=== PATIENT | male | born 1935 | race Caucasian/White ===

== ENCOUNTER 2017-12-06 10:21 | Inpatient (IN) ==
--- NOTE | 2017-12-06 11:00 | Emergency Department Note ---
Disposition Clinical Impression: Hyperkalemia, Pedal edema ARF (acute renal failure) Qualifiers: Acute renal failure type: unspecified Qualified Code(s): N17.9 - Acute kidney failure, unspecified Disposition: Admitted As Inpatient Condition: Fair Time of Disposition: 13:27 Recheck wound or abnormal lab - General Chief Complaint: ED Recheck/Abnormal Lab/Rx Stated Complaint: Abnormal labs Time Seen by Provider: 12/06/17 10:30 Source: patient Mode of arrival: ambulatory Limitations: no limitations Nursing Notes Reviewed: Yes Vital Signs Reviewed: Yes - History of Present Illness HPI Narrative: I have re-performed and reviewed the history documented by the medical student, and I confirm its accuracy except as noted below Agree with student history of present illness. In summary, patient has new acute renal failure. Only new medication recently was azithromycin. No other new medication changes. His lower extremity edema that is chronic for the past 15 years, unchanged. Did have recent upper respiratory infection within the past 2 weeks, nausea, vomiting with past week. Both of these have now resolved. No history of CKD per patient. - Related Data Home Medications Medication Instructions Recorded Confirmed Amlodipine Besylate 10 mg PO DAILY 12/06/17 12/06/17 Aspirin Enteric Coated [Aspirin EC] 81 mg PO DAILY 12/06/17 12/06/17 Atorvastatin [Lipitor] 40 mg PO HS 12/06/17 12/06/17 Furosemide [Lasix] 40 mg PO DAILY 12/06/17 12/06/17 Lisinopril [Zestril] 20 mg PO DAILY 12/06/17 12/06/17 Metformin HCl 500 mg PO BID 12/06/17 12/06/17 Metoprolol [Lopressor] 50 mg PO BID 12/06/17 12/06/17 Terazosin HCl 10 mg PO BID 12/06/17 12/06/17 Timolol Maleate 0.5% [Timolol 1 drop OP DAILY 12/06/17 12/06/17 Maleate 0.5%] Tramadol HCl [Ultram] 50 mg PO QID PRN 12/06/17 12/06/17 Allergies Allergy/AdvReac Type Severity Reaction Status Date / Time Penicillins AdvReac Rash Verified 12/06/17 10:41 All systems ED: reviewed and negative except as stated. Constitutional: Denies: fever Cardiovascular: Denies: chest pain, palpitations Respiratory: Reports: cough, dyspnea. Denies: wheezes, sputum production Gastrointestinal: Reports: nausea, vomiting. Denies: abdominal pain, diarrhea, constipation Genitourinary: Reports: frequency. Denies: urgency, dysuria, hematuria, discharge, testicular pain, testicular mass Neurological: Denies: headache, weakness, numbness, paresthesias Past Medical History - Past Medical History Attestation: Yes The following information was validated with the patient. Source: patient Medical history: Reports: no medical history Physical Exam - General Limitations: no limitations General appearance: alert, in no apparent distress - Head Head exam: atraumatic, normocephalic, normal inspection - Eye Eye exam: Present: normal appearance, PERRL, EOMI - ENT ENT exam: normal exam, normal oropharynx, mucous membranes moist - Neck Neck exam: Present: normal inspection, full ROM, trachea midline - Chest Chest inspection: Present: normal inspection, symmetric chest wall rise - Respiratory Respiratory exam: Present: normal lung sounds bilaterally - Cardiovascular Cardiovascular exam: Present: regular rate, normal rhythm, normal heart sounds - Abdominal Exam Abdominal exam: Present: soft, Non-Tender. Absent: tenderness, distention, guarding, rebound, rigidity - Extremities Exam Extremities exam: Present: normal inspection, full ROM, pedal edema ( Significant pitting pedal edema bilateral lower extremities). Absent: tenderness - Neurological Exam Neurological exam: Present: alert, oriented X3 - Psychiatric Psychiatric exam: Present: normal affect, normal mood - Skin Skin exam: Present: warm, dry, intact, normal color Course Course Narrative: Vitals within normal limits. Labs reviewed and showed a creatinine of 12, new onset on 12/05/17. Physical exam fairly benign except for significant bilateral lower extremity pitting edema and the patient states is chronic and near baseline for him. We will repeat labs here including CBC, BMP, troponin, BNP. We will perform EKG also perform chest x-ray due to recent acute renal failure and history of recent dyspnea. Patient currently denies any symptoms now. 13:25 chest x-ray negative for any acute cardio pulmonary process. EKG showed no acute ST changes. Potassium 6.2. Creatinine 12.36. Currently waiting on nephrology called back to discuss acute renal failure and hyperkalemia. 14:09 spoke with John Tsang, freezing room worker. Discussed case. He has requested that we put in a temporary dialysis catheter with interventional radiology, plans to dialyze. We will go ahead and give the patient calcium gluconate, insulin and glucose for hyperkalemia. 15:[address] Carty. Chest X-Ray 12/06/17 11:52 IMPRESSION: No acute cardiopulmonary disease D/ / Jose Carlos Avila MD / Jose Carlos Avila MD Interpreting Provider: Jose Carlos Avila MD Vital Signs Temperature 97.7 F 12/06/17 10:37 Pulse Rate 71 12/06/17 10:37 Respiratory Rate 16 12/06/17 10:37 Blood Pressure 187/84 12/06/17 10:37 O2 Sat by Pulse Oximetry 97 12/06/17 10:37 Temperature 97.7 F 12/06/17 16:46 Pulse Rate 67 12/06/17 16:46 Respiratory Rate 18 12/06/17 16:46 Blood Pressure 180/85 12/06/17 16:46 O2 Sat by Pulse Oximetry 97 12/06/17 16:46 Oxygen Delivery Oxygen Delivery Room Air Recheck wound or abnormal lab - MDM Narrative Medical decision making narrative: Vitals within normal limits. Labs reviewed and showed a creatinine of 12, new onset on 12/05/17. Physical exam fairly benign except for significant bilateral lower extremity pitting edema and the patient states is chronic and near baseline for him. We will repeat labs here including CBC, BMP, troponin, BNP. We will perform EKG also perform chest x-ray due to recent acute renal failure and history of recent dyspnea. Patient currently denies any symptoms now. 13:25 chest x-ray negative for any acute cardio pulmonary process. EKG showed no acute ST changes. Potassium 6.2. Creatinine 12.36. Currently waiting on nephrology called back to discuss acute renal failure and hyperkalemia. 14:09 spoke with John Tsang, freezing room worker. Discussed case. He has requested that we put in a temporary dialysis catheter with interventional radiology, plans to dialyze. We will go ahead and give the patient calcium gluconate, insulin and glucose for hyperkalemia. 15:[address] Carty. - Medical Records Medical records reviewed: Yes I reviewed the patient's medical records. - Lab Data Lab results reviewed: Yes I reviewed the patient's lab results. Result diagrams: 12/06/17 11:48 12/06/17 11:48 Lab Results 12/06/17 12/06/17 12/06/17 Range/Units 11:48 11:48 11:48 WBC 9.1 (4.3-11.1) K/mcL RBC 3.86 L (4.19-5.50) M/mcL Hgb 12.2 L (12.9-16.9) g/dL Hct 36.7 L (37.5-50.1) % MCV 95.1 (83.0-100.0) fL MCH 31.6 (28.0-33.3) pg MCHC 33.2 (31.6-35.5) g/dL RDW 12.7 (11.5-14.5) % Plt Count 147 (140-400) K/mcL MPV 11.6 (9.4-12.4) fL Immature Gran % 0.3 (0-4) % Seg Neutrophils % 66.0 % Lymphocytes % 22.5 % Monocytes % 8.3 % Eosinophils % 2.5 % Basophils % 0.4 % Neutrophils # 6.0 (1.6-8.9) K/mcL Lymphocytes # 2.0 (0.6-4.6) K/mcL Monocytes # 0.8 (0.0-1.3) K/mcL Eosinophils # 0.2 (0.0-0.6) K/mcL Basophils # 0.0 (0.0-0.2) K/mcL PT (9.4-12.1) Seconds INR APTT (26.0-36.0) Seconds Sodium 139 (136-145) mEq/L Potassium 6.2 H (3.5-5.1) mEq/L Chloride 110 H (98-107) mEq/L Carbon Dioxide 14 L (23-29) mEq/L BUN 110 H (8-23) mg/dL Creatinine 12.36 H (0.70-1.30) mg/dL Est GFR ( Amer) 5 L (> 60) Est GFR (Non-Af Amer) 4 L (> 60) BUN/Creatinine Ratio 9 (6-26) Glucose 111 H (70-105) mg/dL Calculated Osmolality 323 H (280-300) Calcium 9.4 (8.6-10.3) mg/dL Troponin I < 0.03 (< 0.04) ng/mL B-Natriuretic Peptide 378 H (Less than 100) pg/mL Urine Color (Yellow) Urine Clarity (Clear) Urine pH (5.0-8.0) pH Units Ur Specific [place] (1.010-1.025) Urine Protein (Neg-Trace) mg/dL Urine Glucose (UA) (Normal) mg/dL Urine Ketones (Negative) mg/dL Urine Blood (Negative) Urine Nitrite (Negative) Urine Bilirubin (Negative) Urine Urobilinogen (Normal) mg/dL Ur Leukocyte Esterase (Negative) Urine Microscopic RBC (0-3) per hpf Urine Microscopic WBC (0-3) per hpf Ur Squamous Epith Cells (None-Few) per lpf Urine Bacteria (None-Few) per hpf Hyaline Casts (None-Few) per lpf Ur Culture Indicated? (NO) Hep Bs Antigen (Nonreactive) Hep Bs Antibody mIU/mL 12/06/17 12/06/17 12/06/17 Range/Units 11:48 11:48 12:15 WBC (4.3-11.1) K/mcL RBC (4.19-5.50) M/mcL Hgb (12.9-16.9) g/dL Hct (37.5-50.1) % MCV (83.0-100.0) fL MCH (28.0-33.3) pg MCHC (31.6-35.5) g/dL RDW (11.5-14.5) % Plt Count (140-400) K/mcL MPV (9.4-12.4) fL Immature Gran % (0-4) % Seg Neutrophils % % Lymphocytes % % Monocytes % % Eosinophils % % Basophils % % Neutrophils # (1.6-8.9) K/mcL Lymphocytes # (0.6-4.6) K/mcL Monocytes # (0.0-1.3) K/mcL Eosinophils # (0.0-0.6) K/mcL Basophils # (0.0-0.2) K/mcL PT 11.4 (9.4-12.1) Seconds INR 1.0 APTT 27.8 (26.0-36.0) Seconds Sodium (136-145) mEq/L Potassium (3.5-5.1) mEq/L Chloride (98-107) mEq/L Carbon Dioxide (23-29) mEq/L BUN (8-23) mg/dL Creatinine (0.70-1.30) mg/dL Est GFR ( Amer) (> 60) Est GFR (Non-Af Amer) (> 60) BUN/Creatinine Ratio (6-26) Glucose (70-105) mg/dL Calculated Osmolality (280-300) Calcium (8.6-10.3) mg/dL Troponin I (< 0.04) ng/mL B-Natriuretic Peptide (Less than 100) pg/mL Urine Color Yellow (Yellow) Urine Clarity Clear (Clear) Urine pH 6.0 (5.0-8.0) pH Units Ur Specific [place] 1.013 (1.010-1.025) Urine Protein Negative (Neg-Trace) mg/dL Urine Glucose (UA) Normal (Normal) mg/dL Urine Ketones Negative (Negative) mg/dL Urine Blood Moderate H (Negative) Urine Nitrite Negative (Negative) Urine Bilirubin Negative (Negative) Urine Urobilinogen Normal (Normal) mg/dL Ur Leukocyte Esterase Negative (Negative) Urine Microscopic RBC 5-15 H (0-3) per hpf Urine Microscopic WBC 0-3 (0-3) per hpf Ur Squamous Epith Cells None Seen (None-Few) per lpf Urine Bacteria None Seen (None-Few) per hpf Hyaline Casts None Seen (None-Few) per lpf Ur Culture Indicated? NO (NO) Hep Bs Antigen Nonreactive (Nonreactive) Hep Bs Antibody 0.00 mIU/mL - Radiology Data Radiology results reviewed: Yes I reviewed the patient's radiology results. Chest X-Ray 12/06/17 11:52 IMPRESSION: No acute cardiopulmonary disease D/ / Jose Carlos Avila MD / Jose Carlos Avila MD Interpreting Provider: Jose Carlos Avila MD - EKG Data EKG attestation: Yes I reviewed and interpreted this EKG. EKG results narrative: Was 12/06/2017 at 12:21. Normal sinus rhythm. Heart rate 58. SC 237. QTC 418. Normal axis elevation or depression. S.B.A.R. - S.B.A.R. Situation: Demographics, MOA Background: Presenting Complaint, Relevant PMH, Meds, & Allergies Assessment: Vital Signs, Course and respsone to treatment, Exam Concerns, Patient/Family Expectation, Pertinant Lab Results Recommendation: Barrier(s) to disposition, Recommendation based on pending studies, treatments, or consults S.B.A.R. Report Given to: Dr. Carty
--- NOTE | 2017-12-06 11:10 | Emergency Department Note ---
Disposition Clinical Impression: Hyperkalemia, Pedal edema ARF (acute renal failure) Qualifiers: Acute renal failure type: unspecified Qualified Code(s): N17.9 - Acute kidney failure, unspecified Disposition: Admitted As Inpatient Condition: Fair General Adult HPI - General Chief complaint: ED Recheck/Abnormal Lab/Rx Stated complaint: Abnormal labs Time Seen by Provider: 12/06/17 10:30 Source: patient Mode of arrival: ambulatory Limitations: no limitations - History of Present Illness HPI Narrative: Patient is an 82 year old male with history of HTN, DM, Hyperlipidemia, and prostate CA (last treatment was 1.5 years ago, 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 Patient states he does not recall if she told him any specific lab values. Patient reports having chest congestion 2 weeks ago, for which the INSTITUTIONAL COOK gave Zithromax tapering doses, patient took last dose yesterday. He states he also had recurrent nausea and nonbloody vomiting for about 1 week while the patient was on Zithromax, he was unsure whether it was due to the zithromax or because he also had a "stomach bug". States that the vomiting and diarrhea have resolved. Reports chronic bilateral lower extremity swelling, which is worse over the past few months, denies any leg or calf pain; Patient reports nocturia , states he urinates 6x per night, however urinates "normal amount" during the day for the past 6 years, and states symptoms have not worsened recently; Patient denies any dysuria, hematuria, incontinence, urinary retention; Denies abdominal pain, melena, hematochezia, constipation. Denies fevers, chills, weakness, malaise; Reports history of chronic back pain, which he states has not worsened recently. Patient is currently taking Amlodipine 10 mg PO, Metoprolol 50 mg PO, Lisinopril 20 mg PO and Furosemide 40 mg PO once daily. States his blood pressure medications or doses have not been changed in the past 1 year. Pain Scale: 0 - Related Data Home Medications Medication Instructions Recorded Confirmed Amlodipine Besylate 10 mg PO DAILY 12/06/17 12/06/17 Aspirin Enteric Coated [Aspirin EC] 81 mg PO DAILY 12/06/17 12/06/17 Atorvastatin [Lipitor] 40 mg PO HS 12/06/17 12/06/17 Furosemide [Lasix] 40 mg PO DAILY 12/06/17 12/06/17 Lisinopril [Zestril] 20 mg PO DAILY 12/06/17 12/06/17 Metformin HCl 500 mg PO BID 12/06/17 12/06/17 Metoprolol [Lopressor] 50 mg PO BID 12/06/17 12/06/17 Terazosin HCl 10 mg PO BID 12/06/17 12/06/17 Timolol Maleate 0.5% [Timolol 1 drop OP DAILY 12/06/17 12/06/17 Maleate 0.5%] Tramadol HCl [Ultram] 50 mg PO QID PRN 12/06/17 12/06/17 Allergies Allergy/AdvReac Type Severity Reaction Status Date / Time Penicillins AdvReac Rash Verified 12/06/17 10:41 Cardiovascular: Reports: dyspnea on exertion (is chronic, not worsened recently) . Denies: chest pain, palpitations, edema, syncope, paroxysmal nocturnal dyspnea Respiratory: Denies: cough, dyspnea, wheezes, hemoptysis, stridor Gastrointestinal: Reports: as per HPI Genitourinary: Reports: as per HPI Musculoskeletal: Reports: back pain (chronic) Neurological: Denies: headache, numbness, paresthesias, confusion, abnormal gait Past Medical History - Past Medical History Medical history: Reports: diabetes, hyperlipidemia, hypertension, other ( prostate CA - last treatment 15 years ago, no chemo or radiation; in remission at this time) Surgical history: Reports: other (surgery to have placement of permacath for medications (for prostate CA) in right upper arm) Physical Exam - General Limitations: no limitations General appearance: alert, in no apparent distress - Head Head exam: atraumatic, normocephalic - Eye Eye exam: Present: normal appearance, PERRL, EOMI - ENT ENT exam: normal oropharynx, mucous membranes dry - Neck Neck exam: Present: normal inspection, trachea midline - Chest Chest inspection: Present: normal inspection, symmetric chest wall rise. Absent : tenderness - Respiratory Respiratory exam: Present: normal lung sounds bilaterally. Absent: respiratory distress, wheezes, prolonged expiratory phase - Cardiovascular Cardiovascular exam: Present: regular rate, normal rhythm, normal heart sounds, +S1, +S2. Absent: tachycardia, irregular rhythm, rubs, gallop - Abdominal Exam Abdominal exam: Present: soft, tenderness (suprapubic; no guarding or rebound), normal bowel sounds. Absent: rigidity, ascites Abdominal tenderness: Present: suprapubic - Expanded Lower Extremity Exam Lower leg exam: Present: other (2+ pitting edema of bilateral legs and feet; both feet are equally arm; Distal pulses 2+ bilaterally) Course Vital Signs Temperature 97.7 F 12/06/17 10:37 Pulse Rate 71 12/06/17 10:37 Respiratory Rate 16 12/06/17 10:37 Blood Pressure 187/84 12/06/17 10:37 O2 Sat by Pulse Oximetry 97 12/06/17 10:37 Temperature 97.7 F 12/06/17 16:46 Pulse Rate 67 12/06/17 16:46 Respiratory Rate 18 12/06/17 16:46 Blood Pressure 180/85 12/06/17 16:46 O2 Sat by Pulse Oximetry 97 12/06/17 16:46 Oxygen Delivery Oxygen Delivery Room Air Medical Decision Making - Lab Data Result diagrams: 12/06/17 11:48 12/06/17 11:48 Lab Results 12/06/17 12/06/17 12/06/17 Range/Units 11:48 11:48 11:48 WBC 9.1 (4.3-11.1) K/mcL RBC 3.86 L (4.19-5.50) M/mcL Hgb 12.2 L (12.9-16.9) g/dL Hct 36.7 L (37.5-50.1) % MCV 95.1 (83.0-100.0) fL MCH 31.6 (28.0-33.3) pg MCHC 33.2 (31.6-35.5) g/dL RDW 12.7 (11.5-14.5) % Plt Count 147 (140-400) K/mcL MPV 11.6 (9.4-12.4) fL Immature Gran % 0.3 (0-4) % Seg Neutrophils % 66.0 % Lymphocytes % 22.5 % Monocytes % 8.3 % Eosinophils % 2.5 % Basophils % 0.4 % Neutrophils # 6.0 (1.6-8.9) K/mcL Lymphocytes # 2.0 (0.6-4.6) K/mcL Monocytes # 0.8 (0.0-1.3) K/mcL Eosinophils # 0.2 (0.0-0.6) K/mcL Basophils # 0.0 (0.0-0.2) K/mcL PT (9.4-12.1) Seconds INR APTT (26.0-36.0) Seconds Sodium 139 (136-145) mEq/L Potassium 6.2 H (3.5-5.1) mEq/L Chloride 110 H (98-107) mEq/L Carbon Dioxide 14 L (23-29) mEq/L BUN 110 H (8-23) mg/dL Creatinine 12.36 H (0.70-1.30) mg/dL Est GFR ( Amer) 5 L (> 60) Est GFR (Non-Af Amer) 4 L (> 60) BUN/Creatinine Ratio 9 (6-26) Glucose 111 H (70-105) mg/dL Calculated Osmolality 323 H (280-300) Calcium 9.4 (8.6-10.3) mg/dL Troponin I < 0.03 (< 0.04) ng/mL B-Natriuretic Peptide 378 H (Less than 100) pg/mL Urine Color (Yellow) Urine Clarity (Clear) Urine pH (5.0-8.0) pH Units Ur Specific [place] (1.010-1.025) Urine Protein (Neg-Trace) mg/dL Urine Glucose (UA) (Normal) mg/dL Urine Ketones (Negative) mg/dL Urine Blood (Negative) Urine Nitrite (Negative) Urine Bilirubin (Negative) Urine Urobilinogen (Normal) mg/dL Ur Leukocyte Esterase (Negative) Urine Microscopic RBC (0-3) per hpf Urine Microscopic WBC (0-3) per hpf Ur Squamous Epith Cells (None-Few) per lpf Urine Bacteria (None-Few) per hpf Hyaline Casts (None-Few) per lpf Ur Culture Indicated? (NO) Hep Bs Antigen (Nonreactive) Hep Bs Antibody mIU/mL 12/06/17 12/06/17 12/06/17 Range/Units 11:48 11:48 12:15 WBC (4.3-11.1) K/mcL RBC (4.19-5.50) M/mcL Hgb (12.9-16.9) g/dL Hct (37.5-50.1) % MCV (83.0-100.0) fL MCH (28.0-33.3) pg MCHC (31.6-35.5) g/dL RDW (11.5-14.5) % Plt Count (140-400) K/mcL MPV (9.4-12.4) fL Immature Gran % (0-4) % Seg Neutrophils % % Lymphocytes % % Monocytes % % Eosinophils % % Basophils % % Neutrophils # (1.6-8.9) K/mcL Lymphocytes # (0.6-4.6) K/mcL Monocytes # (0.0-1.3) K/mcL Eosinophils # (0.0-0.6) K/mcL Basophils # (0.0-0.2) K/mcL PT 11.4 (9.4-12.1) Seconds INR 1.0 APTT 27.8 (26.0-36.0) Seconds Sodium (136-145) mEq/L Potassium (3.5-5.1) mEq/L Chloride (98-107) mEq/L Carbon Dioxide (23-29) mEq/L BUN (8-23) mg/dL Creatinine (0.70-1.30) mg/dL Est GFR ( Amer) (> 60) Est GFR (Non-Af Amer) (> 60) BUN/Creatinine Ratio (6-26) Glucose (70-105) mg/dL Calculated Osmolality (280-300) Calcium (8.6-10.3) mg/dL Troponin I (< 0.04) ng/mL B-Natriuretic Peptide (Less than 100) pg/mL Urine Color Yellow (Yellow) Urine Clarity Clear (Clear) Urine pH 6.0 (5.0-8.0) pH Units Ur Specific [place] 1.013 (1.010-1.025) Urine Protein Negative (Neg-Trace) mg/dL Urine Glucose (UA) Normal (Normal) mg/dL Urine Ketones Negative (Negative) mg/dL Urine Blood Moderate H (Negative) Urine Nitrite Negative (Negative) Urine Bilirubin Negative (Negative) Urine Urobilinogen Normal (Normal) mg/dL Ur Leukocyte Esterase Negative (Negative) Urine Microscopic RBC 5-15 H (0-3) per hpf Urine Microscopic WBC 0-3 (0-3) per hpf Ur Squamous Epith Cells None Seen (None-Few) per lpf Urine Bacteria None Seen (None-Few) per hpf Hyaline Casts None Seen (None-Few) per lpf Ur Culture Indicated? NO (NO) Hep Bs Antigen Nonreactive (Nonreactive) Hep Bs Antibody 0.00 mIU/mL
[2017-12-06 12:03] LABS: Basophils % 0.4 %; Eosinophils # 0.2 K/mcL (0.0-0.6); Eosinophils % 2.5 %; Hematocrit 36.7 % (37.5-50.1); Hemoglobin 12.2 g/dL (12.9-16.9); Immature Granulocytes % 0.3 % (0-4); Lymphocytes % 22.5 %; Mean Corpuscular HGB Conc 33.2 g/dL (31.6-35.5); Mean Corpuscular Hemoglobin 31.6 pg (28.0-33.3); Mean Corpuscular Volume 95.1 fL (83.0-100.0); Mean Platelet Volume 11.6 fL (9.4-12.4); Monocytes # 0.8 K/mcL (0.0-1.3); Monocytes % 8.3 %; Platelet Count 147 K/mcL (140-400); Red Blood Count 3.86 M/mcL (4.19-5.50); Red Cell Distribution Width 12.7 % (11.5-14.5)
[2017-12-06] MEDS ORDERED: 0.9 % Sodium Chloride 1,000 ML IVC ONE (12:10)
--- NOTE | 2017-12-06 12:11 | Emergency Department Note ---
Disposition Clinical Impression: ARF (acute renal failure), Hyperkalemia, Pedal edema Disposition: Admitted As Inpatient Condition: Fair Referrals: Lucero Herrera CNP [Primary Care Provider] - Forms: ED Satisfaction Letter General Adult HPI - General Chief complaint: ED Recheck/Abnormal Lab/Rx Stated complaint: Abnormal labs Time Seen by Provider: 12/06/17 10:30 Source: patient Mode of arrival: ambulatory Limitations: no limitations - History of Present Illness Pain Scale: 0 - Related Data Home Medications Medication Instructions Recorded Confirmed Amlodipine Besylate 10 mg PO DAILY 12/06/17 12/06/17 Aspirin Enteric Coated [Aspirin EC] 81 mg PO DAILY 12/06/17 12/06/17 Atorvastatin [Lipitor] 40 mg PO HS 12/06/17 12/06/17 Furosemide [Lasix] 40 mg PO DAILY 12/06/17 12/06/17 Lisinopril [Zestril] 20 mg PO DAILY 12/06/17 12/06/17 Metformin HCl 500 mg PO BID 12/06/17 12/06/17 Metoprolol [Lopressor] 50 mg PO BID 12/06/17 12/06/17 Terazosin HCl 10 mg PO BID 12/06/17 12/06/17 Timolol Maleate 0.5% [Timolol 1 drop OP DAILY 12/06/17 12/06/17 Maleate 0.5%] Tramadol HCl [Ultram] 50 mg PO QID PRN 12/06/17 12/06/17 Allergies Allergy/AdvReac Type Severity Reaction Status Date / Time Penicillins AdvReac Rash Verified 12/06/17 10:41 Constitutional: Denies: fever Cardiovascular: Denies: chest pain, palpitations Respiratory: Reports: cough, dyspnea. Denies: wheezes, sputum production Gastrointestinal: Reports: nausea, vomiting. Denies: abdominal pain, diarrhea, constipation Genitourinary: Reports: frequency. Denies: urgency, dysuria, hematuria, discharge, testicular pain, testicular mass Musculoskeletal: Reports: back pain (chronic) Neurological: Denies: headache, weakness, numbness, paresthesias Past Medical History - Past Medical History Medical history: Reports: no medical history Surgical history: Reports: other (surgery to have placement of permacath for medications (for prostate CA) in right upper arm) Psychiatric history: Reports: no psych history - Social History Smoking Status: Former smoker Alcohol use: Reports: none Drug use: Reports: none Physical Exam - General Limitations: no limitations General appearance: alert, in no apparent distress Course Vital Signs Temperature 97.7 F 12/06/17 10:37 Pulse Rate 71 12/06/17 10:37 Respiratory Rate 16 12/06/17 10:37 Blood Pressure 187/84 12/06/17 10:37 O2 Sat by Pulse Oximetry 97 12/06/17 10:37 Temperature 97.7 F 12/06/17 11:07 Pulse Rate 65 12/06/17 12:55 Respiratory Rate 14 12/06/17 12:55 Blood Pressure 157/88 12/06/17 12:55 O2 Sat by Pulse Oximetry 98 12/06/17 12:55 Oxygen Delivery Oxygen Delivery Room Air Medical Decision Making - Lab Data Result diagrams: 12/06/17 11:48 12/06/17 11:48 Lab Results 12/06/17 12/06/17 12/06/17 Range/Units 11:48 11:48 11:48 WBC 9.1 (4.3-11.1) K/mcL RBC 3.86 L (4.19-5.50) M/mcL Hgb 12.2 L (12.9-16.9) g/dL Hct 36.7 L (37.5-50.1) % MCV 95.1 (83.0-100.0) fL MCH 31.6 (28.0-33.3) pg MCHC 33.2 (31.6-35.5) g/dL RDW 12.7 (11.5-14.5) % Plt Count 147 (140-400) K/mcL MPV 11.6 (9.4-12.4) fL Immature Gran % 0.3 (0-4) % Seg Neutrophils % 66.0 % Lymphocytes % 22.5 % Monocytes % 8.3 % Eosinophils % 2.5 % Basophils % 0.4 % Neutrophils # 6.0 (1.6-8.9) K/mcL Lymphocytes # 2.0 (0.6-4.6) K/mcL Monocytes # 0.8 (0.0-1.3) K/mcL Eosinophils # 0.2 (0.0-0.6) K/mcL Basophils # 0.0 (0.0-0.2) K/mcL PT (9.4-12.1) Seconds INR APTT (26.0-36.0) Seconds Sodium 139 (136-145) mEq/L Potassium 6.2 H (3.5-5.1) mEq/L Chloride 110 H (98-107) mEq/L Carbon Dioxide 14 L (23-29) mEq/L BUN 110 H (8-23) mg/dL Creatinine 12.36 H (0.70-1.30) mg/dL Est GFR ( Amer) 5 L (> 60) Est GFR (Non-Af Amer) 4 L (> 60) BUN/Creatinine Ratio 9 (6-26) Glucose 111 H (70-105) mg/dL Calculated Osmolality 323 H (280-300) Calcium 9.4 (8.6-10.3) mg/dL Troponin I < 0.03 (< 0.04) ng/mL B-Natriuretic Peptide 378 H (Less than 100) pg/mL Urine Color (Yellow) Urine Clarity (Clear) Urine pH (5.0-8.0) pH Units Ur Specific [place] (1.010-1.025) Urine Protein (Neg-Trace) mg/dL Urine Glucose (UA) (Normal) mg/dL Urine Ketones (Negative) mg/dL Urine Blood (Negative) Urine Nitrite (Negative) Urine Bilirubin (Negative) Urine Urobilinogen (Normal) mg/dL Ur Leukocyte Esterase (Negative) Urine Microscopic RBC (0-3) per hpf Urine Microscopic WBC (0-3) per hpf Ur Squamous Epith Cells (None-Few) per lpf Urine Bacteria (None-Few) per hpf Hyaline Casts (None-Few) per lpf Ur Culture Indicated? (NO) 12/06/17 12/06/17 Range/Units 11:48 12:15 WBC (4.3-11.1) K/mcL RBC (4.19-5.50) M/mcL Hgb (12.9-16.9) g/dL Hct (37.5-50.1) % MCV (83.0-100.0) fL MCH (28.0-33.3) pg MCHC (31.6-35.5) g/dL RDW (11.5-14.5) % Plt Count (140-400) K/mcL MPV (9.4-12.4) fL Immature Gran % (0-4) % Seg Neutrophils % % Lymphocytes % % Monocytes % % Eosinophils % % Basophils % % Neutrophils # (1.6-8.9) K/mcL Lymphocytes # (0.6-4.6) K/mcL Monocytes # (0.0-1.3) K/mcL Eosinophils # (0.0-0.6) K/mcL Basophils # (0.0-0.2) K/mcL PT 11.4 (9.4-12.1) Seconds INR 1.0 APTT 27.8 (26.0-36.0) Seconds Sodium (136-145) mEq/L Potassium (3.5-5.1) mEq/L Chloride (98-107) mEq/L Carbon Dioxide (23-29) mEq/L BUN (8-23) mg/dL Creatinine (0.70-1.30) mg/dL Est GFR ( Amer) (> 60) Est GFR (Non-Af Amer) (> 60) BUN/Creatinine Ratio (6-26) Glucose (70-105) mg/dL Calculated Osmolality (280-300) Calcium (8.6-10.3) mg/dL Troponin I (< 0.04) ng/mL B-Natriuretic Peptide (Less than 100) pg/mL Urine Color Yellow (Yellow) Urine Clarity Clear (Clear) Urine pH 6.0 (5.0-8.0) pH Units Ur Specific [place] 1.013 (1.010-1.025) Urine Protein Negative (Neg-Trace) mg/dL Urine Glucose (UA) Normal (Normal) mg/dL Urine Ketones Negative (Negative) mg/dL Urine Blood Moderate H (Negative) Urine Nitrite Negative (Negative) Urine Bilirubin Negative (Negative) Urine Urobilinogen Normal (Normal) mg/dL Ur Leukocyte Esterase Negative (Negative) Urine Microscopic RBC 5-15 H (0-3) per hpf Urine Microscopic WBC 0-3 (0-3) per hpf Ur Squamous Epith Cells None Seen (None-Few) per lpf Urine Bacteria None Seen (None-Few) per hpf Hyaline Casts None Seen (None-Few) per lpf Ur Culture Indicated? NO (NO) Critical Care Time Critical Care Time: Yes Total Critical Care Time: 45 Attestation: Critical care performed: Time is exclusive of separately billable procedures. Time includes: direct patient care, patient reassessment, coordination of patient care, interpretation of data (laboratory data, radiology data, and respiratory data), review of patient's medical records, medical consultation and documentation of patient care. Procedures included in critical care time: Procedures excluded from critical care time: Attestation Statement - Attestation Attestation: I examined this patient and my medical decision-making was reviewed with the Resident Physician. I agree with the documented findings, disposition and treatment plan as described except to the extent set forth below. Patient presents to the ED with a chief complaint of elevated renal function. Patient had outpatient labs done yesterday. He had just gotten over an upper respiratory infection. States he took his last antibiotic yesterday. He had some vomiting and diarrhea that resolved. He had not been eating well during that time. Patient states he feels fine today. On exam he is in no acute distress sitting up in bed. Abdomen soft. Lungs clear. He has noted to have bilateral pedal edema. Plan. Cardiac workup. Bedside ultrasound does not show a distended bladder. He has reported normal urinary patterns. He has a history of prostate cancer with TURP. Labs pending. Patient will be admitted. Patient admitted. IR placing dialysis catheter. Hyprkalemia cocktail given.
[2017-12-06 12:29] LABS: Bilirubin,Urine Negative (Negative); Blood,Urine Moderate (Negative); Clarity,Urine Clear (Clear); Color,Urine Yellow (Yellow); Glucose,Urine (UA) Normal (Normal); Ketones,Urine Negative (Negative); Leukocyte Esterase,Urine Negative (Negative); Nitrite,Urine Negative (Negative); Protein,Urine Negative (Neg-Trace); Specific Gravity,Urine 1.013 (1.010-1.025); Urobilinogen,Urine Normal (Normal)
[2017-12-06 12:34] LABS: Bacteria,Urine None Seen per hpf (None-Few); Hyaline Casts,Urine None Seen per lpf (None-Few); Squamous Epithelial Cell,Urine None Seen per lpf (None-Few); WBC,Urine 0-3 per hpf (0-3)
[2017-12-06 12:47] LABS: BUN/Creatinine Ratio 9 (6-26); Blood Urea Nitrogen 110 mg/dL (8-23); Calcium 9.4 mg/dL (8.6-10.3); Carbon Dioxide 14 mEq/L (23-29); Chloride 110 mEq/L (98-107); Glucose 111 mg/dL (70-105); Osmolality,Calculated 323 (280-300); Potassium 6.2 mEq/L (3.5-5.1); Sodium 139 mEq/L (136-145); eGFR For Non-African Americans 4 (> 60)
[2017-12-06 12:54] LABS: Troponin I < 0.03 ng/mL (< 0.04)
[2017-12-06] MEDS ORDERED: Insulin Human Regular 10 UNIT in 0.9 % Sodium Chloride 10 ML IV ONE (14:07)
[2017-12-06] MEDS ORDERED: *HR* Dextrose 50 % in Water (Syg) 50 ML SYRINGE IVP ONE (14:07)
[2017-12-06 14:34] LABS: Prothrombin Time 11.4 Seconds (9.4-12.1)
[2017-12-06 14:37] LABS: Activated Partial Thrombo Time 27.8 Seconds (26.0-36.0)
[2017-12-06 14:53] LABS: Hepatitis B Surface Antigen Nonreactive (Nonreactive)
[2017-12-06] MEDS ORDERED: *HR* Heparin 5,000 UNIT/ML VIAL ONE (14:58)
--- NOTE | 2017-12-06 15:17 | Nephrology Consult Note ---
Date of Encounter: 12/06/17 Time of Encounter: 15:03 Assessment and Plan (1) ARF (acute renal failure) Current Visit: Yes Status: Acute No kidney disease at baseline. Scr is 12.36. GFR is 4. Approximately 500 cc of NS given in ED. Avoid nephrotoxins and renal dose all medications. IR at bedside to place temp line for HD today. Strict I/O Hold Metformin, Lisinopril, Lasix Qualifiers: Acute renal failure type: unspecified Qualified Code(s): N17.9 - Acute kidney failure, unspecified (2) Hyperkalemia Current Visit: Yes Status: Acute K is 6.2, will correct with HD today. (3) Pedal edema Current Visit: Yes Status: Acute Strict I/O. History of Present Illness - Reason for Consult Consult date: 12/06/17 Acute Kidney Injury - Chief Complaint worsening renal labs - History of Present Illness Mr. Herrera is an 82 year old Male with PMH: Prostate Ca with Turn and chronic bilateral lower extremity swelling. He presented to ED for worsening renal function per his PCP. He had an upper respiratory infection and per the ED record was given Azithromycin. He developed persistent nausea,vomiting, and diarrhea for the past 7 days. No melena or Ramiro red blood in stool. No hematemesis. Denies hematuria, dysuria, or frequency. No kidney disease at baseline and has never seen a sieve grader tender before. Denies frequent use of NSAIDS. Is on Metformin, Lisionpril, and Lasix at home, would recommend holding those medications until renal recovery. Will initiate ADÁN workup. ADÁN sounds pre-renal and related to dehydration. He lives at home with his daughter. Past Med Surg Social Fam HX - Past Medical History Medical history: no medical history Psychiatric history: no psych history - Past Surgical History Surgical History: other (surgery to have placement of permacath for medications (for prostate CA) in right upper arm) - Social History Smoking Status: Former smoker Alcohol use: none Drug use: none Medications and Allergies Amlodipine Besylate 10 mg PO DAILY 12/06/17 [History] Aspirin Enteric Coated [Aspirin EC] 81 mg PO DAILY 12/06/17 [History] Atorvastatin [Lipitor] 40 mg PO HS 12/06/17 [History] Furosemide [Lasix] 40 mg PO DAILY 12/06/17 [History] Lisinopril [Zestril] 20 mg PO DAILY 12/06/17 [History] Metformin HCl 500 mg PO BID 12/06/17 [History] Metoprolol [Lopressor] 50 mg PO BID 12/06/17 [History] Terazosin HCl 10 mg PO BID 12/06/17 [History] Timolol Maleate 0.5% [Timolol Maleate 0.5%] 1 drop OP DAILY 12/06/17 [History] Tramadol HCl [Ultram] 50 mg PO QID PRN 12/06/17 [History] 3 Allergy/AdvReac Type Severity Reaction Status Date / Time Penicillins AdvReac Rash Verified 12/06/17 10:41 Review of Systems Constitutional: no chills, no fatigue, no fever(s) Cardiovascular: edema, no chest pain, no dyspnea Gastrointestinal: no diarrhea, no nausea, no vomiting Exam - Vital Signs Vital signs: Initial Vital Signs Temp Pulse Resp BP Pulse Ox 97.7 F 71 16 187/84 97 12/06/17 10:37 12/06/17 10:37 12/06/17 10:37 12/06/17 10:37 12/06/17 10:37 Vital Signs - Last 8 Hours Temp Pulse Resp BP Pulse Ox 12/06/17 12:55 65 14 157/88 98 12/06/17 11:07 97.7 F 71 16 187/84 97 12/06/17 10:37 97.7 F 71 16 187/84 97 Intake and Output 12/05/17 12/06/17 12/06/17 23:59 07:59 15:59 Other: Weight 112.4 kg Patient Weight 12/06/17 23:59 Weight 112.4 kg - General Appearance General appearance: well-developed, well-nourished EENT: ATNC, hearing intact, vision intact Neck: supple Respiratory: clear Cardiology: edema (+1 pitting edema noted bilaterally (chronic per patient)), normal S1, normal S2 Gastrointestinal: normoactive bowel sounds, no tenderness, no guarding Integumentary: no rash, warm and dry Neurologic: alert and oriented x3 Psychiatric: mood/affect appropriate, cooperative Results - Lab Results 12/06/17 11:48 12/06/17 11:48 Most recent lab results Calcium 9.4 mg/dL (8.6-10.3) 12/06/17 11:48 Consult Discharge Plan - Plan Referrals: Lucero Herrera, JOSH [Primary Care Provider] -
[2017-12-06] MEDS ORDERED: *HR* Heparin 10,000 UNIT/10 ML VIAL IV PRN (15:29)
[2017-12-06] MEDS ORDERED: 0.9 % Sodium Chloride 250 ML IVC PRN (15:29)
[2017-12-06] MEDS ORDERED: 0.9 % Sodium Chloride 1,000 ML PRIME SCH (15:30)
[2017-12-06] MEDS ORDERED: 0.9 % Sodium Chloride 1,000 ML ONE (15:55)
[2017-12-06] MEDS ORDERED: Acetaminophen 325 MG TABLET PO PRN (16:38)
[2017-12-06] MEDS ORDERED: Naloxone 0.4 MG/ML INJ IVP PRN (16:38)
--- NOTE | 2017-12-06 16:50 | Internal Med History&Physical ---
Date of Encounter: 12/06/17 Time of Encounter: 16:52 Internal Medicine - H&P: HPI Chief complaint: Abnormal labs Admitted From: Emergency Dept Plans for Post Hospital Care: Home History of present illness: Mr. Herrera is a 82 year old male with history of diabetes, coronary artery disease, who presented to the emergency room due to abnormal labs. Patient presented to his PCP about one week ago with upper respiratory symptoms and chest congestion and received treatment with azithromycin along with routine labs. He received a call yesterday stating that he was in kidney failure and advised to present to the emergency room. He reports resolution of his respiratory symptoms with antibiotics. However he did have significant nausea, emesis and diarrhea while he was on the antibiotic , which have currently resolved. Denies chest pain, shortness of breath, palpitations, dizziness or syncope. He does have chronic leg swelling, which seems to have gotten worse recently. He does take Lasix at home. No previous history of kidney problems. Past Med Surg Social Fam HX - Past Medical History Source: patient Medical history: cancer (prostate), CHF, coronary artery disease, diabetes, hyperlipidemia, hypertension Additional medical history: history of prostate cancer. Psychiatric history: no psych history - Past Surgical History Surgical History: appendectomy, coronary bypass (CABG), prostatectomy, other - Social History Smoking Status: Former smoker Smokeless Tobacco Status: No Alcohol use: none Drug use: none Occupational status: retired Current living situation: Home, With Family Activity Level: Uses cane/walker Recent Out of Country Travel Within the Last 8 Weeks: No Exposure or Possible Exposure to Illness During Travel: No - Additional Family History Additional family history: reviewed and found noncontributory Internal Medicine - H&P: Meds Amlodipine Besylate 10 mg PO DAILY 12/06/17 [History] Aspirin Enteric Coated [Aspirin EC] 81 mg PO DAILY 12/06/17 [History] Atorvastatin [Lipitor] 40 mg PO HS 12/06/17 [History] Furosemide [Lasix] 40 mg PO DAILY 12/06/17 [History] Lisinopril [Zestril] 20 mg PO DAILY 12/06/17 [History] Metformin HCl 500 mg PO BID 12/06/17 [History] Metoprolol [Lopressor] 50 mg PO BID 12/06/17 [History] Terazosin HCl 10 mg PO BID 12/06/17 [History] Timolol Maleate 0.5% [Timolol Maleate 0.5%] 1 drop OP DAILY 12/06/17 [History] Tramadol HCl [Ultram] 50 mg PO QID PRN 12/06/17 [History] 3 Allergy/AdvReac Type Severity Reaction Status Date / Time Penicillins AdvReac Rash Verified 12/06/17 10:41 All Systems PM: A 10-system review of systems was performed and is negative for pertinent findings except as documented above in the HPI. - Constitutional Constitutional: weight gain, no chills, no fever(s), no night sweats - EENT Eyes: no change in vision, no discharge, no pain, no photophobia Ears: no ear discharge, no ear pain, no tinnitus Nose, mouth and throat: no dysphagia, no nasal discharge, no neck pain, no sore throat - Cardiovascular Cardiovascular ROS IM: edema, no chest pain, no diaphoresis, no dyspnea, no lightheadedness, no palpitations, no syncope - Respiratory Respiratory: as per HPI, no cough, no dyspnea, no wheezing, no excessive phlegm production - Gastrointestinal Gastrointestinal: diarrhea, nausea, vomiting, no abdominal pain, no hematemesis , no hematochezia, no melena - Musculoskeletal Musculoskeletal ROS IM: no numbness, no tingling - Integumentary Integumentary IM: no rash, no unusual bruising - Neurological Neurological ROS: no confusion, no convulsions, no focal weakness, no numbness, no tingling, no tremor(s) - Hematologic/Lymphatic Hematologic/Lymphatic: no easy bruising - Constitutional Vitals: Temp Pulse Resp BP Pulse Ox 97.7 F 73 17 169/86 96 12/06/17 11:07 12/06/17 15:27 12/06/17 15:27 12/06/17 15:27 12/06/17 15:27 General appearance: Present: A&O X 3, pleasant, answers questions appropriately Exam: . - Respiratory Respiratory exam: Present: CTAB. Absent: accessory muscle use, rales, rhonchi, wheezes - Cardiovascular Cardiovascular exam: Present: RRR, +S1, +S2. Absent: diastolic murmur, gallop, rubs, systolic murmur - GI/Abdominal GI/Abdominal exam: Present: distended ( ), normal bowel sounds, soft (obese), no peritoneal signs. Absent: tenderness - Extremities Exam Extremities exam: Present: full ROM, pedal edema (2+ pitting pedal edema B/L), warm, radial pulses palpable and symmetrical. Absent: calf tenderness, cyanotic - Neurological Exam Neurological exam: Present: CN II-XII intact, oriented X3, no focal deficits. Absent: pronater drift, facial droop, speech deficit - Skin Skin exam: Present: dry, intact Internal Med - H&P Results - Labs CBC & Chem 7: 12/06/17 11:48 12/06/17 11:48 - Assessment and plan (1) Hyperkalemia Current Visit: Yes Status: Acute Assessment and plan: Presented with serum potassium of 6.2 in the setting of acute renal failure and use of SOHA inhibitor. Received cocktail with calcium gluconate, insulin and D50 and albuterol in the emergency room. Plan for hemodialysis today. We will recheck serum potassium, give Kayexalate if he does not get dialysis. Continue telemetry monitoring. EKG reviewed independently-shows normal sinus rhythm, no peaked T waves. (2) ARF (acute renal failure) Current Visit: Yes Status: Acute Assessment and plan: Suspected ATN. It is possible that patient was dehydrated due to vomiting and diarrhea recently in the setting of SOHA inhibitor/diuretic/metformin. These medications are being held for now. He was noted to have normal serum creatinine in 2017. Presents with creatinine of 12.36 at this time, associated with elevated BNP, pedal edema. Nephrology was consulted by ER, patient received temporary hemodialysis catheter , plan for dialysis today. Continue telemetry monitoring. Qualifiers: Acute renal failure type: unspecified Qualified Code(s): N17.9 - Acute kidney failure, unspecified (3) CAD (coronary artery disease) Current Visit: Yes Status: Chronic Assessment and plan: Continue aspirin, statin, beta steff. Hold SOHA inhibitor as mentioned above. Telemetry monitoring, cycle troponins. Qualifiers: Coronary Disease-Associated Artery/Lesion type: bypass graft [place] vs. transplanted heart: [place] heart Associated angina: without angina Qualified Code(s): I25.810 - Atherosclerosis of coronary artery bypass graft(s) without angina pectoris (4) Essential hypertension Current Visit: Yes Status: Chronic Assessment and plan: Noted to have elevated blood pressure, possibly due to volume overload secondary to renal failure. Hold Lasix and lisinopril, resume Norvasc and metoprolol. Use when necessary IV hydralazine for appropriate blood pressure control. Expect to improve with dialysis. (5) Diabetes mellitus Current Visit: Yes Status: Chronic Assessment and plan: Start Accu-Chek blood glucose monitoring with sliding scale insulin as needed. Hold oral hypoglycemics. Diabetic diet. Qualifiers: Diabetes mellitus type: type 2 Diabetes mellitus long term care administrator insulin use: without fdc use Diabetes mellitus complication status: with unspecified complications Qualified Code(s): E11.8 - Type 2 diabetes mellitus with unspecified complications (6) CHF (congestive heart failure) Current Visit: Yes Status: Chronic Qualifiers: Heart failure type: unspecified Heart failure chronicity: chronic Qualified Code(s): I50.9 - Heart failure, unspecified - Time Spent With Patient Total time spent is greater than 50% in coordination of care (as documented) at patient's floor/unit and/or counseling patient:
[2017-12-06 17:23] LABS: Basophils # 0.1 K/mcL (0.0-0.2); Basophils % 0.7 %; Eosinophils # 0.2 K/mcL (0.0-0.6); Eosinophils % 2.3 %; Hematocrit 34.7 % (37.5-50.1); Hemoglobin 11.4 g/dL (12.9-16.9); Immature Granulocytes % 0.3 % (0-4); Lymphocytes # 2.9 K/mcL (0.6-4.6); Lymphocytes % 27.1 %; Mean Corpuscular HGB Conc 32.9 g/dL (31.6-35.5); Mean Corpuscular Hemoglobin 31.2 pg (28.0-33.3); Mean Corpuscular Volume 95.1 fL (83.0-100.0); Mean Platelet Volume 11.7 fL (9.4-12.4); Monocytes # 1.1 K/mcL (0.0-1.3); Monocytes % 10.7 %; Neutrophils # 6.3 K/mcL (1.6-8.9); Platelet Count 154 K/mcL (140-400); Red Blood Count 3.65 M/mcL (4.19-5.50); Segmented Neutrophils % 58.9 %
[2017-12-06 17:29] LABS: Estimated Average Glucose 169 mg/dl; Hemoglobin A1C 7.5 %
--- NOTE | 2017-12-06 17:36 | Electrocardiograph Report ---
[employer] 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
[2017-12-06 17:51] LABS: Potassium 5.6 mEq/L (3.5-5.1)
[2017-12-06 18:02] LABS: Troponin I 0.05 ng/mL (< 0.04)
[2017-12-06 18:16] LABS: Uric Acid 9.4 mg/dL (2.3-7.6)
[2017-12-06 18:26] LABS: Creatinine,Urine 60 mg/dL
[2017-12-06] MEDS: Insulin LISPRO 300 UNITS/3 ML VIAL SQ SCH (20:53)
[2017-12-07] MEDS: *HR* Heparin 5,000 UNIT/ML VIAL SQ SCH ×3 (06:20→17:24)
[2017-12-07 07:32] LABS: Calcium 8.1 mg/dL (8.6-10.3); Potassium 4.6 mEq/L (3.5-5.1)
[2017-12-07] MEDS: Insulin LISPRO 300 UNITS/3 ML VIAL SQ SCH ×4 (07:43→20:12)
--- NOTE | 2017-12-07 07:43 | Internal Med Progress Note ---
Hospitalist Progress Note - Encounter Date of Encounter: 12/07/17 Time of Encounter: 13:12 - Subjective Interval History: Patient seen and examined this morning. denies new complaints. Feeling better - Exam Vitals: Temp Pulse Resp BP Pulse Ox 97.8 F 82 17 134/76 97 12/07/17 07:14 12/07/17 07:14 12/07/17 07:14 12/07/17 07:14 12/07/17 07:14 Exam: - Respiratory Respiratory exam: Present: CTAB. Absent: accessory muscle use, rales, rhonchi, wheezes - Cardiovascular Cardiovascular exam: Present: RRR, +S1, +S2. Absent: diastolic murmur, gallop, rubs, systolic murmur - GI/Abdominal GI/Abdominal exam: Present: distended ( ), normal bowel sounds, soft (obese), no peritoneal signs. Absent: tenderness - Extremities Exam Extremities exam: Present: full ROM, pedal edema (2+ pitting pedal edema B/L), warm, radial pulses palpable and symmetrical. Absent: calf tenderness, cyanotic - Neurological Exam Neurological exam: Present: CN II-XII intact, oriented X3, no focal deficits. Absent: pronater drift, facial droop, speech deficit - Skin Skin exam: Present: dry, intact - Assessment and Plan (1) ARF (acute renal failure) Current Visit: Yes Status: Acute Assessment and Plan: Suspected ATN from possible dehydration due to vomiting and diarrhea in the setting of SOHA inhibitor/diuretic/metformin. These medications are being held for now. s/p HD yesterday. Plan for HD today. f/u US bladder for retention Nephrology recommendation appreciated. (2) Hyperkalemia Current Visit: Yes Status: Resolved Assessment and Plan: Presented with serum potassium of 6.2 in the setting of acute renal failure and use of SOHA inhibitor. s/p hemodialysis today. Now resolved Monitor for now (3) CAD (coronary artery disease) Current Visit: Yes Status: Chronic Assessment and Plan: Continue aspirin, statin, beta steff. Hold SOHA inhibitor troponins negative x3, No chest pain (4) Essential hypertension Current Visit: Yes Status: Chronic Assessment and Plan: Hold Lasix and lisinopril due to acute renal failure Cont Norvasc and metoprolol. . (5) Diabetes mellitus Current Visit: Yes Status: Chronic Assessment and Plan: Start Accu-Chek blood glucose monitoring with sliding scale insulin as needed. Hold oral hypoglycemics. Diabetic diet. (6) CHF (congestive heart failure) Current Visit: Yes Status: Chronic Assessment and Plan: Cont aspirin, statin and betablocker. - Time Spent with Patient Total time spent is greater than 50% in coordination of care (as documented) at patient's floor/unit and/or counseling patient: Internal Medicine: Result - Labs CBC & Chem 7: 12/08/17 03:26 12/08/17 03:26 Labs: Short CBC 12/06/17 Range/Units 17:10 WBC 10.7 (4.3-11.1) K/mcL Hgb 11.4 L (12.9-16.9) g/dL Hct 34.7 L (37.5-50.1) % Plt Count 154 (140-400) K/mcL Neutrophils # 6.3 (1.6-8.9) K/mcL BMP 12/06/17 12/07/17 17:10 06:45 Sodium 138 Potassium 5.6 H 4.6 Chloride 107 Carbon Dioxide 21 L BUN 77 H Creatinine 9.79 H Glucose 148 H Calcium 8.1 L Cardiac Enzymes 12/06/17 12/07/17 Range/Units 17:10 06:45 Troponin I 0.05 H* 0.03 (< 0.04) ng/mL - ABG Interpretation ABG results: PT/INR, D-dimer PT 11.4 Seconds (9.4-12.1) 12/06/17 11:48 Consult Discharge Plan - Plan Referrals: Lucero Herrera, GENERAL MACHINE OPERATOR [Primary Care Provider] - (1) ARF (acute renal failure) Qualifiers: Acute renal failure type: unspecified Qualified Code(s): N17.9 - Acute kidney failure, unspecified (3) CAD (coronary artery disease) Qualifiers: Coronary Disease-Associated Artery/Lesion type: bypass graft [place] vs. transplanted heart: [place] heart Associated angina: without angina Qualified Code(s): I25.810 - Atherosclerosis of coronary artery bypass graft(s) without angina pectoris (5) Diabetes mellitus Qualifiers: Diabetes mellitus type: type 2 Diabetes mellitus slurry control tender insulin use: without care home use Diabetes mellitus complication status: with unspecified complications Qualified Code(s): E11.8 - Type 2 diabetes mellitus with unspecified complications (6) CHF (congestive heart failure) Qualifiers: Heart failure type: unspecified Heart failure chronicity: chronic Qualified Code(s): I50.9 - Heart failure, unspecified
--- NOTE | 2017-12-07 09:41 | Nephrology Progress Note ---
Date of Encounter: 12/07/17 Time of Encounter: 09:40 - Assessment and Plan (1) ARF (acute renal failure) Current Visit: Yes Status: Acute 250 cc Bolus ordered. NS @ 150/hr ordered for hydration. No kidney disease at baseline. HD completed yesterday without complication. Scr was 12.36 is now 9.79. GFR is 5. Avoid nephrotoxins and renal dose all medications. Temp line placed yesterday. Strict I/O Hold Metformin, Lisinopril, Lasix. Qualifiers: Acute renal failure type: unspecified Qualified Code(s): N17.9 - Acute kidney failure, unspecified (2) Hyperkalemia Current Visit: Yes Status: Resolved K is 4.6. (3) Pedal edema Current Visit: Yes Status: Acute Strict I/O. Subjective Principal diagnosis: worsening renal function Interval history: Pt seen and examined, doing well. Feels a little better today. Denies chest pain , shortness of breath, nausea/vomiting/diarrhea. Objective - Vital Signs Vital signs: Vital Signs Temp Pulse Resp BP Pulse Ox 12/07/17 07:14 97.8 F 82 17 134/76 97 12/07/17 04:41 98.2 F 70 15 140/74 97 12/06/17 23:01 98.3 F 76 14 115/64 93 12/06/17 20:10 97.4 F L 16 173/75 12/06/17 19:55 195/90 12/06/17 19:40 182/89 12/06/17 19:25 194/94 12/06/17 19:10 184/73 12/06/17 18:55 140/84 12/06/17 18:40 172/65 12/06/17 18:25 182/78 12/06/17 18:10 196/92 12/06/17 17:55 97.1 F L 17 185/77 12/06/17 16:46 97.7 F 67 18 180/85 97 Intake and Output 12/06/17 12/07/17 12/07/17 23:59 07:59 15:59 Intake Total 700 / 700 0 / 0 Output Total 600 / 600 0 / 0 Balance 100 / 100 0 / 0 Intake: Oral 100 / 100 0 / 0 Intake, Rinseback and Flushes 600 / 600 Output: Urine 0 / 0 0 / 0 Total Dialysis (HD) Output 600 / 600 Other: # Bowel Movements 0 0 Weight 119.2 kg Blood Glucose* 110 103 Hemodialysis Net Fluid Removed 0 (mL) - General Appearance General appearance: Present: well-developed, well-nourished EENT: Present: ATNC, hearing intact, vision intact Neck: Present: supple Respiratory: Present: clear Cardiology: Present: edema (+2 pitting edema noted to bilat lower extremities ( chronic) per patient.), normal S1, normal S2 Dialysis Vascular Access: Venous Catheter (Temp line, DRSG c/d/i) Gastrointestinal: Present: normoactive bowel sounds, no tenderness, no guarding Integumentary: Present: no rash, warm and dry Neurologic: Present: alert and oriented x3 Psychiatric: Present: mood/affect appropriate, cooperative - Lab 12/06/17 17:10 12/07/17 06:45 Most recent lab results Calcium 8.1 mg/dL (8.6-10.3) L 12/07/17 06:45 Magnesium 2.0 mg/dL (1.6-2.6) 12/07/17 06:45 Urine Creatinine 60 mg/dL 12/06/17 17:42 Urine Sodium 88.8 mEq/L 12/06/17 17:42 Urine Total Protein < 4 mg/dL (1-14) 12/06/17 17:42 Consult Discharge Plan - Plan Referrals: Lucero Herrera CNP [Primary Care Provider] -
[2017-12-07] MEDS: amLODIPine 5 MG TABLET PO SCH (09:54)
[2017-12-07] MEDS: Aspirin Enteric Coated 81 MG Tablet PO SCH (09:54)
[2017-12-07] MEDS ORDERED: 0.9 % Sodium Chloride 250 ML IVC ONE (11:00)
[2017-12-07] MEDS: 0.9 % Sodium Chloride 1,000 ML IVC SCH ×2 (12:51→20:15)
[2017-12-08] MEDS: 0.9 % Sodium Chloride 1,000 ML IVC SCH (03:01)
[2017-12-08 03:56] LABS: Basophils % 0.5 %; Eosinophils # 0.2 K/mcL (0.0-0.6); Eosinophils % 3.4 %; Hematocrit 26.8 % (37.5-50.1); Hemoglobin 8.9 g/dL (12.9-16.9); Immature Granulocytes % 0.5 % (0-4); Immature Platelets 6.8 % (1.1-6.1); Lymphocytes # 1.4 K/mcL (0.6-4.6); Lymphocytes % 24.1 %; Mean Corpuscular HGB Conc 33.2 g/dL (31.6-35.5); Mean Corpuscular Hemoglobin 31.1 pg (28.0-33.3); Mean Corpuscular Volume 93.7 fL (83.0-100.0); Mean Platelet Volume 11.7 fL (9.4-12.4); Monocytes # 0.6 K/mcL (0.0-1.3); Monocytes % 9.7 %; Red Blood Count 2.86 M/mcL (4.19-5.50); Red Cell Distribution Width 12.9 % (11.5-14.5); Segmented Neutrophils % 61.8 %
[2017-12-08 04:10] LABS: Neutrophils # 3.7 K/mcL (1.6-8.9); Platelet Count 92 K/mcL (140-400)
[2017-12-08 04:17] LABS: Potassium 4.7 mEq/L (3.5-5.1)
[2017-12-08] MEDS: *HR* Heparin 5,000 UNIT/ML VIAL SQ SCH ×2 (05:35→17:09)
[2017-12-08] MEDS: Aspirin Enteric Coated 81 MG Tablet PO SCH (08:07)
[2017-12-08] MEDS: Insulin LISPRO 300 UNITS/3 ML VIAL SQ SCH ×3 (08:08→17:08)
[2017-12-08] MEDS ORDERED: 0.9 % Sodium Chloride 250 ML IVC PRN (08:31)
[2017-12-08] MEDS ORDERED: *HR* Heparin 10,000 UNIT/10 ML VIAL IV PRN (08:31)
[2017-12-08] MEDS ORDERED: 0.9 % Sodium Chloride 1,000 ML PRIME SCH (08:45)
--- NOTE | 2017-12-08 11:34 | Internal Med Progress Note ---
Hospitalist Progress Note - Encounter Date of Encounter: 12/08/17 Time of Encounter: 11:28 - Subjective Interval History: Patient seen and examined this morning. denies new complaints. Has increased leg swelling and some dry mouth. Had 2 episodes of diarrhea. - Exam Vitals: Temp Pulse Resp BP Pulse Ox 97.1 F L 70 18 124/47 97 12/08/17 09:50 12/08/17 06:44 12/08/17 09:50 12/08/17 11:05 12/08/17 08:24 Exam: - Respiratory Respiratory exam: Present: CTAB. Absent: accessory muscle use, rales, rhonchi, wheezes - Cardiovascular Cardiovascular exam: Present: RRR, +S1, +S2. Absent: diastolic murmur, gallop, rubs, systolic murmur - GI/Abdominal GI/Abdominal exam: Present: distended ( ), normal bowel sounds, soft (obese), no peritoneal signs. Absent: tenderness - Extremities Exam Extremities exam: Present: full ROM, pedal edema (2+ pitting pedal edema B/L), warm, radial pulses palpable and symmetrical. Absent: calf tenderness, cyanotic - Neurological Exam Neurological exam: Present: CN II-XII intact, oriented X3, no focal deficits. Absent: pronater drift, facial droop, speech deficit - Skin Skin exam: Present: dry, intact - Assessment and Plan (1) ARF (acute renal failure) Current Visit: Yes Status: Acute Assessment and Plan: - Suspected ATN from possible dehydration due to vomiting and diarrhea in the setting of SOHA inhibitor/diuretic/metformin. These medications are being held for now. - s/p HD. Plan for HD today. - Plan for tunneled catheter placement. - Nephrology recommendation appreciated. (2) Hyperkalemia Current Visit: Yes Status: Resolved Assessment and Plan: Presented with serum potassium of 6.2 in the setting of acute renal failure and use of SOHA inhibitor. s/p hemodialysis Now resolved Monitor for now (3) CAD (coronary artery disease) Current Visit: Yes Status: Chronic Assessment and Plan: Continue aspirin, statin, beta steff. Hold SOHA inhibitor troponins negative x3, No chest pain (4) Essential hypertension Current Visit: Yes Status: Chronic Assessment and Plan: Hold Lasix and lisinopril due to acute renal failure Cont Norvasc and metoprolol. . (5) Diabetes mellitus Current Visit: Yes Status: Chronic Assessment and Plan: c/w Accu-Chek blood glucose monitoring with sliding scale insulin as needed. Hold oral hypoglycemics. Diabetic diet. (6) CHF (congestive heart failure) Current Visit: Yes Status: Chronic Assessment and Plan: Cont aspirin, statin and betablocker. (7) Anemia Current Visit: Yes Status: Acute Assessment and Plan: Drop in Hb. No blood in stool or hemetemesis. Obtain stool for occult blood and C.diff - Will monitor for now - Time Spent with Patient Total time spent is greater than 50% in coordination of care (as documented) at patient's floor/unit and/or counseling patient: 25 - 35 minutes Internal Medicine: Result - Labs CBC & Chem 7: 12/08/17 03:26 12/08/17 03:26 Labs: Short CBC 12/08/17 Range/Units 03:26 WBC 5.9 (4.3-11.1) K/mcL Hgb 8.9 L D (12.9-16.9) g/dL Hct 26.8 L (37.5-50.1) % Plt Count 92 L (140-400) K/mcL Neutrophils # 3.7 (1.6-8.9) K/mcL BMP 12/08/17 03:26 Sodium 139 Potassium 4.7 Chloride 109 H Carbon Dioxide 19 L BUN 88 H Creatinine 11.07 H Glucose 177 H Calcium 8.0 L - ABG Interpretation ABG results: PT/INR, D-dimer PT 11.4 Seconds (9.4-12.1) 12/06/17 11:48 Consult Discharge Plan - Plan Referrals: Lucero Herrera, MEDICAL ACCOUNTS RECEIVABLE SPECIALIST [Primary Care Provider] - (1) ARF (acute renal failure) Qualifiers: Acute renal failure type: unspecified Qualified Code(s): N17.9 - Acute kidney failure, unspecified (3) CAD (coronary artery disease) Qualifiers: Coronary Disease-Associated Artery/Lesion type: bypass graft [place] vs. transplanted heart: [place] heart Associated angina: without angina Qualified Code(s): I25.810 - Atherosclerosis of coronary artery bypass graft(s) without angina pectoris (5) Diabetes mellitus Qualifiers: Diabetes mellitus type: type 2 Diabetes mellitus parts counterman insulin use: without parts counterman use Diabetes mellitus complication status: with unspecified complications Qualified Code(s): E11.8 - Type 2 diabetes mellitus with unspecified complications (6) CHF (congestive heart failure) Qualifiers: Heart failure type: unspecified Heart failure chronicity: chronic Qualified Code(s): I50.9 - Heart failure, unspecified
--- NOTE | 2017-12-08 12:03 | Nephrology Progress Note ---
Date of Encounter: 12/08/17 Time of Encounter: 12:03 - Assessment and Plan (1) ARF (acute renal failure) Current Visit: Yes Status: Acute No known kidney disease at baseline. HD completed yesterday without complication. Avoid nephrotoxins and renal dose all medications. Strict I/O Hold Metformin, Lisinopril, Lasix. Plan for renal biopsy and tunneled line on Monday if no improvement in renal function. Qualifiers: Acute renal failure type: unspecified Qualified Code(s): N17.9 - Acute kidney failure, unspecified (2) Hyperkalemia Current Visit: Yes Status: Resolved Managed with dialysis. (3) Pedal edema Current Visit: Yes Status: Acute Strict I/O. check echo Subjective Principal diagnosis: worsening renal function Interval history: Mrs. Herrera is an 82-year-old gentleman who presents with acute kidney injury that is suspected to be from dehydration, but he has very little urine output. He was seen on dialysis. He has no new complaint. Objective - Vital Signs Vital signs: Vital Signs Temp Pulse Resp BP Pulse Ox 12/08/17 11:20 142/77 12/08/17 11:05 124/47 12/08/17 10:50 177/84 12/08/17 10:35 159/75 12/08/17 10:20 144/76 12/08/17 10:05 117/69 12/08/17 09:50 97.1 F L 18 148/75 12/08/17 08:24 97 12/08/17 06:44 98.0 F 70 18 159/73 97 12/08/17 03:45 97.7 F 66 18 170/80 95 12/08/17 00:57 97.9 F 71 14 140/67 94 12/07/17 19:47 98 F 71 16 165/67 95 12/07/17 16:06 98.0 F 69 18 145/65 95 Intake and Output 12/07/17 12/08/17 12/08/17 23:59 07:59 15:59 Intake Total 0 / 0 1000 / 1000 600 / 600 Output Total 350 / 350 0 / 0 Balance -350 / -350 1000 / 1000 600 / 600 Intake: IV Fluids 0 / 0 1000 / 1000 0.9 % Sodium Chloride 1,000 ML 0 / 0 1000 / 1000 @ 150 mls/hr IVC .[id number] SURESH Rx #:[id number] Oral 0 / 0 Intake, Rinseback and Flushes 600 / 600 Output: Urine 350 / 350 0 / 0 Other: # Bowel Movements 1 Weight 114.033 kg Blood Glucose* 121 143 128 Hemodialysis Net Fluid Removed 1110 (mL) Patient Weight 12/08/17 23:59 Weight 114.033 kg - General Appearance General appearance: Present: well-developed, well-nourished EENT: Present: ATNC Neck: Present: supple Cardiology: Present: edema, regular rate Integumentary: Present: warm and dry Neurologic: Present: alert and oriented x3 Musculoskeletal: Present: no cyanosis Psychiatric: Present: mood/affect appropriate - Lab 12/08/17 03:26 12/08/17 03:26 Most recent lab results Calcium 8.0 mg/dL (8.6-10.3) L 12/08/17 03:26 Magnesium 2.0 mg/dL (1.6-2.6) 12/07/17 06:45 Urine Creatinine 60 mg/dL 12/06/17 17:42 Urine Sodium 88.8 mEq/L 12/06/17 17:42 Urine Total Protein < 4 mg/dL (1-14) 12/06/17 17:42 Consult Discharge Plan - Plan Referrals: Lucero Herrera CNP [Primary Care Provider] -
[2017-12-08] MEDS ORDERED: Perflutren Lipid Microsphere 1.3 ML in 0.9 % Sodium Chloride 8.7 ML IVP ONE (15:14)
[2017-12-08] MEDS: amLODIPine 5 MG TABLET PO SCH (17:09)
[2017-12-09] MEDS: *HR* Heparin 5,000 UNIT/ML VIAL SQ SCH ×2 (04:49→20:11)
[2017-12-09] MEDS: Insulin LISPRO 300 UNITS/3 ML VIAL SQ SCH ×5 (05:04→20:17)
[2017-12-09 05:39] LABS: Basophils % 0.6 %; Eosinophils # 0.3 K/mcL (0.0-0.6); Eosinophils % 5.2 %; Hematocrit 26.7 % (37.5-50.1); Immature Granulocytes % 0.2 % (0-4); Lymphocytes # 1.7 K/mcL (0.6-4.6); Mean Corpuscular HGB Conc 33.7 g/dL (31.6-35.5); Mean Corpuscular Hemoglobin 31.4 pg (28.0-33.3); Mean Platelet Volume 12.5 fL (9.4-12.4); Monocytes # 0.7 K/mcL (0.0-1.3); Monocytes % 10.5 %; Neutrophils # 3.7 K/mcL (1.6-8.9); Red Blood Count 2.87 M/mcL (4.19-5.50); Segmented Neutrophils % 57.5 %
[2017-12-09 05:41] LABS: Platelet Count 79 K/mcL (140-400)
[2017-12-09 06:00] LABS: Calcium 8.3 mg/dL (8.6-10.3); Magnesium 1.9 mg/dL (1.6-2.6); Potassium 4.3 mEq/L (3.5-5.1)
[2017-12-09] MEDS ORDERED: *HR* Heparin 10,000 UNIT/10 ML VIAL IV PRN (07:43)
[2017-12-09] MEDS ORDERED: 0.9 % Sodium Chloride 250 ML IVC PRN (07:43)
[2017-12-09] MEDS ORDERED: 0.9 % Sodium Chloride 1,000 ML PRIME SCH (07:45)
[2017-12-09] MEDS ORDERED: 0.9 % Sodium Chloride 1,000 ML ONE (07:55)
[2017-12-09] MEDS: amLODIPine 5 MG TABLET PO SCH (08:10)
[2017-12-09] MEDS: Aspirin Enteric Coated 81 MG Tablet PO SCH (08:11)
--- NOTE | 2017-12-09 10:35 | Internal Med Progress Note ---
Hospitalist Progress Note - Encounter Date of Encounter: 12/09/17 Time of Encounter: 10:33 - Subjective Interval History: Patient seen and examined this morning. Lower extremity swelling improving. Had 2 episodes of diarrhea yesterday, one episode today. No gladys blood. He is ambulating well. Denies new complaints. Doing much better. - Exam Vitals: Temp Pulse Resp BP Pulse Ox 97.7 F 70 17 154/78 96 12/09/17 07:19 12/09/17 07:19 12/09/17 07:19 12/09/17 07:19 12/09/17 07:19 Exam: Respiratory exam: CTAB. no accessory muscle use, rales, rhonchi, wheezes Cardiovascular exam: RRR, +S1, +S2. no diastolic murmur, gallop, rubs, systolic murmur GI/Abdominal exam: Non-tender, Non-distended, normal bowel sounds, soft, no peritoneal signs. Extremities exam: full ROM, pedal edema (2+ pitting pedal edema B/L), warm, radial pulses palpable and symmetrical. no calf tenderness, cyanotic Neurological exam: CN II-XII intact, oriented X3, no focal deficits. no pronater drift, facial droop, speech deficit Skin exam: 2+ pedal edema improving. - Assessment and Plan (1) ARF (acute renal failure) Current Visit: Yes Status: Acute (2) Hyperkalemia Current Visit: Yes Status: Resolved (3) CAD (coronary artery disease) Current Visit: Yes Status: Chronic (4) Essential hypertension Current Visit: Yes Status: Chronic (5) Diabetes mellitus Current Visit: Yes Status: Chronic (6) CHF (congestive heart failure) Current Visit: Yes Status: Chronic (7) Anemia Current Visit: Yes Status: Acute - Summary of Assessment and Plan Summary of Assessment and Plan: Acute renal failure - Suspected ATN from possible dehydration due to vomiting and diarrhea in the setting of SOHA inhibitor/diuretic/metformin. These medications are being held for now. - s/p HD temporary access. Plan for HD today. Has some urine outup. - Plan for renal Biopsy and tunneled catheter placement on Monday if no improvement. - Strick I/O - Nephrology recommendation appreciated. Hyperkalemia -Presented with serum potassium of 6.2 in the setting of acute renal failure and use of SOHA inhibitor, lasix and metfomin. - s/p hemodialysis - Now resolved - Monitor for now coronary artery disease - Continue aspirin, statin, beta steff. - Hold SOHA inhibitor - troponins negative x3, No chest pain Essential hypertension - c/w amlodipine Diabetes mellitus - Metformin on hold - On sliding scale. - Accuchecks. CHF - No ECHO on record. Possible Systolic Heart Failure. - f/u ECHO. - c/w aspirin, atorvastatin, Metoprolol Anemia - Initial Hb level of 11-12. drop in 2 point and now stable. - No gladys blood in stool or vomiting. Few episodes of diarrhea. Stool occult blood negative. Stool GI panel negative for C.diff. - Clinically stable. Will monitor for now. Likely falsely elevated initial level in view of dehydration. DVT ppx: Heparin SC Diabetic Diet Up ad jeanie - Time Spent with Patient Total time spent is greater than 50% in coordination of care (as documented) at patient's floor/unit and/or counseling patient: Internal Medicine: Result - Labs CBC & Chem 7: 12/09/17 04:56 12/09/17 04:56 Labs: Short CBC 12/09/17 Range/Units 04:56 WBC 6.4 (4.3-11.1) K/mcL Hgb 9.0 L (12.9-16.9) g/dL Hct 26.7 L (37.5-50.1) % Plt Count 79 L (140-400) K/mcL Neutrophils # 3.7 (1.6-8.9) K/mcL BMP 12/09/17 04:56 Sodium 141 Potassium 4.3 Chloride 108 H Carbon Dioxide 23 BUN 67 H Creatinine 10.34 H Glucose 123 H Calcium 8.3 L - ABG Interpretation ABG results: PT/INR, D-dimer PT 11.4 Seconds (9.4-12.1) 12/06/17 11:48 - Impressions Impressions Retroperitoneum Ultrasound 12/07/17 00:00 IMPRESSION: 1. Mild bilateral hydronephrosis, without demonstrable cause. The kidneys are otherwise normal in sonographic appearance. 2. Collapsed urinary bladder, limiting its evaluation. D/ / 12/07/2017 10:09:21 Jose Carlos Berg MD / marin Interpreting Provider: Jose Carlos Berg MD Consult Discharge Plan - Plan Referrals: Lucero Herrera CNP [Primary Care Provider] - (1) ARF (acute renal failure) Qualifiers: Acute renal failure type: unspecified Qualified Code(s): N17.9 - Acute kidney failure, unspecified (3) CAD (coronary artery disease) Qualifiers: Coronary Disease-Associated Artery/Lesion type: bypass graft [place] vs. transplanted heart: [place] heart Associated angina: without angina Qualified Code(s): I25.810 - Atherosclerosis of coronary artery bypass graft(s) without angina pectoris (5) Diabetes mellitus Qualifiers: Diabetes mellitus type: type 2 Diabetes mellitus supervisor intermediates insulin use: without supervisor intermediates use Diabetes mellitus complication status: with unspecified complications Qualified Code(s): E11.8 - Type 2 diabetes mellitus with unspecified complications (6) CHF (congestive heart failure) Qualifiers: Heart failure type: unspecified Heart failure chronicity: chronic Qualified Code(s): I50.9 - Heart failure, unspecified
--- NOTE | 2017-12-09 11:40 | Nephrology Progress Note ---
Date of Encounter: 12/09/17 Time of Encounter: 11:40 - Assessment and Plan (1) ARF (acute renal failure) Current Visit: Yes Status: Acute No known kidney disease at baseline. HD completed yesterday without complication. Patient seen on dialysis today. Avoid nephrotoxins and renal dose all medications. Strict I/O Hold Metformin, Lisinopril, Lasix. Plan for renal biopsy and tunneled line on Monday if no improvement in renal function. Qualifiers: Acute renal failure type: unspecified Qualified Code(s): N17.9 - Acute kidney failure, unspecified (2) Hyperkalemia Current Visit: Yes Status: Resolved Managed with dialysis. (3) Pedal edema Current Visit: Yes Status: Acute Strict I/O. check echo Subjective Principal diagnosis: worsening renal function Interval history: Mrs. Herrera is an 82-year-old gentleman who presents with acute kidney injury that is suspected to be from dehydration, but he has very little urine output. He was seen on dialysis. He has no new complaint. Objective - Vital Signs Vital signs: Vital Signs Temp Pulse Resp BP Pulse Ox 12/09/17 07:19 97.7 F 70 17 154/78 96 12/09/17 04:30 98.2 F 84 17 160/78 93 12/09/17 00:37 98.4 F 74 17 156/82 95 12/08/17 20:13 98.6 F 79 17 162/75 94 12/08/17 16:45 97.3 F L 74 18 162/64 96 12/08/17 13:26 97.2 F L 18 140/72 12/08/17 12:50 132/74 12/08/17 12:35 136/80 12/08/17 12:20 140/90 12/08/17 12:05 140/90 12/08/17 11:50 147/70 Intake and Output 12/08/17 12/09/17 12/09/17 23:59 07:59 15:59 Intake Total 120 / 120 Balance 120 / 120 Intake: Oral 120 / 120 Other: Meal Breakfast Percent of Meal Consumed 80% Stool Size Large Stool Consistency loose Stool Color Brown Yellow # Voids 2 # Bowel Movements 1 Weight 116.8 kg Blood Glucose* 122 125 96 Patient Weight 12/09/17 23:59 Weight 116.8 kg - General Appearance General appearance: Present: well-developed, well-nourished EENT: Present: ATNC Cardiology: Present: regular rate Gastrointestinal: Present: normoactive bowel sounds, obese Integumentary: Present: warm and dry Neurologic: Present: alert and oriented x3 Psychiatric: Present: mood/affect appropriate - Lab 12/09/17 04:56 12/09/17 04:56 Most recent lab results Calcium 8.3 mg/dL (8.6-10.3) L 12/09/17 04:56 Magnesium 1.9 mg/dL (1.6-2.6) 12/09/17 04:56 Urine Creatinine 60 mg/dL 12/06/17 17:42 Urine Sodium 88.8 mEq/L 12/06/17 17:42 Urine Total Protein < 4 mg/dL (1-14) 12/06/17 17:42 Consult Discharge Plan - Plan Referrals: Lucero Herrera, JOSH [Primary Care Provider] -
[2017-12-09 12:15] LABS: Adenovirus F 40/41 PCR Not detected (Not detect); Astrovirus PCR Not detected (Not detect); C.difficile Toxin A/B by PCR Not detected (Not detect); Campylobacter by PCR Not detected (Not detect); Cryptosporidium by PCR Not detected (Not detect); Cyclospora cayetanensis PCR Not detected (Not detect); E. coli O157 by PCR Not detected (Not detect); Entamoeba histolytica PCR Not detected (Not detect); Enteroaggregative E.coli(EAEC) Not detected (Not detect); Enteropathogenic E.coli(EPEC) Not detected (Not detect); Enterotoxigenic E.coli (ETEC) Not detected (Not detect); Giardia lamblia PCR Not detected (Not detect); Norovirus GI/GII PCR Not detected (Not detect); Plesiomonas shigelloides PCR Not detected (Not detect); Rotavirus A PCR Not detected (Not detect); Salmonella PCR Not detected (Not detect); Sapovirus PCR Not detected (Not detect); Shig/EnteroinvasiveE coli EIEC Not detected (Not detect); Shigalike tox-prod E coli STEC Not detected (Not detect); Vibrio PCR Not detected (Not detect); Vibrio cholerae PCR Not detected (Not detect); Yersinia enterocolitica PCR Not detected (Not detect)
[2017-12-10] MEDS: *HR* Heparin 5,000 UNIT/ML VIAL SQ SCH ×2 (05:54→17:57)
[2017-12-10] MEDS: 0.9 % Sodium Chloride 1,000 ML IVC SCH (07:54)
[2017-12-10] MEDS: Insulin LISPRO 300 UNITS/3 ML VIAL SQ SCH ×4 (08:30→22:10)
[2017-12-10] MEDS: Aspirin Enteric Coated 81 MG Tablet PO SCH (09:01)
[2017-12-10] MEDS: amLODIPine 5 MG TABLET PO SCH (09:02)
--- NOTE | 2017-12-10 09:13 | Nephrology Progress Note ---
Date of Encounter: 12/10/17 Time of Encounter: 09:13 - Assessment and Plan (1) ARF (acute renal failure) Current Visit: Yes Status: Acute No known kidney disease at baseline. HD completed yesterday without complication. Avoid nephrotoxins and renal dose all medications. Strict I/O Hold Metformin, Lisinopril, Lasix. Etiology is not completely clear. He has a clinical history that is suspicious for dehydration, however he has mild bilateral hydronephrosis on renal ultrasound and mild dilatation of the collecting system on CT scan of unclear significance. Right ureter is suspicious for possible lesion. Urology is consulted. Will keep him NPO after midnight for possible renal biopsy and tunneled line on Monday if no improvement in renal function although will likely wait until urologic evaluation. Serologic work-up is pending. Qualifiers: Acute renal failure type: unspecified Qualified Code(s): N17.9 - Acute kidney failure, unspecified (2) Hyperkalemia Current Visit: Yes Status: Resolved Managed with dialysis. (3) Pedal edema Current Visit: Yes Status: Acute Strict I/O. echo revealed normal EF. No proteinuria on urinalysis. (4) Anemia Current Visit: Yes Status: Acute Iron saturation, vitamin B12 and folate ordered. Qualifiers: Qualified Code(s): D64.9 - Anemia, unspecified Subjective Principal diagnosis: worsening renal function Interval history: Mrs. Herrera is an 82-year-old gentleman who presents with acute kidney injury that is suspected to be from dehydration. He has no complaint. He did mention that for the last few months he has had episodes where he wakes up, has bilateral flank pain produces a small amount of urine with dark colored clots and then begins to urinate. Objective - Vital Signs Vital signs: Vital Signs Temp Pulse Resp BP Pulse Ox 12/10/17 07:04 98.0 F 68 16 157/62 96 12/10/17 04:12 98.5 F 74 17 164/104 95 12/09/17 23:38 98.2 F 70 18 156/75 96 12/09/17 20:11 95 12/09/17 20:01 98.3 F 72 17 174/81 95 12/09/17 15:40 97.6 F 69 17 139/79 96 12/09/17 12:45 98.1 F 18 146/74 12/09/17 12:30 121/77 12/09/17 12:15 114/80 12/09/17 12:00 149/73 12/09/17 11:45 136/77 12/09/17 11:30 149/76 12/09/17 11:15 136/75 12/09/17 11:00 152/79 12/09/17 10:45 151/76 12/09/17 10:30 135/61 12/09/17 10:15 131/66 12/09/17 10:00 124/67 12/09/17 09:45 126/68 12/09/17 09:30 97.9 F 20 133/76 Intake and Output 12/09/17 12/10/17 12/10/17 23:59 07:59 15:59 Intake Total 240 / 240 Output Total 0 / 0 Balance 240 / 240 0 / 0 Intake: Oral 240 / 240 Output: Urine 0 / 0 Other: Meal Dinner Percent of Meal Consumed 60% Stool Size Moderate Stool Consistency loose Stool Characteristics Normal for Patient Stool Color Brown # Bowel Movements 0 Weight 117.1 kg Blood Glucose* 197 129 - General Appearance General appearance: Present: well-developed, well-nourished EENT: Present: ATNC Neck: Present: supple Cardiology: Present: edema, regular rate Dialysis Vascular Access: Venous Catheter Gastrointestinal: Present: obese Integumentary: Present: warm and dry Neurologic: Present: alert and oriented x3 - Lab 12/09/17 04:56 12/09/17 04:56 Most recent lab results Calcium 8.3 mg/dL (8.6-10.3) L 12/09/17 04:56 Magnesium 1.9 mg/dL (1.6-2.6) 12/09/17 04:56 Urine Creatinine 60 mg/dL 12/06/17 17:42 Urine Sodium 88.8 mEq/L 12/06/17 17:42 Urine Total Protein < 4 mg/dL (1-14) 12/06/17 17:42 Consult Discharge Plan - Plan Referrals: Lucero Herrera, STATE GAME PROTECTOR [Primary Care Provider] -
--- NOTE | 2017-12-10 12:16 | Internal Med Progress Note ---
Hospitalist Progress Note - Encounter Date of Encounter: 12/10/17 Time of Encounter: 11:30 - Subjective Interval History: Patient seen and examined this morning. Lower extremity swelling improving. Had 2 episodes of diarrhea yesterday, one episode today. No gladys blood. He is ambulating well. Denies new complaints. Doing much better. - Exam Vitals: Temp Pulse Resp BP Pulse Ox 98.1 F 70 14 135/77 95 12/10/17 10:19 12/10/17 10:19 12/10/17 10:19 12/10/17 10:19 12/10/17 10:19 Exam: Respiratory exam: CTAB. no accessory muscle use, rales, rhonchi, wheezes Cardiovascular exam: RRR, +S1, +S2. no diastolic murmur, gallop, rubs, systolic murmur GI/Abdominal exam: Non-tender, Non-distended, normal bowel sounds, soft, no peritoneal signs. Extremities exam: full ROM, pedal edema (2+ pitting pedal edema B/L), warm, radial pulses palpable and symmetrical. no calf tenderness, cyanotic Neurological exam: CN II-XII intact, oriented X3, no focal deficits. no pronater drift, facial droop, speech deficit Skin exam: 2+ pedal edema improving. - Assessment and Plan (1) ARF (acute renal failure) Current Visit: Yes Status: Acute (2) Hyperkalemia Current Visit: Yes Status: Resolved (3) CAD (coronary artery disease) Current Visit: Yes Status: Chronic (4) Essential hypertension Current Visit: Yes Status: Chronic (5) Diabetes mellitus Current Visit: Yes Status: Chronic (6) CHF (congestive heart failure) Current Visit: Yes Status: Chronic (7) Anemia Current Visit: Yes Status: Acute - Summary of Assessment and Plan Summary of Assessment and Plan: Acute renal failure - Suspected ATN from possible dehydration due to vomiting and diarrhea in the setting of SOHA inhibitor/diuretic/metformin. These medications are being held for now. - Mild b/l hydronephorsis on US. f/u renal doppler, CT kidney stone. Will also put roberto if PVR >100. Urology consulted. Discussed with Nephrology - s/p HD temporary access. Tolerating HD well. - Plan for renal Biopsy and tunneled catheter placement on Monday. - Carson I/O - Nephrology recommendation appreciated. Hyperkalemia - Presented with serum potassium of 6.2 In the setting of ARF and use of SOHA inhibitor, lasix and metfomin. - s/p hemodialysis. SOHA inhibitor, lasix and metfomin stopped - Now resolved - Monitor for now coronary artery disease - Continue aspirin, statin, beta steff. - Hold SOHA inhibitor - troponins negative x3, No chest pain Essential hypertension - c/w amlodipine Diabetes mellitus - Metformin on hold - On sliding scale. - Accuchecks. CHF - No ECHO on record. Possible Systolic Heart Failure. - ECHO technically difficult. With EF 50%, Mild diastolic dysfunction, mild LV dilation. normal LV thickness - c/w aspirin, atorvastatin, Metoprolol Anemia - Initial Hb level of 11-12. drop in 2 point and now stable. - No gladys blood in stool or vomiting. Few episodes of diarrhea. Stool occult blood negative. Stool GI panel negative for C.diff. - Clinically stable. Will monitor for now. Likely falsely elevated initial level in view of dehydration. DVT ppx: Heparin SC Diabetic Diet Up ad jeanie - Time Spent with Patient Total time spent is greater than 50% in coordination of care (as documented) at patient's floor/unit and/or counseling patient: Internal Medicine: Result - Labs CBC & Chem 7: 12/09/17 04:56 12/09/17 04:56 - ABG Interpretation ABG results: PT/INR, D-dimer PT 11.4 Seconds (9.4-12.1) 12/06/17 11:48 - Impressions Impressions Echocardiogram 12/08/17 11:20 Impressions: Technically challenging due to body habitus. LVEF 50%. Mild left ventricular diastolic dysfunction. Definity echo contrast was used. LV measurements were not well obtained. Visually, the LV appears borderline dilated with normal wall thickness. Normal right ventricular structure and function. Mild-moderate mitral regurgitation. Mild tricuspid regurgitation. Mild pulmonic regurgitation. Mild pulmonary hypertension. Left Ventricular Wall Motion: Rest Echo Findings The mid inferior lateral and basal inferior lateral valenzuela were not visualized. All other wall segments showed normal motion. Findings: Study Quality * Technically challenging due to body habitus. ECG Findings * Normal sinus rhythm with ectopy. Left Ventricle * LVEF 50%. * Mild left ventricular diastolic dysfunction. * Definity echo contrast was used. * LV measurements were not well obtained. Visually, the LV appears borderline dilated with normal wall thickness. Right Ventricle * Normal right ventricular structure and function. Left Atrium * Moderate to severely dilated left atrium. Right Atrium * Normal right atrial size. Aortic Valve * No aortic regurgitation. * Aortic valve not well visualized. * No aortic stenosis. Mitral Valve * Normal mitral valve structure. * No mitral stenosis. * Mild-moderate mitral regurgitation. Tricuspid Valve * Tricuspid valve not well visualized. * Mild tricuspid regurgitation. Pulmonic Valve * Pulmonic valve not well visualized. * No pulmonic stenosis. * Mild pulmonic regurgitation. Pulmonary Artery * Pulmonary artery not well visualized. Aorta * Not optimally visualized. Pericardium * There is no pericardial effusion present. Interatrial Septum * Interatrial septum not well evaluated. IVC * The IVC is not well evaluated. Consult Discharge Plan - Plan Referrals: Lucero Herrera, COIL CLEANER [Primary Care Provider] - (1) ARF (acute renal failure) Qualifiers: Acute renal failure type: unspecified Qualified Code(s): N17.9 - Acute kidney failure, unspecified (3) CAD (coronary artery disease) Qualifiers: Coronary Disease-Associated Artery/Lesion type: bypass graft [place] vs. 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
[2017-12-11] MEDS: *HR* Heparin 5,000 UNIT/ML VIAL SQ SCH ×2 (05:19→17:13)
[2017-12-11 05:48] LABS: Basophils % 0.4 %; Hemoglobin 9.3 g/dL (12.9-16.9); Mean Corpuscular Volume 96.2 fL (83.0-100.0)
[2017-12-11 05:50] LABS: Eosinophils # 0.4 K/mcL (0.0-0.6); Hematocrit 27.6 % (37.5-50.1); Immature Granulocytes % 0.3 % (0-4); Immature Platelets 11.4 % (1.1-6.1); Lymphocytes # 1.6 K/mcL (0.6-4.6); Lymphocytes % 22.9 %; Mean Corpuscular HGB Conc 33.7 g/dL (31.6-35.5); Mean Corpuscular Hemoglobin 32.4 pg (28.0-33.3); Monocytes # 0.8 K/mcL (0.0-1.3); Monocytes % 10.8 %; Neutrophils # 4.2 K/mcL (1.6-8.9); Red Blood Count 2.87 M/mcL (4.19-5.50); Red Cell Distribution Width 13.1 % (11.5-14.5); Segmented Neutrophils % 60.6 %
[2017-12-11 05:51] LABS: Platelet Count 69 K/mcL (140-400)
[2017-12-11 05:54] LABS: Prothrombin Time 11.2 Seconds (9.4-12.1)
[2017-12-11 06:12] LABS: Albumin 3.3 g/dL (3.5-5.7); Calcium 8.4 mg/dL (8.6-10.3); Phosphorous 6.1 mg/dL (2.7-4.5); Potassium 4.4 mEq/L (3.5-5.1)
[2017-12-11 06:27] LABS: Folate 8.3 ng/mL (3.0-16.0)
--- NOTE | 2017-12-11 08:16 | Urology - Consult Note ---
<Shanti Barahona N - Last Filed: 12/11/17 08:30> Date of Encounter: 12/11/17 Time of Encounter: 08:13 - Assessment and Plan (1) Prostate cancer Current Visit: Yes Status: Acute Assessment and plan: Patient is an 82 year old female who presents with known prostate cancer. Patient underwent a CT scan of the abdomen and pelvis which revealed pelvic stranding and prominent lymph nodes. Non-contrast study is nonspecific for debris versus right ureteral lesion. Mild to moderate dilation of the collecting system is noted. Patient also showed degenerative changes in the spine, but metastatic prostate lesions could not be ruled out given history. Will review and discuss CT scan with Dr. Khan. Urology CN:[facility] Consult date: 12/11/17 Reason for consult Urology: Other (prostate cancer; right ureteral lesion) History of present illness: Patient is an 82-year-old male who was admitted through the emergency department with for alert laboratory values associated with acute renal failure and hyperkalemia. Patient is being followed by nephrology and undergoing dialysis. The patient is known to us as he is a patient of Dr. Velazco. Patient has known prostate cancer for which he has been treated with Vantas. Patient underwent Vantas exchange in May of 2016 but has not followed up since then. Patient denies known family history of prostate, bladder or renal cancer. Patient admits to intermittent gross hematuria and bilateral flank pain. Patient is a former smoker of 20+ years. Patient underwent a CT scan of the abdomen and pelvis without contrast suggestive of right ureteral lesion and progressive prostate cancer. Past Med Surg Social Fam HX - Past Medical History Medical history: cancer (prostate), CHF, coronary artery disease, diabetes, hyperlipidemia, hypertension Additional medical history: history of prostate cancer. Psychiatric history: no psych history - Past Surgical History Surgical History: appendectomy, coronary bypass (CABG), prostatectomy, other - Social History Smoking Status: Former smoker Smokeless Tobacco Status: No Alcohol use: none Drug use: none - Family History Father Adopted: No Family Member Ethnicity: Non- Living Status: Age at : 75 Cause of : SD Hx Family Cardiac Disorders: Yes Hx Family Respiratory Disorders: No Hx Family Cancer: No Hx Family GI Disorders: No Hx Family Genitourinary Disorders: No Hx Family Endocrine Disorder: No Hx Family Musculoskeletal Disorders: No Hx Family Neuromuscular Disorders: No Hx Family Neurologic Disorders: No Hx Family HEENT Disorders: No Hx Family Autoimmune Disorders: No Hx Family Reproductive Disorders: No Hx Family Psychosocial Disorders: No Hx Family Medical Disorders: No Medications and Allergies Amlodipine Besylate 10 mg PO DAILY 12/06/17 [History] Aspirin Enteric Coated [Aspirin EC] 81 mg PO DAILY 12/06/17 [History] Atorvastatin [Lipitor] 40 mg PO HS 12/06/17 [History] Metoprolol [Lopressor] 50 mg PO BID 12/06/17 [History] Terazosin HCl 10 mg PO BID 12/06/17 [History] Timolol Maleate 0.5% 1 drop OP DAILY 12/06/17 [History] Tramadol HCl [Ultram] 50 mg PO QID PRN 12/06/17 [History] 3 Allergy/AdvReac Type Severity Reaction Status Date / Time Penicillins AdvReac Rash Verified 12/06/17 10:41 Review of Systems - Constitutional fatigue, no chills, no fever(s) - EENT Nose, mouth and throat: no dizziness, no headache(s) - Cardiovascular no chest pain, no diaphoresis, no dyspnea - Respiratory no cough, no dyspnea - Gastrointestinal abdominal pain, nausea, no change in bowel habits, no vomiting - Genitourinary change in urinary stream, difficulty urinating, flank pain, hematuria, no genital pain, no testicular pain, no urinary frequency, no urinary hesitancy, no urinary incontinence, no urinary urgency - Musculoskeletal back pain, no muscle weakness, no numbness - Integumentary no lesions, no rash, no swelling - Neurological no confusion, no syncope - Psychiatric no anxiety, no confusion Exam Initial Vital Signs Temp Pulse Resp BP Pulse Ox 97.7 F 71 16 187/84 97 12/06/17 10:37 12/06/17 10:37 12/06/17 10:37 12/06/17 10:37 12/06/17 10:37 - General physical appearance Present: well developed, no distress, no pain - Eyes Present: PERRL, normal ocular movement - ENT Present: normal nares, no hearing loss. Absent: nasal discharge - Neck Present: no masses, trachea midline - Respiratory Present: normal respiratory effort - Cardiovascular Cardiovascular exam IM: RRR - Abdomen Abdomen: Present: soft, non tender. Absent: distended - Genitourinary other (urinary catheter indwelling draining scant opaque fruit punch urine ) - Integumentary Present: no rash, no abnormal pigmentation - Neurologic Present: normal coordination. Absent: disoriented, confused - Musculoskeletal Present: other (bilateral pedal edema ) Urology Results - Labs 12/11/17 04:45 12/11/17 04:45 Abnormal lab results RBC 2.87 M/mcL (4.19-5.50) L 12/11/17 04:45 Hgb 9.3 g/dL (12.9-16.9) L 12/11/17 04:45 Hct 27.6 % (37.5-50.1) L 12/11/17 04:45 Plt Count 69 K/mcL (140-400) L 12/11/17 04:45 MPV 13.0 fL (9.4-12.4) H 12/11/17 04:45 Immature Plt Fraction 11.4 % (1.1-6.1) H 12/11/17 04:45 Carbon Dioxide 22 mEq/L (23-29) L 12/11/17 04:45 BUN 72 mg/dL (8-23) H 12/11/17 04:45 Creatinine 11.85 mg/dL (0.70-1.30) H 12/11/17 04:45 Est GFR ( Amer) 5 (> 60) L 12/11/17 04:45 Est GFR (Non-Af Amer) 4 (> 60) L 12/11/17 04:45 Glucose 122 mg/dL (70-105) H 12/11/17 04:45 POC Glucose 106 mg/dL (70-99) H 12/10/17 15:52 Hemoglobin A1c 7.5 % (-5.6) H 12/06/17 17:10 Calculated Osmolality 310 (280-300) H 12/11/17 04:45 Uric Acid 9.4 mg/dL (2.3-7.6) H 12/06/17 17:10 Calcium 8.4 mg/dL (8.6-10.3) L 12/11/17 04:45 Phosphorus 6.1 mg/dL (2.7-4.5) H 12/11/17 04:45 Iron 56 mcg/dL (65-175) L 12/11/17 04:45 B-Natriuretic Peptide 378 pg/mL (Less than 100) H 12/06/17 11:48 Albumin 3.3 g/dL (3.5-5.7) L 12/11/17 04:45 PTH Intact 141.3 pg/ml (10.0-65.0) H 12/11/17 04:45 Urine Blood Moderate (Negative) H 12/06/17 12:15 Urine Microscopic RBC 5-15 per hpf (0-3) H 12/06/17 12:15 Diabetes panel 12/11/17 Range/Units 04:45 Sodium 139 (136-145) mEq/L Potassium 4.4 (3.5-5.1) mEq/L Chloride 106 (98-107) mEq/L Carbon Dioxide 22 L (23-29) mEq/L BUN 72 H (8-23) mg/dL Creatinine 11.85 H (0.70-1.30) mg/dL Glucose 122 H (70-105) mg/dL Calcium 8.4 L (8.6-10.3) mg/dL Albumin 3.3 L (3.5-5.7) g/dL Calcium panel 12/11/17 Range/Units 04:45 Calcium 8.4 L (8.6-10.3) mg/dL Phosphorus 6.1 H (2.7-4.5) mg/dL Albumin 3.3 L (3.5-5.7) g/dL Pituitary panel 12/11/17 Range/Units 04:45 Sodium 139 (136-145) mEq/L Potassium 4.4 (3.5-5.1) mEq/L Chloride 106 (98-107) mEq/L Carbon Dioxide 22 L (23-29) mEq/L BUN 72 H (8-23) mg/dL Creatinine 11.85 H (0.70-1.30) mg/dL Glucose 122 H (70-105) mg/dL Calcium 8.4 L (8.6-10.3) mg/dL Adrenal panel 12/11/17 Range/Units 04:45 Sodium 139 (136-145) mEq/L Potassium 4.4 (3.5-5.1) mEq/L Chloride 106 (98-107) mEq/L Carbon Dioxide 22 L (23-29) mEq/L BUN 72 H (8-23) mg/dL Creatinine 11.85 H (0.70-1.30) mg/dL Glucose 122 H (70-105) mg/dL Calcium 8.4 L (8.6-10.3) mg/dL Albumin 3.3 L (3.5-5.7) g/dL All other labs normal. - Imaging CT scan - abdomen: report reviewed, image reviewed CT scan - pelvis: report reviewed, image reviewed Consult Discharge Plan - Plan Referrals: Lucero Herrera, SENIOR SCIENCE CONSULTANT [Primary Care Provider] - <Roger Khan - Last Filed: 12/11/17 17:25> Date of Encounter: 12/11/17 - Assessment and Plan (1) Bilateral hydronephrosis Current Visit: Yes Status: Acute Assessment and plan: Patient has bilateral hydronephrosis on CT scan. This appears to be secondary to distal external compression from lymphadenopathy as well as local extension of what appears to be prostate cancer. I discussed the patient options of continued dialysis with no renal drainage or to have the patient have bilateral nephrostomy tubes placed by interventional radiology. At this time he wants to move forward with full court press. We will plan on consult interventional radiology for possible bilateral nephrostomy tube placement tomorrow. (2) Prostate cancer Current Visit: Yes Status: Acute Assessment and plan: Patient was seen and examined independently with Shanti barahona. I believe the patient has metastatic prostate cancer. We will plan on obtaining a PSA as well as a testosterone level. This will allow me to gauge whether the patient is still at castrate level which would make his prostate cancer progression more ominous or if he is not at castrate level. Will follow up tomorrow with blood work. Exam Initial Vital Signs Temp Pulse Resp BP Pulse Ox 97.7 F 71 16 187/84 97 12/06/17 10:37 12/06/17 10:37 12/06/17 10:37 12/06/17 10:37 12/06/17 10:37 Urology Results - Labs 12/11/17 04:45 12/11/17 04:45 Abnormal lab results RBC 2.87 M/mcL (4.19-5.50) L 12/11/17 04:45 Hgb 9.3 g/dL (12.9-16.9) L 12/11/17 04:45 Hct 27.6 % (37.5-50.1) L 12/11/17 04:45 Plt Count 69 K/mcL (140-400) L 12/11/17 04:45 MPV 13.0 fL (9.4-12.4) H 12/11/17 04:45 Immature Plt Fraction 11.4 % (1.1-6.1) H 12/11/17 04:45 Carbon Dioxide 22 mEq/L (23-29) L 12/11/17 04:45 BUN 72 mg/dL (8-23) H 12/11/17 04:45 Creatinine 11.85 mg/dL (0.70-1.30) H 12/11/17 04:45 Est GFR ( Amer) 5 (> 60) L 12/11/17 04:45 Est GFR (Non-Af Amer) 4 (> 60) L 12/11/17 04:45 Glucose 122 mg/dL (70-105) H 12/11/17 04:45 POC Glucose 116 mg/dL (70-99) H 12/11/17 17:10 Hemoglobin A1c 7.5 % (-5.6) H 12/06/17 17:10 Calculated Osmolality 310 (280-300) H 12/11/17 04:45 Uric Acid 9.4 mg/dL (2.3-7.6) H 12/06/17 17:10 Calcium 8.4 mg/dL (8.6-10.3) L 12/11/17 04:45 Venous Ioniz Calcium 1.11 mmol/L (1.15-1.35) L 12/11/17 06:01 Phosphorus 6.1 mg/dL (2.7-4.5) H 12/11/17 04:45 Iron 56 mcg/dL (65-175) L 12/11/17 04:45 B-Natriuretic Peptide 378 pg/mL (Less than 100) H 12/06/17 11:48 Albumin 3.3 g/dL (3.5-5.7) L 12/11/17 04:45 25-OH Vitamin D Total 24 ng/mL (30-80) L 12/11/17 04:45 PTH Intact 141.3 pg/ml (10.0-65.0) H 12/11/17 04:45 Urine Blood Moderate (Negative) H 12/06/17 12:15 Urine Microscopic RBC 5-15 per hpf (0-3) H 12/06/17 12:15 Diabetes panel 12/11/17 Range/Units 04:45 Sodium 139 (136-145) mEq/L Potassium 4.4 (3.5-5.1) mEq/L Chloride 106 (98-107) mEq/L Carbon Dioxide 22 L (23-29) mEq/L BUN 72 H (8-23) mg/dL Creatinine 11.85 H (0.70-1.30) mg/dL Glucose 122 H (70-105) mg/dL Calcium 8.4 L (8.6-10.3) mg/dL Albumin 3.3 L (3.5-5.7) g/dL Calcium panel 12/11/17 12/11/17 Range/Units 04:45 04:45 Calcium 8.4 L (8.6-10.3) mg/dL Phosphorus 6.1 H (2.7-4.5) mg/dL Albumin 3.3 L (3.5-5.7) g/dL 25-OH Vitamin D Total 24 L (30-80) ng/mL Pituitary panel 12/11/17 Range/Units 04:45 Sodium 139 (136-145) mEq/L Potassium 4.4 (3.5-5.1) mEq/L Chloride 106 (98-107) mEq/L Carbon Dioxide 22 L (23-29) mEq/L BUN 72 H (8-23) mg/dL Creatinine 11.85 H (0.70-1.30) mg/dL Glucose 122 H (70-105) mg/dL Calcium 8.4 L (8.6-10.3) mg/dL Adrenal panel 12/11/17 Range/Units 04:45 Sodium 139 (136-145) mEq/L Potassium 4.4 (3.5-5.1) mEq/L Chloride 106 (98-107) mEq/L Carbon Dioxide 22 L (23-29) mEq/L BUN 72 H (8-23) mg/dL Creatinine 11.85 H (0.70-1.30) mg/dL Glucose 122 H (70-105) mg/dL Calcium 8.4 L (8.6-10.3) mg/dL Albumin 3.3 L (3.5-5.7) g/dL All other labs normal.
[2017-12-11] MEDS: Insulin LISPRO 300 UNITS/3 ML VIAL SQ SCH ×4 (08:47→21:23)
[2017-12-11] MEDS ORDERED: 0.9 % Sodium Chloride 250 ML IVC PRN (08:56)
[2017-12-11] MEDS: amLODIPine 5 MG TABLET PO SCH (08:57)
[2017-12-11] MEDS: Aspirin Enteric Coated 81 MG Tablet PO SCH (08:57)
--- NOTE | 2017-12-11 11:04 | Nephrology Progress Note ---
Date of Encounter: 12/11/17 Time of Encounter: 11:01 - Assessment and Plan (1) ARF (acute renal failure) Current Visit: Yes Status: Acute Pt was NPO, but renal diet has been ordered. Scr is 11.85, HD has been ordered for today. Will continue to trend and determine when Tunneled Line and or Renal Biopsy is indicated. No known kidney disease at baseline. HD completed 12/09 without complication. Avoid nephrotoxins and renal dose all medications. Strict I/O Hold Metformin, Lisinopril, Lasix. Etiology is not completely clear. He has a clinical history that is suspicious for dehydration, however he has mild bilateral hydronephrosis on renal ultrasound and mild dilatation of the collecting system on CT scan of unclear significance. Right ureter is suspicious for possible lesion. Urology is consulted (known prostate cancer diagnosis). Qualifiers: Acute renal failure type: unspecified Qualified Code(s): N17.9 - Acute kidney failure, unspecified (2) Hyperkalemia Current Visit: Yes Status: Resolved Managed with dialysis. (3) Pedal edema Current Visit: Yes Status: Acute Strict I/O. echo revealed normal EF. No proteinuria on urinalysis. (4) Anemia Current Visit: Yes Status: Acute Tsat 20 Iron 56 Transferrin 204 Ferritin 156. Qualifiers: Qualified Code(s): D64.9 - Anemia, unspecified Subjective Principal diagnosis: worsening renal function Interval history: Pt seen and examined, doing well. Feels a little better today. Denies chest pain , shortness of breath, nausea/vomiting/diarrhea. Objective - Vital Signs Vital signs: Vital Signs Temp Pulse Resp BP Pulse Ox 12/11/17 10:40 97.9 F 67 16 146/79 97 12/11/17 07:00 98.1 F 70 16 165/78 95 12/11/17 03:42 98.3 F 70 16 156/89 95 12/10/17 23:44 99.0 F 65 16 119/64 93 12/10/17 20:44 98.8 F 75 16 154/74 96 12/10/17 14:34 98.0 F 67 14 118/69 96 Intake and Output 12/10/17 12/11/17 12/11/17 23:59 07:59 15:59 Intake Total 240 / 240 0 / 0 Output Total 30 / 30 Balance 240 / 240 -30 / -30 Intake: Oral 240 / 240 0 / 0 Output: Catheter Other: Meal Dinner Percent of Meal Consumed 90% Weight 116.4 kg Blood Glucose* 199 113 106 - General Appearance General appearance: Present: well-developed, well-nourished EENT: Present: ATNC, hearing intact, vision intact Neck: Present: supple Respiratory: Present: clear Cardiology: Present: edema (+2 pitting edema noted to bilat lower extremities ( chronic)), normal S1, normal S2 Dialysis Vascular Access: Venous Catheter (Tunneled Line, DRSG C/D/I) Gastrointestinal: Present: normoactive bowel sounds, no tenderness, no guarding Integumentary: Present: no rash, warm and dry Neurologic: Present: alert and oriented x3 Psychiatric: Present: mood/affect appropriate, cooperative - Lab 12/11/17 04:45 12/11/17 04:45 Most recent lab results Calcium 8.4 mg/dL (8.6-10.3) L 12/11/17 04:45 Phosphorus 6.1 mg/dL (2.7-4.5) H 12/11/17 04:45 Magnesium 1.9 mg/dL (1.6-2.6) 12/09/17 04:56 Urine Creatinine 60 mg/dL 12/06/17 17:42 Urine Sodium 88.8 mEq/L 12/06/17 17:42 Urine Total Protein < 4 mg/dL (1-14) 12/06/17 17:42 Consult Discharge Plan - Plan Referrals: Lucero Herrera CNP [Primary Care Provider] -
[2017-12-11 11:40] LABS: VBG Ionized Calcium 1.11 mmol/L (1.15-1.35)
[2017-12-11] MEDS ORDERED: 0.9 % Sodium Chloride 1,000 ML ONE (12:08)
--- NOTE | 2017-12-11 13:25 | Internal Med Progress Note ---
Hospitalist Progress Note - Encounter Date of Encounter: 12/11/17 Time of Encounter: 09:55 - Subjective Interval History: Patient seen and examined this morning. denies new complaints. Feeling better. No more diarrhea. - Exam Vitals: Temp Pulse Resp BP Pulse Ox 97.9 F 67 16 146/79 97 12/11/17 10:40 12/11/17 10:40 12/11/17 10:40 12/11/17 10:40 12/11/17 10:40 Exam: Const: Vital signs listed above. Well developed, well nourished and in no acute distress. Alert and oriented Xs 3. No mood disorders noted, calm affect. Eyes: Sclera white, conjunctiva clear, lids are without lag. PERRLA. Pupils and irises are equal and round without defect. ENT: TMs intact and clear, normal canals, grossly normal hearing. Oropharanx clear and moist without erythema. Gums pink, good dentition. Lymph/Neck: No masses, thyromegaly, or abnormal cervical notes. No bruit. Tracheal midline. Cardio: RRR, Normal S1, S2 w/o murmurs, rubs or gallops. Skin warm and dry. 2+ peripheral edema. Respiratory: Chest symmetrical, respirations non-labored. No dullness or flatness. Clear bilaterally to auscultation, non-tender to palpitation. Musculo: No deformity or scoliosis noted. No gladys gait disturbance noted. No cyanosis or edema. Pulses normal in all 4 extremities. No atrophy or abnormal movements. Appropriate muscle strength bilaterally. Neurologic: No focal deficits, cranial nerves II-XII grossly intact with normal sensation, reflexes, coordination, muscle strength and tone. GI/Abdomen: Soft, non tender, non distended, no hepatosplemomegaly, normal bowel sounds, no masses noted. Skin: Rt TLC present - Assessment and Plan (1) ARF (acute renal failure) Current Visit: Yes Status: Acute (2) Hyperkalemia Current Visit: Yes Status: Resolved (3) CAD (coronary artery disease) Current Visit: Yes Status: Chronic (4) Essential hypertension Current Visit: Yes Status: Chronic (5) Diabetes mellitus Current Visit: Yes Status: Chronic (6) CHF (congestive heart failure) Current Visit: Yes Status: Chronic (7) Anemia Current Visit: Yes Status: Acute - Summary of Assessment and Plan Summary of Assessment and Plan: Acute renal failure - Suspected ATN from possible dehydration due to vomiting and diarrhea in the setting of SOHA inhibitor/diuretic/metformin. These medications are being held for now. - Mild b/l hydronephorsis on US. CT showed possible cystitis, enlarged prostate -mass vs lymph node. Increased pelvic and retroperitoneal adenopathy ? metastatis. Known h/o prostate cancer. Mild dilation of collecting system b/l. Will also put roberto if PVR >100. Urology onboard. - s/p HD temporary access. Tolerating HD well. - Plan for renal Biopsy and tunneled catheter placement. - Strick I/O - Nephrology recommendation appreciated. Hyperkalemia - Presented with serum potassium of 6.2 In the setting of ARF and use of SOHA inhibitor, lasix and metfomin. - s/p hemodialysis. SOHA inhibitor, lasix and metfomin stopped - Now resolved - Monitor for now coronary artery disease - Continue aspirin, statin, beta steff. - Hold SOHA inhibitor - troponins negative x3, No chest pain Essential hypertension - c/w amlodipine Diabetes mellitus - Metformin on hold - On sliding scale. - Accuchecks. CHF - No ECHO on record. Possible Systolic Heart Failure. - ECHO technically difficult. With EF 50%, Mild diastolic dysfunction, mild LV dilation. normal LV thickness - c/w aspirin, atorvastatin, Metoprolol Anemia - Initial Hb level of 11-12. drop in 2 point and now stable. - No gladys blood in stool or vomiting. Few episodes of diarrhea. Stool occult blood negative. Stool GI panel negative for C.diff. - Clinically stable. Will monitor for now. Likely falsely elevated initial level in view of dehydration. DVT ppx: Heparin SC Diabetic Diet Up ad jeanie - Time Spent with Patient Total time spent is greater than 50% in coordination of care (as documented) at patient's floor/unit and/or counseling patient: Internal Medicine: Result - Labs CBC & Chem 7: 12/11/17 04:45 12/11/17 04:45 Labs: Short CBC 12/11/17 Range/Units 04:45 WBC 7.0 (4.3-11.1) K/mcL Hgb 9.3 L (12.9-16.9) g/dL Hct 27.6 L (37.5-50.1) % Plt Count 69 L (140-400) K/mcL Neutrophils # 4.2 (1.6-8.9) K/mcL BMP 12/11/17 04:45 Sodium 139 Potassium 4.4 Chloride 106 Carbon Dioxide 22 L BUN 72 H Creatinine 11.85 H Glucose 122 H Calcium 8.4 L Liver Function 12/11/17 Range/Units 04:45 Albumin 3.3 L (3.5-5.7) g/dL - ABG Interpretation ABG results: PT/INR, D-dimer PT 11.2 Seconds (9.4-12.1) 12/11/17 04:45 - Impressions Impressions Abdomen/Pelvis CT 12/10/17 11:33 IMPRESSION: There is a thickened irregular appearance of the wall of the bladder. This is accentuated by incomplete distention. Underlying cystitis is within the differential and correlation with patient's urinalysis recommended. Underlying mass lesion cannot be excluded. The prostate is enlarged and irregular in appearance and demonstrates irregular soft tissue extending from the border of the left side of the prostate which is new from the comparison. Findings may represent extension of mass versus an adjacent lymph node. This is poorly characterized on noncontrast imaging. Increased pelvic and retroperitoneal adenopathy is likely metastatic in nature. There is mild dilation of the renal collecting system bilaterally without an obstructive calculus noted. Increased density is noted from abrupt change in the distal third of the right ureter. This is indeterminate and may represent underlying debris although malignancy cannot be excluded. Small bilateral pleural effusions and minimal dependent atelectasis D/ / 12/10/2017 15:18:32 Alvarado Hidalgo MD / Neha Finch Interpreting Provider: Alvarado Hidalgo MD Consult Discharge Plan - Plan Referrals: Lucero Herrera, [employer] [Primary Care Provider] - (1) ARF (acute renal failure) Qualifiers: Acute renal failure type: unspecified Qualified Code(s): N17.9 - Acute kidney failure, unspecified (3) CAD (coronary artery disease) Qualifiers: Coronary Disease-Associated Artery/Lesion type: bypass graft [place] vs. transplanted heart: [place] heart Associated angina: without angina Qualified Code(s): I25.810 - Atherosclerosis of coronary artery bypass graft(s) without angina pectoris (5) Diabetes mellitus Qualifiers: Diabetes mellitus type: type 2 Diabetes mellitus senior care insulin use: without senior care use Diabetes mellitus complication status: with unspecified complications Qualified Code(s): E11.8 - Type 2 diabetes mellitus with unspecified complications (6) CHF (congestive heart failure) Qualifiers: Heart failure type: unspecified Heart failure chronicity: chronic Qualified Code(s): I50.9 - Heart failure, unspecified (7) Anemia Qualifiers: Qualified Code(s): D64.9 - Anemia, unspecified
[2017-12-11 17:49] LABS: Testosterone,Total < 10 ng/dL (280-1100)
[2017-12-12 05:08] LABS: Basophils % 0.5 %; Immature Granulocytes % 0.2 % (0-4)
[2017-12-12 05:10] LABS: Eosinophils # 0.2 K/mcL (0.0-0.6); Eosinophils % 4.1 %; Hematocrit 26.8 % (37.5-50.1); Immature Platelets 14.2 % (1.1-6.1); Lymphocytes # 1.4 K/mcL (0.6-4.6); Lymphocytes % 24.6 %; Mean Corpuscular HGB Conc 33.6 g/dL (31.6-35.5); Mean Corpuscular Hemoglobin 32.4 pg (28.0-33.3); Mean Corpuscular Volume 96.4 fL (83.0-100.0); Mean Platelet Volume 12.8 fL (9.4-12.4); Monocytes # 0.7 K/mcL (0.0-1.3); Monocytes % 13.2 %; Neutrophils # 3.2 K/mcL (1.6-8.9); Red Blood Count 2.78 M/mcL (4.19-5.50); Segmented Neutrophils % 57.4 %
[2017-12-12] MEDS: *HR* Heparin 5,000 UNIT/ML VIAL SQ SCH ×2 (05:13→16:59)
[2017-12-12 05:18] LABS: Platelet Count 51 K/mcL (140-400)
[2017-12-12 05:33] LABS: Albumin 3.3 g/dL (3.5-5.7); Calcium 8.4 mg/dL (8.6-10.3); Phosphorous 5.6 mg/dL (2.7-4.5); Potassium 4.3 mEq/L (3.5-5.1)
[2017-12-12] MEDS: Insulin LISPRO 300 UNITS/3 ML VIAL SQ SCH ×4 (07:56→20:47)
[2017-12-12 08:00] LABS: ANA IgG by ELISA NONE DETECTED (None Detected)
[2017-12-12] MEDS: amLODIPine 5 MG TABLET PO SCH (08:13)
[2017-12-12] MEDS: Aspirin Enteric Coated 81 MG Tablet PO SCH (08:13)
[2017-12-12] MEDS ORDERED: *HR* FentaNYL (PF) 100 MCG/2 ML VIAL IVP ONE ×2 (08:29→15:00)
[2017-12-12] MEDS ORDERED: *HR* Midazolam HCl 2 MG/2 ML VIAL IVP ONE ×2 (08:29→15:00)
[2017-12-12 09:36] LABS: Myeloperoxidase Ab 0 AU/mL (0-19); Serine Protease-3 Antibody 0 AU/mL (0-19)
--- NOTE | 2017-12-12 09:37 | Nephrology Progress Note ---
Date of Encounter: 12/12/17 Time of Encounter: 09:34 - Assessment and Plan (1) ARF (acute renal failure) Current Visit: Yes Status: Acute HD completed yesterday without complication. No renal biopsy indicated at this time. No known kidney disease at baseline. Avoid nephrotoxins and renal dose all medications. Strict I/O Hold Metformin, Lisinopril, Lasix. Etiology is not completely clear. He has a clinical history that is suspicious for dehydration, however he has mild bilateral hydronephrosis on renal ultrasound and mild dilatation of the collecting system on CT scan of unclear significance. Right ureter is suspicious for possible lesion. Urology is consulted (known prostate cancer diagnosis). Qualifiers: Acute renal failure type: unspecified Qualified Code(s): N17.9 - Acute kidney failure, unspecified (2) Bilateral hydronephrosis Current Visit: Yes Status: Acute Pt going for bilateral nephrostomy tubes today. Uop 30 cc today and 50 cc yesterday. (3) Hyperkalemia Current Visit: Yes Status: Resolved Managed with dialysis. (4) Pedal edema Current Visit: Yes Status: Acute Strict I/O. echo revealed normal EF. No proteinuria on urinalysis. (5) Anemia Current Visit: Yes Status: Acute Goal Hgb 10-11. Hgb is 9 today, stable. Qualifiers: Qualified Code(s): D64.9 - Anemia, unspecified Subjective Principal diagnosis: worsening renal function Interval history: Pt seen and examined, doing well. Feels great today. Denies chest pain, shortness of breath, nausea/vomiting/diarrhea. Objective - Vital Signs Vital signs: Vital Signs Temp Pulse Resp BP Pulse Ox 12/12/17 06:56 98.2 F 80 18 145/77 93 12/12/17 03:55 98.5 F 74 17 139/72 93 12/11/17 23:37 98.9 F 74 18 131/69 95 12/11/17 19:23 98.2 F 74 16 153/83 95 12/11/17 16:30 97.7 F 18 167/85 12/11/17 16:05 157/79 12/11/17 15:50 168/80 12/11/17 15:35 157/82 12/11/17 15:20 172/69 12/11/17 15:05 150/83 12/11/17 14:50 168/80 12/11/17 14:35 150/70 12/11/17 14:20 140/74 12/11/17 14:05 139/72 12/11/17 13:50 152/80 12/11/17 13:35 132/71 12/11/17 13:20 135/76 12/11/17 13:05 136/68 12/11/17 12:50 132/79 12/11/17 12:35 98.2 F 18 149/78 12/11/17 10:40 97.9 F 67 16 146/79 97 Intake and Output 12/11/17 12/12/17 12/12/17 23:59 07:59 15:59 Intake Total 240 / 240 0 / 0 Output Total 1100 / 1100 0 / 0 Balance -860 / -860 0 / 0 Intake: Oral 240 / 240 0 / 0 Output: Urine 0 / 0 0 / 0 Total Dialysis (HD) Output 1100 / 1100 Other: Meal Dinner NPO Percent of Meal Consumed 100% 0% Weight 111.674 kg Blood Glucose* 218 100 Hemodialysis Net Fluid Removed 500 (mL) Patient Weight 12/12/17 23:59 Weight 111.674 kg - General Appearance General appearance: Present: well-developed, well-nourished EENT: Present: ATNC, hearing intact, vision intact Neck: Present: supple Respiratory: Present: clear Cardiology: Present: edema (+2 pitting edema noted to bilat lower extremities.) , normal S1, normal S2 Dialysis Vascular Access: Venous Catheter (Temp line DRSG C/D/I) Gastrointestinal: Present: normoactive bowel sounds, no tenderness, no guarding Integumentary: Present: no rash, warm and dry Neurologic: Present: alert and oriented x3 Psychiatric: Present: mood/affect appropriate, cooperative - Lab 12/12/17 04:05 12/12/17 04:05 Most recent lab results Calcium 8.4 mg/dL (8.6-10.3) L 12/12/17 04:05 Phosphorus 5.6 mg/dL (2.7-4.5) H 12/12/17 04:05 Magnesium 1.9 mg/dL (1.6-2.6) 12/09/17 04:56 Urine Creatinine 60 mg/dL 12/06/17 17:42 Urine Sodium 88.8 mEq/L 12/06/17 17:42 Urine Total Protein < 4 mg/dL (1-14) 12/06/17 17:42 Consult Discharge Plan - Plan Referrals: Lucero Herrera CNP [Primary Care Provider] -
[2017-12-12 15:50] LABS: Alpha 2 Globulin (PEP) 0.69 g/dL (0.48-1.05); Beta Globulin (PEP) 0.48 g/dL (0.48-1.10)
--- NOTE | 2017-12-12 18:42 | Internal Med Progress Note ---
Hospitalist Progress Note - Encounter Date of Encounter: 12/12/17 Time of Encounter: 11:00 - Subjective Interval History: Patient with improvement in acute renal failure Scheduled for bilateral nephrostomy tubes today - Exam Vitals: Temp Pulse Resp BP Pulse Ox 97.8 F 69 10 165/97 100 12/12/17 11:10 12/12/17 15:11 12/12/17 15:11 12/12/17 15:11 12/12/17 15:11 Exam: Gen.: Nonacute distress, alert and oriented 3 ENT: Mucosal membranes moist Respiratory: Lungs are clear to auscultation bilaterally without any wheezing rhonchi or rales Cardiovascular: Normal S1 and S2 regular rate rhythm no murmurs rubs or gallops Abdomen: Soft, nontender and nondistended with positive bowel sounds Extremities: No lower extremity edema Skin: Normal color - Assessment and Plan (1) ARF (acute renal failure) Current Visit: Yes Status: Acute Assessment and Plan: Etiology completely unclear per nephrology evaluation who is following Patient with suspected dehydration on admission in addition to mild bilateral hydronephrosis on renal ultrasound Urology following and management as below Patient's creatinine improvin.36->9.79->11.07->10.34->11.85->9.78 (2) Hyperkalemia Current Visit: Yes Status: Resolved Assessment and Plan: Resolved; continue to monitor (3) CAD (coronary artery disease) Current Visit: Yes Status: Chronic Assessment and Plan: Stable; Continue aspirin, statin, beta steff. Hold SOHA inhibitor (4) Essential hypertension Current Visit: Yes Status: Chronic Assessment and Plan: Controlled; continue Norvasc and metoprolol. (5) Diabetes mellitus Current Visit: Yes Status: Chronic Assessment and Plan: c/w Accu-Chek blood glucose monitoring with sliding scale insulin as needed. Hold oral hypoglycemics. Diabetic diet. (6) CHF (congestive heart failure) Current Visit: Yes Status: Chronic Assessment and Plan: Cont aspirin, statin and betablocker. (7) Anemia Current Visit: Yes Status: Acute Assessment and Plan: Stable; continue to monitor - Time Spent with Patient Total time spent is greater than 50% in coordination of care (as documented) at patient's floor/unit and/or counseling patient: Internal Medicine: Result - Labs CBC & Chem 7: 12/12/17 04:05 12/12/17 04:05 Labs: Short CBC 12/12/17 Range/Units 04:05 WBC 5.6 (4.3-11.1) K/mcL Hgb 9.0 L (12.9-16.9) g/dL Hct 26.8 L (37.5-50.1) % Plt Count 51 L (140-400) K/mcL Neutrophils # 3.2 (1.6-8.9) K/mcL BMP 12/12/17 04:05 Sodium 140 Potassium 4.3 Chloride 105 Carbon Dioxide 26 BUN 48 H Creatinine 9.78 H Glucose 113 H Calcium 8.4 L Liver Function 12/12/17 Range/Units 04:05 Albumin 3.3 L (3.5-5.7) g/dL - ABG Interpretation ABG results: PT/INR, D-dimer PT 11.2 Seconds (9.4-12.1) 12/11/17 04:45 Consult Discharge Plan - Plan Referrals: Lucero Herrera, RN TRAINING [Primary Care Provider] - (1) ARF (acute renal failure) Qualifiers: Acute renal failure type: unspecified Qualified Code(s): N17.9 - Acute kidney failure, unspecified (3) CAD (coronary artery disease) Qualifiers: Coronary Disease-Associated Artery/Lesion type: bypass graft [place] vs. transplanted heart: [place] heart Associated angina: without angina Qualified Code(s): I25.810 - Atherosclerosis of coronary artery bypass graft(s) without angina pectoris (5) Diabetes mellitus Qualifiers: Diabetes mellitus type: type 2 Diabetes mellitus intermodal dispatcher insulin use: without residential use Diabetes mellitus complication status: with unspecified complications Qualified Code(s): E11.8 - Type 2 diabetes mellitus with unspecified complications (6) CHF (congestive heart failure) Qualifiers: Heart failure type: unspecified Heart failure chronicity: chronic Qualified Code(s): I50.9 - Heart failure, unspecified
[2017-12-12] MEDS: *HR* HYDROcodone/Acet 7.5/325 mg TABLET PO PRN (20:43)
[2017-12-13] MEDS: *HR* Heparin 5,000 UNIT/ML VIAL SQ SCH ×2 (05:13→17:12)
[2017-12-13 05:36] LABS: Hemoglobin 10.2 g/dL (12.9-16.9); Monocytes % 12.7 %
[2017-12-13 05:37] LABS: Basophils % 0.5 %; Eosinophils # 0.1 K/mcL (0.0-0.6); Hematocrit 30.8 % (37.5-50.1); Immature Granulocytes % 0.3 % (0-4); Immature Platelets 10.9 % (1.1-6.1); Lymphocytes # 1.6 K/mcL (0.6-4.6); Lymphocytes % 25.1 %; Mean Corpuscular HGB Conc 33.1 g/dL (31.6-35.5); Mean Corpuscular Volume 96.6 fL (83.0-100.0); Mean Platelet Volume 12.2 fL (9.4-12.4); Monocytes # 0.8 K/mcL (0.0-1.3); Red Blood Count 3.19 M/mcL (4.19-5.50); Red Cell Distribution Width 13.1 % (11.5-14.5); Segmented Neutrophils % 59.4 %
[2017-12-13 05:38] LABS: Neutrophils # 3.9 K/mcL (1.6-8.9); Platelet Count 74 K/mcL (140-400)
[2017-12-13 06:04] LABS: Albumin 3.7 g/dL (3.5-5.7); Calcium 9.1 mg/dL (8.6-10.3); Phosphorous 4.6 mg/dL (2.7-4.5); Potassium 3.6 mEq/L (3.5-5.1)
[2017-12-13] MEDS: Insulin LISPRO 300 UNITS/3 ML VIAL SQ SCH ×4 (08:40→20:41)
[2017-12-13] MEDS: Aspirin Enteric Coated 81 MG Tablet PO SCH (08:43)
[2017-12-13] MEDS: amLODIPine 5 MG TABLET PO SCH (08:43)
[2017-12-13 10:56] LABS: IFE Reflexed NOT DONE
--- NOTE | 2017-12-13 11:03 | Urology Progress Note ---
Date of Encounter: 12/13/17 Time of Encounter: 11:02 - Assessment and Plan (1) Bilateral hydronephrosis Current Visit: Yes Status: Acute Assessment and plan: Patient will need to continue with bilateral nephrostomy tubes. These will likely be lifelong for the patient. (2) Prostate cancer Current Visit: Yes Status: Acute Assessment and plan: Patient with metastatic castrate resistant prostate cancer. We will consult medical oncology for further evaluation. Progress Note Narrative: Patient seen this morning. Patient's serum creatinine has reduced down dramatically after bilateral nephrostomy tube placement yesterday. Patient's PSA is in the 80s with a castrate level testosterone. Patient feels good at this time. Objective Initial Vital Signs Temp Pulse Resp BP Pulse Ox 97.7 F 71 16 187/84 97 12/06/17 10:37 12/06/17 10:37 12/06/17 10:37 12/06/17 10:37 12/06/17 10:37 - General physical appearance Present: well developed, well nourished - Respiratory Present: normal expansion, normal respiratory effort - Abdomen Present: soft. Absent: tender - Genitourinary Present: other (Bilateral nephrostomy tubes draining slightly bloody urine) - Labs 12/13/17 04:00 12/13/17 05:20 Diabetes panel 12/13/17 Range/Units 05:20 Sodium 141 (136-145) mEq/L Potassium 3.6 (3.5-5.1) mEq/L Chloride 106 (98-107) mEq/L Carbon Dioxide 28 (23-29) mEq/L BUN 34 H (8-23) mg/dL Creatinine 3.81 H (0.70-1.30) mg/dL Glucose 133 H (70-105) mg/dL Calcium 9.1 (8.6-10.3) mg/dL Albumin 3.7 (3.5-5.7) g/dL Calcium panel 12/13/17 Range/Units 05:20 Calcium 9.1 (8.6-10.3) mg/dL Phosphorus 4.6 H (2.7-4.5) mg/dL Albumin 3.7 (3.5-5.7) g/dL Pituitary panel 12/13/17 Range/Units 05:20 Sodium 141 (136-145) mEq/L Potassium 3.6 (3.5-5.1) mEq/L Chloride 106 (98-107) mEq/L Carbon Dioxide 28 (23-29) mEq/L BUN 34 H (8-23) mg/dL Creatinine 3.81 H (0.70-1.30) mg/dL Glucose 133 H (70-105) mg/dL Calcium 9.1 (8.6-10.3) mg/dL Adrenal panel 12/13/17 Range/Units 05:20 Sodium 141 (136-145) mEq/L Potassium 3.6 (3.5-5.1) mEq/L Chloride 106 (98-107) mEq/L Carbon Dioxide 28 (23-29) mEq/L BUN 34 H (8-23) mg/dL Creatinine 3.81 H (0.70-1.30) mg/dL Glucose 133 H (70-105) mg/dL Calcium 9.1 (8.6-10.3) mg/dL Albumin 3.7 (3.5-5.7) g/dL Consult Discharge Plan - Plan Referrals: Lucero Herrera CNP [Primary Care Provider] -
--- NOTE | 2017-12-13 11:16 | Nephrology Progress Note ---
Date of Encounter: 12/13/17 Time of Encounter: 09:45 - Assessment and Plan (1) ARF (acute renal failure) Current Visit: Yes Status: Acute Rapidly improving with Perc Nephrostomy tubes, and so will not need HD, and I suspect his SCr will continue to rapidly improve. Will plan to remove the HD catheter tomorrow. Counseled the pt to focus on inc'd oral fluids. I'm expecting polyuria, known as a post-obstructive autodiuresis; will need to monitor PNa and serum K+. Continue to follow a renal protective strategy. Appreciate Urology and Heme/Onc. Qualifiers: Acute renal failure type: unspecified Qualified Code(s): N17.9 - Acute kidney failure, unspecified (2) Bilateral hydronephrosis Current Visit: Yes Status: Acute S/p bilateral nephrostomy tubes and now his SCr is rapidly improving. (3) Hyperkalemia Current Visit: Yes Status: Resolved Resolved (4) Pedal edema Current Visit: Yes Status: Acute Resolved (5) Anemia Current Visit: Yes Status: Acute Will monitor. Qualifiers: Anemia type: unspecified type Qualified Code(s): D64.9 - Anemia, unspecified Subjective Principal diagnosis: worsening renal function Interval history: Pt was s/e earlier today. He did not affirm N/V/D or CP and he said his abdominal swelling has improved after the nephrostomy tubes were placed. He reported that the bags have been emptied numerous times. He did not affirm F/C or severe flank pain. Objective - Vital Signs Vital signs: Vital Signs Temp Pulse Resp BP Pulse Ox 12/13/17 07:04 98.1 F 73 17 156/71 95 12/13/17 04:39 98.1 F 75 15 168/80 93 12/13/17 00:45 98 F 69 15 122/80 95 12/12/17 19:13 98.4 F 81 15 147/75 95 12/12/17 16:42 71 16 178/95 93 12/12/17 16:11 62 17 162/106 94 12/12/17 15:42 98.7 F 71 17 164/84 96 12/12/17 15:11 69 10 165/97 100 12/12/17 15:06 74 10 155/93 100 12/12/17 15:01 69 12 178/106 100 12/12/17 14:55 70 10 173/95 100 12/12/17 14:52 73 10 177/97 100 12/12/17 14:42 91 14 182/95 96 Intake and Output 12/12/17 12/13/17 12/13/17 23:59 07:59 15:59 Intake Total 240 / 240 500 / 500 Output Total 3475 / 3475 1425 / 1425 550 / 550 Balance -3235 / -3235 -925 / -925 -550 / -550 Intake: Oral 240 / 240 500 / 500 Output: Urine 1000 / 1000 Left Nephrostomy 1150 / 1150 650 / 650 350 / 350 Right Nephrostomy 1325 / 1325 775 / 775 200 / 200 Other: Meal Dinner Percent of Meal Consumed 100% Weight 111.4 kg Blood Glucose* 276 121 Patient Weight 12/13/17 23:59 Weight 111.4 kg - General Appearance General appearance: Present: well-developed, well-nourished, appears started age EENT: Present: ATNC, PERRL, mucous membranes moist Neck: Present: supple Respiratory: Present: clear Cardiology: Present: no edema, regular rate, regular rhythm, normal S1, normal S2 Dialysis Vascular Access: Venous Catheter (RIJ temporary HD catheter was C/D/I) Gastrointestinal: Present: normoactive bowel sounds, no tenderness, no guarding. Absent: distended Additional Comments: Nephrostomy tubes with gross hemturia Integumentary: Present: warm and dry Neurologic: Present: no focal deficit, no asterixis, alert and oriented x3 Musculoskeletal: Present: no deformities, no erythema, no cyanosis Psychiatric: Present: mood/affect appropriate, cooperative - Lab 12/13/17 04:00 12/13/17 05:20 Most recent lab results Calcium 9.1 mg/dL (8.6-10.3) 12/13/17 05:20 Phosphorus 4.6 mg/dL (2.7-4.5) H 12/13/17 05:20 Magnesium 1.9 mg/dL (1.6-2.6) 12/09/17 04:56 Urine Creatinine 60 mg/dL 12/06/17 17:42 Urine Sodium 88.8 mEq/L 12/06/17 17:42 Urine Total Protein < 4 mg/dL (1-14) 12/06/17 17:42 Consult Discharge Plan - Plan Referrals: Lucero Herrera, JOSH [Primary Care Provider] -
--- NOTE | 2017-12-13 15:07 | Oncology Inp Consult Note ---
Addendum entered and electronically signed by Roberta Gutierrez CNP 12/13/17 18:29 : Patient was seen by Dr. Jones will start Casodex 50mg PO daily. Will need f/u scheduled with Neha Gutierrez CNP at [facility] Week of December 18. Original Note: <Roberta Gutierrez - Last Filed: 12/13/17 15:03> Date of Encounter: 12/13/17 Time of Encounter: 15:03 Assessment and Plan (1) Prostate cancer Status: Chronic Assessment and plan: This patient with history of prostate cancer with a Tamarack 4=4+8, has a rising PSA currently 86.3. Testosterone level of less than 10. He has been on Vantus however last replacement was in May of 2016. He will be seen by Dr Jones to discuss treatment options. He is interesting in pursuing aggressive treatment. - Data of Consult Patient: new to practice (Nito Herrera is a 82-year-old male with a history of coronary artery disease, diabetes and prostate cancer. He presented to the emergency room secondary to having abnormal labs. He was seen a week prior by his primary care provider for some chest congestion and at that time was treated with Zithromax and had routine labs performed. His creatinine at the time of evaluation the ER was greater than 12. He denies having kidney disease/problems prior to that time. He reported having chronic leg swelling that had worsened in the past few days prior to presenting to the ER he also reported having decreased amounts of urinary output.) Requesting Physician: Nicholas Roa Primary Care Provider: Lucero Herrera, - Consult Narrative Reason for consult: Prostate cancer with elevated PSA History of present illness: Mr. Herrera is a 82 year old male with a past medical history of diabetes, coronary artery disease, prostate cancer who was recently admitted through the emergency room due to abnormal labs. He states that he had respiratory symptoms and congestion was seen by his primary care provider and was given Zithromax. During that time he had routine labs performed. He received a call from his primary care provider to go the emergency room secondary to abnormal labs. At that time his creatinine was greater than 12. He denies having any kidney disease 4/problems prior to that time. During this hospitalization the patient has had dialysis and also had bilateral nephrostomy tubes placed secondary to mild hydronephrosis. CT of 12/10/2017 indicated thickening of bladder wall, prostate enlargement with irregularity, increase in pelvic and retroperitoneal nodes, possible right ureteral lesion and small bilateral pleural effusions. Current creatinine is 3.81. The patient does have a history of prostate cancer. In October 2012 he had a TURP with pathology indicating at no carcinoma of the prostate with Tamarack score of 4+4 = 8. On 10/11/2012 his PSA was 27.0. The patient was being followed by Dr. Michele Velazco. He was receiving the Vantas implant. This is being exchanged every year, however it could not be next change since May 2016. In 2015 the patient elected to stop Vantas with that he had sharp elevation of PSA at 14.4. His current PSA is 86.3 and testosterone was less than 10. We have been asked to see the patient to discuss further recommendations for treatment. Past Med Surg Social Fam HX - Past Medical History Medical history: cancer (prostate), CHF, coronary artery disease, diabetes, hyperlipidemia, hypertension, other (glaucoma) Additional medical history: history of prostate cancer. Psychiatric history: no psych history - Past Surgical History Surgical History: appendectomy, cataract, coronary bypass (CABG), other Additional surgical history: tURP in October 2012 - Social History Smoking Status: Former smoker Smokeless Tobacco Status: No Alcohol use: none Drug use: none - Family History Father Adopted: No Family Member Ethnicity: Non- Living Status: Age at : 75 Cause of : PR Hx Family Cardiac Disorders: Yes Hx Family Respiratory Disorders: No Hx Family Cancer: No Hx Family GI Disorders: No Hx Family Genitourinary Disorders: No Hx Family Endocrine Disorder: No Hx Family Musculoskeletal Disorders: No Hx Family Neuromuscular Disorders: No Hx Family Neurologic Disorders: No Hx Family HEENT Disorders: No Hx Family Autoimmune Disorders: No Hx Family Reproductive Disorders: No Hx Family Psychosocial Disorders: No Hx Family Medical Disorders: No - Additional Family History Additional family history: Paternal uncle with prostate cancer. Medications and Allergies Amlodipine Besylate 10 mg PO DAILY 12/06/17 [History] Aspirin Enteric Coated [Aspirin EC] 81 mg PO DAILY 12/06/17 [History] Atorvastatin [Lipitor] 40 mg PO HS 12/06/17 [History] Metoprolol [Lopressor] 50 mg PO BID 12/06/17 [History] Terazosin HCl 10 mg PO BID 12/06/17 [History] Timolol Maleate 0.5% 1 drop OP DAILY 12/06/17 [History] Tramadol HCl [Ultram] 50 mg PO QID PRN 12/06/17 [History] 3 Allergy/AdvReac Type Severity Reaction Status Date / Time Penicillins AdvReac Rash Verified 12/06/17 10:41 All systems: reviewed and no additional remarkable complaints except as stated Genitourinary: other (Diminished urinary output) Oncology - Exam - Constitutional Vitals: Temp Pulse Resp BP Pulse Ox 97.6 F 74 18 120/75 93 12/13/17 11:32 12/13/17 11:32 12/13/17 11:32 12/13/17 11:32 12/13/17 11:32 General appearance: cooperative, no acute distress, obese - Head Head exam: Present: normal inspection - ENT ENT exam: Present: mucous membranes moist - Neck Additional comments: Dialysis catheter in place R neck - Respiratory Respiratory exam: Present: CTAB - Cardiovascular Cardiovascular exam: Present: RRR - GI/Abdominal GI/Abdominal exam: Present: normal bowel sounds, soft - Additional comments: bilateral nephrostomy tubes in place. R draining tea colored urine, L urine clearing - Extremities Exam Extremities exam: Present: normal inspection - Neurological Exam Neurological exam: Present: alert, oriented X3 - Psychiatric Psychiatric exam: Present: normal affect, normal mood Oncology - Results Labs: 3 12/13/17 12/13/17 12/12/17 05:20 04:00 20:24 WBC 6.5 RBC 3.19 L Hgb 10.2 L Hct 30.8 L MCV 96.6 MCH 32.0 MCHC 33.1 RDW 13.1 Plt Count 74 L MPV 12.2 Immature Gran % 0.3 Seg Neutrophils % 59.4 Lymphocytes % 25.1 Monocytes % 12.7 Eosinophils % 2.0 Basophils % 0.5 Neutrophils # 3.9 Lymphocytes # 1.6 Monocytes # 0.8 Eosinophils # 0.1 Basophils # 0.0 Immature Plt Fraction 10.9 H PT INR APTT Sodium 141 Potassium 3.6 Chloride 106 Carbon Dioxide 28 BUN 34 H Creatinine 3.81 H Est GFR ( Amer) 19 L Est GFR (Non-Af Amer) 15 L BUN/Creatinine Ratio 9 Glucose 133 H POC Glucose 276 H Est Mean Plasma Glucose Hemoglobin A1c Calculated Osmolality 302 H Uric Acid Calcium 9.1 Venous Ioniz Calcium Phosphorus 4.6 H Magnesium Iron % Saturation Transferrin Ferritin Creatine Kinase Troponin I Prot Electrophor EER Total Protein (PEP) Albumin 3.7 Albumin (PEP) Hhdhv-9-Kqtpzbezy Ipiqr-0-Gqevnjgib Beta Globulins Gamma Globulins PEP Interpretation Prostate Specific Ag Vitamin B12 25-OH Vitamin D Total Folate Total Testosterone PTH Intact Serum Immunofix Reflex Ur Eosinophil Smear Urine Creatinine Protein/Creatinin Ratio Urine Sodium Urine Total Protein Stool Occult Blood Stl C. cayetanensis PCR Stool Rotavirus A PCR Stl Adenov F PCR Stool Astrovirus (PCR) Stool Campylobacter PCR Stl C. diff Tox A/B PCR Stool Cryptosporidium PCR Stl Sh Tox Pr E STEC PCR Stool E coli O157 PCR Stl Enterotoxigenic E PCR Stool EPEC (PCR) Stool EAEC (PCR) Stl E. histolytica PCR Stool Giardia Lamblia PCR Stool Salmonella PCR Stool Sapovirus (PCR) Stl P. shigelloides PCR Stl Shigella/EIEC PCR St Y.enterocolitica PCR Stool Vibrio (PCR) Stl Vibrio cholerae PCR Stl Norovirus GI/GII PCR Stl GI Panel (PCR) Com IgG IgA IgM Rheumatoid Factor PAPA Screen Myeloperoxidase Ab Serine Protease 3 Ab 3 12/12/17 12/12/17 12/12/17 16:20 12:25 06:52 WBC RBC Hgb Hct MCV MCH MCHC RDW Plt Count MPV Immature Gran % Seg Neutrophils % Lymphocytes % Monocytes % Eosinophils % Basophils % Neutrophils # Lymphocytes # Monocytes # Eosinophils # Basophils # Immature Plt Fraction PT INR APTT Sodium Potassium Chloride Carbon Dioxide BUN Creatinine Est GFR ( Amer) Est GFR (Non-Af Amer) BUN/Creatinine Ratio Glucose POC Glucose 135 H 102 H 100 H Est Mean Plasma Glucose Hemoglobin A1c Calculated Osmolality Uric Acid Calcium Venous Ioniz Calcium Phosphorus Magnesium Iron % Saturation Transferrin Ferritin Creatine Kinase Troponin I Prot Electrophor EER Total Protein (PEP) Albumin Albumin (PEP) Lpipx-0-Tdirwpyqr Axikk-4-Lsdeomulz Beta Globulins Gamma Globulins PEP Interpretation Prostate Specific Ag Vitamin B12 25-OH Vitamin D Total Folate Total Testosterone PTH Intact Serum Immunofix Reflex Ur Eosinophil Smear Urine Creatinine Protein/Creatinin Ratio Urine Sodium Urine Total Protein Stool Occult Blood Stl C. cayetanensis PCR Stool Rotavirus A PCR Stl Adenov F PCR Stool Astrovirus (PCR) Stool Campylobacter PCR Stl C. diff Tox A/B PCR Stool Cryptosporidium PCR Stl Sh Tox Pr E STEC PCR Stool E coli O157 PCR Stl Enterotoxigenic E PCR Stool EPEC (PCR) Stool EAEC (PCR) Stl E. histolytica PCR Stool Giardia Lamblia PCR Stool Salmonella PCR Stool Sapovirus (PCR) Stl P. shigelloides PCR Stl Shigella/EIEC PCR St Y.enterocolitica PCR Stool Vibrio (PCR) Stl Vibrio cholerae PCR Stl Norovirus GI/GII PCR Stl GI Panel (PCR) Com IgG IgA IgM Rheumatoid Factor PAPA Screen Myeloperoxidase Ab Serine Protease 3 Ab 3 12/12/17 12/12/17 12/11/17 04:05 04:05 19:26 WBC 5.6 RBC 2.78 L Hgb 9.0 L Hct 26.8 L MCV 96.4 MCH 32.4 MCHC 33.6 RDW 13.0 Plt Count 51 L MPV 12.8 H Immature Gran % 0.2 Seg Neutrophils % 57.4 Lymphocytes % 24.6 Monocytes % 13.2 Eosinophils % 4.1 Basophils % 0.5 Neutrophils # 3.2 Lymphocytes # 1.4 Monocytes # 0.7 Eosinophils # 0.2 Basophils # 0.0 Immature Plt Fraction 14.2 H PT INR APTT Sodium 140 Potassium 4.3 Chloride 105 Carbon Dioxide 26 BUN 48 H Creatinine 9.78 H Est GFR ( Amer) 6 L Est GFR (Non-Af Amer) 5 L BUN/Creatinine Ratio 5 L Glucose 113 H POC Glucose 218 H Est Mean Plasma Glucose Hemoglobin A1c Calculated Osmolality 303 H Uric Acid Calcium 8.4 L Venous Ioniz Calcium Phosphorus 5.6 H Magnesium Iron % Saturation Transferrin Ferritin Creatine Kinase Troponin I Prot Electrophor EER Total Protein (PEP) Albumin 3.3 L Albumin (PEP) Yepwq-9-Xokkpcwoc Gbftm-6-Lxvvqeabh Beta Globulins Gamma Globulins PEP Interpretation Prostate Specific Ag Vitamin B12 25-OH Vitamin D Total Folate Total Testosterone PTH Intact Serum Immunofix Reflex Ur Eosinophil Smear Urine Creatinine Protein/Creatinin Ratio Urine Sodium Urine Total Protein Stool Occult Blood Stl C. cayetanensis PCR Stool Rotavirus A PCR Stl Adenov F 40 PCR Stool Astrovirus (PCR) Stool Campylobacter PCR Stl C. diff Tox A/B PCR Stool Cryptosporidium PCR Stl Sh Tox Pr E STEC PCR Stool E coli O157 PCR Stl Enterotoxigenic E PCR Stool EPEC (PCR) Stool EAEC (PCR) Stl E. histolytica PCR Stool Giardia Lamblia PCR Stool Salmonella PCR Stool Sapovirus (PCR) Stl P. shigelloides PCR Stl Shigella/EIEC PCR St Y.enterocolitica PCR Stool Vibrio (PCR) Stl Vibrio cholerae PCR Stl Norovirus GI/GII PCR Stl GI Panel (PCR) Com IgG IgA IgM Rheumatoid Factor PAPA Screen Myeloperoxidase Ab Serine Protease 3 Ab 3 12/11/17 12/11/17 12/11/17 17:10 17:08 10:44 WBC RBC Hgb Hct MCV MCH MCHC RDW Plt Count MPV Immature Gran % Seg Neutrophils % Lymphocytes % Monocytes % Eosinophils % Basophils % Neutrophils # Lymphocytes # Monocytes # Eosinophils # Basophils # Immature Plt Fraction PT INR APTT Sodium Potassium Chloride Carbon Dioxide BUN Creatinine Est GFR ( Amer) Est GFR (Non-Af Amer) BUN/Creatinine Ratio Glucose POC Glucose 116 H 106 H Est Mean Plasma Glucose Hemoglobin A1c Calculated Osmolality Uric Acid Calcium Venous Ioniz Calcium Phosphorus Magnesium Iron % Saturation Transferrin Ferritin Creatine Kinase Troponin I Prot Electrophor EER Total Protein (PEP) Albumin Albumin (PEP) Kcmld-3-Fznzfowyu Ulhjy-9-Thyqqbzvo Beta Globulins Gamma Globulins PEP Interpretation Prostate Specific Ag 86.30 H Vitamin B12 25-OH Vitamin D Total Folate Total Testosterone < 10 L PTH Intact Serum Immunofix Reflex Ur Eosinophil Smear Urine Creatinine Protein/Creatinin Ratio Urine Sodium Urine Total Protein Stool Occult Blood Stl C. cayetanensis PCR Stool Rotavirus A PCR Stl Adenov F 40/41 PCR Stool Astrovirus (PCR) Stool Campylobacter PCR Stl C. diff Tox A/B PCR Stool Cryptosporidium PCR Stl Sh Tox Pr E STEC PCR Stool E coli O157 PCR Stl Enterotoxigenic E PCR Stool EPEC (PCR) Stool EAEC (PCR) Stl E. histolytica PCR Stool Giardia Lamblia PCR Stool Salmonella PCR Stool Sapovirus (PCR) Stl P. shigelloides PCR Stl Shigella/EIEC PCR St Y.enterocolitica PCR Stool Vibrio (PCR) Stl Vibrio cholerae PCR Stl Norovirus GI/GII PCR Stl GI Panel (PCR) Com IgG IgA IgM Rheumatoid Factor PAPA Screen Myeloperoxidase Ab Serine Protease 3 Ab 3 12/11/17 12/11/17 12/11/17 07:49 06:01 04:45 WBC RBC Hgb Hct MCV MCH MCHC RDW Plt Count MPV Immature Gran % Seg Neutrophils % Lymphocytes % Monocytes % Eosinophils % Basophils % Neutrophils # Lymphocytes # Monocytes # Eosinophils # Basophils # Immature Plt Fraction PT INR APTT Sodium Potassium Chloride Carbon Dioxide BUN Creatinine Est GFR ( Amer) Est GFR (Non-Af Amer) BUN/Creatinine Ratio Glucose POC Glucose 113 H Est Mean Plasma Glucose Hemoglobin A1c Calculated Osmolality Uric Acid Calcium Venous Ioniz Calcium 1.11 L Phosphorus Magnesium Iron % Saturation Transferrin Ferritin Creatine Kinase Troponin I Prot Electrophor EER Total Protein (PEP) Albumin Albumin (PEP) Zajxz-1-Tqkmjijwn Ceegu-8-Oxaekvbzj Beta Globulins Gamma Globulins PEP Interpretation Prostate Specific Ag Vitamin B12 25-OH Vitamin D Total Folate Total Testosterone PTH Intact 141.3 H Serum Immunofix Reflex Ur Eosinophil Smear Urine Creatinine Protein/Creatinin Ratio Urine Sodium Urine Total Protein Stool Occult Blood Stl C. cayetanensis PCR Stool Rotavirus A PCR Stl Adenov F 40/41 PCR Stool Astrovirus (PCR) Stool Campylobacter PCR Stl C. diff Tox A/B PCR Stool Cryptosporidium PCR Stl Sh Tox Pr E STEC PCR Stool E coli O157 PCR Stl Enterotoxigenic E PCR Stool EPEC (PCR) Stool EAEC (PCR) Stl E. histolytica PCR Stool Giardia Lamblia PCR Stool Salmonella PCR Stool Sapovirus (PCR) Stl P. shigelloides PCR Stl Shigella/EIEC PCR St Y.enterocolitica PCR Stool Vibrio (PCR) Stl Vibrio cholerae PCR Stl Norovirus GI/GII PCR Stl GI Panel (PCR) Com IgG IgA IgM Rheumatoid Factor PAPA Screen Myeloperoxidase Ab Serine Protease 3 Ab 3 12/11/17 12/11/17 12/11/17 04:45 04:45 04:45 WBC RBC Hgb Hct MCV MCH MCHC RDW Plt Count MPV Immature Gran % Seg Neutrophils % Lymphocytes % Monocytes % Eosinophils % Basophils % Neutrophils # Lymphocytes # Monocytes # Eosinophils # Basophils # Immature Plt Fraction PT INR APTT Sodium 139 Potassium 4.4 Chloride 106 Carbon Dioxide 22 L BUN 72 H Creatinine 11.85 H Est GFR ( Amer) 5 L Est GFR (Non-Af Amer) 4 L BUN/Creatinine Ratio 6 Glucose 122 H POC Glucose Est Mean Plasma Glucose Hemoglobin A1c Calculated Osmolality 310 H Uric Acid Calcium 8.4 L Venous Ioniz Calcium Phosphorus 6.1 H Magnesium Iron 56 L % Saturation 20 Transferrin 204 Ferritin 156 Creatine Kinase Troponin I Prot Electrophor EER Total Protein (PEP) Albumin 3.3 L Albumin (PEP) Exdbb-5-Smwkuqgwe Dyfwp-6-Ztygfmpqw Beta Globulins Gamma Globulins PEP Interpretation Prostate Specific Ag Vitamin B12 696 25-OH Vitamin D Total 24 L Folate 8.3 Total Testosterone PTH Intact Serum Immunofix Reflex Ur Eosinophil Smear Urine Creatinine Protein/Creatinin Ratio Urine Sodium Urine Total Protein Stool Occult Blood Stl C. cayetanensis PCR Stool Rotavirus A PCR Stl Adenov F 40/ PCR Stool Astrovirus (PCR) Stool Campylobacter PCR Stl C. diff Tox A/B PCR Stool Cryptosporidium PCR Stl Sh Tox Pr E STEC PCR Stool E coli O157 PCR Stl Enterotoxigenic E PCR Stool EPEC (PCR) Stool EAEC (PCR) Stl E. histolytica PCR Stool Giardia Lamblia PCR Stool Salmonella PCR Stool Sapovirus (PCR) Stl P. shigelloides PCR Stl Shigella/EIEC PCR St Y.enterocolitica PCR Stool Vibrio (PCR) Stl Vibrio cholerae PCR Stl Norovirus GI/GII PCR Stl GI Panel (PCR) Com IgG IgA IgM Rheumatoid Factor PAPA Screen Myeloperoxidase Ab Serine Protease 3 Ab 3 12/11/17 12/11/17 12/10/17 04:45 04:45 20:46 WBC 7.0 RBC 2.87 L Hgb 9.3 L Hct 27.6 L MCV 96.2 MCH 32.4 MCHC 33.7 RDW 13.1 Plt Count 69 L MPV 13.0 H Immature Gran % 0.3 Seg Neutrophils % 60.6 Lymphocytes % 22.9 Monocytes % 10.8 Eosinophils % 5.0 Basophils % 0.4 Neutrophils # 4.2 Lymphocytes # 1.6 Monocytes # 0.8 Eosinophils # 0.4 Basophils # 0.0 Immature Plt Fraction 11.4 H PT 11.2 INR 1.0 APTT 27.0 Sodium Potassium Chloride Carbon Dioxide BUN Creatinine Est GFR ( Amer) Est GFR (Non-Af Amer) BUN/Creatinine Ratio Glucose POC Glucose 199 H Est Mean Plasma Glucose Hemoglobin A1c Calculated Osmolality Uric Acid Calcium Venous Ioniz Calcium Phosphorus Magnesium Iron % Saturation Transferrin Ferritin Creatine Kinase Troponin I Prot Electrophor EER Total Protein (PEP) Albumin Albumin (PEP) Knrvw-6-Yrcjhxkeh Yzenv-5-Nvcuqqsbj Beta Globulins Gamma Globulins PEP Interpretation Prostate Specific Ag Vitamin B12 25-OH Vitamin D Total Folate Total Testosterone PTH Intact Serum Immunofix Reflex Ur Eosinophil Smear Urine Creatinine Protein/Creatinin Ratio Urine Sodium Urine Total Protein Stool Occult Blood Stl C. cayetanensis PCR Stool Rotavirus A PCR Stl Adenov F PCR Stool Astrovirus (PCR) Stool Campylobacter PCR Stl C. diff Tox A/B PCR Stool Cryptosporidium PCR Stl Sh Tox Pr E STEC PCR Stool E coli O157 PCR Stl Enterotoxigenic E PCR Stool EPEC (PCR) Stool EAEC (PCR) Stl E. histolytica PCR Stool Giardia Lamblia PCR Stool Salmonella PCR Stool Sapovirus (PCR) Stl P. shigelloides PCR Stl Shigella/EIEC PCR St Y.enterocolitica PCR Stool Vibrio (PCR) Stl Vibrio cholerae PCR Stl Norovirus GI/GII PCR Stl GI Panel (PCR) Com IgG IgA IgM Rheumatoid Factor PAPA Screen Myeloperoxidase Ab Serine Protease 3 Ab 3 12/10/17 12/10/17 12/10/17 15:52 11:20 07:14 WBC RBC Hgb Hct MCV MCH MCHC RDW Plt Count MPV Immature Gran % Seg Neutrophils % Lymphocytes % Monocytes % Eosinophils % Basophils % Neutrophils # Lymphocytes # Monocytes # Eosinophils # Basophils # Immature Plt Fraction PT INR APTT Sodium Potassium Chloride Carbon Dioxide BUN Creatinine Est GFR ( Amer) Est GFR (Non-Af Amer) BUN/Creatinine Ratio Glucose POC Glucose 106 H 165 H 129 H Est Mean Plasma Glucose Hemoglobin A1c Calculated Osmolality Uric Acid Calcium Venous Ioniz Calcium Phosphorus Magnesium Iron % Saturation Transferrin Ferritin Creatine Kinase Troponin I Prot Electrophor EER Total Protein (PEP) Albumin Albumin (PEP) Qyqbg-1-Noyghnioa Nmdpo-9-Ffhpvicuo Beta Globulins Gamma Globulins PEP Interpretation Prostate Specific Ag Vitamin B12 25-OH Vitamin D Total Folate Total Testosterone PTH Intact Serum Immunofix Reflex Ur Eosinophil Smear Urine Creatinine Protein/Creatinin Ratio Urine Sodium Urine Total Protein Stool Occult Blood Stl C. cayetanensis PCR Stool Rotavirus A PCR Stl Adenov F PCR Stool Astrovirus (PCR) Stool Campylobacter PCR Stl C. diff Tox A/B PCR Stool Cryptosporidium PCR Stl Sh Tox Pr E STEC PCR Stool E coli O157 PCR Stl Enterotoxigenic E PCR Stool EPEC (PCR) Stool EAEC (PCR) Stl E. histolytica PCR Stool Giardia Lamblia PCR Stool Salmonella PCR Stool Sapovirus (PCR) Stl P. shigelloides PCR Stl Shigella/EIEC PCR St Y.enterocolitica PCR Stool Vibrio (PCR) Stl Vibrio cholerae PCR Stl Norovirus GI/GII PCR Stl GI Panel (PCR) Com IgG IgA IgM Rheumatoid Factor PAPA Screen Myeloperoxidase Ab Serine Protease 3 Ab 3 12/09/17 12/09/17 12/09/17 20:17 15:42 11:31 WBC RBC Hgb Hct MCV MCH MCHC RDW Plt Count MPV Immature Gran % Seg Neutrophils % Lymphocytes % Monocytes % Eosinophils % Basophils % Neutrophils # Lymphocytes # Monocytes # Eosinophils # Basophils # Immature Plt Fraction PT INR APTT Sodium Potassium Chloride Carbon Dioxide BUN Creatinine Est GFR ( Amer) Est GFR (Non-Af Amer) BUN/Creatinine Ratio Glucose POC Glucose 197 H 156 H 96 Est Mean Plasma Glucose Hemoglobin A1c Calculated Osmolality Uric Acid Calcium Venous Ioniz Calcium Phosphorus Magnesium Iron % Saturation Transferrin Ferritin Creatine Kinase Troponin I Prot Electrophor EER Total Protein (PEP) Albumin Albumin (PEP) Uqsns-5-Lclghvkke Zgngv-6-Vewvgkrij Beta Globulins Gamma Globulins PEP Interpretation Prostate Specific Ag Vitamin B12 25-OH Vitamin D Total Folate Total Testosterone PTH Intact Serum Immunofix Reflex Ur Eosinophil Smear Urine Creatinine Protein/Creatinin Ratio Urine Sodium Urine Total Protein Stool Occult Blood Stl C. cayetanensis PCR Stool Rotavirus A PCR Stl Adenov F 40/41 PCR Stool Astrovirus (PCR) Stool Campylobacter PCR Stl C. diff Tox A/B PCR Stool Cryptosporidium PCR Stl Sh Tox Pr E STEC PCR Stool E coli O157 PCR Stl Enterotoxigenic E PCR Stool EPEC (PCR) Stool EAEC (PCR) Stl E. histolytica PCR Stool Giardia Lamblia PCR Stool Salmonella PCR Stool Sapovirus (PCR) Stl P. shigelloides PCR Stl Shigella/EIEC PCR St Y.enterocolitica PCR Stool Vibrio (PCR) Stl Vibrio cholerae PCR Stl Norovirus GI/GII PCR Stl GI Panel (PCR) Com IgG IgA IgM Rheumatoid Factor PAPA Screen Myeloperoxidase Ab Serine Protease 3 Ab 3 12/09/17 12/09/17 12/09/17 09:57 09:57 07:15 WBC RBC Hgb Hct MCV MCH MCHC RDW Plt Count MPV Immature Gran % Seg Neutrophils % Lymphocytes % Monocytes % Eosinophils % Basophils % Neutrophils # Lymphocytes # Monocytes # Eosinophils # Basophils # Immature Plt Fraction PT INR APTT Sodium Potassium Chloride Carbon Dioxide BUN Creatinine Est GFR ( Amer) Est GFR (Non-Af Amer) BUN/Creatinine Ratio Glucose POC Glucose 125 H Est Mean Plasma Glucose Hemoglobin A1c Calculated Osmolality Uric Acid Calcium Venous Ioniz Calcium Phosphorus Magnesium Iron % Saturation Transferrin Ferritin Creatine Kinase Troponin I Prot Electrophor EER Total Protein (PEP) Albumin Albumin (PEP) Ywzpu-6-Egxdnjnov Cvhpx-0-Qexibyawk Beta Globulins Gamma Globulins PEP Interpretation Prostate Specific Ag Vitamin B12 25-OH Vitamin D Total Folate Total Testosterone PTH Intact Serum Immunofix Reflex Ur Eosinophil Smear Urine Creatinine Protein/Creatinin Ratio Urine Sodium Urine Total Protein Stool Occult Blood Negative Stl C. cayetanensis PCR Not detected Stool Rotavirus A PCR Not detected Stl Adenov F 40/41 PCR Not detected Stool Astrovirus (PCR) Not detected Stool Campylobacter PCR Not detected Stl C. diff Tox A/B PCR Not detected Stool Cryptosporidium PCR Not detected Stl Sh Tox Pr E STEC PCR Not detected Stool E coli O157 PCR Not detected Stl Enterotoxigenic E PCR Not detected Stool EPEC (PCR) Not detected Stool EAEC (PCR) Not detected Stl E. histolytica PCR Not detected Stool Giardia Lamblia PCR Not detected Stool Salmonella PCR Not detected Stool Sapovirus (PCR) Not detected Stl P. shigelloides PCR Not detected Stl Shigella/EIEC PCR Not detected St Y.enterocolitica PCR Not detected Stool Vibrio (PCR) Not detected Stl Vibrio cholerae PCR Not detected Stl Norovirus GI/GII PCR Not detected Stl GI Panel (PCR) Com See below IgG IgA IgM Rheumatoid Factor PAPA Screen Myeloperoxidase Ab Serine Protease 3 Ab 3 12/09/17 12/09/17 12/09/17 05:00 05:00 05:00 WBC RBC Hgb Hct MCV MCH MCHC RDW Plt Count MPV Immature Gran % Seg Neutrophils % Lymphocytes % Monocytes % Eosinophils % Basophils % Neutrophils # Lymphocytes # Monocytes # Eosinophils # Basophils # Immature Plt Fraction PT INR APTT Sodium Potassium Chloride Carbon Dioxide BUN Creatinine Est GFR ( Amer) Est GFR (Non-Af Amer) BUN/Creatinine Ratio Glucose POC Glucose Est Mean Plasma Glucose Hemoglobin A1c Calculated Osmolality Uric Acid Calcium Venous Ioniz Calcium Phosphorus Magnesium Iron % Saturation Transferrin Ferritin Creatine Kinase Troponin I Prot Electrophor EER SEE NOTE Total Protein (PEP) 5.20 L Albumin Albumin (PEP) 3.07 L Fchrk-2-Mnndhvxnc 0.23 Zslgn-1-Ykzfxqcgl 0.69 Beta Globulins 0.48 Gamma Globulins 0.74 PEP Interpretation SEE NOTE Prostate Specific Ag Vitamin B12 25-OH Vitamin D Total Folate Total Testosterone PTH Intact Serum Immunofix Reflex NOT DONE Ur Eosinophil Smear Urine Creatinine Protein/Creatinin Ratio Urine Sodium Urine Total Protein Stool Occult Blood Stl C. cayetanensis PCR Stool Rotavirus A PCR Stl Adenov F 40 PCR Stool Astrovirus (PCR) Stool Campylobacter PCR Stl C. diff Tox A/B PCR Stool Cryptosporidium PCR Stl Sh Tox Pr E STEC PCR Stool E coli O157 PCR Stl Enterotoxigenic E PCR Stool EPEC (PCR) Stool EAEC (PCR) Stl E. histolytica PCR Stool Giardia Lamblia PCR Stool Salmonella PCR Stool Sapovirus (PCR) Stl P. shigelloides PCR Stl Shigella/EIEC PCR St Y.enterocolitica PCR Stool Vibrio (PCR) Stl Vibrio cholerae PCR Stl Norovirus GI/GII PCR Stl GI Panel (PCR) Com IgG TNP IgA TNP IgM TNP Rheumatoid Factor < 10 PAPA Screen NONE DETECTED Myeloperoxidase Ab Serine Protease 3 Ab 3 12/09/17 12/09/17 12/09/17 05:00 04:56 04:56 WBC 6.4 RBC 2.87 L Hgb 9.0 L Hct 26.7 L MCV 93.0 MCH 31.4 MCHC 33.7 RDW 13.0 Plt Count 79 L MPV 12.5 H Immature Gran % 0.2 Seg Neutrophils % 57.5 Lymphocytes % 26.0 Monocytes % 10.5 Eosinophils % 5.2 Basophils % 0.6 Neutrophils # 3.7 Lymphocytes # 1.7 Monocytes # 0.7 Eosinophils # 0.3 Basophils # 0.0 Immature Plt Fraction PT INR APTT Sodium 141 Potassium 4.3 Chloride 108 H Carbon Dioxide 23 BUN 67 H Creatinine 10.34 H Est GFR ( Amer) 6 L Est GFR (Non-Af Amer) 5 L BUN/Creatinine Ratio 6 Glucose 123 H POC Glucose Est Mean Plasma Glucose Hemoglobin A1c Calculated Osmolality 313 H Uric Acid Calcium 8.3 L Venous Ioniz Calcium Phosphorus Magnesium 1.9 Iron % Saturation Transferrin Ferritin Creatine Kinase Troponin I Prot Electrophor EER Total Protein (PEP) Albumin Albumin (PEP) Akaza-3-Laalaylse Tpjos-3-Xqjkovfps Beta Globulins Gamma Globulins PEP Interpretation Prostate Specific Ag Vitamin B12 25-OH Vitamin D Total Folate Total Testosterone PTH Intact Serum Immunofix Reflex Ur Eosinophil Smear Urine Creatinine Protein/Creatinin Ratio Urine Sodium Urine Total Protein Stool Occult Blood Stl C. cayetanensis PCR Stool Rotavirus A PCR Stl Adenov F PCR Stool Astrovirus (PCR) Stool Campylobacter PCR Stl C. diff Tox A/B PCR Stool Cryptosporidium PCR Stl Sh Tox Pr E STEC PCR Stool E coli O157 PCR Stl Enterotoxigenic E PCR Stool EPEC (PCR) Stool EAEC (PCR) Stl E. histolytica PCR Stool Giardia Lamblia PCR Stool Salmonella PCR Stool Sapovirus (PCR) Stl P. shigelloides PCR Stl Shigella/EIEC PCR St Y.enterocolitica PCR Stool Vibrio (PCR) Stl Vibrio cholerae PCR Stl Norovirus GI/GII PCR Stl GI Panel (PCR) Com IgG IgA IgM Rheumatoid Factor PAPA Screen Myeloperoxidase Ab 0 Serine Protease 3 Ab 0 3 12/08/17 12/08/17 12/08/17 21:31 20:29 16:42 WBC RBC Hgb Hct MCV MCH MCHC RDW Plt Count MPV Immature Gran % Seg Neutrophils % Lymphocytes % Monocytes % Eosinophils % Basophils % Neutrophils # Lymphocytes # Monocytes # Eosinophils # Basophils # Immature Plt Fraction PT INR APTT Sodium Potassium Chloride Carbon Dioxide BUN Creatinine Est GFR ( Amer) Est GFR (Non-Af Amer) BUN/Creatinine Ratio Glucose POC Glucose 122 H 124 H 230 H Est Mean Plasma Glucose Hemoglobin A1c Calculated Osmolality Uric Acid Calcium Venous Ioniz Calcium Phosphorus Magnesium Iron % Saturation Transferrin Ferritin Creatine Kinase Troponin I Prot Electrophor EER Total Protein (PEP) Albumin Albumin (PEP) Scxyp-0-Trigofcfi Zsght-5-Vhwjtwgye Beta Globulins Gamma Globulins PEP Interpretation Prostate Specific Ag Vitamin B12 25-OH Vitamin D Total Folate Total Testosterone PTH Intact Serum Immunofix Reflex Ur Eosinophil Smear Urine Creatinine Protein/Creatinin Ratio Urine Sodium Urine Total Protein Stool Occult Blood Stl C. cayetanensis PCR Stool Rotavirus A PCR Stl Adenov F PCR Stool Astrovirus (PCR) Stool Campylobacter PCR Stl C. diff Tox A/B PCR Stool Cryptosporidium PCR Stl Sh Tox Pr E STEC PCR Stool E coli O157 PCR Stl Enterotoxigenic E PCR Stool EPEC (PCR) Stool EAEC (PCR) Stl E. histolytica PCR Stool Giardia Lamblia PCR Stool Salmonella PCR Stool Sapovirus (PCR) Stl P. shigelloides PCR Stl Shigella/EIEC PCR St Y.enterocolitica PCR Stool Vibrio (PCR) Stl Vibrio cholerae PCR Stl Norovirus GI/GII PCR Stl GI Panel (PCR) Com IgG IgA IgM Rheumatoid Factor PAPA Screen Myeloperoxidase Ab Serine Protease 3 Ab 3 12/08/17 12/08/17 12/08/17 11:44 07:22 03:26 WBC RBC Hgb Hct MCV MCH MCHC RDW Plt Count MPV Immature Gran % Seg Neutrophils % Lymphocytes % Monocytes % Eosinophils % Basophils % Neutrophils # Lymphocytes # Monocytes # Eosinophils # Basophils # Immature Plt Fraction PT INR APTT Sodium 139 Potassium 4.7 Chloride 109 H Carbon Dioxide 19 L BUN 88 H Creatinine 11.07 H Est GFR ( Amer) 5 L Est GFR (Non-Af Amer) 4 L BUN/Creatinine Ratio 8 Glucose 177 H POC Glucose 128 H 143 H Est Mean Plasma Glucose Hemoglobin A1c Calculated Osmolality 319 H Uric Acid Calcium 8.0 L Venous Ioniz Calcium Phosphorus Magnesium Iron % Saturation Transferrin Ferritin Creatine Kinase Troponin I Prot Electrophor EER Total Protein (PEP) Albumin Albumin (PEP) Hzkey-6-Ksduotmgb Fmipz-5-Bsziskuha Beta Globulins Gamma Globulins PEP Interpretation Prostate Specific Ag Vitamin B12 25-OH Vitamin D Total Folate Total Testosterone PTH Intact Serum Immunofix Reflex Ur Eosinophil Smear Urine Creatinine Protein/Creatinin Ratio Urine Sodium Urine Total Protein Stool Occult Blood Stl C. cayetanensis PCR Stool Rotavirus A PCR Stl Adenov F 40/41 PCR Stool Astrovirus (PCR) Stool Campylobacter PCR Stl C. diff Tox A/B PCR Stool Cryptosporidium PCR Stl Sh Tox Pr E STEC PCR Stool E coli O157 PCR Stl Enterotoxigenic E PCR Stool EPEC (PCR) Stool EAEC (PCR) Stl E. histolytica PCR Stool Giardia Lamblia PCR Stool Salmonella PCR Stool Sapovirus (PCR) Stl P. shigelloides PCR Stl Shigella/EIEC PCR St Y.enterocolitica PCR Stool Vibrio (PCR) Stl Vibrio cholerae PCR Stl Norovirus GI/GII PCR Stl GI Panel (PCR) Com IgG IgA IgM Rheumatoid Factor PAPA Screen Myeloperoxidase Ab Serine Protease 3 Ab 3 12/08/17 12/07/17 12/07/17 03:26 19:50 16:39 WBC 5.9 RBC 2.86 L Hgb 8.9 L D Hct 26.8 L MCV 93.7 MCH 31.1 MCHC 33.2 RDW 12.9 Plt Count 92 L MPV 11.7 Immature Gran % 0.5 Seg Neutrophils % 61.8 Lymphocytes % 24.1 Monocytes % 9.7 Eosinophils % 3.4 Basophils % 0.5 Neutrophils # 3.7 Lymphocytes # 1.4 Monocytes # 0.6 Eosinophils # 0.2 Basophils # 0.0 Immature Plt Fraction 6.8 H PT INR APTT Sodium Potassium Chloride Carbon Dioxide BUN Creatinine Est GFR ( Amer) Est GFR (Non-Af Amer) BUN/Creatinine Ratio Glucose POC Glucose 121 H 186 H Est Mean Plasma Glucose Hemoglobin A1c Calculated Osmolality Uric Acid Calcium Venous Ioniz Calcium Phosphorus Magnesium Iron % Saturation Transferrin Ferritin Creatine Kinase Troponin I Prot Electrophor EER Total Protein (PEP) Albumin Albumin (PEP) Mevtc-7-Rkthhiuvz Rdiwm-2-Bmqapbqth Beta Globulins Gamma Globulins PEP Interpretation Prostate Specific Ag Vitamin B12 25-OH Vitamin D Total Folate Total Testosterone PTH Intact Serum Immunofix Reflex Ur Eosinophil Smear Urine Creatinine Protein/Creatinin Ratio Urine Sodium Urine Total Protein Stool Occult Blood Stl C. cayetanensis PCR Stool Rotavirus A PCR Stl Adenov F 40/41 PCR Stool Astrovirus (PCR) Stool Campylobacter PCR Stl C. diff Tox A/B PCR Stool Cryptosporidium PCR Stl Sh Tox Pr E STEC PCR Stool E coli O157 PCR Stl Enterotoxigenic E PCR Stool EPEC (PCR) Stool EAEC (PCR) Stl E. histolytica PCR Stool Giardia Lamblia PCR Stool Salmonella PCR Stool Sapovirus (PCR) Stl P. shigelloides PCR Stl Shigella/EIEC PCR St Y.enterocolitica PCR Stool Vibrio (PCR) Stl Vibrio cholerae PCR Stl Norovirus GI/GII PCR Stl GI Panel (PCR) Com IgG IgA IgM Rheumatoid Factor PAPA Screen Myeloperoxidase Ab Serine Protease 3 Ab 3 12/07/17 12/07/17 12/07/17 11:17 06:45 06:45 WBC RBC Hgb Hct MCV MCH MCHC RDW Plt Count MPV Immature Gran % Seg Neutrophils % Lymphocytes % Monocytes % Eosinophils % Basophils % Neutrophils # Lymphocytes # Monocytes # Eosinophils # Basophils # Immature Plt Fraction PT INR APTT Sodium 138 Potassium 4.6 Chloride 107 Carbon Dioxide 21 L BUN 77 H Creatinine 9.79 H Est GFR ( Amer) 6 L Est GFR (Non-Af Amer) 5 L BUN/Creatinine Ratio 8 Glucose 148 H POC Glucose 173 H Est Mean Plasma Glucose Hemoglobin A1c Calculated Osmolality 312 H Uric Acid Calcium 8.1 L Venous Ioniz Calcium Phosphorus Magnesium 2.0 Iron % Saturation Transferrin Ferritin Creatine Kinase Troponin I 0.03 Prot Electrophor EER Total Protein (PEP) Albumin Albumin (PEP) Ynzbm-0-Cwqwafhkk Oybfp-2-Kppgnchqt Beta Globulins Gamma Globulins PEP Interpretation Prostate Specific Ag Vitamin B12 25-OH Vitamin D Total Folate Total Testosterone PTH Intact Serum Immunofix Reflex Ur Eosinophil Smear Urine Creatinine Protein/Creatinin Ratio Urine Sodium Urine Total Protein Stool Occult Blood Stl C. cayetanensis PCR Stool Rotavirus A PCR Stl Adenov F 40/ PCR Stool Astrovirus (PCR) Stool Campylobacter PCR Stl C. diff Tox A/B PCR Stool Cryptosporidium PCR Stl Sh Tox Pr E STEC PCR Stool E coli O157 PCR Stl Enterotoxigenic E PCR Stool EPEC (PCR) Stool EAEC (PCR) Stl E. histolytica PCR Stool Giardia Lamblia PCR Stool Salmonella PCR Stool Sapovirus (PCR) Stl P. shigelloides PCR Stl Shigella/EIEC PCR St Y.enterocolitica PCR Stool Vibrio (PCR) Stl Vibrio cholerae PCR Stl Norovirus GI/GII PCR Stl GI Panel (PCR) Com IgG IgA IgM Rheumatoid Factor PAPA Screen Myeloperoxidase Ab Serine Protease 3 Ab 3 12/06/17 12/06/17 12/06/17 17:56 17:42 17:42 WBC RBC Hgb Hct MCV MCH MCHC RDW Plt Count MPV Immature Gran % Seg Neutrophils % Lymphocytes % Monocytes % Eosinophils % Basophils % Neutrophils # Lymphocytes # Monocytes # Eosinophils # Basophils # Immature Plt Fraction PT INR APTT Sodium Potassium Chloride Carbon Dioxide BUN Creatinine Est GFR ( Amer) Est GFR (Non-Af Amer) BUN/Creatinine Ratio Glucose POC Glucose Est Mean Plasma Glucose Hemoglobin A1c Calculated Osmolality Uric Acid Calcium Venous Ioniz Calcium Phosphorus Magnesium Iron % Saturation Transferrin Ferritin Creatine Kinase Troponin I Prot Electrophor EER Total Protein (PEP) Albumin Albumin (PEP) Uunbj-7-Fvnqzlmzl Kswvp-7-Jrxoeylvm Beta Globulins Gamma Globulins PEP Interpretation Prostate Specific Ag Vitamin B12 25-OH Vitamin D Total Folate Total Testosterone PTH Intact Serum Immunofix Reflex Ur Eosinophil Smear 0 Urine Creatinine 60 Protein/Creatinin Ratio TNP Urine Sodium 88.8 Urine Total Protein < 4 Stool Occult Blood Stl C. cayetanensis PCR Stool Rotavirus A PCR Stl Adenov F PCR Stool Astrovirus (PCR) Stool Campylobacter PCR Stl C. diff Tox A/B PCR Stool Cryptosporidium PCR Stl Sh Tox Pr E STEC PCR Stool E coli O157 PCR Stl Enterotoxigenic E PCR Stool EPEC (PCR) Stool EAEC (PCR) Stl E. histolytica PCR Stool Giardia Lamblia PCR Stool Salmonella PCR Stool Sapovirus (PCR) Stl P. shigelloides PCR Stl Shigella/EIEC PCR St Y.enterocolitica PCR Stool Vibrio (PCR) Stl Vibrio cholerae PCR Stl Norovirus GI/GII PCR Stl GI Panel (PCR) Com IgG IgA IgM Rheumatoid Factor PAPA Screen Myeloperoxidase Ab Serine Protease 3 Ab 3 12/06/17 12/06/17 12/06/17 17:10 17:10 17:10 WBC 10.7 RBC 3.65 L Hgb 11.4 L Hct 34.7 L MCV 95.1 MCH 31.2 MCHC 32.9 RDW 13.0 Plt Count 154 MPV 11.7 Immature Gran % 0.3 Seg Neutrophils % 58.9 Lymphocytes % 27.1 Monocytes % 10.7 Eosinophils % 2.3 Basophils % 0.7 Neutrophils # 6.3 Lymphocytes # 2.9 Monocytes # 1.1 Eosinophils # 0.2 Basophils # 0.1 Immature Plt Fraction PT INR APTT Sodium Potassium 5.6 H Chloride Carbon Dioxide BUN Creatinine Est GFR ( Amer) Est GFR (Non-Af Amer) BUN/Creatinine Ratio Glucose POC Glucose Est Mean Plasma Glucose 169 Hemoglobin A1c 7.5 H Calculated Osmolality Uric Acid 9.4 H Calcium Venous Ioniz Calcium Phosphorus Magnesium Iron % Saturation Transferrin Ferritin Creatine Kinase 74 Troponin I 0.05 H* Prot Electrophor EER Total Protein (PEP) Albumin Albumin (PEP) Yexpw-8-Mktnroqqx Nqmxp-6-Aoedlmhjl Beta Globulins Gamma Globulins PEP Interpretation Prostate Specific Ag Vitamin B12 25-OH Vitamin D Total Folate Total Testosterone PTH Intact Serum Immunofix Reflex Ur Eosinophil Smear Urine Creatinine Protein/Creatinin Ratio Urine Sodium Urine Total Protein Stool Occult Blood Stl C. cayetanensis PCR Stool Rotavirus A PCR Stl Adenov F PCR Stool Astrovirus (PCR) Stool Campylobacter PCR Stl C. diff Tox A/B PCR Stool Cryptosporidium PCR Stl Sh Tox Pr E STEC PCR Stool E coli O157 PCR Stl Enterotoxigenic E PCR Stool EPEC (PCR) Stool EAEC (PCR) Stl E. histolytica PCR Stool Giardia Lamblia PCR Stool Salmonella PCR Stool Sapovirus (PCR) Stl P. shigelloides PCR Stl Shigella/EIEC PCR St Y.enterocolitica PCR Stool Vibrio (PCR) Stl Vibrio cholerae PCR Stl Norovirus GI/GII PCR Stl GI Panel (PCR) Com IgG IgA IgM Rheumatoid Factor PAPA Screen Myeloperoxidase Ab Serine Protease 3 Ab 3 12/06/17 16:42 WBC RBC Hgb Hct MCV MCH MCHC RDW Plt Count MPV Immature Gran % Seg Neutrophils % Lymphocytes % Monocytes % Eosinophils % Basophils % Neutrophils # Lymphocytes # Monocytes # Eosinophils # Basophils # Immature Plt Fraction PT INR APTT Sodium Potassium Chloride Carbon Dioxide BUN Creatinine Est GFR ( Amer) Est GFR (Non-Af Amer) BUN/Creatinine Ratio Glucose POC Glucose 110 H Est Mean Plasma Glucose Hemoglobin A1c Calculated Osmolality Uric Acid Calcium Venous Ioniz Calcium Phosphorus Magnesium Iron % Saturation Transferrin Ferritin Creatine Kinase Troponin I Prot Electrophor EER Total Protein (PEP) Albumin Albumin (PEP) Kbwhz-8-Ybhpixdsn Cedkc-7-Lmuuxxjqo Beta Globulins Gamma Globulins PEP Interpretation Prostate Specific Ag Vitamin B12 25-OH Vitamin D Total Folate Total Testosterone PTH Intact Serum Immunofix Reflex Ur Eosinophil Smear Urine Creatinine Protein/Creatinin Ratio Urine Sodium Urine Total Protein Stool Occult Blood Stl C. cayetanensis PCR Stool Rotavirus A PCR Stl Adenov F 40/41 PCR Stool Astrovirus (PCR) Stool Campylobacter PCR Stl C. diff Tox A/B PCR Stool Cryptosporidium PCR Stl Sh Tox Pr E STEC PCR Stool E coli O157 PCR Stl Enterotoxigenic E PCR Stool EPEC (PCR) Stool EAEC (PCR) Stl E. histolytica PCR Stool Giardia Lamblia PCR Stool Salmonella PCR Stool Sapovirus (PCR) Stl P. shigelloides PCR Stl Shigella/EIEC PCR St Y.enterocolitica PCR Stool Vibrio (PCR) Stl Vibrio cholerae PCR Stl Norovirus GI/GII PCR Stl GI Panel (PCR) Com IgG IgA IgM Rheumatoid Factor PAPA Screen Myeloperoxidase Ab Serine Protease 3 Ab Consult Discharge Plan - Plan Referrals: Lucero Herrera, [employer]ERCIAL [employer] [Primary Care Provider] - <Jero Jones - Last Filed: 12/13/17 22:34> Date of Encounter: 12/13/17 - Data of Consult Requesting Physician: Nicholas Roa Primary Care Provider: Lucero Herrera, - Consult Narrative History of present illness: Mr. Herrera is a 82 year old male Oncology - Exam - Constitutional Vitals: Temp Pulse Resp BP Pulse Ox 98.4 F 82 18 107/63 94 12/13/17 18:49 12/13/17 18:49 12/13/17 18:49 12/13/17 18:49 12/13/17 18:49 Oncology - Results Labs: 3 12/13/17 12/13/17 12/13/17 12:20 05:20 04:00 WBC 6.5 RBC 3.19 L Hgb 10.2 L Hct 30.8 L MCV 96.6 MCH 32.0 MCHC 33.1 RDW 13.1 Plt Count 74 L MPV 12.2 Immature Gran % 0.3 Seg Neutrophils % 59.4 Lymphocytes % 25.1 Monocytes % 12.7 Eosinophils % 2.0 Basophils % 0.5 Neutrophils # 3.9 Lymphocytes # 1.6 Monocytes # 0.8 Eosinophils # 0.1 Basophils # 0.0 Immature Plt Fraction 10.9 H PT INR APTT Sodium 141 Potassium 3.6 Chloride 106 Carbon Dioxide 28 BUN 34 H Creatinine 3.81 H Est GFR ( Amer) 19 L Est GFR (Non-Af Amer) 15 L BUN/Creatinine Ratio 9 Glucose 133 H POC Glucose 180 H Calculated Osmolality 302 H Calcium 9.1 Venous Ioniz Calcium Phosphorus 4.6 H Magnesium Iron % Saturation Transferrin Ferritin Troponin I Prot Electrophor EER Total Protein (PEP) Albumin 3.7 Albumin (PEP) Qzytp-4-Svjhgttos Lmnef-7-Jwskoyasy Beta Globulins Gamma Globulins PEP Interpretation Prostate Specific Ag Vitamin B12 25-OH Vitamin D Total Folate Total Testosterone PTH Intact Serum Immunofix Reflex Stool Occult Blood Stl C. cayetanensis PCR Stool Rotavirus A PCR Stl Adenov F 40/41 PCR Stool Astrovirus (PCR) Stool Campylobacter PCR Stl C. diff Tox A/B PCR Stool Cryptosporidium PCR Stl Sh Tox Pr E STEC PCR Stool E coli O157 PCR Stl Enterotoxigenic E PCR Stool EPEC (PCR) Stool EAEC (PCR) Stl E. histolytica PCR Stool Giardia Lamblia PCR Stool Salmonella PCR Stool Sapovirus (PCR) Stl P. shigelloides PCR Stl Shigella/EIEC PCR St Y.enterocolitica PCR Stool Vibrio (PCR) Stl Vibrio cholerae PCR Stl Norovirus GI/GII PCR Stl GI Panel (PCR) Com IgG IgA IgM Rheumatoid Factor PAPA Screen Myeloperoxidase Ab Serine Protease 3 Ab 3 12/12/17 12/12/17 12/12/17 20:24 16:20 12:25 WBC RBC Hgb Hct MCV MCH MCHC RDW Plt Count MPV Immature Gran % Seg Neutrophils % Lymphocytes % Monocytes % Eosinophils % Basophils % Neutrophils # Lymphocytes # Monocytes # Eosinophils # Basophils # Immature Plt Fraction PT INR APTT Sodium Potassium Chloride Carbon Dioxide BUN Creatinine Est GFR ( Amer) Est GFR (Non-Af Amer) BUN/Creatinine Ratio Glucose POC Glucose 276 H 135 H 102 H Calculated Osmolality Calcium Venous Ioniz Calcium Phosphorus Magnesium Iron % Saturation Transferrin Ferritin Troponin I Prot Electrophor EER Total Protein (PEP) Albumin Albumin (PEP) Lvbgw-0-Lzzgoahqa Xoixe-8-Lwsvqwzdn Beta Globulins Gamma Globulins PEP Interpretation Prostate Specific Ag Vitamin B12 25-OH Vitamin D Total Folate Total Testosterone PTH Intact Serum Immunofix Reflex Stool Occult Blood Stl C. cayetanensis PCR Stool Rotavirus A PCR Stl Adenov F 40/41 PCR Stool Astrovirus (PCR) Stool Campylobacter PCR Stl C. diff Tox A/B PCR Stool Cryptosporidium PCR Stl Sh Tox Pr E STEC PCR Stool E coli O157 PCR Stl Enterotoxigenic E PCR Stool EPEC (PCR) Stool EAEC (PCR) Stl E. histolytica PCR Stool Giardia Lamblia PCR Stool Salmonella PCR Stool Sapovirus (PCR) Stl P. shigelloides PCR Stl Shigella/EIEC PCR St Y.enterocolitica PCR Stool Vibrio (PCR) Stl Vibrio cholerae PCR Stl Norovirus GI/GII PCR Stl GI Panel (PCR) Com IgG IgA IgM Rheumatoid Factor PAPA Screen Myeloperoxidase Ab Serine Protease 3 Ab 3 12/12/17 12/12/17 12/12/17 06:52 04:05 04:05 WBC 5.6 RBC 2.78 L Hgb 9.0 L Hct 26.8 L MCV 96.4 MCH 32.4 MCHC 33.6 RDW 13.0 Plt Count 51 L MPV 12.8 H Immature Gran % 0.2 Seg Neutrophils % 57.4 Lymphocytes % 24.6 Monocytes % 13.2 Eosinophils % 4.1 Basophils % 0.5 Neutrophils # 3.2 Lymphocytes # 1.4 Monocytes # 0.7 Eosinophils # 0.2 Basophils # 0.0 Immature Plt Fraction 14.2 H PT INR APTT Sodium 140 Potassium 4.3 Chloride 105 Carbon Dioxide 26 BUN 48 H Creatinine 9.78 H Est GFR ( Amer) 6 L Est GFR (Non-Af Amer) 5 L BUN/Creatinine Ratio 5 L Glucose 113 H POC Glucose 100 H Calculated Osmolality 303 H Calcium 8.4 L Venous Ioniz Calcium Phosphorus 5.6 H Magnesium Iron % Saturation Transferrin Ferritin Troponin I Prot Electrophor EER Total Protein (PEP) Albumin 3.3 L Albumin (PEP) Biurs-8-Oukqxtyks Zkqwu-6-Kvchpyycf Beta Globulins Gamma Globulins PEP Interpretation Prostate Specific Ag Vitamin B12 25-OH Vitamin D Total Folate Total Testosterone PTH Intact Serum Immunofix Reflex Stool Occult Blood Stl C. cayetanensis PCR Stool Rotavirus A PCR Stl Adenov F 40/41 PCR Stool Astrovirus (PCR) Stool Campylobacter PCR Stl C. diff Tox A/B PCR Stool Cryptosporidium PCR Stl Sh Tox Pr E STEC PCR Stool E coli O157 PCR Stl Enterotoxigenic E PCR Stool EPEC (PCR) Stool EAEC (PCR) Stl E. histolytica PCR Stool Giardia Lamblia PCR Stool Salmonella PCR Stool Sapovirus (PCR) Stl P. shigelloides PCR Stl Shigella/EIEC PCR St Y.enterocolitica PCR Stool Vibrio (PCR) Stl Vibrio cholerae PCR Stl Norovirus GI/GII PCR Stl GI Panel (PCR) Com IgG IgA IgM Rheumatoid Factor PAPA Screen Myeloperoxidase Ab Serine Protease 3 Ab 3 12/11/17 12/11/17 12/11/17 19:26 17:10 17:08 WBC RBC Hgb Hct MCV MCH MCHC RDW Plt Count MPV Immature Gran % Seg Neutrophils % Lymphocytes % Monocytes % Eosinophils % Basophils % Neutrophils # Lymphocytes # Monocytes # Eosinophils # Basophils # Immature Plt Fraction PT INR APTT Sodium Potassium Chloride Carbon Dioxide BUN Creatinine Est GFR ( Amer) Est GFR (Non-Af Amer) BUN/Creatinine Ratio Glucose POC Glucose 218 H 116 H Calculated Osmolality Calcium Venous Ioniz Calcium Phosphorus Magnesium Iron % Saturation Transferrin Ferritin Troponin I Prot Electrophor EER Total Protein (PEP) Albumin Albumin (PEP) Qlgxu-5-Jcfbjviui Qdeoc-5-Mezwusguz Beta Globulins Gamma Globulins PEP Interpretation Prostate Specific Ag 86.30 H Vitamin B12 25-OH Vitamin D Total Folate Total Testosterone < 10 L PTH Intact Serum Immunofix Reflex Stool Occult Blood Stl C. cayetanensis PCR Stool Rotavirus A PCR Stl Adenov F PCR Stool Astrovirus (PCR) Stool Campylobacter PCR Stl C. diff Tox A/B PCR Stool Cryptosporidium PCR Stl Sh Tox Pr E STEC PCR Stool E coli O157 PCR Stl Enterotoxigenic E PCR Stool EPEC (PCR) Stool EAEC (PCR) Stl E. histolytica PCR Stool Giardia Lamblia PCR Stool Salmonella PCR Stool Sapovirus (PCR) Stl P. shigelloides PCR Stl Shigella/EIEC PCR St Y.enterocolitica PCR Stool Vibrio (PCR) Stl Vibrio cholerae PCR Stl Norovirus GI/GII PCR Stl GI Panel (PCR) Com IgG IgA IgM Rheumatoid Factor PAPA Screen Myeloperoxidase Ab Serine Protease 3 Ab 3 12/11/17 12/11/17 12/11/17 10:44 07:49 06:01 WBC RBC Hgb Hct MCV MCH MCHC RDW Plt Count MPV Immature Gran % Seg Neutrophils % Lymphocytes % Monocytes % Eosinophils % Basophils % Neutrophils # Lymphocytes # Monocytes # Eosinophils # Basophils # Immature Plt Fraction PT INR APTT Sodium Potassium Chloride Carbon Dioxide BUN Creatinine Est GFR ( Amer) Est GFR (Non-Af Amer) BUN/Creatinine Ratio Glucose POC Glucose 106 H 113 H Calculated Osmolality Calcium Venous Ioniz Calcium 1.11 L Phosphorus Magnesium Iron % Saturation Transferrin Ferritin Troponin I Prot Electrophor EER Total Protein (PEP) Albumin Albumin (PEP) Glpkp-8-Jsieseumg Xugie-3-Zndsjnkuv Beta Globulins Gamma Globulins PEP Interpretation Prostate Specific Ag Vitamin B12 25-OH Vitamin D Total Folate Total Testosterone PTH Intact Serum Immunofix Reflex Stool Occult Blood Stl C. cayetanensis PCR Stool Rotavirus A PCR Stl Adenov F PCR Stool Astrovirus (PCR) Stool Campylobacter PCR Stl C. diff Tox A/B PCR Stool Cryptosporidium PCR Stl Sh Tox Pr E STEC PCR Stool E coli O157 PCR Stl Enterotoxigenic E PCR Stool EPEC (PCR) Stool EAEC (PCR) Stl E. histolytica PCR Stool Giardia Lamblia PCR Stool Salmonella PCR Stool Sapovirus (PCR) Stl P. shigelloides PCR Stl Shigella/EIEC PCR St Y.enterocolitica PCR Stool Vibrio (PCR) Stl Vibrio cholerae PCR Stl Norovirus GI/GII PCR Stl GI Panel (PCR) Com IgG IgA IgM Rheumatoid Factor PAPA Screen Myeloperoxidase Ab Serine Protease 3 Ab 3 12/11/17 12/11/17 12/11/17 04:45 04:45 04:45 WBC RBC Hgb Hct MCV MCH MCHC RDW Plt Count MPV Immature Gran % Seg Neutrophils % Lymphocytes % Monocytes % Eosinophils % Basophils % Neutrophils # Lymphocytes # Monocytes # Eosinophils # Basophils # Immature Plt Fraction PT INR APTT Sodium Potassium Chloride Carbon Dioxide BUN Creatinine Est GFR ( Amer) Est GFR (Non-Af Amer) BUN/Creatinine Ratio Glucose POC Glucose Calculated Osmolality Calcium Venous Ioniz Calcium Phosphorus Magnesium Iron % Saturation Transferrin Ferritin Troponin I Prot Electrophor EER Total Protein (PEP) Albumin Albumin (PEP) Srevk-7-Elrdrbogp Kwetj-1-Biqoptxck Beta Globulins Gamma Globulins PEP Interpretation Prostate Specific Ag Vitamin B12 696 25-OH Vitamin D Total 24 L Folate 8.3 Total Testosterone PTH Intact 141.3 H Serum Immunofix Reflex Stool Occult Blood Stl C. cayetanensis PCR Stool Rotavirus A PCR Stl Adenov F 40/41 PCR Stool Astrovirus (PCR) Stool Campylobacter PCR Stl C. diff Tox A/B PCR Stool Cryptosporidium PCR Stl Sh Tox Pr E STEC PCR Stool E coli O157 PCR Stl Enterotoxigenic E PCR Stool EPEC (PCR) Stool EAEC (PCR) Stl E. histolytica PCR Stool Giardia Lamblia PCR Stool Salmonella PCR Stool Sapovirus (PCR) Stl P. shigelloides PCR Stl Shigella/EIEC PCR St Y.enterocolitica PCR Stool Vibrio (PCR) Stl Vibrio cholerae PCR Stl Norovirus GI/GII PCR Stl GI Panel (PCR) Com IgG IgA IgM Rheumatoid Factor PAPA Screen Myeloperoxidase Ab Serine Protease 3 Ab 3 12/11/17 12/11/17 12/11/17 04:45 04:45 04:45 WBC 7.0 RBC 2.87 L Hgb 9.3 L Hct 27.6 L MCV 96.2 MCH 32.4 MCHC 33.7 RDW 13.1 Plt Count 69 L MPV 13.0 H Immature Gran % 0.3 Seg Neutrophils % 60.6 Lymphocytes % 22.9 Monocytes % 10.8 Eosinophils % 5.0 Basophils % 0.4 Neutrophils # 4.2 Lymphocytes # 1.6 Monocytes # 0.8 Eosinophils # 0.4 Basophils # 0.0 Immature Plt Fraction 11.4 H PT 11.2 INR 1.0 APTT 27.0 Sodium 139 Potassium 4.4 Chloride 106 Carbon Dioxide 22 L BUN 72 H Creatinine 11.85 H Est GFR ( Amer) 5 L Est GFR (Non-Af Amer) 4 L BUN/Creatinine Ratio 6 Glucose 122 H POC Glucose Calculated Osmolality 310 H Calcium 8.4 L Venous Ioniz Calcium Phosphorus 6.1 H Magnesium Iron 56 L % Saturation 20 Transferrin 204 Ferritin 156 Troponin I Prot Electrophor EER Total Protein (PEP) Albumin 3.3 L Albumin (PEP) Wnvod-5-Ocvclermy Sykof-8-Iwwmjjdst Beta Globulins Gamma Globulins PEP Interpretation Prostate Specific Ag Vitamin B12 25-OH Vitamin D Total Folate Total Testosterone PTH Intact Serum Immunofix Reflex Stool Occult Blood Stl C. cayetanensis PCR Stool Rotavirus A PCR Stl Adenov F 40/41 PCR Stool Astrovirus (PCR) Stool Campylobacter PCR Stl C. diff Tox A/B PCR Stool Cryptosporidium PCR Stl Sh Tox Pr E STEC PCR Stool E coli O157 PCR Stl Enterotoxigenic E PCR Stool EPEC (PCR) Stool EAEC (PCR) Stl E. histolytica PCR Stool Giardia Lamblia PCR Stool Salmonella PCR Stool Sapovirus (PCR) Stl P. shigelloides PCR Stl Shigella/EIEC PCR St Y.enterocolitica PCR Stool Vibrio (PCR) Stl Vibrio cholerae PCR Stl Norovirus GI/GII PCR Stl GI Panel (PCR) Com IgG IgA IgM Rheumatoid Factor PAPA Screen Myeloperoxidase Ab Serine Protease 3 Ab 3 12/10/17 12/10/17 12/10/17 20:46 15:52 11:20 WBC RBC Hgb Hct MCV MCH MCHC RDW Plt Count MPV Immature Gran % Seg Neutrophils % Lymphocytes % Monocytes % Eosinophils % Basophils % Neutrophils # Lymphocytes # Monocytes # Eosinophils # Basophils # Immature Plt Fraction PT INR APTT Sodium Potassium Chloride Carbon Dioxide BUN Creatinine Est GFR ( Amer) Est GFR (Non-Af Amer) BUN/Creatinine Ratio Glucose POC Glucose 199 H 106 H 165 H Calculated Osmolality Calcium Venous Ioniz Calcium Phosphorus Magnesium Iron % Saturation Transferrin Ferritin Troponin I Prot Electrophor EER Total Protein (PEP) Albumin Albumin (PEP) Ljpvx-8-Lykghnkjf Ivolp-1-Qwotqadys Beta Globulins Gamma Globulins PEP Interpretation Prostate Specific Ag Vitamin B12 25-OH Vitamin D Total Folate Total Testosterone PTH Intact Serum Immunofix Reflex Stool Occult Blood Stl C. cayetanensis PCR Stool Rotavirus A PCR Stl Adenov F PCR Stool Astrovirus (PCR) Stool Campylobacter PCR Stl C. diff Tox A/B PCR Stool Cryptosporidium PCR Stl Sh Tox Pr E STEC PCR Stool E coli O157 PCR Stl Enterotoxigenic E PCR Stool EPEC (PCR) Stool EAEC (PCR) Stl E. histolytica PCR Stool Giardia Lamblia PCR Stool Salmonella PCR Stool Sapovirus (PCR) Stl P. shigelloides PCR Stl Shigella/EIEC PCR St Y.enterocolitica PCR Stool Vibrio (PCR) Stl Vibrio cholerae PCR Stl Norovirus GI/GII PCR Stl GI Panel (PCR) Com IgG IgA IgM Rheumatoid Factor PAPA Screen Myeloperoxidase Ab Serine Protease 3 Ab 3 12/10/17 12/09/17 12/09/17 07:14 20:17 15:42 WBC RBC Hgb Hct MCV MCH MCHC RDW Plt Count MPV Immature Gran % Seg Neutrophils % Lymphocytes % Monocytes % Eosinophils % Basophils % Neutrophils # Lymphocytes # Monocytes # Eosinophils # Basophils # Immature Plt Fraction PT INR APTT Sodium Potassium Chloride Carbon Dioxide BUN Creatinine Est GFR ( Amer) Est GFR (Non-Af Amer) BUN/Creatinine Ratio Glucose POC Glucose 129 H 197 H 156 H Calculated Osmolality Calcium Venous Ioniz Calcium Phosphorus Magnesium Iron % Saturation Transferrin Ferritin Troponin I Prot Electrophor EER Total Protein (PEP) Albumin Albumin (PEP) Yiwdo-4-Hdvvsfscx Vtpxv-2-Mkaweflmn Beta Globulins Gamma Globulins PEP Interpretation Prostate Specific Ag Vitamin B12 25-OH Vitamin D Total Folate Total Testosterone PTH Intact Serum Immunofix Reflex Stool Occult Blood Stl C. cayetanensis PCR Stool Rotavirus A PCR Stl Adenov F PCR Stool Astrovirus (PCR) Stool Campylobacter PCR Stl C. diff Tox A/B PCR Stool Cryptosporidium PCR Stl Sh Tox Pr E STEC PCR Stool E coli O157 PCR Stl Enterotoxigenic E PCR Stool EPEC (PCR) Stool EAEC (PCR) Stl E. histolytica PCR Stool Giardia Lamblia PCR Stool Salmonella PCR Stool Sapovirus (PCR) Stl P. shigelloides PCR Stl Shigella/EIEC PCR St Y.enterocolitica PCR Stool Vibrio (PCR) Stl Vibrio cholerae PCR Stl Norovirus GI/GII PCR Stl GI Panel (PCR) Com IgG IgA IgM Rheumatoid Factor PAPA Screen Myeloperoxidase Ab Serine Protease 3 Ab 3 12/09/17 12/09/17 12/09/17 11:31 09:57 09:57 WBC RBC Hgb Hct MCV MCH MCHC RDW Plt Count MPV Immature Gran % Seg Neutrophils % Lymphocytes % Monocytes % Eosinophils % Basophils % Neutrophils # Lymphocytes # Monocytes # Eosinophils # Basophils # Immature Plt Fraction PT INR APTT Sodium Potassium Chloride Carbon Dioxide BUN Creatinine Est GFR ( Amer) Est GFR (Non-Af Amer) BUN/Creatinine Ratio Glucose POC Glucose 96 Calculated Osmolality Calcium Venous Ioniz Calcium Phosphorus Magnesium Iron % Saturation Transferrin Ferritin Troponin I Prot Electrophor EER Total Protein (PEP) Albumin Albumin (PEP) Wbjik-5-Tzpvernlw Yagqr-5-Kmrtfocyn Beta Globulins Gamma Globulins PEP Interpretation Prostate Specific Ag Vitamin B12 25-OH Vitamin D Total Folate Total Testosterone PTH Intact Serum Immunofix Reflex Stool Occult Blood Negative Stl C. cayetanensis PCR Not detected Stool Rotavirus A PCR Not detected Stl Adenov F 40/41 PCR Not detected Stool Astrovirus (PCR) Not detected Stool Campylobacter PCR Not detected Stl C. diff Tox A/B PCR Not detected Stool Cryptosporidium PCR Not detected Stl Sh Tox Pr E STEC PCR Not detected Stool E coli O157 PCR Not detected Stl Enterotoxigenic E PCR Not detected Stool EPEC (PCR) Not detected Stool EAEC (PCR) Not detected Stl E. histolytica PCR Not detected Stool Giardia Lamblia PCR Not detected Stool Salmonella PCR Not detected Stool Sapovirus (PCR) Not detected Stl P. shigelloides PCR Not detected Stl Shigella/EIEC PCR Not detected St Y.enterocolitica PCR Not detected Stool Vibrio (PCR) Not detected Stl Vibrio cholerae PCR Not detected Stl Norovirus GI/GII PCR Not detected Stl GI Panel (PCR) Com See below IgG IgA IgM Rheumatoid Factor PAPA Screen Myeloperoxidase Ab Serine Protease 3 Ab 3 12/09/17 12/09/17 12/09/17 07:15 05:00 05:00 WBC RBC Hgb Hct MCV MCH MCHC RDW Plt Count MPV Immature Gran % Seg Neutrophils % Lymphocytes % Monocytes % Eosinophils % Basophils % Neutrophils # Lymphocytes # Monocytes # Eosinophils # Basophils # Immature Plt Fraction PT INR APTT Sodium Potassium Chloride Carbon Dioxide BUN Creatinine Est GFR ( Amer) Est GFR (Non-Af Amer) BUN/Creatinine Ratio Glucose POC Glucose 125 H Calculated Osmolality Calcium Venous Ioniz Calcium Phosphorus Magnesium Iron % Saturation Transferrin Ferritin Troponin I Prot Electrophor EER SEE NOTE Total Protein (PEP) 5.20 L Albumin Albumin (PEP) 3.07 L Ukawv-5-Phajbkewr 0.23 Txccm-3-Lxkuazywk 0.69 Beta Globulins 0.48 Gamma Globulins 0.74 PEP Interpretation SEE NOTE Prostate Specific Ag Vitamin B12 25-OH Vitamin D Total Folate Total Testosterone PTH Intact Serum Immunofix Reflex NOT DONE Stool Occult Blood Stl C. cayetanensis PCR Stool Rotavirus A PCR Stl Adenov F PCR Stool Astrovirus (PCR) Stool Campylobacter PCR Stl C. diff Tox A/B PCR Stool Cryptosporidium PCR Stl Sh Tox Pr E STEC PCR Stool E coli O157 PCR Stl Enterotoxigenic E PCR Stool EPEC (PCR) Stool EAEC (PCR) Stl E. histolytica PCR Stool Giardia Lamblia PCR Stool Salmonella PCR Stool Sapovirus (PCR) Stl P. shigelloides PCR Stl Shigella/EIEC PCR St Y.enterocolitica PCR Stool Vibrio (PCR) Stl Vibrio cholerae PCR Stl Norovirus GI/GII PCR Stl GI Panel (PCR) Com IgG TNP IgA TNP IgM TNP Rheumatoid Factor PAPA Screen NONE DETECTED Myeloperoxidase Ab Serine Protease 3 Ab 3 12/09/17 12/09/17 12/09/17 05:00 05:00 04:56 WBC 6.4 RBC 2.87 L Hgb 9.0 L Hct 26.7 L MCV 93.0 MCH 31.4 MCHC 33.7 RDW 13.0 Plt Count 79 L MPV 12.5 H Immature Gran % 0.2 Seg Neutrophils % 57.5 Lymphocytes % 26.0 Monocytes % 10.5 Eosinophils % 5.2 Basophils % 0.6 Neutrophils # 3.7 Lymphocytes # 1.7 Monocytes # 0.7 Eosinophils # 0.3 Basophils # 0.0 Immature Plt Fraction PT INR APTT Sodium Potassium Chloride Carbon Dioxide BUN Creatinine Est GFR ( Amer) Est GFR (Non-Af Amer) BUN/Creatinine Ratio Glucose POC Glucose Calculated Osmolality Calcium Venous Ioniz Calcium Phosphorus Magnesium Iron % Saturation Transferrin Ferritin Troponin I Prot Electrophor EER Total Protein (PEP) Albumin Albumin (PEP) Xqumn-4-Jsllikmtb Ufyfu-9-Hujexasqw Beta Globulins Gamma Globulins PEP Interpretation Prostate Specific Ag Vitamin B12 25-OH Vitamin D Total Folate Total Testosterone PTH Intact Serum Immunofix Reflex Stool Occult Blood Stl C. cayetanensis PCR Stool Rotavirus A PCR Stl Adenov F PCR Stool Astrovirus (PCR) Stool Campylobacter PCR Stl C. diff Tox A/B PCR Stool Cryptosporidium PCR Stl Sh Tox Pr E STEC PCR Stool E coli O157 PCR Stl Enterotoxigenic E PCR Stool EPEC (PCR) Stool EAEC (PCR) Stl E. histolytica PCR Stool Giardia Lamblia PCR Stool Salmonella PCR Stool Sapovirus (PCR) Stl P. shigelloides PCR Stl Shigella/EIEC PCR St Y.enterocolitica PCR Stool Vibrio (PCR) Stl Vibrio cholerae PCR Stl Norovirus GI/GII PCR Stl GI Panel (PCR) Com IgG IgA IgM Rheumatoid Factor < 10 PAPA Screen Myeloperoxidase Ab 0 Serine Protease 3 Ab 0 3 12/09/17 12/08/17 12/08/17 04:56 21:31 20:29 WBC RBC Hgb Hct MCV MCH MCHC RDW Plt Count MPV Immature Gran % Seg Neutrophils % Lymphocytes % Monocytes % Eosinophils % Basophils % Neutrophils # Lymphocytes # Monocytes # Eosinophils # Basophils # Immature Plt Fraction PT INR APTT Sodium 141 Potassium 4.3 Chloride 108 H Carbon Dioxide 23 BUN 67 H Creatinine 10.34 H Est GFR ( Amer) 6 L Est GFR (Non-Af Amer) 5 L BUN/Creatinine Ratio 6 Glucose 123 H POC Glucose 122 H 124 H Calculated Osmolality 313 H Calcium 8.3 L Venous Ioniz Calcium Phosphorus Magnesium 1.9 Iron % Saturation Transferrin Ferritin Troponin I Prot Electrophor EER Total Protein (PEP) Albumin Albumin (PEP) Cbntz-8-Hqkkpfypl Noysu-5-Pgqnvedzh Beta Globulins Gamma Globulins PEP Interpretation Prostate Specific Ag Vitamin B12 25-OH Vitamin D Total Folate Total Testosterone PTH Intact Serum Immunofix Reflex Stool Occult Blood Stl C. cayetanensis PCR Stool Rotavirus A PCR Stl Adenov F PCR Stool Astrovirus (PCR) Stool Campylobacter PCR Stl C. diff Tox A/B PCR Stool Cryptosporidium PCR Stl Sh Tox Pr E STEC PCR Stool E coli O157 PCR Stl Enterotoxigenic E PCR Stool EPEC (PCR) Stool EAEC (PCR) Stl E. histolytica PCR Stool Giardia Lamblia PCR Stool Salmonella PCR Stool Sapovirus (PCR) Stl P. shigelloides PCR Stl Shigella/EIEC PCR St Y.enterocolitica PCR Stool Vibrio (PCR) Stl Vibrio cholerae PCR Stl Norovirus GI/GII PCR Stl GI Panel (PCR) Com IgG IgA IgM Rheumatoid Factor PAPA Screen Myeloperoxidase Ab Serine Protease 3 Ab 3 12/08/17 12/08/17 12/08/17 16:42 11:44 07:22 WBC RBC Hgb Hct MCV MCH MCHC RDW Plt Count MPV Immature Gran % Seg Neutrophils % Lymphocytes % Monocytes % Eosinophils % Basophils % Neutrophils # Lymphocytes # Monocytes # Eosinophils # Basophils # Immature Plt Fraction PT INR APTT Sodium Potassium Chloride Carbon Dioxide BUN Creatinine Est GFR ( Amer) Est GFR (Non-Af Amer) BUN/Creatinine Ratio Glucose POC Glucose 230 H 128 H 143 H Calculated Osmolality Calcium Venous Ioniz Calcium Phosphorus Magnesium Iron % Saturation Transferrin Ferritin Troponin I Prot Electrophor EER Total Protein (PEP) Albumin Albumin (PEP) Jfegb-4-Bfgqyelcn Xxvdv-1-Byzrotywz Beta Globulins Gamma Globulins PEP Interpretation Prostate Specific Ag Vitamin B12 25-OH Vitamin D Total Folate Total Testosterone PTH Intact Serum Immunofix Reflex Stool Occult Blood Stl C. cayetanensis PCR Stool Rotavirus A PCR Stl Adenov F 40/41 PCR Stool Astrovirus (PCR) Stool Campylobacter PCR Stl C. diff Tox A/B PCR Stool Cryptosporidium PCR Stl Sh Tox Pr E STEC PCR Stool E coli O157 PCR Stl Enterotoxigenic E PCR Stool EPEC (PCR) Stool EAEC (PCR) Stl E. histolytica PCR Stool Giardia Lamblia PCR Stool Salmonella PCR Stool Sapovirus (PCR) Stl P. shigelloides PCR Stl Shigella/EIEC PCR St Y.enterocolitica PCR Stool Vibrio (PCR) Stl Vibrio cholerae PCR Stl Norovirus GI/GII PCR Stl GI Panel (PCR) Com IgG IgA IgM Rheumatoid Factor PAPA Screen Myeloperoxidase Ab Serine Protease 3 Ab 3 12/08/17 12/08/17 12/07/17 03:26 03:26 19:50 WBC 5.9 RBC 2.86 L Hgb 8.9 L D Hct 26.8 L MCV 93.7 MCH 31.1 MCHC 33.2 RDW 12.9 Plt Count 92 L MPV 11.7 Immature Gran % 0.5 Seg Neutrophils % 61.8 Lymphocytes % 24.1 Monocytes % 9.7 Eosinophils % 3.4 Basophils % 0.5 Neutrophils # 3.7 Lymphocytes # 1.4 Monocytes # 0.6 Eosinophils # 0.2 Basophils # 0.0 Immature Plt Fraction 6.8 H PT INR APTT Sodium 139 Potassium 4.7 Chloride 109 H Carbon Dioxide 19 L BUN 88 H Creatinine 11.07 H Est GFR ( Amer) 5 L Est GFR (Non-Af Amer) 4 L BUN/Creatinine Ratio 8 Glucose 177 H POC Glucose 121 H Calculated Osmolality 319 H Calcium 8.0 L Venous Ioniz Calcium Phosphorus Magnesium Iron % Saturation Transferrin Ferritin Troponin I Prot Electrophor EER Total Protein (PEP) Albumin Albumin (PEP) Idnge-7-Dwzmjwfgn Gfpbx-0-Iqgcrdzjn Beta Globulins Gamma Globulins PEP Interpretation Prostate Specific Ag Vitamin B12 25-OH Vitamin D Total Folate Total Testosterone PTH Intact Serum Immunofix Reflex Stool Occult Blood Stl C. cayetanensis PCR Stool Rotavirus A PCR Stl Adenov F 40/41 PCR Stool Astrovirus (PCR) Stool Campylobacter PCR Stl C. diff Tox A/B PCR Stool Cryptosporidium PCR Stl Sh Tox Pr E STEC PCR Stool E coli O157 PCR Stl Enterotoxigenic E PCR Stool EPEC (PCR) Stool EAEC (PCR) Stl E. histolytica PCR Stool Giardia Lamblia PCR Stool Salmonella PCR Stool Sapovirus (PCR) Stl P. shigelloides PCR Stl Shigella/EIEC PCR St Y.enterocolitica PCR Stool Vibrio (PCR) Stl Vibrio cholerae PCR Stl Norovirus GI/GII PCR Stl GI Panel (PCR) Com IgG IgA IgM Rheumatoid Factor PAPA Screen Myeloperoxidase Ab Serine Protease 3 Ab 3 12/07/17 12/07/17 12/07/17 16:39 11:17 06:45 WBC RBC Hgb Hct MCV MCH MCHC RDW Plt Count MPV Immature Gran % Seg Neutrophils % Lymphocytes % Monocytes % Eosinophils % Basophils % Neutrophils # Lymphocytes # Monocytes # Eosinophils # Basophils # Immature Plt Fraction PT INR APTT Sodium Potassium Chloride Carbon Dioxide BUN Creatinine Est GFR ( Amer) Est GFR (Non-Af Amer) BUN/Creatinine Ratio Glucose POC Glucose 186 H 173 H Calculated Osmolality Calcium Venous Ioniz Calcium Phosphorus Magnesium Iron % Saturation Transferrin Ferritin Troponin I 0.03 Prot Electrophor EER Total Protein (PEP) Albumin Albumin (PEP) Xafrj-8-Izkhwysdc Dhksc-6-Kkrevfxlc Beta Globulins Gamma Globulins PEP Interpretation Prostate Specific Ag Vitamin B12 25-OH Vitamin D Total Folate Total Testosterone PTH Intact Serum Immunofix Reflex Stool Occult Blood Stl C. cayetanensis PCR Stool Rotavirus A PCR Stl Adenov F PCR Stool Astrovirus (PCR) Stool Campylobacter PCR Stl C. diff Tox A/B PCR Stool Cryptosporidium PCR Stl Sh Tox Pr E STEC PCR Stool E coli O157 PCR Stl Enterotoxigenic E PCR Stool EPEC (PCR) Stool EAEC (PCR) Stl E. histolytica PCR Stool Giardia Lamblia PCR Stool Salmonella PCR Stool Sapovirus (PCR) Stl P. shigelloides PCR Stl Shigella/EIEC PCR St Y.enterocolitica PCR Stool Vibrio (PCR) Stl Vibrio cholerae PCR Stl Norovirus GI/GII PCR Stl GI Panel (PCR) Com IgG IgA IgM Rheumatoid Factor PAPA Screen Myeloperoxidase Ab Serine Protease 3 Ab 3 12/07/17 06:45 WBC RBC Hgb Hct MCV MCH MCHC RDW Plt Count MPV Immature Gran % Seg Neutrophils % Lymphocytes % Monocytes % Eosinophils % Basophils % Neutrophils # Lymphocytes # Monocytes # Eosinophils # Basophils # Immature Plt Fraction PT INR APTT Sodium 138 Potassium 4.6 Chloride 107 Carbon Dioxide 21 L BUN 77 H Creatinine 9.79 H Est GFR ( Amer) 6 L Est GFR (Non-Af Amer) 5 L BUN/Creatinine Ratio 8 Glucose 148 H POC Glucose Calculated Osmolality 312 H Calcium 8.1 L Venous Ioniz Calcium Phosphorus Magnesium 2.0 Iron % Saturation Transferrin Ferritin Troponin I Prot Electrophor EER Total Protein (PEP) Albumin Albumin (PEP) Actfw-1-Qjbjfxlev Kgxoi-9-Umcjvxcvj Beta Globulins Gamma Globulins PEP Interpretation Prostate Specific Ag Vitamin B12 25-OH Vitamin D Total Folate Total Testosterone PTH Intact Serum Immunofix Reflex Stool Occult Blood Stl C. cayetanensis PCR Stool Rotavirus A PCR Stl Adenov F PCR Stool Astrovirus (PCR) Stool Campylobacter PCR Stl C. diff Tox A/B PCR Stool Cryptosporidium PCR Stl Sh Tox Pr E STEC PCR Stool E coli O157 PCR Stl Enterotoxigenic E PCR Stool EPEC (PCR) Stool EAEC (PCR) Stl E. histolytica PCR Stool Giardia Lamblia PCR Stool Salmonella PCR Stool Sapovirus (PCR) Stl P. shigelloides PCR Stl Shigella/EIEC PCR St Y.enterocolitica PCR Stool Vibrio (PCR) Stl Vibrio cholerae PCR Stl Norovirus GI/GII PCR Stl GI Panel (PCR) Com IgG IgA IgM Rheumatoid Factor PAPA Screen Myeloperoxidase Ab Serine Protease 3 Ab - Attending Attestation I have seen and examined Mr. Herrera and agree with Ms. Gutierrez's assessment. 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 Systemic therapy is warranted with either docetaxel or abiraterone which will be discussed after acute issues resolved. Will also review with Rad/Onc. Staging CT chest and bone scan ordered. Bicalitumide initiated. S/P bilateral perc nephrostomy tubes. Inpatient Charges Consult Charges: 11568
--- NOTE | 2017-12-13 18:20 | Internal Med Progress Note ---
Hospitalist Progress Note - Encounter Date of Encounter: 12/13/17 Time of Encounter: 11:00 - Subjective Interval History: Patient dramatic improvement in acute renal failure status post nephrostomy tubes Patient's renal function will be monitored overnight and is scheduled for removal of hemodialysis catheter tomorrow. - Exam Vitals: Temp Pulse Resp BP Pulse Ox 97.7 F 64 17 114/61 93 12/13/17 16:08 12/13/17 16:08 12/13/17 16:08 12/13/17 16:08 12/13/17 16:08 Exam: Gen.: Nonacute distress, alert and oriented 3 ENT: Mucosal membranes moist Respiratory: Lungs are clear to auscultation bilaterally without any wheezing rhonchi or rales Cardiovascular: Normal S1 and S2 regular rate rhythm no murmurs rubs or gallops Abdomen: Soft, nontender and nondistended with positive bowel sounds Extremities: No lower extremity edema Skin: Normal color - Assessment and Plan (1) ARF (acute renal failure) Current Visit: Yes Status: Acute Assessment and Plan: Patient's renal function has dramatically improved status post nephrostomy tube placement. Patient's creatinine improvin.36->9.79->11.07->10.34->11.85->9.78->3.81 Nephrology with recommendations for removal of temporary hemodialysis catheter in the morning (2) Bilateral hydronephrosis Current Visit: Yes Status: Acute Assessment and Plan: Patient status post bilateral nephrostomy tubes per urology recommendations (3) Hyperkalemia Current Visit: Yes Status: Resolved Assessment and Plan: Resolved; continue to monitor (4) Prostate cancer Current Visit: Yes Status: Chronic Assessment and Plan: Hematology oncology was consulted and reports that patient has a [place] 4=4+8, has a rising PSA currently 86.3 Patient was followed by hematology oncology as an outpatient and wishes to pursue aggressive treatment. Prescient any further recommendations. (5) CAD (coronary artery disease) Current Visit: Yes Status: Chronic Assessment and Plan: Stable; Continue aspirin, statin, beta steff. Hold SOHA inhibitor (6) Essential hypertension Current Visit: Yes Status: Chronic Assessment and Plan: Controlled; continue Norvasc and metoprolol. (7) Diabetes mellitus Current Visit: Yes Status: Chronic Assessment and Plan: c/w Accu-Chek blood glucose monitoring with sliding scale insulin as needed. Hold oral hypoglycemics. Diabetic diet. (8) CHF (congestive heart failure) Current Visit: Yes Status: Chronic Assessment and Plan: Cont aspirin, statin and betablocker. (9) Anemia Current Visit: Yes Status: Acute Assessment and Plan: Stable; continue to monitor DVT Prophylaxis: Subcutaneous heparin - Time Spent with Patient Total time spent is greater than 50% in coordination of care (as documented) at patient's floor/unit and/or counseling patient: Internal Medicine: Result - Labs CBC & Chem 7: 12/13/17 04:00 12/13/17 05:20 Labs: Short CBC 12/13/17 Range/Units 04:00 WBC 6.5 (4.3-11.1) K/mcL Hgb 10.2 L (12.9-16.9) g/dL Hct 30.8 L (37.5-50.1) % Plt Count 74 L (140-400) K/mcL Neutrophils # 3.9 (1.6-8.9) K/mcL BMP 12/13/17 05:20 Sodium 141 Potassium 3.6 Chloride 106 Carbon Dioxide 28 BUN 34 H Creatinine 3.81 H Glucose 133 H Calcium 9.1 Liver Function 12/13/17 Range/Units 05:20 Albumin 3.7 (3.5-5.7) g/dL - ABG Interpretation ABG results: PT/INR, D-dimer PT 11.2 Seconds (9.4-12.1) 12/11/17 04:45 Consult Discharge Plan - Plan Referrals: Lucero Herrera, [employer] [Primary Care Provider] - (1) ARF (acute renal failure) Qualifiers: Acute renal failure type: unspecified Qualified Code(s): N17.9 - Acute kidney failure, unspecified (5) CAD (coronary artery disease) Qualifiers: Coronary Disease-Associated Artery/Lesion type: bypass graft [facility] vs. transplanted heart: [place] heart Associated angina: without angina Qualified Code(s): I25.810 - Atherosclerosis of coronary artery bypass graft(s) without angina pectoris (7) Diabetes mellitus Qualifiers: Diabetes mellitus type: type 2 Diabetes mellitus intermediate manager insulin use: without nursing home use Diabetes mellitus complication status: with unspecified complications Qualified Code(s): E11.8 - Type 2 diabetes mellitus with unspecified complications (8) CHF (congestive heart failure) Qualifiers: Heart failure type: unspecified Heart failure chronicity: chronic Qualified Code(s): I50.9 - Heart failure, unspecified (9) Anemia Qualifiers: Anemia type: unspecified type Qualified Code(s): D64.9 - Anemia, unspecified
[2017-12-13] MEDS: *HR* HYDROcodone/Acet 7.5/325 mg TABLET PO PRN (20:42)
[2017-12-14 05:19] LABS: Kappa Qnt Free Light Chains 2.68 mg/dL (0.33-1.94); Lambda Qnt Free Light Chains 1.29 mg/dL (0.57-2.63)
[2017-12-14] MEDS: *HR* Heparin 5,000 UNIT/ML VIAL SQ SCH (06:10)
[2017-12-14 06:40] LABS: Basophils % 0.5 %; Immature Granulocytes % 0.3 % (0-4); Mean Corpuscular HGB Conc 33.2 g/dL (31.6-35.5); Red Cell Distribution Width 13.3 % (11.5-14.5)
[2017-12-14 06:42] LABS: Eosinophils # 0.3 K/mcL (0.0-0.6); Eosinophils % 4.4 %; Hemoglobin 10.3 g/dL (12.9-16.9); Immature Platelets 10.1 % (1.1-6.1); Lymphocytes # 1.5 K/mcL (0.6-4.6); Lymphocytes % 22.9 %; Mean Corpuscular Hemoglobin 32.3 pg (28.0-33.3); Mean Corpuscular Volume 97.2 fL (83.0-100.0); Mean Platelet Volume 12.4 fL (9.4-12.4); Monocytes # 0.9 K/mcL (0.0-1.3); Neutrophils # 3.9 K/mcL (1.6-8.9); Red Blood Count 3.19 M/mcL (4.19-5.50); Segmented Neutrophils % 58.9 %
[2017-12-14 06:44] LABS: Platelet Count 83 K/mcL (140-400)
[2017-12-14 07:00] LABS: Magnesium 1.8 mg/dL (1.6-2.6); Potassium 3.5 mEq/L (3.5-5.1)
[2017-12-14] MEDS ORDERED: Bicalutamide 50 MG TABLET PO SCH (09:00)
[2017-12-14] MEDS: amLODIPine 5 MG TABLET PO SCH (09:26)
[2017-12-14] MEDS: Insulin LISPRO 300 UNITS/3 ML VIAL SQ SCH ×3 (09:26→13:03)
[2017-12-14] MEDS: Aspirin Enteric Coated 81 MG Tablet PO SCH (09:26)
--- NOTE | 2017-12-14 10:07 | Nephrology Progress Note ---
Date of Encounter: 12/14/17 Time of Encounter: 10:07 - Assessment and Plan (1) ARF (acute renal failure) Current Visit: Yes Status: Acute Rapidly improving with Perc Nephrostomy tubes, and so will not need HD, and I suspect his SCr will continue to rapidly improve. Please remove temp. HD line. No need to place permanent line. Scr is 1.62 and GFR is 41. We will sign off at this time, please reconsult if needed. Qualifiers: Qualified Code(s): N17.9 - Acute kidney failure, unspecified (2) Hyperkalemia Current Visit: Yes Status: Resolved Resolved (3) Pedal edema Current Visit: Yes Status: Acute Resolved (4) Anemia Current Visit: Yes Status: Acute Will monitor. Qualifiers: Qualified Code(s): D64.9 - Anemia, unspecified (5) Bilateral hydronephrosis Current Visit: Yes Status: Acute S/p bilateral nephrostomy tubes and now his SCr is rapidly improving. Subjective Principal diagnosis: worsening renal function Interval history: Pt seen and examined, doing well. Feels great today. Denies chest pain, shortness of breath, nausea/vomiting/diarrhea. Objective - Vital Signs Vital signs: Vital Signs Temp Pulse Resp BP Pulse Ox 12/14/17 06:47 151/76 12/14/17 06:40 98.1 F 68 17 160/84 93 12/14/17 04:14 97.8 F 64 18 145/90 94 12/13/17 23:04 98.5 F 60 20 124/62 92 12/13/17 18:49 98.4 F 82 18 107/63 94 12/13/17 16:08 97.7 F 64 17 114/61 93 12/13/17 11:32 97.6 F 74 18 120/75 93 Intake and Output 12/13/17 12/14/17 12/14/17 23:59 07:59 15:59 Intake Total 1040 / 1040 270 / 270 Output Total 750 / 750 1800 / 1800 400 / 400 Balance 290 / 290 -1800 / -1800 -130 / -130 Intake: Oral 1040 / 1040 270 / 270 Output: Urine 400 / 400 0 / 0 Left Nephrostomy 175 / 175 250 / 250 200 / 200 Right Nephrostomy 175 / 175 300 / 300 200 / 200 Wound Drainage 1250 / 1250 Left Lower Back 650 / 650 Right Lower Back 600 / 600 Other: Meal Dinner Breakfast Percent of Meal Consumed 100% 100% Weight 111 kg Blood Glucose* 183 134 Patient Weight 12/14/17 23:59 Weight 111 kg - General Appearance General appearance: Present: well-developed, well-nourished EENT: Present: ATNC, hearing intact, vision intact Neck: Present: supple Respiratory: Present: clear Cardiology: Present: edema (+2 pitting edema noted bilat lower extremities.), normal S1, normal S2 Dialysis Vascular Access: Venous Catheter (Tunneled Line, DRSG C/D/I) Gastrointestinal: Present: normoactive bowel sounds, no tenderness, no guarding Integumentary: Present: no rash, warm and dry Neurologic: Present: alert and oriented x3 Psychiatric: Present: mood/affect appropriate, cooperative - Lab 12/14/17 06:20 12/14/17 06:20 Most recent lab results Calcium 9.0 mg/dL (8.6-10.3) 12/14/17 06:20 Phosphorus 4.6 mg/dL (2.7-4.5) H 12/13/17 05:20 Magnesium 1.8 mg/dL (1.6-2.6) 12/14/17 06:20 Urine Creatinine 60 mg/dL 12/06/17 17:42 Urine Sodium 88.8 mEq/L 12/06/17 17:42 Urine Total Protein < 4 mg/dL (1-14) 12/06/17 17:42 Consult Discharge Plan - Plan Referrals: Lucero Herrera CNP [Primary Care Provider] - Prescriptions: Bicalutamide [Casodex] 50 mg PO DAILY #30 tablet
[2017-12-14 11:04] VITALS: BP 131/70
--- NOTE | 2017-12-14 12:40 | Discharge Summary ---
Orders not resulted at time of discharge: Pending orders 12/12/17 CT guided nephrostomy [CT] Routine CT guided nephrostomy [CT] Routine 12/12/17 04:00 Immunofixation,Urine (BJP) AM 0400 12/12/17 04:05 Immunoelectrophoresis AM 0400 Date of Encounter: 12/14/17 Time of Encounter: 11:00 - Discharge Diagnosis (1) ARF (acute renal failure) Priority: Primary Status: Acute Qualifiers: Acute renal failure type: unspecified Qualified Code(s): N17.9 - Acute kidney failure, unspecified (2) Bilateral hydronephrosis Priority: Primary Status: Acute (3) Hyperkalemia Priority: Primary Status: Resolved (4) Prostate cancer Priority: Secondary Status: Chronic (5) CAD (coronary artery disease) Priority: Secondary Status: Chronic Qualifiers: Coronary Disease-Associated Artery/Lesion type: bypass graft [place] vs. 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 Herrera is a 82 year old male - Time Spent with Patient Total time spent providing and/or coordinating discharge services: - Discharge Medications Prescriptions: Bicalutamide [Casodex] 50 mg PO DAILY #30 tablet Home Medications: Amlodipine Besylate 10 mg PO DAILY 12/06/17 [History] Aspirin Enteric Coated [Aspirin EC] 81 mg PO DAILY 12/06/17 [History] Atorvastatin [Lipitor] 40 mg PO HS 12/06/17 [History] Metoprolol [Lopressor] 50 mg PO BID 12/06/17 [History] Terazosin HCl 10 mg PO BID 12/06/17 [History] Timolol Maleate 0.5% 1 drop OP DAILY 12/06/17 [History] Tramadol HCl [Ultram] 50 mg PO QID PRN 12/06/17 [History] Bicalutamide [Casodex] 50 mg PO DAILY #30 tablet 12/14/17 [Rx] Allergies/Adverse Reactions: 3 Allergy/AdvReac Type Severity Reaction Status Date / Time Penicillins AdvReac Rash Verified 12/06/17 10:41 Date of admission: 12/06/17 16:38 Primary care physician: Lucero Herrera, Consults: 12/06/17 16:40 Consult to Nephrology [CONS] Routine Consulting Provider: Kidney Sarah/HARRY/DMITRIY/JONI Reason for Consult: ARF, on ACEI/diuretic/Metformin Call Completed: Yes 12/08/17 08:45 Consult to Dialysis [CONS] ONCE 12/09/17 07:45 Consult to Dialysis [CONS] ONCE 12/10/17 09:00 Consult to Urology [CONS] Routine Consulting Provider: Urology Sarah Reason for Consult: sunday bilateral hydronephrosis on renal ultrasound Call Completed: Yes 12/11/17 09:00 Consult to Dialysis [CONS] ONCE 12/11/17 17:22 Consult to Interventional Radiology [CONS] Routine Consulting Provider: Radiology Interventional Cols Reason for Consult: bilateral nephrostomy tube placement Call Completed: No 12/13/17 10:20 OT [Consult to Occupational Therapy] [CONS] Routine Comment: Evaluate, develop and implement POC Reason for Consult: increased weakness Does patient have active BEDREST order?: No Is patient medically & hemodynamically stable?: Yes PT [Consult to Physical Therapy] [CONS] Routine Comment: Evaluate, develop and implement POC Reason for Consult: increased weakness Does patient have active BEDREST order?: No Is patient medically & hemodynamically stable?: Yes 12/13/17 11:01 Consult to Oncology [CONS] Routine Consulting Provider: [facility] 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 Absent: diastolic murmur, gallop, rubs, systolic murmur - Patient Status Disposition: Home, Self-Care Condition: Fair - Discharge Instructions Follow Up With: Lucero Herrera CNP [Primary Care Provider] - 12/21/17 1:00 pm (Please follow up as schedule...)
[2017-12-14 18:19] LABS: Alpha 2 Globulin (PEP) 0.74 g/dL (0.48-1.05); Beta Globulin (PEP) 0.56 g/dL (0.48-1.10)
[2017-12-15 07:54] LABS: IFE Reflexed NOT DONE
--- NOTE | 2017-12-20 09:27 | Physician Discharge Referral ---
Home Health/Hosp Referral Info Provider in Charge Post Discharge: PCP - Diagnosis (1) ARF (acute renal failure) Priority: Primary Status: Acute (2) Bilateral hydronephrosis Priority: Secondary Status: Acute (3) Diabetes mellitus Priority: Secondary Status: Chronic (4) Essential hypertension Priority: Secondary Status: Chronic (5) Prostate cancer Priority: Secondary Status: Chronic - Respiratory Orders Smoking Cessation: Smoking cessation has been advised. For more information, call the [place] Tobacco Quit Line at 4-257-WATN-NOW. - Services Needed Following services are medically necessary services: Nursing - Transfer Medications Prescriptions: Bicalutamide [Casodex] 50 mg PO DAILY #30 tablet Home Medications: Amlodipine Besylate 10 mg PO DAILY 12/06/17 [History] Aspirin Enteric Coated [Aspirin EC] 81 mg PO DAILY 12/06/17 [History] Atorvastatin [Lipitor] 40 mg PO HS 12/06/17 [History] Metoprolol [Lopressor] 50 mg PO BID 12/06/17 [History] Terazosin HCl 10 mg PO BID 12/06/17 [History] Timolol Maleate 0.5% 1 drop OP DAILY 12/06/17 [History] Tramadol HCl [Ultram] 50 mg PO QID PRN 12/06/17 [History] Bicalutamide [Casodex] 50 mg PO DAILY #30 tablet 12/14/17 [Rx] Allergies/Adverse Reactions: 3 Allergy/AdvReac Type Severity Reaction Status Date / Time Penicillins AdvReac Rash Verified 12/06/17 10:41 Certification: Further, I certify that my clinical findings support that this patient is homebound (i.e. absences from home require considerable and taxing effort and are for medical reasons or scientology services or infrequently or short duration when for other reasons) because: Homebound Reason: Patient requires assistance of a person or device to safely leave home Attestation: My signature below is to certify that this patient is under my care and that I, or nurse practitioner, or a physician's volunteer assistant working with me, has a face-to -face encounter with this patient.
== END 2017-12-14 15:07 | disposition home or self-care (01) | DRG 683 ==
LOC: EMEROOARM 10:21 → 2ANU 10:21 → SUATTDRO 16:38
PROVIDERS: ADMIT Internal Medicine; ATTEND Hospitalist

== ENCOUNTER 2017-12-24 20:10 | Observation (INO) ==
--- NOTE | 2017-12-24 20:56 | Emergency Department Note ---
Disposition Clinical Impression: Exertional dyspnea, History of prostate cancer Pulmonary emboli Qualifiers: Pulmonary embolism type: other Chronicity: acute Acute cor pulmonale presence: without acute cor pulmonale Qualified Code(s): I26.99 - Other pulmonary embolism without acute cor pulmonale Disposition: Admitted As Inpatient Condition: Fair Time of Disposition: 23:07 General Adult HPI - General Chief complaint: ED Dizziness Stated complaint: SOB / Dizzy Time Seen by Provider: 12/24/17 20:25 Source: patient, family, EMS Mode of arrival: EMS Limitations: no limitations Nursing Notes Reviewed: Yes Vital Signs Reviewed: Yes - History of Present Illness HPI Narrative: Patient is an 82-year-old male with a past medical history of prostate cancer, CHF, bilateral nephrostomy tubes, is presenting to the emergency department for evaluation of dyspnea with exertion. According to the patient he states that he was discharged from the hospital on 12/16/2017 in which she underwent treatment for acute renal failure second 2 metastases from cancer that was blocking urine output causing acute kidney failure. The patient had bilateral nephrostomy tubes placement time which she had resolution of the kidney failure no longer required dialysis. The patient states that since being home every gets out of bed to ambulate he feels syncopal like he is going to pass out. States he is unable to make it further than 5 feet. States he is seen by his family medicine physician earlier this week on December 20 and they recommended he have at home oxygen for when he is ambulating. Patient denies any fevers, chills, nausea, vomiting, chest pain, abdominal pain, cough or chest pain. Pain Scale: 0 - Related Data Home Medications Medication Instructions Recorded Confirmed Amlodipine Besylate 10 mg PO DAILY 12/06/17 12/25/17 Aspirin Enteric Coated [Aspirin EC] 81 mg PO DAILY 12/06/17 12/25/17 Atorvastatin [Lipitor] 40 mg PO HS 12/06/17 12/25/17 Metoprolol [Lopressor] 50 mg PO BID 12/06/17 12/25/17 Terazosin HCl 10 mg PO BID 12/06/17 12/25/17 Timolol Maleate 0.5% 1 drop OP BID 12/06/17 12/25/17 Tramadol HCl [Ultram] 50 mg PO QID PRN 12/06/17 12/25/17 Previous Rx's Medication Instructions Recorded Bicalutamide [Casodex] 50 mg PO DAILY #30 tablet 12/14/17 Allergies Allergy/AdvReac Type Severity Reaction Status Date / Time Penicillins AdvReac Rash Verified 12/06/17 10:41 All systems ED: reviewed and negative except as stated. Review of Systems: As Per HPI Constitutional: Denies: fever, chills Cardiovascular: Reports: dyspnea on exertion. Denies: chest pain, palpitations , edema, syncope Respiratory: Reports: dyspnea. Denies: cough, wheezes, hemoptysis Gastrointestinal: Denies: abdominal pain, nausea, vomiting Musculoskeletal: Denies: back pain, neck pain Integumentary: Denies: rash Neurological: Denies: headache, weakness, numbness, paresthesias, confusion Past Medical History - Past Medical History Attestation: Yes The following information was validated with the patient. Medical history: Reports: cancer (prostate), CHF, coronary artery disease, diabetes, hyperlipidemia, hypertension, other (glaucoma) Surgical history: Reports: appendectomy, cataract, coronary bypass (CABG), other Psychiatric history: Reports: no psych history - Social History Smoking Status: Former smoker Smokeless Tobacco Status: No Alcohol use: Reports: none Drug use: Reports: none Physical Exam CONSTITUTIONAL: Well-appearing; well-nourished; A&O X 3, in no apparent distress HEAD: Normocephalic; atraumatic EYES: PERRL, no scleral icterus NOSE: The nose is normal in appearance without rhinorrhea NECK: No JVD or distended neck veins RESP: Normal chest excursion with respiration; breath sounds clear and equal bilaterally; no wheezes, rhonchi, or rales CARD: Regular rhythm, without murmurs, rub or gallop ABD: Distended; non-tender, soft, without rigidity, rebound or guarding,no pulsatile mass CHEST: No pain with palpation BACK: Bilateral nephrostomy tubes placed. Surrrounding sites are non- erythematous, no induration, fluctuance or drain. SKIN: Normal for age and race; warm and dry without diaphoresis ; no apparent lesions EXTREMITIES: Pulses are 2 plus and equal times 4 extremities, and calf muscle pain. Bilateral 2+ pitting edema. Course Course Narrative: Discussed with the patient that the plan at this time is to work him up for his dyspnea which include evaluation for cardiac ideology such as ACS, pulmonary embolism given recent history of hospitalization and active cancer, as well as CHF given his history of CHF. Discussed with the patient that he will need to come in to the hospital regardless of the results due to his inability tablet within his own home to consideration for placement for physical therapy and also for home oxygen therapy. Patient agrees with this plan. - Reevaluation(s) Reevaluation #1: Updated patient on lab results. Discussed renal function is improving. Discussed elevated troponin, most likely due to demand ischemia. Waiting for CTA results at this time and continue with plan to admit the patient. Time: 22:33 Reevaluation #2: Radiologist called me to notify me of patient's CTA results in which she is found to have multiple subacute PAs in the left and right side with moderate burden. Stated that the RV to LV ratio was 1:1. No obvious strain on CT scan. Plan at this time is to heparinize the patient and continue with the current plan of admitting him to the hospital for further management. Discussed these findings with the patient and patient's family and they agree with these plans. Time: 22:34 Reevaluation #3: Patient's case discussed with the hospitalist, Dr. Cano, on-call and he agrees to accept the patient to hospital. Time: 23:06 Vital Signs Temperature 98.7 F 12/24/17 20:22 Pulse Rate 90 12/24/17 20:22 Respiratory Rate 20 12/24/17 20:22 Blood Pressure 123/76 12/24/17 20:22 O2 Sat by Pulse Oximetry 97 12/24/17 20:22 Temperature 97.3 F L 12/25/17 04:15 Pulse Rate 79 12/25/17 04:15 Respiratory Rate 16 12/25/17 04:15 Blood Pressure 138/96 12/25/17 04:15 O2 Sat by Pulse Oximetry 96 12/25/17 04:15 Oxygen Delivery Oxygen Delivery Nasal Cannula Medical Decision Making - Medical Records Medical records reviewed: Yes I reviewed the patient's medical records. - Lab Data Lab results reviewed: Yes I reviewed the patient's lab results. Result diagrams: 12/25/17 04:22 12/25/17 04:22 Lab Results 12/24/17 12/24/17 12/24/17 Range/Units 20:53 20:53 20:55 WBC 10.0 (4.3-11.1) K/mcL RBC 3.84 L (4.19-5.50) M/mcL Hgb 12.3 L (12.9-16.9) g/dL Hct 37.2 L (37.5-50.1) % MCV 96.9 (83.0-100.0) fL MCH 32.0 (28.0-33.3) pg MCHC 33.1 (31.6-35.5) g/dL RDW 13.3 (11.5-14.5) % Plt Count 176 (140-400) K/mcL MPV 10.8 (9.4-12.4) fL Immature Gran % 0.5 (0-4) % Seg Neutrophils % 75.3 % Lymphocytes % 10.7 % Monocytes % 10.7 % Eosinophils % 2.2 % Basophils % 0.6 % Neutrophils # 7.5 (1.6-8.9) K/mcL Lymphocytes # 1.1 (0.6-4.6) K/mcL Monocytes # 1.1 (0.0-1.3) K/mcL Eosinophils # 0.2 (0.0-0.6) K/mcL Basophils # 0.1 (0.0-0.2) K/mcL PT (9.4-12.1) Seconds INR Heparin Anti-Xa, Unfract (0.30-0.70) IU/mL Sodium 140 (136-145) mEq/L Potassium 4.1 (3.5-5.1) mEq/L Chloride 106 (98-107) mEq/L Carbon Dioxide 23 (23-29) mEq/L BUN 17 (8-23) mg/dL Creatinine 1.39 H (0.70-1.30) mg/dL Est GFR ( Amer) 59 L (> 60) Est GFR (Non-Af Amer) 49 L (> 60) BUN/Creatinine Ratio 12 (6-26) Glucose 210 H (70-105) mg/dL Calculated Osmolality 298 (280-300) Calcium 9.1 (8.6-10.3) mg/dL Troponin I 0.04 H* (< 0.04) ng/mL B-Natriuretic Peptide 409 H (Less than 100) pg/mL TSH (0.340-5.600) mcIU/mL Urine Color (Yellow) Urine Clarity (Clear) Urine pH (5.0-8.0) pH Units Ur Specific [place] (1.010-1.025) Urine Protein (Neg-Trace) mg/dL Urine Glucose (UA) (Normal) mg/dL Urine Ketones (Negative) mg/dL Urine Blood (Negative) Urine Nitrite (Negative) Urine Bilirubin (Negative) Urine Urobilinogen (Normal) mg/dL Ur Leukocyte Esterase (Negative) Urine Microscopic RBC (0-3) per hpf Urine Microscopic WBC (0-3) per hpf Ur Squamous Epith Cells (None-Few) per lpf Urine Bacteria (None-Few) per hpf Hyaline Casts (None-Few) per lpf Ur Culture Indicated? (NO) 12/24/17 12/24/17 12/24/17 Range/Units 20:55 21:15 22:49 WBC (4.3-11.1) K/mcL RBC (4.19-5.50) M/mcL Hgb (12.9-16.9) g/dL Hct (37.5-50.1) % MCV (83.0-100.0) fL MCH (28.0-33.3) pg MCHC (31.6-35.5) g/dL RDW (11.5-14.5) % Plt Count (140-400) K/mcL MPV (9.4-12.4) fL Immature Gran % (0-4) % Seg Neutrophils % % Lymphocytes % % Monocytes % % Eosinophils % % Basophils % % Neutrophils # (1.6-8.9) K/mcL Lymphocytes # (0.6-4.6) K/mcL Monocytes # (0.0-1.3) K/mcL Eosinophils # (0.0-0.6) K/mcL Basophils # (0.0-0.2) K/mcL PT 12.0 (9.4-12.1) Seconds INR 1.1 Heparin Anti-Xa, Unfract 0.06 L (0.30-0.70) IU/mL Sodium (136-145) mEq/L Potassium (3.5-5.1) mEq/L Chloride (98-107) mEq/L Carbon Dioxide (23-29) mEq/L BUN (8-23) mg/dL Creatinine (0.70-1.30) mg/dL Est GFR ( Amer) (> 60) Est GFR (Non-Af Amer) (> 60) BUN/Creatinine Ratio (6-26) Glucose (70-105) mg/dL Calculated Osmolality (280-300) Calcium (8.6-10.3) mg/dL Troponin I (< 0.04) ng/mL B-Natriuretic Peptide (Less than 100) pg/mL TSH 2.589 (0.340-5.600) mcIU/mL Urine Color Yellow (Yellow) Urine Clarity Turbid A (Clear) Urine pH 5.5 (5.0-8.0) pH Units Ur Specific [place] 1.023 (1.010-1.025) Urine Protein 100 H (Neg-Trace) mg/dL Urine Glucose (UA) Normal (Normal) mg/dL Urine Ketones Negative (Negative) mg/dL Urine Blood Large H (Negative) Urine Nitrite Negative (Negative) Urine Bilirubin Negative (Negative) Urine Urobilinogen Normal (Normal) mg/dL Ur Leukocyte Esterase Large H (Negative) Urine Microscopic RBC 15-30 H (0-3) per hpf Urine Microscopic WBC TNTC H (0-3) per hpf Ur Squamous Epith Cells Few (None-Few) per lpf Urine Bacteria Moderate H (None-Few) per hpf Hyaline Casts Moderate H (None-Few) per lpf Ur Culture Indicated? YES A (NO) - Radiology Data Radiology results reviewed: Yes I reviewed the patient's radiology results. Chest X-Ray 12/24/17 20:53 IMPRESSION: No acute process. D/ / Bassem Alan MD / Bassem Alan MD Interpreting Provider: Bassem Alan MD Chest CTA 12/24/17 20:58 IMPRESSION: Acute or subacute bilateral pulmonary emboli. The clot burden is estimated to be moderate. Critical results were called by Dr. Rafi Chadwick MD to Aaron Burris on 12/24/2017 at 22:25. D/ / Rafi Chadwick MD / Rafi Chadwick MD Interpreting Provider: Rafi Chadwick MD - EKG Data EKG #1 EKG attestation: Yes I reviewed and interpreted this EKG. EKG results narrative: EKG done at 20:38 shows sinus rhythm at a rate of 84 bpm. Normal axis. Prolonged ID interval at 208. Otherwise intervals within normal limits. No signs of ST elevation, ST depression or Q waves present. No signs of ischemia. Attestation Statement - Attestation Attestation: I examined this patient and my medical decision-making was reviewed with the Resident Physician. I agree with the documented findings, disposition and treatment plan as described except to the extent set forth below. Findings consistent with pulmonary embolism. We will start heparin. Patient's symptoms have improved with rest. We will admit for further management and initiation of anticoagulation. There does appear to be evidence of heart strain with elevated proBNP and troponin. I spent greater than 35 minutes of critical care time resuscitating this acutely ill patient suffering from pulmonary embolism with heart strain. This was excluding billable procedures.
[2017-12-24] MEDS ORDERED: Isovue-370 500 ML INFUS..BTL IV ONE (20:58)
[2017-12-24 21:29] LABS: Basophils # 0.1 K/mcL (0.0-0.2); Basophils % 0.6 %; Eosinophils # 0.2 K/mcL (0.0-0.6); Eosinophils % 2.2 %; Hematocrit 37.2 % (37.5-50.1); Hemoglobin 12.3 g/dL (12.9-16.9); Immature Granulocytes % 0.5 % (0-4); Lymphocytes # 1.1 K/mcL (0.6-4.6); Lymphocytes % 10.7 %; Mean Corpuscular HGB Conc 33.1 g/dL (31.6-35.5); Mean Corpuscular Volume 96.9 fL (83.0-100.0); Mean Platelet Volume 10.8 fL (9.4-12.4); Monocytes # 1.1 K/mcL (0.0-1.3); Monocytes % 10.7 %; Neutrophils # 7.5 K/mcL (1.6-8.9); Platelet Count 176 K/mcL (140-400); Red Blood Count 3.84 M/mcL (4.19-5.50); Red Cell Distribution Width 13.3 % (11.5-14.5); Segmented Neutrophils % 75.3 %
[2017-12-24 21:33] LABS: Bilirubin,Urine Negative (Negative); Blood,Urine Large (Negative); Clarity,Urine Turbid (Clear); Color,Urine Yellow (Yellow); Glucose,Urine (UA) Normal (Normal); Ketones,Urine Negative (Negative); Leukocyte Esterase,Urine Large (Negative); Nitrite,Urine Negative (Negative); PH,Urine 5.5 pH Units (5.0-8.0); Protein,Urine 100 mg/dL (Neg-Trace); Specific Gravity,Urine 1.023 (1.010-1.025); Urobilinogen,Urine Normal (Normal)
[2017-12-24 21:37] LABS: Bacteria,Urine Moderate per hpf (None-Few); Hyaline Casts,Urine Moderate per lpf (None-Few); RBC,Urine 15-30 per hpf (0-3); Squamous Epithelial Cell,Urine Few per lpf (None-Few); WBC,Urine TNTC per hpf (0-3)
[2017-12-24 21:44] LABS: Calcium 9.1 mg/dL (8.6-10.3); Potassium 4.1 mEq/L (3.5-5.1)
[2017-12-24 21:56] LABS: Troponin I 0.04 ng/mL (< 0.04)
[2017-12-24] MEDS ORDERED: 0.9 % Sodium Chloride 500 ML IVC ONE (22:10)
[2017-12-24] MEDS ORDERED: *HR* Heparin 5,000 UNIT/ML VIAL IVP ONE (22:31)
[2017-12-24] MEDS ORDERED: *HR* Heparin 5,000 UNIT/ML VIAL IVP PRN ×2 (22:31)
[2017-12-24] MEDS ORDERED: Heparin 25,000 UNIT/500 ML D5W 25,000 UNIT/500 ML BAG IVC SCH (22:45)
[2017-12-24 23:03] LABS: Heparin anti-factor XA UFH 0.06 IU/mL (0.30-0.70)
[2017-12-24 23:04] LABS: INR 1.1
[2017-12-25] MEDS ORDERED: Naloxone 0.4 MG/ML INJ IVP PRN (01:50)
[2017-12-25] MEDS ORDERED: D5% in Water 1,000 ML IVC PRN (01:52)
[2017-12-25] MEDS ORDERED: *HR* Dextrose 50 % in Water (Syg) 50 ML SYRINGE IVP PRN (01:52)
[2017-12-25] MEDS ORDERED: Dextrose Gel 15 GM/37.5 ML TUBE PO PRN ×2 (01:52)
[2017-12-25 04:34] LABS: Hematocrit 32.1 % (37.5-50.1); Mean Corpuscular HGB Conc 32.4 g/dL (31.6-35.5); Mean Corpuscular Volume 95.8 fL (83.0-100.0); Mean Platelet Volume 10.7 fL (9.4-12.4); Platelet Count 159 K/mcL (140-400); Red Blood Count 3.35 M/mcL (4.19-5.50); Red Cell Distribution Width 13.4 % (11.5-14.5)
[2017-12-25 04:36] LABS: Hemoglobin 10.4 g/dL (12.9-16.9)
[2017-12-25 04:58] LABS: BUN/Creatinine Ratio 13 (6-26); Blood Urea Nitrogen 17 mg/dL (8-23); Calcium 8.8 mg/dL (8.6-10.3); Carbon Dioxide 24 mEq/L (23-29); Chloride 108 mEq/L (98-107); Glucose 177 mg/dL (70-105); Osmolality,Calculated 296 (280-300); Potassium 3.9 mEq/L (3.5-5.1); Sodium 140 mEq/L (136-145); eGFR For Non-African Americans 53 (> 60)
--- NOTE | 2017-12-25 06:27 | Internal Med History&Physical ---
Date of Encounter: 12/25/17 Time of Encounter: 01:12 Internal Medicine - H&P: HPI Chief complaint: Pulmonary Embolism Admitted From: Emergency Dept Plans for Post Hospital Care: Home History of present illness: Mr. Herrera is a 82 year old male Patient presented to the emergency room for shortness of breath for the last few days. He was recently discharged December 14 for acute renal failure, requiring temporary dialysis and bilateral percutaneous nephrostomy tubes. At time of discharge his acute renal failure resolved and he was discharged home with follow-up with his primary care provider. Over the last few days he has had shortness of breath especially with exertion, as well as dizziness every time he stands up. This morning he stood up and his symptoms were even worse. He then came to the emergency room for further evaluation. He has a significant history of prostate cancer on chemotherapy. In the ER chest x-ray showed no acute process, but CT angiogram showed acute subacute bilateral pulmonary emboli moderate clot burden. His creatinine was 1.39 ad GFR was 49. Troponin was also elevated at 0.04. UA also showed large blood, large LE, numberous WBCs and moderate bacteria. Patient was afebrile, and vital signs were stable. He was started on heparin drip, and admitted for further management of his pulmonary embolisms. Upon my assessment patient was resting comfortably in the hospital bed, denies chest pain, nausea, vomiting, diarrhea, constipation, abdominal pain. Past Med Surg Social Fam HX - Past Medical History Medical history: cancer (prostate), CHF, coronary artery disease, diabetes, hyperlipidemia, hypertension, other (glaucoma) Additional medical history: Prostate CA, glaucoma Psychiatric history: no psych history - Past Surgical History Surgical History: appendectomy, cataract, coronary bypass (CABG), other Additional surgical history: Nephrostomy tubes. - Social History Smoking Status: Former smoker Smokeless Tobacco Status: No Alcohol use: none Drug use: none - Family History Father Adopted: No Family Member Ethnicity: Non- Living Status: Hx Family Cardiac Disorders: Yes Hx Family Respiratory Disorders: No Hx Family Cancer: No Hx Family GI Disorders: No Hx Family Endocrine Disorder: No Hx Family Neuromuscular Disorders: No Hx Family Neurologic Disorders: No Hx Family HEENT Disorders: No Hx Family Autoimmune Disorders: No Internal Medicine - H&P: Meds Amlodipine Besylate 10 mg PO DAILY 12/06/17 [History] Aspirin Enteric Coated [Aspirin EC] 81 mg PO DAILY 12/06/17 [History] Atorvastatin [Lipitor] 40 mg PO HS 12/06/17 [History] Metoprolol [Lopressor] 50 mg PO BID 12/06/17 [History] Terazosin HCl 10 mg PO BID 12/06/17 [History] Timolol Maleate 0.5% 1 drop OP BID 12/06/17 [History] Tramadol HCl [Ultram] 50 mg PO QID PRN 12/06/17 [History] Bicalutamide [Casodex] 50 mg PO DAILY #30 tablet 12/14/17 [Rx] 3 Allergy/AdvReac Type Severity Reaction Status Date / Time Penicillins AdvReac Rash Verified 12/06/17 10:41 All Systems PM: A 10-system review of systems was performed and is negative for pertinent findings except as documented above in the HPI. - Constitutional Vitals: Temp Pulse Resp BP Pulse Ox 97.3 F L 79 16 138/96 96 12/25/17 04:15 12/25/17 04:15 12/25/17 04:15 12/25/17 04:15 12/25/17 04:15 General appearance: Present: cooperative, A&O X 3, pleasant, answers questions appropriately Exam: As above - Head Head exam: Present: normal inspection - Eye Eye exam: Present: EOMI, normal appearance - Neck Neck exam general surgery: Present: full ROM - Respiratory Respiratory exam: Present: CTAB. Absent: chest wall tenderness, decreased breath sounds, rales, respiratory distress, rhonchi, stridor, wheezes - Cardiovascular Cardiovascular exam: Present: RRR. Absent: diastolic murmur, systolic murmur - GI/Abdominal GI/Abdominal exam: Present: normal bowel sounds, soft. Absent: tenderness - Extremities Exam Extremities exam: Present: warm, radial pulses palpable and symmetrical. Absent : pedal edema, tenderness - Back Exam Back exam: Absent: CVA tenderness (L), CVA tenderness (R), tenderness - Neurological Exam Neurological exam: Present: motor sensory deficit, no focal deficits, strengths equal and symetr throughout. Absent: facial droop, speech deficit - Skin Skin exam: Present: dry, normal color, warm Internal Med - H&P Results - Labs CBC & Chem 7: 12/25/17 04:22 12/25/17 04:22 Labs: Short CBC 12/25/17 Range/Units 04:22 WBC 9.4 (4.3-11.1) K/mcL Hgb 10.4 L D (12.9-16.9) g/dL Hct 32.1 L (37.5-50.1) % Plt Count 159 (140-400) K/mcL BMP 12/25/17 04:22 Sodium 140 Potassium 3.9 Chloride 108 H Carbon Dioxide 24 BUN 17 Creatinine 1.29 Glucose 177 H Calcium 8.8 Cardiac Enzymes 12/25/17 Range/Units 04:22 Troponin I 0.04 H* (< 0.04) ng/mL - Assessment and plan (1) Pulmonary emboli Current Visit: Yes Status: Acute Assessment and plan: As evidenced by patient's CTA. Started on heparin drip in the ER. Continue heparin drip. Discuss with patient oral anticoagulation options Continue to monitor Pulse ox monitoring Qualifiers: Pulmonary embolism type: other Chronicity: acute Acute cor pulmonale presence: without acute cor pulmonale Qualified Code(s): I26.99 - Other pulmonary embolism without acute cor pulmonale (2) Exertional dyspnea Current Visit: Yes Status: Acute Assessment and plan: Likely secondary to pulmonary embolisms. Treatment as above. (3) Diabetes mellitus Current Visit: No Status: Chronic Assessment and plan: Patient diet controlled diabetes, no medications. Monitor sugars with meals. Sliding scale insulin low dose as needed. Diabetic diet Qualifiers: Diabetes mellitus type: type 2 Diabetes mellitus technician terminal and repeater insulin use: without technician terminal and repeater use Diabetes mellitus complication status: with unspecified complications Qualified Code(s): E11.8 - Type 2 diabetes mellitus with unspecified complications (4) History of prostate cancer Current Visit: Yes Status: Acute Assessment and plan: Continue to monitor - Time Spent With Patient Total time spent is greater than 50% in coordination of care (as documented) at patient's floor/unit and/or counseling patient: 25 - 35 minutes
[2017-12-25] MEDS: Insulin LISPRO 300 UNITS/3 ML VIAL SQ SCH ×3 (09:48→16:13)
[2017-12-25] MEDS ORDERED: traMADol 50 MG TABLET PO PRN (10:14)
[2017-12-25] MEDS: amLODIPine 5 MG TABLET PO SCH (12:59)
[2017-12-25] MEDS: Aspirin Enteric Coated 81 MG Tablet PO SCH (12:59)
[2017-12-25] MEDS: Bicalutamide 50 MG TABLET PO SCH (14:26)
--- NOTE | 2017-12-25 16:45 | Event Note ---
Date of Encounter: 12/25/17 Time of Encounter: 09:20 82 year old male with h/o- CAD status post H, hypertension, diabetes, prostate cancer, who was recently discharged from our hospital after being treated for acute renal failure with temporary hemodialysis. He was readmitted with worsening dizziness and weakness. He was noted to have acute pulmonary embolism. Seen and examined at bedside; reports feeling better with improvement in symptoms; Chest- S1, S2 heard; Lungs are clear to auscultation B/L EKG shows sinus rhythm with multiple PACs; Telemetry showed brief episodes of likely atrial fibrillation; Acute B/L PE- on IV Heparin drip; d/w Oncology- may be discharged on Xarelto with outpatient f/up; continue supplemental O2 PRN and supportive care; check Venous Doppler; Xarelto prescription and augustine check completed, patient agreeable to buying it; he likely needs lifelong anticoagulation due to underlying prostate cancer; Acute respiratory failure- likely due to PE; needs home O2 evaluation prior to discharge; Positive urinalysis- asymptomatic; recently had B/L nephrostomy tubes, f/up urine culture; Other problems- CAD/CABG Chronic CHF Essential HTN Hyperlipidemia DM- type 2 Prostate cancer
[2017-12-25] MEDS ORDERED: Insulin LISPRO 300 UNITS/3 ML VIAL SQ SCH (21:00)
[2017-12-25] MEDS: *HR* Rivaroxaban 15 MG TABLET PO SCH (22:45)
[2017-12-26 05:22] LABS: Basophils % 0.5 %; Eosinophils # 0.2 K/mcL (0.0-0.6); Eosinophils % 2.8 %; Hematocrit 31.5 % (37.5-50.1); Hemoglobin 10.4 g/dL (12.9-16.9); Immature Granulocytes % 0.5 % (0-4); Lymphocytes # 1.3 K/mcL (0.6-4.6); Lymphocytes % 15.1 %; Mean Corpuscular Hemoglobin 32.1 pg (28.0-33.3); Mean Corpuscular Volume 97.2 fL (83.0-100.0); Mean Platelet Volume 11.3 fL (9.4-12.4); Monocytes # 1.1 K/mcL (0.0-1.3); Monocytes % 12.3 %; Platelet Count 152 K/mcL (140-400); Red Blood Count 3.24 M/mcL (4.19-5.50); Red Cell Distribution Width 13.3 % (11.5-14.5); Segmented Neutrophils % 68.8 %
[2017-12-26 05:43] LABS: Calcium 8.6 mg/dL (8.6-10.3); Potassium 3.7 mEq/L (3.5-5.1)
[2017-12-26 07:25] VITALS: BP 129/86
[2017-12-26] MEDS: Aspirin Enteric Coated 81 MG Tablet PO SCH (08:04)
[2017-12-26] MEDS: amLODIPine 5 MG TABLET PO SCH (08:04)
[2017-12-26] MEDS: Bicalutamide 50 MG TABLET PO SCH (08:04)
[2017-12-26] MEDS: *HR* Rivaroxaban 15 MG TABLET PO SCH (08:04)
[2017-12-26] MEDS: Insulin LISPRO 300 UNITS/3 ML VIAL SQ SCH ×2 (08:05→12:05)
[2017-12-26] MEDS ORDERED: Bicalutamide 50 MG TABLET PO SCH (09:00)
[2017-12-26] MEDS ORDERED: Aspirin Enteric Coated 81 MG Tablet PO SCH (09:00)
--- NOTE | 2017-12-26 11:33 | Discharge Summary ---
- NOTES TO OUTPATIENT PROVIDER Notes to Outpatient Provider: 1. Pt's urine culture positive for Enterococcus, final report is pending. Pt has no fever, nausea/vomiting. Nitrofrantoin po started. Plz follow the final sensitivity. 2. New PE, on xarelto 15mg po bid for 21 days then swithch to 20mg po daily. Date of Encounter: 12/26/17 Time of Encounter: 10:00 - Discharge Diagnosis (1) History of prostate cancer Priority: Secondary Status: Acute (2) Pulmonary emboli Priority: Primary Status: Acute Qualifiers: Pulmonary embolism type: other Chronicity: acute Acute cor pulmonale presence: without acute cor pulmonale Qualified Code(s): I26.99 - Other pulmonary embolism without acute cor pulmonale (3) Bilateral hydronephrosis Priority: Secondary Status: Acute (4) CAD (coronary artery disease) Priority: Secondary Status: Chronic Qualifiers: Coronary Disease-Associated Artery/Lesion type: bypass graft [place] vs. transplanted heart: [place] heart Associated angina: without angina Qualified Code(s): I25.810 - Atherosclerosis of coronary artery bypass graft(s) without angina pectoris (5) Diabetes mellitus Priority: Secondary Status: Chronic Qualifiers: Diabetes mellitus type: type 2 Diabetes mellitus half-way insulin use: without half-way use Diabetes mellitus complication status: with unspecified complications Qualified Code(s): E11.8 - Type 2 diabetes mellitus with unspecified complications (6) UTI (urinary tract infection) Priority: Primary Status: Acute Qualifiers: Urinary tract infection type: site unspecified Hematuria presence: without hematuria Qualified Code(s): N39.0 - Urinary tract infection, site not specified Hospital course: Mr. Herrera is a 82 year old male presented to ER for shortness of breath and lightheaded. Patient was found acute PE by CTA. History of prostate cancer s/p bilateral nephrostomy tube. Patient was treated with heparin drip. Oncology consult was consulted on phone, recommend xarelto po and continue follow-up as outpatient. Patient was found urine culture positive for Enterococcus, patient has no fever, flank pain, nausea, or vomiting. nitrofrantoin by mouth started ( Pt is allergic to penicillin). PCP will follow up the final culture results and adjust anabiotic accordingly. I saw and examined patient today. Patient denies chest pain or shortness of breath. He denies dizziness or lightheaded. Lab shows BNP mild elevated but at pt's baseline. Patient has no hypotension, tachycardia, or desaturation. Vitals are stable. Patient will discharge home with home health and continue follow-up with oncology, urology, and PCP as outpatient. Patient will see oncology as outpatient this afternoon. Will continue xarelto 15mg po bid for 21 days then switch to 20mg po daily. Xarelto first month package was given to pt. patient was educated to come back to hospital if he has fever, flank pain, or nausea vomiting. Discharge discussed with: patient - Time Spent with Patient Total time spent providing and/or coordinating discharge services:40 minutes Greater than 30 minutes - Discharge Medications Prescriptions: Nitrofurantoin (BID) [Macrobid] 100 mg PO BIDWM 5 Days #10 capsule Rivaroxaban [Xarelto] 1 dose PO AD 30 Days #1 pack Home Medications: Amlodipine Besylate 10 mg PO DAILY 12/06/17 [History] Aspirin Enteric Coated [Aspirin EC] 81 mg PO DAILY 12/06/17 [History] Atorvastatin [Lipitor] 40 mg PO HS 12/06/17 [History] Metoprolol [Lopressor] 50 mg PO BID 12/06/17 [History] Terazosin HCl 10 mg PO BID 12/06/17 [History] Timolol Maleate 0.5% 1 drop OP BID 12/06/17 [History] Tramadol HCl [Ultram] 50 mg PO QID PRN 12/06/17 [History] Bicalutamide [Casodex] 50 mg PO DAILY #30 tablet 12/14/17 [Rx] Rivaroxaban [Xarelto] 1 dose PO AD 30 Days #1 pack 12/25/17 [Rx] Nitrofurantoin (BID) [Macrobid] 100 mg PO BIDWM 5 Days #10 capsule 12/26/17 [Rx] Allergies/Adverse Reactions: 3 Allergy/AdvReac Type Severity Reaction Status Date / Time Penicillins AdvReac Rash Verified 12/06/17 10:41 Date of admission: 12/24/17 23:28 Primary care physician: Lucero Herrera, Consults: 12/25/17 09:54 Consult to Oncology Hematology [CONS] Routine Consulting Provider: Emilio Watts Reason for Consult: Acute PE, prostate cancer Call Completed: Yes Discharging clinician: Ilene Mckinley Anticipated date of discharge: 12/26/17 - Constitutional Vitals: Temp Pulse Resp BP Pulse Ox 98.1 F 72 17 129/86 96 12/26/17 07:19 12/26/17 07:19 12/26/17 07:19 12/26/17 07:19 12/26/17 07:19 General appearance: Present: cooperative, A&O X 3, pleasant, answers questions appropriately Exam: Pt is AAO x 3, in NAD. - Head Head exam: Present: atraumatic, normocephalic - Eye Eye exam: Present: PERRL, conjuntiva pink, sclera anicteric Pupils: Present: PERRL - Neck Neck exam general surgery: Present: supple, trachea midline. Absent: lymphadenopathy - Respiratory Respiratory exam: Present: CTAB. Absent: accessory muscle use, rales, rhonchi, wheezes - Cardiovascular Cardiovascular exam: Present: RRR, +S1, +S2. Absent: diastolic murmur, gallop, rubs, systolic murmur - GI/Abdominal GI/Abdominal exam: Present: normal bowel sounds, soft, no peritoneal signs. Absent: distended, tenderness Additional comments: B/L nephrostomy tube is in place. - Extremities Exam Extremities exam: Present: warm, radial pulses palpable and symmetrical. Absent : calf tenderness, cyanotic, pedal edema - Neurological Exam Neurological exam: Present: CN II-XII intact, oriented X3, no focal deficits. Absent: pronater drift, facial droop, speech deficit - Skin Skin exam: Present: dry, intact - Patient Status Disposition: Home Health Service Condition: Fair Functional capacity at discharge: uses cane/walker Overall status at discharge: patient is back to baseline - Discharge Instructions Follow Up With: Lucero Herrera CNP [Primary Care Provider] - 12/29/17 Forms: ED Satisfaction Letter - Diet and Activity Activity: increase activity as tolerated Diet: advance to your usual diet, diabetic diet
--- NOTE | 2017-12-26 11:53 | Physician Discharge Referral ---
Home Health/Hosp Referral Info Transfer to: Home Health Provider in Charge Post Discharge: PCP - Diagnosis (1) History of prostate cancer Status: Acute (2) Pulmonary emboli Status: Acute (3) Bilateral hydronephrosis Status: Acute (4) CAD (coronary artery disease) Status: Chronic (5) Diabetes mellitus Status: Chronic (6) UTI (urinary tract infection) Status: Acute - Respiratory Orders Smoking Cessation: Smoking cessation has been advised. For more information, call the [place] Tobacco Quit Line at 5-281-PBLI-NOW. - Diet/Nutrition Diet/Nutrition Orders: No Concentrated Sweets - Activity Activity Orders: Chair, Walker - Services Needed Following services are medically necessary services: Nursing, Home Health Aide, Physical Therapy, Occupational Therapy - Transfer Medications Prescriptions: Nitrofurantoin (BID) [Macrobid] 100 mg PO BIDWM 5 Days #10 capsule Rivaroxaban [Xarelto] 1 dose PO AD 30 Days #1 pack Home Medications: Amlodipine Besylate 10 mg PO DAILY 12/06/17 [History] Aspirin Enteric Coated [Aspirin EC] 81 mg PO DAILY 12/06/17 [History] Atorvastatin [Lipitor] 40 mg PO HS 12/06/17 [History] Metoprolol [Lopressor] 50 mg PO BID 12/06/17 [History] Terazosin HCl 10 mg PO BID 12/06/17 [History] Timolol Maleate 0.5% 1 drop OP BID 12/06/17 [History] Tramadol HCl [Ultram] 50 mg PO QID PRN 12/06/17 [History] Bicalutamide [Casodex] 50 mg PO DAILY #30 tablet 12/14/17 [Rx] Rivaroxaban [Xarelto] 1 dose PO AD 30 Days #1 pack 12/25/17 [Rx] Nitrofurantoin (BID) [Macrobid] 100 mg PO BIDWM 5 Days #10 capsule 12/26/17 [Rx] Allergies/Adverse Reactions: 3 Allergy/AdvReac Type Severity Reaction Status Date / Time Penicillins AdvReac Rash Verified 12/06/17 10:41 Certification: Further, I certify that my clinical findings support that this patient is homebound (i.e. absences from home require considerable and taxing effort and are for medical reasons or cheondoism services or infrequently or short duration when for other reasons) because: Homebound Reason: Patient requires assistance of a person or device to safely leave home Attestation: My signature below is to certify that this patient is under my care and that I, or nurse practitioner, or a physician's patent legal assistant working with me, has a face-to -face encounter with this patient.
[2017-12-26] MEDS ORDERED: Nitrofurantoin (BID) 100 MG CAPSULE PO SCH (17:00)
--- NOTE | 2017-12-28 15:34 | Electrocardiograph Report ---
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
--- NOTE | 2017-12-28 17:51 | Electrocardiograph Report ---
[place] [id number] Test Date: 2017-12-25 Pat Name: Nito Herrera Department: 111 Room: [facility] Gender: M Management Professional: [facility] : 1935 Requested By: Marisol Montano Order Number: [id number] Reading MD: Lillie Geller Measurements Intervals [place] Rate: 91 P: 16 [place]: 182 QRS: -29 QRSD: 101 T: 76 QT: 368 QTc: 416 Interpretive Statements SINUS RHYTHM WITH FREQUENT SUPRAVENTRICULAR PREMATURE COMPLEXES LEFT AXIS DEVIATION LATE R WAVE TRANSITION Electronically Signed On 12-28-2017 17:50:25 EDT by Lillie Geller
== END 2017-12-26 14:49 | disposition home health service (06) ==
LOC: 2NENU 20:10 → EMEROOARM 20:10 → SUATTDRO 23:28 → 2NENU 12-25 00:03
PROVIDERS: ADMIT Family Medicine; ATTEND Internal Medicine

== ENCOUNTER 2018-09-20 10:15 | Inpatient (IN) ==
--- NOTE | 2018-09-20 11:28 | Emergency Department Note ---
Disposition Clinical Impression: Chest pain, Peripheral edema, Pleural effusion, Hypokalemia, Elevated troponin I level, CKD (chronic kidney disease) stage 3, GFR 30-59 ml/min Disposition: Admitted As Inpatient Condition: Fair Forms: ED Satisfaction Letter Time of Disposition: 12:52 Chest Pain HPI - General Chief Complaint: ED Chest Pain Stated Complaint: CP Time Seen by Provider: 09/20/18 11:12 Source: patient Limitations: no limitations Vital Signs Reviewed: Yes Nursing Notes Reviewed: Yes - History of Present Illness HPI Narrative: The patient presents emergency Department with chief complaint of chest pain shortness of breath exertional dyspnea lower extremity edema. The patient states that he has had problems with some shortness of breath ever since he was admitted to the hospital last year, he states that he did not qualify for oxygen at that time he however states that over the last couple weeks she has had progressive worsening dyspnea with exertion, and increased lower extremity edema, his oncologist and primary care physician referred him to a audit intern, he site cardiology nurse practitioner on Monday, who ordered an echocardiogram which was performed yesterday, but he states that his symptoms have continued to worsen with exertion. He states he cannot even walk to the bathroom without becoming severely short of breath even transferring from the wheelchair to the bed made him feel very winded. He reports exertional chest pressure radiating across his chest has no chest pain currently. Patient denies any fevers or chills he does have a cough coughing up some clear yellowish sputum. He does not seem to endorse orthopnea but does have some mild eczema nocturnal dyspnea. No wheezing. No abdominal pain. No black or bloody stool. He reports that his shortness of breath to this extent reminds him of when he had a blood clot in the past, however he reports that he is on xarelto and has not missed any doses thereof. Patient denies any palpitations. He denies significant history of CHF, does report a history of coronary artery disease status post coronary artery bypass graft in 2006 he had not seen a audit intern for several years bec ause his audit intern retired, until he saw the nurse practitioner on Monday. He has had no recent stress testing. He denies any urinary changes. 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 He states that he required dialysis temporarily when he was first diagnosed but has had return of function of his kidneys and is not on dialysis. Severity scale (1-10): 5 - Related Data Home Medications Medication Instructions Recorded Confirmed Aspirin Enteric Coated [Aspirin EC] 81 mg PO DAILY 12/06/17 07/31/18 Atorvastatin [Lipitor] 40 mg PO HS 12/06/17 07/31/18 Metoprolol [Lopressor] 50 mg PO BID 12/06/17 07/31/18 Terazosin HCl 10 mg PO BID 12/06/17 07/31/18 Timolol Maleate 0.5% 1 drop OP DAILY 12/06/17 07/31/18 Rivaroxaban [Xarelto] 20 mg PO DAILY 01/11/18 07/31/18 Linagliptin [Tradjenta] 5 mg PO DAILY 05/02/18 07/31/18 Previous Rx's Medication Instructions Recorded Abiraterone Acetate [Zytiga] 1,000 mg PO DAILY #120 tablet 04/04/18 Furosemide [Lasix] 40 mg PO DAILY 30 Days #30 tablet 07/31/18 HYDROcodone/Acet 5/325 mg [[place] 1 - 2 tab PO Q6H PRN 30 Days #240 07/31/18 5-325 mg] tab predniSONE [PredniSONE] 5 mg PO DAILY #30 tablet 08/29/18 Allergies Allergy/AdvReac Type Severity Reaction Status Date / Time Penicillins Allergy Rash Verified 09/20/18 10:24 All systems ED: reviewed and negative except as stated. Review of Systems: As Per HPI Chest Pain PMH - Past Medical History Medical history: Reports: cancer, CHF, coronary artery disease, diabetes, hyperlipidemia, hypertension, other Surgical history: Reports: appendectomy, cataract, coronary bypass (CABG), other Psychiatric history: Reports: no psych history - Social History Smoking Status: Former smoker Alcohol use: Reports: none Drug use: Reports: none Physical Exam - General Limitations: no limitations General appearance: alert, in no apparent distress - Head Head exam: atraumatic, normocephalic - Eye Eye exam: Present: normal appearance, PERRL, EOMI. Absent: scleral icterus, conjunctival injection - ENT ENT exam: normal exam, normal oropharynx - Neck Neck exam: Present: normal inspection, full ROM, other (No obvious JVD was somewhat limited by body habitus) - Chest Chest inspection: Present: normal inspection, symmetric chest wall rise - Respiratory Respiratory exam: Present: normal lung sounds bilaterally, other (Patient is not in any respiratory distress but does demonstrate conversational dyspnea appearance.) - Cardiovascular Cardiovascular exam: Present: regular rate, normal rhythm, systolic murmur (2/6 systolic murmur no rubs or gallops) - Abdominal Exam Abdominal exam: Present: soft, Non-Tender - Extremities Exam Extremities exam: Present: normal inspection, full ROM, pedal edema (There is 2- 3+ bilateral lower extremity edema extending to the mid thigh, right greater than left no warmth or erythema no calf tenderness no Homans sign, no suggestion of DVT apart from the right leg being more swollen than the left. It is bilateral pitting edema.). Absent: tenderness - Expanded Lower Extremity Exam Neurovascular/Tendon exam: Present: normal capillary refill. Absent: pulse deficit, motor deficit, sensory deficit - Back Exam Back exam: Present: normal inspection, full ROM. Absent: CVA tenderness (R), CVA tenderness (L) - Neurological Exam Neurological exam: Present: alert, oriented X3, CN II-XII intact - Psychiatric Psychiatric exam: Present: normal affect - Skin Skin exam: Present: warm, dry, intact, normal color (No petechiae no jaundice no pallor), other Course Vital Signs Temperature 98.9 F 09/20/18 10:20 Pulse Rate 75 09/20/18 10:20 Respiratory Rate 16 09/20/18 10:20 Blood Pressure 150/75 09/20/18 10:20 O2 Sat by Pulse Oximetry 93 09/20/18 10:20 Temperature 98.9 F 09/20/18 10:20 Pulse Rate 70 09/20/18 12:38 Respiratory Rate 16 09/20/18 12:38 Blood Pressure 145/68 09/20/18 12:38 O2 Sat by Pulse Oximetry 93 09/20/18 12:38 Oxygen Delivery Oxygen Delivery Room Air Chest Pain - MDM Narrative Medical decision making narrative: Patient had an IV placed placed on monitor has no active symptoms vital signs are within acceptable limits, cardiac workup was initiated, he is already on a factor X inhibitor, with history of blood clots is not tachycardic he is not hypoxic, I will ultrasound his legs to rule out DVT, he does have a history of prior renal failure, requiring dialysis, if he has no DVT, he has stable vital signs, and consideration of further evaluation for pulmonary embolism as an inpatient, as he is already anticoagulated. EKG as interpreted by myself was a sinus rhythm, first-degree AV block occasional PVC, no ST elevation no ST depression, there is poor R-wave progression, however when compared to prior EKG from 03 22 2018 there is no significant change. No QT prolongation him with a QTC of 444 MN interval of 223. Chest x-ray as interpreted by radiology demonstrated a small left pleural effusion, with potential associated atelectasis versus infiltrate. CBC and chemistry mildly cytosis no other acute findings. Troponin was borderline at 0.05. Patient has already had aspirin today. Patient has also had a factor X inhibitor. Bilateral lower extremity Dopplers revealed no DVT. BNP was elevated at just over 600. Renal panel showed a creatinine of 1.5 with a potassium of 3.2. Patient was given 40 mEq of by mouth potassium. Patient will be admitted to the hospital for further evaluation and management. He does report a cough with a little bit sputum production it is both clear and yellow but no fevers no chills no wheezing chest x-ray shows possible left lower lobe infiltrate, I will discuss with the hospitalist consideration of treating this, versus monitoring for progressive symptoms or fever. - Lab Data Result diagrams: 09/20/18 11:21 09/20/18 11:21 Lab Results 09/20/18 09/20/18 09/20/18 Range/Units 11:21 11:21 11:21 WBC 12.1 H (4.3-11.1) K/mcL RBC 3.41 L (4.19-5.50) M/mcL Hgb 10.0 L (12.9-16.9) g/dL Hct 31.6 L (37.5-50.1) % MCV 92.7 (83.0-100.0) fL MCH 29.3 (28.0-33.3) pg MCHC 31.6 (31.6-35.5) g/dL RDW 13.9 (11.5-14.5) % Plt Count 149 (140-400) K/mcL MPV 12.1 (9.4-12.4) fL Immature Gran % 0.4 (0-4) % Seg Neutrophils % 76.5 % Lymphocytes % 10.5 % Monocytes % 11.2 % Eosinophils % 1.2 % Basophils % 0.2 % Neutrophils # 9.3 H (1.6-8.9) K/mcL Lymphocytes # 1.3 (0.6-4.6) K/mcL Monocytes # 1.4 H (0.0-1.3) K/mcL Eosinophils # 0.1 (0.0-0.6) K/mcL Basophils # 0.0 (0.0-0.2) K/mcL Sodium 142 (136-145) mEq/L Potassium 3.2 L (3.5-5.1) mEq/L Chloride 105 (98-107) mEq/L Carbon Dioxide 29 (23-29) mEq/L BUN 18 (8-23) mg/dL Creatinine 1.52 H (0.70-1.30) mg/dL Est GFR ( Amer) 53 L (> 60) Est GFR (Non-Af Amer) 44 L (> 60) BUN/Creatinine Ratio 12 (6-26) Glucose 158 H (70-105) mg/dL Calculated Osmolality 299 (280-300) Calcium 9.0 (8.6-10.3) mg/dL Troponin I 0.05 H* (< 0.04) ng/mL B-Natriuretic Peptide 692 H (Less than 100) pg/mL Heart Score - Score History: Highly Suspicious EKG: Non Specific repolarisation Disturbance Age: Greater than 65 Risk Factors: Equal/Greater than 3 risk factor or history of atherosclerotic disease Troponin: 1-3x normal limit HEART Score Total: 8
[2018-09-20 11:54] LABS: Basophils % 0.2 %; Eosinophils # 0.1 K/mcL (0.0-0.6); Eosinophils % 1.2 %; Hematocrit 31.6 % (37.5-50.1); Immature Granulocytes % 0.4 % (0-4); Lymphocytes # 1.3 K/mcL (0.6-4.6); Lymphocytes % 10.5 %; Mean Corpuscular HGB Conc 31.6 g/dL (31.6-35.5); Mean Corpuscular Hemoglobin 29.3 pg (28.0-33.3); Mean Corpuscular Volume 92.7 fL (83.0-100.0); Mean Platelet Volume 12.1 fL (9.4-12.4); Monocytes # 1.4 K/mcL (0.0-1.3); Monocytes % 11.2 %; Neutrophils # 9.3 K/mcL (1.6-8.9); Platelet Count 149 K/mcL (140-400); Red Blood Count 3.41 M/mcL (4.19-5.50); Red Cell Distribution Width 13.9 % (11.5-14.5); Segmented Neutrophils % 76.5 %; White Blood Count 12.1 K/mcL (4.3-11.1)
[2018-09-20 12:23] LABS: Potassium 3.2 mEq/L (3.5-5.1); Troponin I 0.05 ng/mL (< 0.04)
[2018-09-20] MEDS ORDERED: cefTRIAXone 1,000 MG in Water for inj. (sterile) 20 ML 10 ML IVP ONE (13:23)
[2018-09-20] MEDS ORDERED: Azithromycin 500 MG in D5% in Water 250 ML IVPB ONE (13:23)
--- NOTE | 2018-09-20 14:00 | Internal Med History&Physical ---
<Anni Mahajan - Last Filed: 09/20/18 16:26> Date of Encounter: 09/20/18 Time of Encounter: 13:56 Internal Medicine - H&P: HPI Chief complaint: Chest pain Admitted From: Emergency Dept Plans for Post Hospital Care: Home History of present illness: Mr. Herrera is a 83 year old male with past medical history of CHF, prostate cancer, CAD, CABG 2006, diabetes, PE on Xarelto who presented to [place] complaining of chest pain. On examination the patient his children are at that bedside. The patient reported that on Monday 3 days ago he was sitting in the recliner when he suddenly had chest pain that was sharp and pressure like radiate across distress. He denied pain in his jaw or down his arms. He stated the pain lasts about all night. He denied take nitroglycerin. He stated that this pain felt different from when he had his CABG. during the week he would intermittently have the same chest pain across his chest when he was exerting himself. It was relieved with rest. Additionally he has noted that over the past week he has dyspnea on exertion and can no longer walk even short distances in his home without becoming short of breath and needing to sit and rest. He admits to orthopnea. He denies any other associated symptoms of lightheadedness, headache, change in vision, palpitations, nausea, abdominal pain, diarrhea, cough, fever, chills, dysuria. He denies recent illness or feeling sick. He has chronic bilateral lower extremity edema however for the past 2 months it has worsened and his right leg is now more swollen than the left. He stated that he has been compliant with his heart medications including his Xarelto for which he takes due to a PE secondary to malignancy diagnosed in fall 2017. He denies smoking, alcohol use, drug use. He is a DNR CCA DNI. Initial vitals in the ED, temperature 98.9F, HR 75, RR 16, BP 150/75, SpO2 93%. WBC 12.1, Hgb 10, potassium 3.2, creatinine 1.5 to, troponin 0.05, BNP 692. -Chest x-ray demonstrated small left pleural effusion with left basilar atelectasis or infiltrate. -Bilateral lower extremity ultrasound demonstrated normal superficial and deep exam. Right greater saphenous has been stripped. In the ED the patient was given potassium, azithromycin, ceftriaxone. VQ scan ordered to evaluate for PE. Update VQ scan showed low probability for pulmonary embolism. Review of TTE on 09/19/2018 shows LV systolic function grossly appears low normal to mildly reduced but is not well quantified. Recommend repeat limited study with imaging enhancement. Moderate left ventricular diastolic dysfunction. Systolic function is mildly reduced by tissue Doppler and TAPSE. Mild moderate mitral regurgitation, mild tricuspid regurgitation. Mild pulmonic regurgitation. Mild pulmonary hypertension. Past Med Surg Social Fam HX - Past Medical History Attestation: Yes The following information was validated with the patient. Source: patient Medical history: cancer, CHF, coronary artery disease, diabetes, hyperlipidemia, hypertension, other Additional medical history: Prostate Cancer Psychiatric history: no psych history - Past Surgical History Surgical History: appendectomy, cataract, coronary bypass (CABG), other Additional surgical history: Nephrostomy tubes. - Social History Smoking Status: Former smoker Smokeless Tobacco Status: No Alcohol use: none Drug use: none - Family History Father Adopted: No Family Member Ethnicity: Non- Living Status: Hx Family Cardiac Disorders: Yes Hx Family Respiratory Disorders: No Hx Family Cancer: No Hx Family GI Disorders: No Hx Family Endocrine Disorder: No Hx Family Neuromuscular Disorders: No Hx Family Neurologic Disorders: No Hx Family HEENT Disorders: No Hx Family Autoimmune Disorders: No Internal Medicine - H&P: Meds Aspirin Enteric Coated [Aspirin EC] 81 mg PO DAILY 12/06/17 [History] Atorvastatin [Lipitor] 40 mg PO HS 12/06/17 [History] Metoprolol [Lopressor] 50 mg PO BID 12/06/17 [History] Terazosin HCl 10 mg PO BID 12/06/17 [History] Timolol Maleate 0.5% 1 drop OP DAILY 12/06/17 [History] Rivaroxaban [Xarelto] 20 mg PO DAILY 01/11/18 [History] Abiraterone Acetate [Zytiga] 1,000 mg PO DAILY #120 tablet 04/04/18 [Rx] Linagliptin [Tradjenta] 5 mg PO DAILY 05/02/18 [History] Furosemide [Lasix] 40 mg PO DAILY 30 Days #30 tablet 07/31/18 [Rx] HYDROcodone/Acet 5/325 mg [[place] 5-325 mg] 1 - 2 tab PO Q6H PRN 30 Days #240 tab 07/31/18 [Rx] predniSONE [PredniSONE] 5 mg PO DAILY #30 tablet 08/29/18 [Rx] Allergy/AdvReac Type Severity Reaction Status Date / Time Penicillins Allergy Rash Verified 09/20/18 10:24 All Systems PM: A 10-system review of systems was performed and is negative for pertinent findings except as documented above in the HPI. - Constitutional Constitutional: weight gain, no chills, no fever(s), no malaise - EENT Eyes: no blurry vision, no change in vision, no diplopia - Cardiovascular Cardiovascular ROS IM: chest pain, dyspnea, dyspnea on exertion, edema, orthopnea, no diaphoresis, no lightheadedness, no palpitations, no paroxysmal nocturnal dyspnea, no syncope - Respiratory Respiratory: dyspnea, no cough, no hemoptysis, no wheezing, no chest congestion - Gastrointestinal Gastrointestinal: bloating, no abdominal pain, no diarrhea, no hematemesis, no hematochezia, no melena, no nausea, no vomiting - Genitourinary Genitourinary ROS male: no dysuria - Integumentary Integumentary IM: no rash, no skin ulcer - Neurological Neurological ROS: no disequilibrium, no dizziness, no focal weakness - Constitutional Vitals: Temp Pulse Resp BP Pulse Ox 98.9 F 70 16 145/68 93 09/20/18 10:20 09/20/18 12:38 09/20/18 12:38 09/20/18 12:38 09/20/18 12:38 Exam: Gen.: Vitals noted. No acute distress. AAOx3 HEENT: oropharynx clear, Normocephalic, atraumatic Cardiac: RRR, no murmur, +S1/S2 Pulmonary: no wheezes, left base rales no rhonchi, equal chest expansion Abdomen: soft, nontender, Bowel sounds noted, no guarding MSK: ROM intact, no joint swelling noted Extremities: BLE edema bilaterally with pitting of the feet. Edema extends up t o the thighs with right leg more edematous. nontender calf, no cyanosis or clubbing Neuro: A&Ox3, moves all extremities, no focal deficits Psych: Appropriate mood and behavior Internal Med - H&P Results - Labs CBC & Chem 7: 09/20/18 11:21 09/20/18 11:21 Labs: Short CBC 09/20/18 Range/Units 11:21 WBC 12.1 H (4.3-11.1) K/mcL Hgb 10.0 L (12.9-16.9) g/dL Hct 31.6 L (37.5-50.1) % Plt Count 149 (140-400) K/mcL Neutrophils # 9.3 H (1.6-8.9) K/mcL BMP 09/20/18 11:21 Sodium 142 Potassium 3.2 L Chloride 105 Carbon Dioxide 29 BUN 18 Creatinine 1.52 H Glucose 158 H Calcium 9.0 Cardiac Enzymes 09/20/18 Range/Units 11:21 Troponin I 0.05 H* (< 0.04) ng/mL - Impressions ITS Impressions Chest X-Ray 09/20/18 10:24 IMPRESSION: Small left pleural effusion with left basilar atelectasis or infiltrate. D/ /20/2018 11:28:46 Carlos Parada MD / [facility] Interpreting Provider: Carlos Parada MD - Assessment and Plan (1) Acute exacerbation of CHF (congestive heart failure) Current Visit: Yes Status: Acute Assessment and plan: 83-year-old male past medical history CAD, CABG, HFpEF, CKD. Presented with acute on chronic peripheral edema has worsened within the past 2 months and then even more so over this past week. He has exertional dyspnea, orthopnea. Failed outpatient Lasix. On examination patient had left basilar rales. -This is most likely secondary to worsen congestive heart failure. May be due to cancer medication zytiga or may be ischemia. Echocardiogram showed worsened diastolic dysfunction compared to TTE in 2018. -Hemodynamically stable, SpO2 93% on room air -potassium 3.2 -troponin 0.05 -BNP 692 -Chest x-ray demonstrated small left pleural effusion with left basilar at electasis or infiltrate. -TTE on 09/19/2018 shows LV systolic function grossly appears low normal to mildly reduced but is not well quantified. Recommend repeat limited study with imaging enhancement. Moderate left ventricular diastolic dysfunction. Systolic function is mildly reduced by tissue Doppler and TAPSE. Mild moderate mitral regurgitation, mild tricuspid regurgitation. Mild pulmonic regurgitation. Mild pulmonary hypertension. Plan -will order a limited echo with enhancement to evaluate EF -will order Lasix 40 mg IV daily -Trend troponin -will monitor urine output, daily weight -fluid restrictive diet 1500 mL Qualifiers: Heart failure type: diastolic Qualified Code(s): I50.33 - Acute on chronic diastolic (congestive) heart failure (2) Chest pain Current Visit: Yes Status: Acute Assessment and plan: Patient reported chest pain that was centrally located in radiated across his chest. No radiation to jaw her left arm. Worsened with exertion relieved by rest. Described as pressure and sharp like. Patient has shortness of breath when exerting himself and that is what precedes the chest discomfort. No additional symptoms of diaphoresis, headache, nausea. -This is most likely related to the patient having acute congestive heart failure exacerbation in the setting of increased exertional dyspnea, peripheral edema. Also considering ischemia however EKG is not supporting and the patient is chest pain free. -troponin 0.05 -EKG: sinus rhythm, first-degree AV block. No ST or T wave changes indicating ischemia. Poor are wave progression noted. -Patient denies chest pain today Plan -will turn troponin. If troponin should continue to increase though consider adding heparin drip. And repeat EKG. -continue patient Xarelto Qualifiers: Ischemic chest pain type: unspecified angina pectoris type Qualified Code(s): I25.9 - Chronic ischemic heart disease, unspecified (3) Exertional dyspnea Current Visit: No Status: Acute Assessment and plan: This is most likely secondary to congestive heart failure exacerbation. PE ruled out by VQ scan that demonstrated a low probability. PE is also a lower probability due to the patient reporting that he is compliant with Xarelto. Patient is a non-smoker so this is likely not COPD. This is likely not infectious etiology such as pneumonia since the patient is afebrile and to not report any ROS that would be concerning. -Plan as above (4) Hypokalemia Current Visit: Yes Status: Acute Assessment and plan: Hypokalemia may be secondary to diuretics. Was supplemented in the ED. -Potassium 3.2 -will continue to monitor and supplement as needed (5) Peripheral edema Current Visit: Yes Status: Acute Assessment and plan: Likely secondary to congestive heart failure exacerbation. -Plan as above (6) Elevated troponin I level Current Visit: Yes Status: Acute Assessment and plan: Elevated troponin -patient denies chest pain at this time. -May be demand ischemia in the setting of most likely CHF exacerbation and CKD -troponin 0.05 -EKG: sinus rhythm, first-degree AV block. No ST or T wave changes indicating ischemia. Poor are wave progression noted. Plan -will trend troponin -will continue to monitor (7) Anemia Current Visit: No Status: Acute Assessment and plan: Anemia likely of chronic disease in the setting of chronic kidney disease -Hemoglobin 10 -baseline hemoglobin 10-11 -patient denies melena or hematechezia -no obvious active bleeding Plan -will continue to monitor hemoglobin and for signs of bleeding Qualifiers: Anemia type: unspecified type Qualified Code(s): D64.9 - Anemia, unspecified (8) CAD (coronary artery disease) Current Visit: No Status: Chronic Assessment and plan: History of COPD with CABG 2006. Taking aspirin, atorvastatin, metoprolol, Lasix. -Continue home medications Qualifiers: Coronary Disease-Associated Artery/Lesion type: bypass graft [place] vs. transplanted heart: false pass heart Associated angina: without angina Qualified Code(s): I25.810 - Atherosclerosis of coronary artery bypass graft(s) without angina pectoris (9) Diabetes mellitus Current Visit: No Status: Chronic Assessment and plan: History of diabetes taking oral medication. -Will continue monitor glucose with Accu checks -continue low-dose sliding scale insulin -diabetic diet when able Qualifiers: Diabetes mellitus type: type 2 Diabetes mellitus manager intermediate insulin use: without manager intermediate use Diabetes mellitus complication status: with hyperglycemia Qualified Code(s): E11.65 - Type 2 diabetes mellitus with hyperglycemia (10) History of prostate cancer Current Visit: No Status: Acute Assessment and plan: History of prostate cancer taking Zytiga. (11) CKD (chronic kidney disease) stage 3, GFR 30-59 ml/min Current Visit: Yes Status: Chronic Assessment and plan: History of chronic kidney disease stage III who follows with the scheduling assistant Dr Kayla Baez. -Creatinine is 1.52 and is at his baseline. Plan -will continue to monitor serum creatinine and urine output -will continue renal protective strategy including avoid nephrotoxic agents and renal dose medications (12) Pulmonary emboli Current Visit: No Status: Acute Assessment and plan: History of pulmonary embolism secondary to malignancy of prostate cancer in fall 2017. Patient has been taking xarelto. Qualifiers: Pulmonary embolism type: other Chronicity: acute Acute cor pulmonale presence: without acute cor pulmonale Qualified Code(s): I26.99 - Other pulmonary embolism without acute cor pulmonale (13) DVT prophylaxis Current Visit: No Status: Acute Assessment and plan: Continue home xarelto (14) Leukocytosis Current Visit: Yes Status: Acute Assessment and plan: Leukocytosis WBC 12.1. -This is in the setting of most likely congestive heart failure exacerbation. No obvious signs of infection. -Afebrile, hemodynamically stable Plan -will continue to monitor for fevers as there are no indications for antibiotics at this time. -Blood cultures pending -pro-calcitonin ordered Qualifiers: Leukocytosis type: unspecified Qualified Code(s): D72.829 - Elevated white blood cell count, unspecified - Time Spent With Patient Total time spent is greater than 50% in coordination of care (as documented) at patient's floor/unit and/or counseling patient: <Jerod Schuler - Last Filed: 09/20/18 18:16> Date of Encounter: 09/20/18 Internal Medicine - H&P: HPI History of present illness: Mr. Herrera is a 83 year old male All Systems PM: A 10-system review of systems was performed and is negative for pertinent findings except as documented above in the HPI. - Constitutional Vitals: Temp Pulse Resp BP Pulse Ox 98.5 F 72 18 181/92 91 09/20/18 17:33 09/20/18 17:33 09/20/18 17:33 09/20/18 17:33 09/20/18 17:33 Internal Med - H&P Results - Labs CBC & Chem 7: 09/20/18 11:21 09/20/18 11:21 Labs: Short CBC 09/20/18 Range/Units 11:21 WBC 12.1 H (4.3-11.1) K/mcL Hgb 10.0 L (12.9-16.9) g/dL Hct 31.6 L (37.5-50.1) % Plt Count 149 (140-400) K/mcL Neutrophils # 9.3 H (1.6-8.9) K/mcL BMP 09/20/18 11:21 Sodium 142 Potassium 3.2 L Chloride 105 Carbon Dioxide 29 BUN 18 Creatinine 1.52 H Glucose 158 H Calcium 9.0 Cardiac Enzymes 09/20/18 Range/Units 11:21 Troponin I 0.05 H* (< 0.04) ng/mL - Impressions ITS Impressions Chest X-Ray 09/20/18 10:24 IMPRESSION: Small left pleural effusion with left basilar atelectasis or infiltrate. D/ / 09/20/2018 11:28:46 Carlos Parada MD / [facility] Interpreting Provider: Carlos Parada MD Pulmonary Perfusion Imaging 09/20/18 13:21 IMPRESSION: Low probability for pulmonary embolus. D/ / 09/20/2018 14:34:12 Carlos Parada MD / [email or web address] Interpreting Provider: Carlos Parada MD - Assessment and Plan (1) CAD (coronary artery disease) Current Visit: No Status: Chronic Qualifiers: Coronary Disease-Associated Artery/Lesion type: bypass graft [place] vs. transplanted heart: false pass heart Associated angina: without angina Qualified Code(s): I25.810 - Atherosclerosis of coronary artery bypass graft(s) without angina pectoris (2) Diabetes mellitus Current Visit: No Status: Chronic Qualifiers: Diabetes mellitus type: type 2 Diabetes mellitus detention insulin use: without detention use Diabetes mellitus complication status: with hyperglycemia Qualified Code(s): E11.65 - Type 2 diabetes mellitus with hyperglycemia (3) Anemia Current Visit: No Status: Acute Qualifiers: Anemia type: unspecified type Qualified Code(s): D64.9 - Anemia, unspecified (4) Pulmonary emboli Current Visit: No Status: Acute Qualifiers: Pulmonary embolism type: other Chronicity: acute Acute cor pulmonale presence: without acute cor pulmonale Qualified Code(s): I26.99 - Other pulmonary embolism without acute cor pulmonale (5) Exertional dyspnea Current Visit: No Status: Acute (6) History of prostate cancer Current Visit: No Status: Acute (7) DVT prophylaxis Current Visit: No Status: Acute (8) CKD (chronic kidney disease) stage 3, GFR 30-59 ml/min Current Visit: Yes Status: Chronic (9) Chest pain Current Visit: Yes Status: Acute Qualifiers: Ischemic chest pain type: unspecified angina pectoris type Qualified Code(s): I25.9 - Chronic ischemic heart disease, unspecified (10) Peripheral edema Current Visit: Yes Status: Acute (11) Hypokalemia Current Visit: Yes Status: Acute (12) Elevated troponin I level Current Visit: Yes Status: Acute (13) Acute exacerbation of CHF (congestive heart failure) Current Visit: Yes Status: Acute Qualifiers: Heart failure type: diastolic Qualified Code(s): I50.33 - Acute on chronic diastolic (congestive) heart failure (14) Leukocytosis Current Visit: Yes Status: Acute Qualifiers: Leukocytosis type: unspecified Qualified Code(s): D72.829 - Elevated white blood cell count, unspecified - Time Spent With Patient Total time spent is greater than 50% in coordination of care (as documented) at patient's floor/unit and/or counseling patient: - Attending Attestation I examined this patient and my medical decision-making was reviewed with the Resident Physician. I agree with the documented findings, disposition and tr eatment plan as described except to the extent set forth below.
[2018-09-20] MEDS ORDERED: Naloxone 0.4 MG/ML INJ IVP PRN (14:56)
[2018-09-20] MEDS ORDERED: Furosemide 40 MG/4 ML VIAL IVP ONE (15:00)
[2018-09-20 15:41] LABS: INR 2.5; Prothrombin Time 28.6 Seconds (9.4-12.1)
[2018-09-20 15:44] LABS: Activated Partial Thrombo Time 35.9 Seconds (26.0-36.0)
[2018-09-20] MEDS ORDERED: D5% in Water 1,000 ML IVC PRN (16:37)
[2018-09-20] MEDS ORDERED: Dextrose Gel 15 GM/37.5 ML TUBE PO PRN (16:37)
[2018-09-20] MEDS ORDERED: *HR* Dextrose 50 % in Water (Syg) 50 ML SYRINGE IVP PRN (16:37)
[2018-09-20] MEDS ORDERED: *HR* Metoprolol 5 MG/5 ML VIAL IVP PRN (17:41)
[2018-09-20] MEDS ORDERED: Perflutren Lipid Microsphere 1.3 ML in 0.9 % Sodium Chloride 8.7 ML IVP ONE (19:00)
[2018-09-20] MEDS: Insulin LISPRO 300 UNITS/3 ML VIAL SQ SCH (20:48)
[2018-09-20] MEDS: *HR* HYDROcodone/Acet 5/325 mg TABLET PO PRN (22:00)
[2018-09-21 03:27] LABS: Basophils % 0.2 %; Eosinophils # 0.3 K/mcL (0.0-0.6); Eosinophils % 3.4 %; Hematocrit 28.4 % (37.5-50.1); Hemoglobin 8.9 g/dL (12.9-16.9); Immature Granulocytes % 0.3 % (0-4); Lymphocytes # 1.4 K/mcL (0.6-4.6); Mean Corpuscular HGB Conc 31.3 g/dL (31.6-35.5); Mean Corpuscular Hemoglobin 29.1 pg (28.0-33.3); Mean Corpuscular Volume 92.8 fL (83.0-100.0); Mean Platelet Volume 12.1 fL (9.4-12.4); Monocytes # 1.5 K/mcL (0.0-1.3); Monocytes % 15.6 %; Neutrophils # 6.1 K/mcL (1.6-8.9); Platelet Count 137 K/mcL (140-400); Red Blood Count 3.06 M/mcL (4.19-5.50); Red Cell Distribution Width 13.8 % (11.5-14.5); Segmented Neutrophils % 65.5 %; White Blood Count 9.4 K/mcL (4.3-11.1)
[2018-09-21 03:36] LABS: Calcium 8.5 mg/dL (8.6-10.3); Magnesium 1.8 mg/dL (1.6-2.6); Potassium 3.1 mEq/L (3.5-5.1)
[2018-09-21] MEDS: *HR* HYDROcodone/Acet 5/325 mg TABLET PO PRN (06:47)
[2018-09-21] MEDS: Aspirin Enteric Coated 81 MG Tablet PO SCH (09:00)
[2018-09-21] MEDS: (Abiraterone Acetate [Zytiga] 1,000 MG) PO SCH (09:01)
[2018-09-21] MEDS: Insulin LISPRO 300 UNITS/3 ML VIAL SQ SCH ×4 (09:04→20:51)
--- NOTE | 2018-09-21 09:34 | Electrocardiograph Report ---
[place] [id number] Test Date: 2018-09-20 Pat Name: Nito Herrera Department: 104 Room: 3B22 Gender: M Silk Trimmer: Prateek : 1935 Requested By: Americo Bingham Order Number: [id number] Reading MD: Marko Bullock Measurements Intervals [place] Rate: 72 P: 23 IL: 223 QRS: -5 QRSD: 109 T: 34 QT: 421 QTc: 444 Interpretive Statements SINUS RHYTHM WITH FIRST DEGREE AV BLOCK WITH OCCASIONAL VENTRICULAR PREMATURE COMPLEXES NONSPECIFIC T-WAVE ABNORMALITY Electronically Signed On 09-21-2018 9:33:09 EDT by Marko Bullock
[2018-09-21] MEDS: Furosemide 40 MG/4 ML VIAL IVP SCH (13:38)
--- NOTE | 2018-09-21 14:23 | Internal Med Progress Note ---
<Kyle Monroy - Last Filed: 09/21/18 14:20> Hospitalist Progress Note - Encounter Date of Encounter: 09/21/18 Time of Encounter: 08:40 - Subjective Interval History: When seen today patient says that he denies any chest pain, shortness of breath at rest, nausea, or vomiting. He does state though that he still has exertional shortness of breath. He states that the swelling in his lower extremities has improved. Patient also noted to me that he does not continues to take his Lasix at home. He says that he only takes it if he is going to be at home all day otherwise when he leaves the home he decides not to take the Lasix due to urinary incontinence issues. - Exam Vitals: Temp Pulse Resp BP Pulse Ox 98.2 F 82 16 115/70 94 09/21/18 11:01 09/21/18 11:01 09/21/18 11:01 09/21/18 11:01 09/21/18 11:01 Exam: GENERAL APPEARANCE: Obese, alert and cooperative, and appears to be in no acute distress. HEAD: normocephalic. EYES: PERRL, EOMI. Fundi normal, vision is grossly intact. EARS: hearing grossly intact. NOSE: No nasal discharge. THROAT: Oral cavity and pharynx normal. No inflammation, swelling, exudate, or lesions. NECK: Neck supple, non-tender without lymphadenopathy, masses or thyromegaly. CARDIAC: Normal S1 and S2. No S3, S4 or murmurs. Rhythm is regular. There is no peripheral edema, cyanosis or pallor. Extremities are warm and well perfused. Capillary refill is less than 2 seconds. No carotid bruits. LUNGS: Clear to auscultation and percussion without rales, rhonchi, wheezing or diminished breath sounds. ABDOMEN: Positive bowel sounds. Soft, nondistended, nontender. No guarding or rebound. No masses. MUSKULOSKELETAL: No joint erythema or tenderness. Normal muscular development. EXTREMITIES: No significant deformity or joint abnormality. Peripheral pulses intact. No varicosities. LOWER EXTREMITY: +1 pitting edema bilaterally however right leg seems to be more edematous than the left. Pulses intact and symmetrical. SKIN: Skin normal color, texture and turgor with no lesions or eruptions. PSYCHIATRIC: The mental examination revealed the patient was oriented to person, place, and time. - Assessment and Plan (1) Acute exacerbation of CHF (congestive heart failure) Current Visit: Yes Status: Acute Assessment and Plan: 83-year-old male past medical history CAD, CABG, HFpEF, CKD. Presented with acute on chronic peripheral edema has worsened within the past 2 months and then even more so over this past week. He has exertional dyspnea, orthopnea. Failed outpatient Lasix. On examination patient had left basilar rales. -This is most likely secondary to worsen congestive heart failure. May be due to cancer medication zytiga or may be ischemia. Echocardiogram showed worsened diastolic dysfunction compared to TTE in 2018. -Hemodynamically stable, SpO2 93% on room air -potassium 3.2 -troponin 0.05 -BNP 692 -Chest x-ray demonstrated small left pleural effusion with left basilar atelectasis or infiltrate. -TTE on 09/19/2018 shows LV systolic function grossly appears low normal to mildly reduced but is not well quantified. Recommend repeat limited study with imaging enhancement. Moderate left ventricular diastolic dysfunction. Systolic func tion is mildly reduced by tissue Doppler and TAPSE. Mild moderate mitral regurgitation, mild tricuspid regurgitation. Mild pulmonic regurgitation. Mild pulmonary hypertension. - 09/21/18: Patient's lower extremity swelling has improved while on trial dosage of Lasix yesterday. Did demonstrated 1 kg loss. Repeat echo shows an EF of 55%. Troponins trended downward: 0.05, 0.04, 0.04. Plan -continue with Lasix 40 mg IV daily -Trend troponin -will monitor urine output, daily weight -fluid restrictive diet 1500 mL (2) Chest pain Current Visit: Yes Status: Acute Assessment and Plan: Patient reported chest pain that was centrally located in radiated across his chest. No radiation to jaw her left arm. Worsened with exertion relieved by rest. Described as pressure and sharp like. Patient has shortness of breath when exerting himself and that is what precedes the chest discomfort. No additional symptoms of diaphoresis, headache, nausea. -This is most likely related to the patient having acute congestive heart failure exacerbation in the setting of increased exertional dyspnea, peripheral edema. Also considering ischemia however EKG is not supporting and the patient is chest pain free. -troponin 0.05 -EKG: sinus rhythm, first-degree AV block. No ST or T wave changes indicating ischemia. Poor are wave progression noted. - 09/21/18: Patient denies chest pain today. Denies any shortness of breath at rest. Troponins trending downward. Plan -continue with Xarelto (3) Exertional dyspnea Current Visit: No Status: Acute Assessment and Plan: This is most likely secondary to congestive heart failure exacerbation. PE ruled out by VQ scan that demonstrated a low probability. PE is also a lower probability due to the patient reporting that he is compliant with Xarelto. Patient is a non-smoker so this is likely not COPD. This is likely not infectious etiology such as pneumonia since the patient is afebrile and to not report any ROS that would be concerning. -Plan as above (4) Hypokalemia Current Visit: Yes Status: Acute Assessment and Plan: Potassium level today at 3.1. Plan: - 40 mEq potassium by mouth. (5) Elevated troponin I level Current Visit: Yes Status: Acute Assessment and Plan: Elevated troponin -patient denies chest pain at this time. -May be demand ischemia in the setting of most likely CHF exacerbation and CKD -Troponins downtrendin.05, 0.04, 0.04. -EKG: sinus rhythm, first-degree AV block. No ST or T wave changes indicating ischemia. Poor are wave progression noted. (6) Anemia Current Visit: No Status: Acute Assessment and Plan: Anemia likely of chronic disease in the setting of chronic kidney disease -Hemoglobin 10 -baseline hemoglobin 10-11 -patient denies melena or hematechezia -no obvious active bleeding Plan -will continue to monitor hemoglobin and for signs of bleeding (7) CAD (coronary artery disease) Current Visit: No Status: Chronic Assessment and Plan: History of COPD with CABG 2006. Taking aspirin, atorvastatin, metoprolol, Lasix. -Continue home medications. (8) Diabetes mellitus Current Visit: No Status: Chronic Assessment and Plan: History of diabetes taking oral medication. -Will continue monitor glucose with Accu checks -continue low-dose sliding scale insulin -diabetic diet when able (9) History of prostate cancer Current Visit: No Status: Acute Assessment and Plan: History of prostate cancer taking Zytiga. (10) CKD (chronic kidney disease) stage 3, GFR 30-59 ml/min Current Visit: Yes Status: Chronic Assessment and Plan: History of chronic kidney disease stage III who follows with the medicaid plan compliance director Dr. Baez. -Creatinine is 1.52 and is at his baseline. Plan -will continue to monitor serum creatinine and urine output -will continue renal protective strategy including avoid nephrotoxic agents and renal dose medications (11) Pulmonary emboli Current Visit: No Status: Acute Assessment and Plan: History of pulmonary embolism secondary to malignancy of prostate cancer in fall 2017. Patient has been taking xarelto. DVT Prophylaxis: Continued Xarelto. - Time Spent with Patient Total time spent is greater than 50% in coordination of care (as documented) at patient's floor/unit and/or counseling patient: Internal Medicine: Result - Labs CBC & Chem 7: 09/21/18 02:36 09/21/18 02:36 Labs: Short CBC 09/21/18 Range/Units 02:36 WBC 9.4 (4.3-11.1) K/mcL Hgb 8.9 L (12.9-16.9) g/dL Hct 28.4 L (37.5-50.1) % Plt Count 137 L (140-400) K/mcL Neutrophils # 6.1 (1.6-8.9) K/mcL BMP 09/21/18 02:36 Sodium 143 Potassium 3.1 L Chloride 106 Carbon Dioxide 28 BUN 16 Creatinine 1.49 H Glucose 140 H Calcium 8.5 L Cardiac Enzymes 09/20/18 09/20/18 Range/Units 19:56 22:42 Troponin I 0.04 H* 0.04 H* (< 0.04) ng/mL - ABG Interpretation ABG results: PT/INR, D-dimer PT 28.6 Seconds (9.4-12.1) H 09/20/18 15:15 - Impressions Impressions Pulmonary Perfusion Imaging 09/20/18 13:21 IMPRESSION: Low probability for pulmonary embolus. D/ / 09/20/2018 14:34:12 Carlos Parada MD / jason Interpreting Provider: Carlos Parada MD Echocardiogram Limited Views 09/20/18 15:06 Impressions: LVEF 55%. Normal LV chamber size, wall thickness and function. Atypical septal motion consistent with post-operative status. Left Ventricular Wall Motion: Rest Echo Findings All wall segments showed normal motion. Findings: Study Quality * Technically adequate exam. ECG Findings * Normal sinus rhythm. Left Ventricle * LVEF 55%. * Normal LV chamber size, wall thickness and function. * Atypical septal motion consistent with post-operative status. Consult Discharge Plan - Plan Referrals: Lucero Herrera CNP [Primary Care Provider] - <Jerod Schuler - Last Filed: 09/21/18 19:04> Hospitalist Progress Note - Encounter Date of Encounter: 09/21/18 - Exam Vitals: Temp Pulse Resp BP Pulse Ox 98.6 F 81 16 130/72 94 09/21/18 15:23 09/21/18 15:23 09/21/18 15:23 09/21/18 15:23 09/21/18 15:23 - Assessment and Plan (1) CAD (coronary artery disease) Current Visit: No Status: Chronic (2) Diabetes mellitus Current Visit: No Status: Chronic (3) Anemia Current Visit: No Status: Acute (4) Pulmonary emboli Current Visit: No Status: Acute (5) Exertional dyspnea Current Visit: No Status: Acute (6) History of prostate cancer Current Visit: No Status: Acute (7) DVT prophylaxis Current Visit: No Status: Acute (8) CKD (chronic kidney disease) stage 3, GFR 30-59 ml/min Current Visit: Yes Status: Chronic (9) Chest pain Current Visit: Yes Status: Acute (10) Peripheral edema Current Visit: Yes Status: Acute (11) Hypokalemia Current Visit: Yes Status: Acute (12) Elevated troponin I level Current Visit: Yes Status: Acute (13) Acute exacerbation of CHF (congestive heart failure) Current Visit: Yes Status: Acute (14) Leukocytosis Current Visit: Yes Status: Acute - Time Spent with Patient Total time spent is greater than 50% in coordination of care (as documented) at patient's floor/unit and/or counseling patient: Internal Medicine: Result - Labs CBC & Chem 7: 09/21/18 02:36 09/21/18 02:36 Labs: Short CBC 09/21/18 Range/Units 02:36 WBC 9.4 (4.3-11.1) K/mcL Hgb 8.9 L (12.9-16.9) g/dL Hct 28.4 L (37.5-50.1) % Plt Count 137 L (140-400) K/mcL Neutrophils # 6.1 (1.6-8.9) K/mcL BMP 09/21/18 02:36 Sodium 143 Potassium 3.1 L Chloride 106 Carbon Dioxide 28 BUN 16 Creatinine 1.49 H Glucose 140 H Calcium 8.5 L Cardiac Enzymes 09/20/18 09/20/18 Range/Units 19:56 22:42 Troponin I 0.04 H* 0.04 H* (< 0.04) ng/mL - ABG Interpretation ABG results: PT/INR, D-dimer PT 28.6 Seconds (9.4-12.1) H 09/20/18 15:15 - Impressions Impressions Echocardiogram Limited Views 09/20/18 15:06 Impressions: LVEF 55%. Normal LV chamber size, wall thickness and function. Atypical septal motion consistent with post-operative status. Left Ventricular Wall Motion: Rest Echo Findings All wall segments showed normal motion. Findings: Study Quality * Technically adequate exam. ECG Findings * Normal sinus rhythm. Left Ventricle * LVEF 55%. * Normal LV chamber size, wall thickness and function. * Atypical septal motion consistent with post-operative status. - Attending Attestation I examined this patient and my medical decision-making was reviewed with the Resident Physician. I agree with the documented findings, disposition and treatment plan as described except to the extent set forth below. <Kyle Monroy - Last Filed: 09/21/18 14:20> (1) Acute exacerbation of CHF (congestive heart failure) Qualifiers: Heart failure type: diastolic Qualified Code(s): I50.33 - Acute on chronic diastolic (congestive) heart failure (2) Chest pain Qualifiers: Ischemic chest pain type: unspecified angina pectoris type Qualified Code(s): I25.9 - Chronic ischemic heart disease, unspecified (6) Anemia Qualifiers: Anemia type: unspecified type Qualified Code(s): D64.9 - Anemia, unspecified (7) CAD (coronary artery disease) Qualifiers: Coronary Disease-Associated Artery/Lesion type: bypass graft [place] vs. transplanted heart: [place] heart Associated angina: without angina Qualified Code(s): I25.810 - Atherosclerosis of coronary artery bypass graft(s) without angina pectoris (8) Diabetes mellitus Qualifiers: Diabetes mellitus type: type 2 Diabetes mellitus assisted insulin use: without assisted use Diabetes mellitus complication status: with hyperglycemia Qualified Code(s): E11.65 - Type 2 diabetes mellitus with hyperglycemia (11) Pulmonary emboli Qualifiers: Pulmonary embolism type: other Chronicity: acute Acute cor pulmonale presence: without acute cor pulmonale Qualified Code(s): I26.99 - Other pulmonary embolism without acute cor pulmonale <Jerod Schuler - Last Filed: 09/21/18 19:04> (1) CAD (coronary artery disease) Qualifiers: Coronary Disease-Associated Artery/Lesion type: bypass graft [place] vs. transplanted heart: [place] heart Associated angina: without angina Qualified Code(s): I25.810 - Atherosclerosis of coronary artery bypass graft(s) without angina pectoris (2) Diabetes mellitus Qualifiers: Diabetes mellitus type: type 2 Diabetes mellitus assisted insulin use: without emt intermediate use Diabetes mellitus complication status: with hyperglycemia Qualified Code(s): E11.65 - Type 2 diabetes mellitus with hyperglycemia (3) Anemia Qualifiers: Anemia type: unspecified type Qualified Code(s): D64.9 - Anemia, unspecified (4) Pulmonary emboli Qualifiers: Pulmonary embolism type: other Chronicity: acute Acute cor pulmonale presence: without acute cor pulmonale Qualified Code(s): I26.99 - Other pulmonary embolism without acute cor pulmonale (9) Chest pain Qualifiers: Ischemic chest pain type: unspecified angina pectoris type Qualified Code(s): I25.9 - Chronic ischemic heart disease, unspecified (13) Acute exacerbation of CHF (congestive heart failure) Qualifiers: Heart failure type: diastolic Qualified Code(s): I50.33 - Acute on chronic diastolic (congestive) heart failure (14) Leukocytosis Qualifiers: Leukocytosis type: unspecified Qualified Code(s): D72.829 - Elevated white blood cell count, unspecified
[2018-09-21] MEDS: *HR* Rivaroxaban 10 MG TABLET PO SCH (17:44)
[2018-09-22 01:48] LABS: Hematocrit 30.9 % (37.5-50.1); Hemoglobin 9.7 g/dL (12.9-16.9); Mean Corpuscular HGB Conc 31.4 g/dL (31.6-35.5); Mean Corpuscular Hemoglobin 29.6 pg (28.0-33.3); Mean Corpuscular Volume 94.2 fL (83.0-100.0); Mean Platelet Volume 12.1 fL (9.4-12.4); Platelet Count 165 K/mcL (140-400); Red Blood Count 3.28 M/mcL (4.19-5.50); Red Cell Distribution Width 13.7 % (11.5-14.5); White Blood Count 10.1 K/mcL (4.3-11.1)
[2018-09-22 02:05] LABS: Calcium 8.5 mg/dL (8.6-10.3); Potassium 3.5 mEq/L (3.5-5.1)
[2018-09-22] MEDS: *HR* HYDROcodone/Acet 5/325 mg TABLET PO PRN ×2 (06:49→20:08)
[2018-09-22] MEDS: Aspirin Enteric Coated 81 MG Tablet PO SCH (08:14)
[2018-09-22] MEDS: Furosemide 40 MG/4 ML VIAL IVP SCH (08:14)
[2018-09-22] MEDS: Insulin LISPRO 300 UNITS/3 ML VIAL SQ SCH ×4 (08:15→20:05)
[2018-09-22] MEDS: (Abiraterone Acetate [Zytiga] 1,000 MG) PO SCH (08:15)
--- NOTE | 2018-09-22 11:54 | Internal Med Progress Note ---
Hospitalist Progress Note - Encounter Date of Encounter: 09/22/18 Time of Encounter: 12:23 - Subjective Interval History: Patient still feeling orthopnea which resolves after sitting upright. - Exam Vitals: Temp Pulse Resp BP Pulse Ox 98.9 F 87 17 105/64 97 09/22/18 07:54 09/22/18 07:54 09/22/18 07:54 09/22/18 07:54 09/22/18 07:54 Exam: GENERAL APPEARANCE: Obese, alert and cooperative, and appears to be in no acute distress. HEAD: normocephalic. EYES: PERRL, EOMI. Fundi normal, vision is grossly intact. EARS: hearing grossly intact. NOSE: No nasal discharge. THROAT: Oral cavity and pharynx normal. No inflammation, swelling, exudate, or lesions. NECK: Neck supple, non-tender without lymphadenopathy, masses or thyromegaly. CARDIAC: Normal S1 and S2. No S3, S4 or murmurs. Rhythm is regular. There is no peripheral edema, cyanosis or pallor. Extremities are warm and well perfused. Capillary refill is less than 2 seconds. No carotid bruits. LUNGS: Clear to auscultation and percussion without rales, rhonchi, wheezing or diminished breath sounds. ABDOMEN: Positive bowel sounds. Soft, nondistended, nontender. No guarding or rebound. No masses. MUSKULOSKELETAL: No joint erythema or tenderness. Normal muscular development. EXTREMITIES: No significant deformity or joint abnormality. Peripheral pulses intact. No varicosities. LOWER EXTREMITY: +1 pitting edema bilaterally however right leg seems to be more edematous than the left. Pulses intact and symmetrical. SKIN: Skin normal color, texture and turgor with no lesions or eruptions. PSYCHIATRIC: The mental examination revealed the patient was oriented to person, place, and time. - Assessment and Plan (1) Acute exacerbation of CHF (congestive heart failure) Current Visit: Yes Status: Acute Assessment and Plan: 83-year-old male past medical history CAD, CABG, HFpEF, CKD. Presented with acute on chronic peripheral edema has worsened within the past 2 months and then even more so over this past week. He has exertional dyspnea, orthopnea. Failed outpatient Lasix. On examination patient had left basilar rales. -This is most likely secondary to worsen congestive heart failure. May be due to cancer medication zytiga or may be ischemia. Echocardiogram showed worsened diastolic dysfunction compared to TTE in 2018. -Hemodynamically stable, SpO2 93% on room air -potassium 3.2 -troponin 0.05 -BNP 692 -Chest x-ray demonstrated small left pleural effusion with left basilar atelectasis or infiltrate. -TTE on 09/19/2018 shows LV systolic function grossly appears low normal to mildly reduced but is not well quantified. Recommend repeat limited study with imaging enhancement. Moderate left ventricular diastolic dysfunction. Systolic function is mildly reduced by tissue Doppler and TAPSE. Mild moderate mitral regurgitation, mild tricuspid regurgitation. Mild pulmonic regurgitation. Mild pulmonary hypertension. - 09/21/18: Patient's lower extremity swelling has improved while on trial dosage of Lasix yesterday. Did demonstrated 1 kg loss. Repeat echo shows an EF of 55%. Troponins trended downward: 0.05, 0.04, 0.04. Plan -continue with Lasix 40 mg IV daily -Trend troponin -will monitor urine output, daily weight -fluid restrictive diet 1500 mL (2) Chest pain Current Visit: Yes Status: Acute Assessment and Plan: Patient reported chest pain that was centrally located in radiated across his chest. No radiation to jaw her left arm. Worsened with exertion relieved by rest. Described as pressure and sharp like. Patient has shortness of breath when exerting himself and that is what precedes the chest discomfort. No additional symptoms of diaphoresis, headache, nausea. -This is most likely related to the patient having acute congestive heart failure exacerbation in the setting of increased exertional dyspnea, peripheral edema. Also considering ischemia however EKG is not supporting and the patient is chest pain free. -troponin 0.05 -EKG: sinus rhythm, first-degree AV block. No ST or T wave changes indicating ischemia. Poor are wave progression noted. Plan -continue with Xarelto Still having SOB, CP free but will need to do stress test. (3) CAD (coronary artery disease) Current Visit: No Status: Chronic Assessment and Plan: History of COPD with CABG 2006. Taking aspirin, atorvastatin, metoprolol, Lasix. -Continue home medications (4) Diabetes mellitus Current Visit: No Status: Chronic Assessment and Plan: History of diabetes taking oral medication. -Will continue monitor glucose with Accu checks -continue low-dose sliding scale insulin -diabetic diet when able (5) Anemia Current Visit: No Status: Acute Assessment and Plan: Anemia likely of chronic disease in the setting of chronic kidney disease -Hemoglobin 10 -baseline hemoglobin 10-11 -patient denies melena or hematechezia -no obvious active bleeding Plan -will continue to monitor hemoglobin and for signs of bleeding (6) Pulmonary emboli Current Visit: No Status: Acute Assessment and Plan: History of pulmonary embolism secondary to malignancy of prostate cancer in fall 2017. Patient has been taking xarelto. (7) Exertional dyspnea Current Visit: No Status: Acute Assessment and Plan: This is most likely secondary to congestive heart failure exacerbation. PE ruled out by VQ scan that demonstrated a low probability. PE is also a lower probability due to the patient reporting that he is compliant with Xarelto. Patient is a non-smoker so this is likely not COPD. This is likely not infectious etiology such as pneumonia since the patient is afebrile and to not report any ROS that would be concerning. -Plan as above (8) History of prostate cancer Current Visit: No Status: Acute Assessment and Plan: History of prostate cancer taking Zytiga. (9) DVT prophylaxis Current Visit: No Status: Acute Assessment and Plan: Continue home xarelto (10) CKD (chronic kidney disease) stage 3, GFR 30-59 ml/min Current Visit: Yes Status: Chronic Assessment and Plan: History of chronic kidney disease stage III who follows with the business loan processor Dr. Baez. -Creatinine here ranges 1.4-1.5 but today is 1.72 Plan -will continue to monitor serum creatinine and urine output -will continue renal protective strategy including avoid nephrotoxic agents and renal dose medications - Will decrease IV Lasix to 20 mg IV tomorrow if morning creatinine does not improve. (11) Hypokalemia Current Visit: Yes Status: Acute (12) Elevated troponin I level Current Visit: Yes Status: Acute (13) Leukocytosis Current Visit: Yes Status: Acute - Time Spent with Patient Total time spent is greater than 50% in coordination of care (as documented) at patient's floor/unit and/or counseling patient: Internal Medicine: Result - Labs CBC & Chem 7: 09/22/18 01:01 09/22/18 01:01 Labs: Short CBC 09/22/18 Range/Units 01:01 WBC 10.1 (4.3-11.1) K/mcL Hgb 9.7 L (12.9-16.9) g/dL Hct 30.9 L (37.5-50.1) % Plt Count 165 (140-400) K/mcL BMP 09/22/18 01:01 Sodium 143 Potassium 3.5 Chloride 105 Carbon Dioxide 33 H BUN 17 Creatinine 1.72 H Glucose 178 H Calcium 8.5 L - ABG Interpretation ABG results: PT/INR, D-dimer PT 28.6 Seconds (9.4-12.1) H 09/20/18 15:15 Consult Discharge Plan - Plan Referrals: Lucero Herrera, TOY PAINTER [Primary Care Provider] - (1) Acute exacerbation of CHF (congestive heart failure) Qualifiers: Heart failure type: diastolic Qualified Code(s): I50.33 - Acute on chronic diastolic (congestive) heart failure (2) Chest pain Qualifiers: Ischemic chest pain type: unspecified angina pectoris type Qualified Code(s): I25.9 - Chronic ischemic heart disease, unspecified (3) CAD (coronary artery disease) Qualifiers: Coronary Disease-Associated Artery/Lesion type: bypass graft [place] vs. transplanted heart: [place] heart Associated angina: without angina Qualified Code(s): I25.810 - Atherosclerosis of coronary artery bypass graft(s) without angina pectoris (4) Diabetes mellitus Qualifiers: Diabetes mellitus type: type 2 Diabetes mellitus longterm insulin use: without longterm use Diabetes mellitus complication status: with hyperglycemia Qualified Code(s): E11.65 - Type 2 diabetes mellitus with hyperglycemia (5) Anemia Qualifiers: Anemia type: unspecified type Qualified Code(s): D64.9 - Anemia, unspecified (6) Pulmonary emboli Qualifiers: Pulmonary embolism type: other Chronicity: acute Acute cor pulmonale presence: without acute cor pulmonale Qualified Code(s): I26.99 - Other pulmonary embolism without acute cor pulmonale (13) Leukocytosis Qualifiers: Leukocytosis type: unspecified Qualified Code(s): D72.829 - Elevated white blood cell count, unspecified
[2018-09-22] MEDS: *HR* Rivaroxaban 10 MG TABLET PO SCH (18:01)
[2018-09-23] MEDS ORDERED: Regadenoson 0.4 MG/5 ML SYRINGE IVP ONE (07:29)
[2018-09-23 07:35] LABS: Basophils % 0.5 %; Eosinophils # 0.4 K/mcL (0.0-0.6); Eosinophils % 4.9 %; Hematocrit 30.6 % (37.5-50.1); Hemoglobin 9.5 g/dL (12.9-16.9); Immature Granulocytes % 0.2 % (0-4); Lymphocytes # 1.5 K/mcL (0.6-4.6); Lymphocytes % 17.9 %; Mean Corpuscular Volume 93.3 fL (83.0-100.0); Monocytes # 1.1 K/mcL (0.0-1.3); Monocytes % 13.5 %; Neutrophils # 5.3 K/mcL (1.6-8.9); Platelet Count 160 K/mcL (140-400); Red Blood Count 3.28 M/mcL (4.19-5.50); Red Cell Distribution Width 13.3 % (11.5-14.5); White Blood Count 8.4 K/mcL (4.3-11.1)
[2018-09-23 07:55] LABS: Calcium 8.4 mg/dL (8.6-10.3); Potassium 3.2 mEq/L (3.5-5.1)
[2018-09-23] MEDS ORDERED: Furosemide 40 MG TABLET PO SCH (09:00)
--- NOTE | 2018-09-23 09:43 | Internal Med Progress Note ---
Hospitalist Progress Note - Encounter Date of Encounter: 09/23/18 Time of Encounter: 09:41 - Subjective Interval History: Patient denies shortness of breath says orthopnea improves. Does feel some weakness from being in bed. Edema is better than he's seen in the last 2 years. - Exam Vitals: Temp Pulse Resp BP Pulse Ox 97.6 F 81 16 154/78 96 09/23/18 07:22 09/23/18 07:22 09/23/18 07:22 09/23/18 07:22 09/23/18 07:38 Exam: GENERAL APPEARANCE: Obese, alert and cooperative, and appears to be in no acute distress. HEAD: normocephalic. EYES: PERRL, EOMI. Fundi normal, vision is grossly intact. EARS: hearing grossly intact. NOSE: No nasal discharge. THROAT: Oral cavity and pharynx normal. No inflammation, swelling, exudate, or lesions. NECK: Neck supple, non-tender without lymphadenopathy, masses or thyromegaly. CARDIAC: Normal S1 and S2. No S3, S4 or murmurs. Rhythm is regular. There is no peripheral edema, cyanosis or pallor. Extremities are warm and well perfused. Capillary refill is less than 2 seconds. No carotid bruits. LUNGS: Clear to auscultation and percussion without rales, rhonchi, wheezing or diminished breath sounds. ABDOMEN: Positive bowel sounds. Soft, nondistended, nontender. No guarding or rebound. No masses. MUSKULOSKELETAL: No joint erythema or tenderness. Normal muscular development. EXTREMITIES: No significant deformity or joint abnormality. Peripheral pulses intact. No varicosities. LOWER EXTREMITY: +1 pitting edema bilaterally however right leg seems to be more edematous than the left. Pulses intact and symmetrical. Edema improving again today. SKIN: Skin normal color, texture and turgor with no lesions or eruptions. PSYCHIATRIC: The mental examination revealed the patient was oriented to person, place, and time. - Assessment and Plan (1) Acute exacerbation of CHF (congestive heart failure) Current Visit: Yes Status: Acute Assessment and Plan: 83-year-old male past medical history CAD, CABG, HFpEF, CKD. Presented with acute on chronic peripheral edema has worsened within the past 2 months and then even more so over this past week. He has exertional dyspnea, orthopnea. Failed outpatient Lasix. On examination patient had left basilar rales. May be due to cancer medication zytiga or may be ischemia. Echocardiogram showed worsened diastolic dysfunction compared to TTE in 2018. -troponin 0.05 -BNP 692 -Chest x-ray demonstrated small left pleural effusion with left basilar atelectasis or infiltrate. -TTE on 09/19/2018 shows LV systolic function grossly appears low normal to mildly reduced but is not well quantified. Recommend repeat limited study with imaging enhancement. Moderate left ventricular diastolic dysfunction. Systolic function is mildly reduced by tissue Doppler and TAPSE. Mild moderate mitral regurgitation, mild tricuspid regurgitation. Mild pulmonic regurgitation. Mild pulmonary hypertension. - 09/21/18: Patient's lower extremity swelling has improved while on trial dosage of Lasix yesterday. Did demonstrated 1 kg loss. Repeat echo shows an EF of 55%. Troponins trended downward: 0.05, 0.04, 0.04. Plan - Decreasing Lasix to 20 mg IV daily due to renal function -Trend troponin -will monitor urine output, daily weight -fluid restrictive diet 1500 mL (2) Chest pain Current Visit: Yes Status: Acute Assessment and Plan: Patient reported chest pain that was centrally located in radiated across his chest. No radiation to jaw her left arm. Worsened with exertion relieved by rest. Described as pressure and sharp like. Patient has shortness of breath when exerting himself and that is what precedes the chest discomfort. No ad ditional symptoms of diaphoresis, headache, nausea. -This is most likely related to the patient having acute congestive heart failure exacerbation in the setting of increased exertional dyspnea, peripheral edema. Also considering ischemia however EKG is not supporting and the patient is chest pain free. -troponin 0.05 -EKG: sinus rhythm, first-degree AV block. No ST or T wave changes indicating ischemia. Poor are wave progression noted. - Stress test pending. (3) CAD (coronary artery disease) Current Visit: No Status: Chronic Assessment and Plan: History of COPD with CABG 2006. Taking aspirin, atorvastatin, metoprolol, Lasix. -Continue home medications (4) Diabetes mellitus Current Visit: No Status: Chronic Assessment and Plan: History of diabetes taking oral medication. -Will continue monitor glucose with Accu checks -continue low-dose sliding scale insulin (5) Anemia Current Visit: No Status: Acute Assessment and Plan: Anemia likely of chronic disease in the setting of chronic kidney disease -Hemoglobin 10 -baseline hemoglobin 10-11 -patient denies melena or hematechezia -no obvious active bleeding (6) Pulmonary emboli Current Visit: No Status: Acute Assessment and Plan: History of pulmonary embolism secondary to malignancy of prostate cancer in fall 2017. Continue Xarelto (7) History of prostate cancer Current Visit: No Status: Acute Assessment and Plan: History of prostate cancer taking Zytiga. (8) DVT prophylaxis Current Visit: No Status: Acute Assessment and Plan: Continue home xarelto (9) CKD (chronic kidney disease) stage 3, GFR 30-59 ml/min Current Visit: Yes Status: Chronic Assessment and Plan: History of chronic kidney disease stage III who follows with the hospital administrative assistant Dr. Baez. -Creatinine here ranges 1.4-1.5 Continue renal protective strategy including avoid nephrotoxic agents and renal dose medications Creatinine rising and staying at 1.72, 1.75 which is slightly above baseline so Lasix dose decreased to 20 mg IV daily with fluid restriction. (10) Hypokalemia Current Visit: Yes Status: Acute Assessment and Plan: Hypokalemia may be secondary to diuretics. Was supplemented in the ED. -Potassium 3.2 -will continue to monitor and supplement as needed (11) Elevated troponin I level Current Visit: Yes Status: Acute Assessment and Plan: See Chest Pain. (12) Leukocytosis Current Visit: Yes Status: Acute Assessment and Plan: Leukocytosis WBC 12.1. -This is in the setting of most likely congestive heart failure exacerbation. No obvious signs of infection. Procalcitonin negative, WBC resolved, likely reactive. - Time Spent with Patient Total time spent is greater than 50% in coordination of care (as documented) at patient's floor/unit and/or counseling patient: Internal Medicine: Result - Labs CBC & Chem 7: 09/23/18 06:42 09/23/18 06:42 Labs: Short CBC 09/23/18 Range/Units 06:42 WBC 8.4 (4.3-11.1) K/mcL Hgb 9.5 L (12.9-16.9) g/dL Hct 30.6 L (37.5-50.1) % Plt Count 160 (140-400) K/mcL Neutrophils # 5.3 (1.6-8.9) K/mcL BMP 09/23/18 06:42 Sodium 144 Potassium 3.2 L Chloride 103 Carbon Dioxide 34 H BUN 21 Creatinine 1.75 H Glucose 150 H Calcium 8.4 L - ABG Interpretation ABG results: PT/INR, D-dimer PT 28.6 Seconds (9.4-12.1) H 09/20/18 15:15 Consult Discharge Plan - Plan Referrals: Lucero Herrera, [employer] [Primary Care Provider] - (1) Acute exacerbation of CHF (congestive heart failure) Qualifiers: Heart failure type: diastolic Qualified Code(s): I50.33 - Acute on chronic diastolic (congestive) heart failure (2) Chest pain Qualifiers: Ischemic chest pain type: unspecified angina pectoris type Qualified Code(s): I25.9 - Chronic ischemic heart disease, unspecified (3) CAD (coronary artery disease) Qualifiers: Coronary Disease-Associated Artery/Lesion type: bypass graft [place] vs. transplanted heart: [place] heart Associated angina: without angina Qualified Code(s): I25.810 - Atherosclerosis of coronary artery bypass graft(s) without angina pectoris (4) Diabetes mellitus Qualifiers: Diabetes mellitus type: type 2 Diabetes mellitus residential insulin use: without residential use Diabetes mellitus complication status: with hyperglycemia Qualified Code(s): E11.65 - Type 2 diabetes mellitus with hyperglycemia (5) Anemia Qualifiers: Anemia type: unspecified type Qualified Code(s): D64.9 - Anemia, unspecified (6) Pulmonary emboli Qualifiers: Pulmonary embolism type: other Chronicity: acute Acute cor pulmonale pres ence: without acute cor pulmonale Qualified Code(s): I26.99 - Other pulmonary embolism without acute cor pulmonale (12) Leukocytosis Qualifiers: Leukocytosis type: unspecified Qualified Code(s): D72.829 - Elevated white blood cell count, unspecified
[2018-09-23] MEDS: Insulin LISPRO 300 UNITS/3 ML VIAL SQ SCH ×4 (10:01→20:23)
[2018-09-23] MEDS: Ipratropium/Albuterol Neb 3 ML IH SCH ×3 (10:43→22:11)
[2018-09-23] MEDS ORDERED: Furosemide 20 MG/2 ML VIAL IVP SCH (11:00)
[2018-09-23] MEDS: Aspirin Enteric Coated 81 MG Tablet PO SCH (12:23)
[2018-09-23] MEDS: amLODIPine 5 MG TABLET PO SCH (12:23)
[2018-09-23] MEDS: (Abiraterone Acetate [Zytiga] 1,000 MG) PO SCH (12:24)
[2018-09-23] MEDS: predniSONE 5 MG TABLET PO SCH (12:24)
[2018-09-23] MEDS: Fluticasone Propionate Nasal 50 MCG/SPRAY BOTTLE NS SCH (12:24)
[2018-09-23] MEDS: *HR* Rivaroxaban 10 MG TABLET PO SCH (17:36)
[2018-09-24] MEDS: *HR* HYDROcodone/Acet 5/325 mg TABLET PO PRN (03:21)
[2018-09-24] MEDS: Ipratropium/Albuterol Neb 3 ML IH SCH ×4 (04:09→22:45)
[2018-09-24 06:45] LABS: Basophils % 0.5 %; Eosinophils # 0.2 K/mcL (0.0-0.6); Eosinophils % 2.8 %; Hematocrit 29.8 % (37.5-50.1); Hemoglobin 9.5 g/dL (12.9-16.9); Immature Granulocytes % 0.4 % (0-4); Lymphocytes # 1.7 K/mcL (0.6-4.6); Lymphocytes % 20.2 %; Mean Corpuscular HGB Conc 31.9 g/dL (31.6-35.5); Mean Corpuscular Hemoglobin 29.7 pg (28.0-33.3); Mean Corpuscular Volume 93.1 fL (83.0-100.0); Mean Platelet Volume 12.3 fL (9.4-12.4); Monocytes % 11.3 %; Neutrophils # 5.6 K/mcL (1.6-8.9); Platelet Count 176 K/mcL (140-400); Red Cell Distribution Width 13.1 % (11.5-14.5); Segmented Neutrophils % 64.8 %; White Blood Count 8.6 K/mcL (4.3-11.1)
[2018-09-24 07:04] LABS: Calcium 8.9 mg/dL (8.6-10.3); Potassium 3.1 mEq/L (3.5-5.1)
[2018-09-24] MEDS: amLODIPine 5 MG TABLET PO SCH (08:20)
[2018-09-24] MEDS: Aspirin Enteric Coated 81 MG Tablet PO SCH (08:21)
[2018-09-24] MEDS: predniSONE 5 MG TABLET PO SCH (08:21)
[2018-09-24] MEDS: Insulin LISPRO 300 UNITS/3 ML VIAL SQ SCH ×4 (08:21→20:55)
[2018-09-24] MEDS: Fluticasone Propionate Nasal 50 MCG/SPRAY BOTTLE NS SCH (08:22)
[2018-09-24] MEDS: (Abiraterone Acetate [Zytiga] 1,000 MG) PO SCH (08:22)
--- NOTE | 2018-09-24 10:06 | Internal Med Progress Note ---
<Kyle Monroy - Last Filed: 09/24/18 13:57> Hospitalist Progress Note - Encounter Date of Encounter: 09/24/18 Time of Encounter: 09:40 - Subjective Interval History: When seen today patient said that he has no swelling in his lower extremities. He denies any chest pain. He says that he has exertional shortness of breath w hich has been the same since his admission. He denies any nausea or vomiting. Denies any abdominal pain. Denies any fever. - Exam Vitals: Temp Pulse Resp BP Pulse Ox 98.3 F 81 16 148/70 95 09/24/18 06:49 09/24/18 06:49 09/24/18 06:49 09/24/18 06:49 09/24/18 06:49 Exam: GENERAL APPEARANCE: Obese, alert and cooperative, and appears to be in no acute distress. HEAD: normocephalic. EYES: PERRL, EOMI. Fundi normal, vision is grossly intact. EARS: hearing grossly intact. NOSE: No nasal discharge. THROAT: Oral cavity and pharynx normal. No inflammation, swelling, exudate, or lesions. NECK: Neck supple, non-tender without lymphadenopathy, masses or thyromegaly. CARDIAC: Normal S1 and S2. No S3, S4 or murmurs. Rhythm is regular. There is no peripheral edema, cyanosis or pallor. Extremities are warm and well perfused. Capillary refill is less than 2 seconds. No carotid bruits. LUNGS: Clear to auscultation and percussion without rales, rhonchi, wheezing or diminished breath sounds. ABDOMEN: Positive bowel sounds. Soft, nondistended, nontender. No guarding or rebound. No masses. MUSKULOSKELETAL: No joint erythema or tenderness. Normal muscular development. EXTREMITIES: No significant deformity or joint abnormality. Peripheral pulses intact. No varicosities. LOWER EXTREMITY: No pitting edema bilaterally. Pulses intact and symmetrical. Edema improving again today. SKIN: Skin normal color, texture and turgor with no lesions or eruptions. PSYCHIATRIC: The mental examination revealed the patient was oriented to person, place, and time. - Assessment and Plan (1) Acute exacerbation of CHF (congestive heart failure) Current Visit: Yes Status: Acute Assessment and Plan: 83-year-old male past medical history CAD, CABG, HFpEF, CKD. Presented with acu te on chronic peripheral edema has worsened within the past 2 months and then even more so over this past week. He has exertional dyspnea, orthopnea. Failed outpatient Lasix. On examination patient had left basilar rales. May be due to cancer medication zytiga or may be ischemia. Echocardiogram showed worsened diastolic dysfunction compared to TTE in 2018. -troponin 0.05 -BNP 692 -Chest x-ray demonstrated small left pleural effusion with left basilar atelectasis or infiltrate. -TTE on 09/19/2018 shows LV systolic function grossly appears low normal to mildly reduced but is not well quantified. Recommend repeat limited study with imaging enhancement. Moderate left ventricular diastolic dysfunction. Systolic function is mildly reduced by tissue Doppler and TAPSE. Mild moderate mitral r egurgitation, mild tricuspid regurgitation. Mild pulmonic regurgitation. Mild pulmonary hypertension. - 09/21/18: Patient's lower extremity swelling has improved while on trial dosage of Lasix yesterday. Did demonstrated 1 kg loss. Repeat echo shows an EF of 55%. Troponins trended downward: 0.05, 0.04, 0.04. Plan - Hold lasix due to declining renal function and resolution of peripheral edema. -will monitor urine output, daily weight -fluid restrictive diet 1500 mL (2) Chest pain Current Visit: Yes Status: Acute Assessment and Plan: Patient reported chest pain that was centrally located in radiated across his chest. No radiation to jaw her left arm. Worsened with exertion relieved by rest. Described as pressure and sharp like. Patient has shortness of breath when exerting himself and that is what precedes the chest discomfort. No additional symptoms of diaphoresis, headache, nausea. -This is most likely related to the patient having acute congestive heart failure exacerbation in the setting of increased exertional dyspnea, peripheral edema. Also considering ischemia however EKG is not supporting and the patient is chest pain free. -troponin 0.05 -EKG: sinus rhythm, first-degree AV block. No ST or T wave changes indicating ischemia. Poor are wave progression noted. - 09/23/18: Stress test was negative for ischemia. (3) Exertional dyspnea Current Visit: No Status: Deleted Assessment and Plan: Peripheral edema has resolved. Stress test negative for ischemia. Plan: Ambulate 3 times a day. - Inspiratory spirometry. (4) Hypokalemia Current Visit: Yes Status: Acute Assessment and Plan: Potassium level at 3.1 today. Likely due to Lasix usage. Plan: - Discontinue Lasix. - 20 mEq potassium chloride by mouth. (5) Anemia Current Visit: No Status: Acute Assessment and Plan: Anemia likely of chronic disease in the setting of chronic kidney disease -Hemoglobin 9.5. -baseline hemoglobin 10-11 -patient denies melena or hematechezia -no obvious active bleeding (6) CAD (coronary artery disease) Current Visit: No Status: Chronic Assessment and Plan: History of COPD with CABG 2006. Taking aspirin, atorvastatin, metoprolol, Lasix. -Continue home medications (7) Diabetes mellitus Current Visit: No Status: Chronic Assessment and Plan: History of diabetes taking oral medication. -Will continue monitor glucose with Accu checks -continue low-dose sliding scale insulin (8) History of prostate cancer Current Visit: No Status: Acute Assessment and Plan: History of prostate cancer taking Zytiga. (9) CKD (chronic kidney disease) stage 3, GFR 30-59 ml/min Current Visit: Yes Status: Chronic Assessment and Plan: History of chronic kidney disease stage III who follows with the dials inspector Dr. Baez. -Creatinine here ranges 1.4-1.5 Continue renal protective strategy including avoid nephrotoxic agents and renal dose medications Creatinine rising and staying at 1.72, 1.75 which is slightly above baseline so Lasix dose decreased to 20 mg IV daily with fluid restriction. (10) Pulmonary emboli Current Visit: No Status: Acute Assessment and Plan: History of pulmonary embolism secondary to malignancy of prostate cancer in fall 2017. Plan: - Continue Xarelto. DVT Prophylaxis: Continued Xarelto. - Time Spent with Patient Total time spent is greater than 50% in coordination of care (as documented) at patient's floor/unit and/or counseling patient: Internal Medicine: Result - Labs CBC & Chem 7: 09/24/18 05:05 09/24/18 05:05 Labs: Short CBC 09/24/18 Range/Units 05:05 WBC 8.6 (4.3-11.1) K/mcL Hgb 9.5 L (12.9-16.9) g/dL Hct 29.8 L (37.5-50.1) % Plt Count 176 (140-400) K/mcL Neutrophils # 5.6 (1.6-8.9) K/mcL BMP 09/24/18 05:05 Sodium 145 Potassium 3.1 L Chloride 102 Carbon Dioxide 33 H BUN 22 Creatinine 1.79 H Glucose 148 H Calcium 8.9 - ABG Interpretation ABG results: PT/INR, D-dimer PT 28.6 Seconds (9.4-12.1) H 09/20/18 15:15 Consult Discharge Plan - Plan Referrals: Lucero Herrera CNP [Primary Care Provider] - Carter Carcamo DO [Partnered Physician] - 11/21/18 8:30 am <Jerod Schuler - Last Filed: 09/24/18 19:29> Hospitalist Progress Note - Encounter Date of Encounter: 09/24/18 - Exam Vitals: Temp Pulse Resp BP Pulse Ox 98.1 F 83 16 130/78 94 09/24/18 19:09 09/24/18 19:09 09/24/18 19:09 09/24/18 19:09 09/24/18 19:09 - Assessment and Plan (1) Acute exacerbation of CHF (congestive heart failure) Current Visit: Yes Status: Acute (2) Chest pain Current Visit: Yes Status: Acute (3) CAD (coronary artery disease) Current Visit: No Status: Chronic (4) Diabetes mellitus Current Visit: No Status: Chronic (5) Anemia Current Visit: No Status: Acute (6) Pulmonary emboli Current Visit: No Status: Acute (7) History of prostate cancer Current Visit: No Status: Acute (8) DVT prophylaxis Current Visit: No Status: Acute (9) CKD (chronic kidney disease) stage 3, GFR 30-59 ml/min Current Visit: Yes Status: Chronic (10) Hypokalemia Current Visit: Yes Status: Acute (11) Elevated troponin I level Current Visit: Yes Status: Acute (12) Leukocytosis Current Visit: Yes Status: Acute - Time Spent with Patient Total time spent is greater than 50% in coordination of care (as documented) at patient's floor/unit and/or counseling patient: Internal Medicine: Result - Labs CBC & Chem 7: 09/24/18 05:05 09/24/18 05:05 Labs: Short CBC 09/24/18 Range/Units 05:05 WBC 8.6 (4.3-11.1) K/mcL Hgb 9.5 L (12.9-16.9) g/dL Hct 29.8 L (37.5-50.1) % Plt Count 176 (140-400) K/mcL Neutrophils # 5.6 (1.6-8.9) K/mcL BMP 09/24/18 05:05 Sodium 145 Potassium 3.1 L Chloride 102 Carbon Dioxide 33 H BUN 22 Creatinine 1.79 H Glucose 148 H Calcium 8.9 - ABG Interpretation ABG results: PT/INR, D-dimer PT 28.6 Seconds (9.4-12.1) H 09/20/18 15:15 - Attending Attestation I examined this patient and my medical decision-making was reviewed with the Resident Physician. I agree with the documented findings, disposition and t reatment plan as described except to the extent set forth below. <Kyle Monroy - Last Filed: 09/24/18 13:57> (1) Acute exacerbation of CHF (congestive heart failure) Qualifiers: Heart failure type: diastolic Qualified Code(s): I50.33 - Acute on chronic diastolic (congestive) heart failure (2) Chest pain Qualifiers: Ischemic chest pain type: unspecified angina pectoris type Qualified Code(s): I25.9 - Chronic ischemic heart disease, unspecified (5) Anemia Qualifiers: Anemia type: unspecified type Qualified Code(s): D64.9 - Anemia, unspecified (6) CAD (coronary artery disease) Qualifiers: Coronary Disease-Associated Artery/Lesion type: bypass graft [place] vs. transplanted heart: [place] heart Associated angina: without angina Qualified Code(s): I25.810 - Atherosclerosis of coronary artery bypass graft(s) without angina pectoris (7) Diabetes mellitus Qualifiers: Diabetes mellitus type: type 2 Diabetes mellitus penitentiary insulin use: without buttermaker continuous churn use Diabetes mellitus complication status: with hyperglycemia Qualified Code(s): E11.65 - Type 2 diabetes mellitus with hyperglycemia (10) Pulmonary emboli Qualifiers: Pulmonary embolism type: other Chronicity: acute Acute cor pulmonale presence: without acute cor pulmonale Qualified Code(s): I26.99 - Other pulmonary embolism without acute cor pulmonale <Jerod Schuler - Last Filed: 09/24/18 19:29> (1) Acute exacerbation of CHF (congestive heart failure) Qualifiers: Heart failure type: diastolic Qualified Code(s): I50.33 - Acute on chronic diastolic (congestive) heart failure (2) Chest pain Qualifiers: Ischemic chest pain type: unspecified angina pectoris type Qualified Code(s): I25.9 - Chronic ischemic heart disease, unspecified (3) CAD (coronary artery disease) Qualifiers: Coronary Disease-Associated Artery/Lesion type: bypass graft [place] vs. transplanted heart: [place] heart Associated angina: without angina Qualified Code(s): I25.810 - Atherosclerosis of coronary artery bypass graft(s) without angina pectoris (4) Diabetes mellitus Qualifiers: Diabetes mellitus type: type 2 Diabetes mellitus penitentiary insulin use: without penitentiary use Diabetes mellitus complication status: with hyperglycemia Qualified Code(s): E11.65 - Type 2 diabetes mellitus with hyperglycemia (5) Anemia Qualifiers: Anemia type: unspecified type Qualified Code(s): D64.9 - Anemia, unspecified (6) Pulmonary emboli Qualifiers: Pulmonary embolism type: other Chronicity: acute Acute cor pulmonale presence: without acute cor pulmonale Qualified Code(s): I26.99 - Other pulmonary embolism without acute cor pulmonale (12) Leukocytosis Qualifiers: Leukocytosis type: unspecified Qualified Code(s): D72.829 - Elevated white blood cell count, unspecified
[2018-09-24] MEDS: *HR* Rivaroxaban 10 MG TABLET PO SCH (17:42)
[2018-09-25] MEDS: Ipratropium/Albuterol Neb 3 ML IH SCH ×4 (03:19→22:39)
[2018-09-25] MEDS: predniSONE 5 MG TABLET PO SCH (08:26)
[2018-09-25] MEDS: Fluticasone Propionate Nasal 50 MCG/SPRAY BOTTLE NS SCH (08:26)
[2018-09-25] MEDS: Aspirin Enteric Coated 81 MG Tablet PO SCH (08:26)
[2018-09-25] MEDS: amLODIPine 5 MG TABLET PO SCH (08:26)
[2018-09-25] MEDS: (Abiraterone Acetate [Zytiga] 1,000 MG) PO SCH (08:27)
[2018-09-25] MEDS: Insulin LISPRO 300 UNITS/3 ML VIAL SQ SCH ×4 (08:29→20:52)
[2018-09-25 09:31] LABS: Calcium 8.9 mg/dL (8.6-10.3); Potassium 3.2 mEq/L (3.5-5.1)
[2018-09-25] MEDS: *HR* HYDROcodone/Acet 5/325 mg TABLET PO PRN (17:13)
--- NOTE | 2018-09-25 17:17 | Internal Med Progress Note ---
<Kyle Monroy - Last Filed: 09/25/18 17:15> Hospitalist Progress Note - Encounter Date of Encounter: 09/25/18 Time of Encounter: 08:50 - Subjective Interval History: When seen today, patient denies any swelling in his lower extremities. He still continues to complain of SOB with exertion. Denies wheezing. He denies any orth opnea. He denies any chest pain. Denies any fever. Denies abdominal pain, nausea, or vomiting. - Exam Vitals: Temp Pulse Resp BP Pulse Ox 97.9 F 78 17 153/73 92 09/25/18 15:26 09/25/18 15:26 09/25/18 15:26 09/25/18 15:26 09/25/18 15:26 Exam: GENERAL APPEARANCE: Obese, alert and cooperative, and appears to be in no acute distress. HEAD: normocephalic. EYES: PERRL, EOMI. Fundi normal, vision is grossly intact. EARS: hearing grossly intact. NOSE: No nasal discharge. THROAT: Oral cavity and pharynx normal. No inflammation, swelling, exudate, or lesions. NECK: Neck supple, non-tender without lymphadenopathy, masses or thyromegaly. CARDIAC: Normal S1 and S2. No S3, S4 or murmurs. Rhythm is regular. There is no peripheral edema, cyanosis or pallor. Extremities are warm and well perfused. Capillary refill is less than 2 seconds. No carotid bruits. No JVP. LUNGS: Clear to auscultation and percussion without rales, rhonchi, wheezing or diminished breath sounds. ABDOMEN: Positive bowel sounds. Soft, nondistended, nontender. No guarding or rebound. No masses. MUSKULOSKELETAL: No joint erythema or tenderness. Normal muscular development. EXTREMITIES: No significant deformity or joint abnormality. Peripheral pulses intact. No varicosities. LOWER EXTREMITY: No pitting edema bilaterally. Pulses intact and symmetrical. Edema improving again today. SKIN: Skin normal color, texture and turgor with no lesions or eruptions. PSYCHIATRIC: The mental examination revealed the patient was oriented to person, place, and time. - Assessment and Plan (1) Acute exacerbation of CHF (congestive heart failure) Current Visit: Yes Status: Acute Assessment and Plan: 83-year-old male past medical history CAD, CABG, HFpEF, CKD. Presented with acute on chronic peripheral edema has worsened within the past 2 months and then even more so over this past week. He has exertional dyspnea, orthopnea. Failed outpatient Lasix. On examination patient had left basilar rales. May be due to cancer medication zytiga or may be ischemia. Echocardiogram showed worsened diastolic dysfunction compared to TTE in 2018. -troponin 0.05 -BNP 692 -Chest x-ray demonstrated small left pleural effusion with left basilar atelectasis or infiltrate. -TTE on 09/19/2018 shows LV systolic function grossly appears low normal to mildly reduced but is not well quantified. Recommend repeat limited study with imaging enhancement. Moderate left ventricular diastolic dysfunction. Systolic f unction is mildly reduced by tissue Doppler and TAPSE. Mild moderate mitral regurgitation, mild tricuspid regurgitation. Mild pulmonic regurgitation. Mild pulmonary hypertension. - 09/21/18: Patient's lower extremity swelling has improved while on trial dosage of Lasix yesterday. Did demonstrated 1 kg loss. Repeat echo shows an EF of 55%. Troponins trended downward: 0.05, 0.04, 0.04. - 09/25/18: Patient continues to c/o exertional SOB. CT of the chest showed moderate-sized left pleural effusion with adjacent airspace disease, mainly in the left lower lobe. Plan - Given CT shows moderae sized L pleural effusion that did not respond to diuresis with lasix during hospital course, we will go ahead and consult IR for a thoracentesis. - Hold Xarelto for thoracentesis procedure tomorrow. - F/U with INR in the AM. - Hold lasix due to declining renal function and resolution of peripheral edema. - Continue to monitor urine output, daily weight - Fluid restrictive diet 1500 mL (2) Chest pain Current Visit: Yes Status: Acute Assessment and Plan: Patient reported chest pain that was centrally located in radiated across his chest. No radiation to jaw her left arm. Worsened with exertion relieved by rest. Described as pressure and sharp like. Patient has shortness of breath when exerting himself and that is what precedes the chest discomfort. No additional symptoms of diaphoresis, headache, nausea. -This is most likely related to the patient having acute congestive heart failure exacerbation in the setting of increased exertional dyspnea, peripheral edema. Also considering ischemia however EKG is not supporting and the patient is chest pain free. -troponin 0.05 -EKG: sinus rhythm, first-degree AV block. No ST or T wave changes indicating ischemia. Poor are wave progression noted. - 09/23/18: Stress test was negative for ischemia. (3) Exertional dyspnea Current Visit: No Status: Deleted Assessment and Plan: Peripheral edema has resolved. Stress test negative for ischemia. CT of chest shows moderate L pleural effusion Plan: Ambulate 3 times a day. - Inspiratory spirometry. - Plan for thoracentesis. (4) Hypokalemia Current Visit: Yes Status: Acute Assessment and Plan: Potassium level of 3.2 Plan: - 20 meq KCl PO once. (5) Anemia Current Visit: No Status: Acute Assessment and Plan: Anemia likely of chronic disease in the setting of chronic kidney disease -Hemoglobin stable. -baseline hemoglobin 10-11 -patient denies melena or hematechezia -no obvious active bleeding (6) CAD (coronary artery disease) Current Visit: No Status: Chronic Assessment and Plan: History of COPD with CABG 2006. Taking aspirin, atorvastatin, metoprolol, Lasix. -Continue home medications (7) Diabetes mellitus Current Visit: No Status: Chronic Assessment and Plan: History of diabetes taking oral medication. -Will continue monitor glucose with Accu checks -continue low-dose sliding scale insulin (8) History of prostate cancer Current Visit: No Status: Acute Assessment and Plan: History of prostate cancer taking Zytiga. (9) CKD (chronic kidney disease) stage 3, GFR 30-59 ml/min Current Visit: Yes Status: Chronic Assessment and Plan: History of chronic kidney disease stage III who follows with the pit manager Dr. Baez. -Creatinine here ranges 1.4-1.5 Continue renal protective strategy including avoid nephrotoxic agents and renal dose medications Creatinine rising and staying at 1.72, 1.75 which is slightly above baseline so Lasix dose decreased to 20 mg IV daily with fluid restriction. (10) Pulmonary emboli Current Visit: No Status: Acute Assessment and Plan: History of pulmonary embolism secondary to malignancy of prostate cancer in fall 2017. Plan: - Hold Xarelto today for thoracentesis procedure tomorrow. DVT Prophylaxis: Ambulate TID. - Time Spent with Patient Total time spent is greater than 50% in coordination of care (as documented) at patient's floor/unit and/or counseling patient: Internal Medicine: Result - Labs CBC & Chem 7: 06/10/19 05:05 09/25/18 08:55 Labs: BMP 09/25/18 08:55 Sodium 143 Potassium 3.2 L Chloride 103 Carbon Dioxide 33 H BUN 27 H Creatinine 1.85 H Glucose 160 H Calcium 8.9 - ABG Interpretation ABG results: PT/INR, D-dimer PT 28.6 Seconds (9.4-12.1) H 09/20/18 15:15 - Impressions Impressions Chest CT 09/25/18 12:30 IMPRESSION: Moderate-sized left pleural effusion with adjacent airspace disease, mainly in the left lower lobe. Airspace disease likely represents atelectasis but a component of pneumonia also remains in the differential. Mild mediastinal lymphadenopathy, increased when compared to the previous exam, probably reactive. Consider follow-up examination to ensure resolution or stability. D/ / Deyvi Danielle MD / Deyvi Danielle MD Interpreting Provider: Deyvi Danielle MD Consult Discharge Plan - Plan Referrals: Lucero Herrera CNP [Primary Care Provider] - Carter Carcamo DO [Partnered Physician] - 11/21/18 8:30 am <Jerod Schuler - Last Filed: 09/25/18 23:01> Hospitalist Progress Note - Encounter Date of Encounter: 09/25/18 - Exam Vitals: Temp Pulse Resp BP Pulse Ox 98.2 F 93 16 106/67 90 09/25/18 19:16 09/25/18 19:16 09/25/18 22:39 09/25/18 19:16 09/25/18 22:39 - Assessment and Plan (1) Acute exacerbation of CHF (congestive heart failure) Current Visit: Yes Status: Acute (2) Chest pain Current Visit: Yes Status: Acute (3) CAD (coronary artery disease) Current Visit: No Status: Chronic (4) Diabetes mellitus Current Visit: No Status: Chronic (5) Anemia Current Visit: No Status: Acute (6) Pulmonary emboli Current Visit: No Status: Acute (7) History of prostate cancer Current Visit: No Status: Acute (8) DVT prophylaxis Current Visit: No Status: Acute (9) CKD (chronic kidney disease) stage 3, GFR 30-59 ml/min Current Visit: Yes Status: Chronic (10) Hypokalemia Current Visit: Yes Status: Acute (11) Elevated troponin I level Current Visit: Yes Status: Acute (12) Leukocytosis Current Visit: Yes Status: Acute - Time Spent with Patient Total time spent is greater than 50% in coordination of care (as documented) at patient's floor/unit and/or counseling patient: Internal Medicine: Result - Labs CBC & Chem 7: 09/24/18 05:05 09/25/18 08:55 Labs: BMP 09/25/18 08:55 Sodium 143 Potassium 3.2 L Chloride 103 Carbon Dioxide 33 H BUN 27 H Creatinine 1.85 H Glucose 160 H Calcium 8.9 - ABG Interpretation ABG results: PT/INR, D-dimer PT 28.6 Seconds (9.4-12.1) H 09/20/18 15:15 - Impressions Impressions Chest CT 09/25/18 12:30 IMPRESSION: Moderate-sized left pleural effusion with adjacent airspace disease, mainly in the left lower lobe. Airspace disease likely represents atelectasis but a component of pneumonia also remains in the differential. Mild mediastinal lymphadenopathy, increased when compared to the previous exam, probably reactive. Consider follow-up examination to ensure resolution or stability. D/ / Deyvi Danielle MD / Deyvi Danielle MD Interpreting Provider: Deyvi Danielle MD - Attending Attestation I examined this patient and my medical decision-making was reviewed with the Resident Physician. I agree with the documented findings, disposition and treatment plan as described except to the extent set forth below. Patient is no longer having orthopnea but still SOB with bending down and overall, despite peripheral edema improving, he has not returned to baseline breathing. Will obtain CT chest done to further evaluate showed moderate pleural effusion. This seemed to become larger than small effusion seen on x- ray on admission, despite adequate diuresis. Given renal function is slightly worsening, thoracentesis will need to be done. anticoagulation held, IR consulted. If renal function continues to worsen despite holding diuresis, may need Nephro consult. <Kyle Monroy - Last Filed: 09/25/18 17:15> (1) Acute exacerbation of CHF (congestive heart failure) Qualifiers: Heart failure type: diastolic Qualified Code(s): I50.33 - Acute on chronic diastolic (congestive) heart failure (2) Chest pain Qualifiers: Ischemic chest pain type: unspecified angina pectoris type Qualified Code(s): I25.9 - Chronic ischemic heart disease, unspecified (5) Anemia Qualifiers: Anemia type: unspecified type Qualified Code(s): D64.9 - Anemia, unspecified (6) CAD (coronary artery disease) Qualifiers: Coronary Disease-Associated Artery/Lesion type: bypass graft [place] vs. transplanted heart: [place] heart Associated angina: without angina Qualified Code(s): I25.810 - Atherosclerosis of coronary artery bypass graft(s) without a ngina pectoris (7) Diabetes mellitus Qualifiers: Diabetes mellitus type: type 2 Diabetes mellitus terminal operations manager insulin use: without senior care use Diabetes mellitus complication status: with hyperglycemia Qualified Code(s): E11.65 - Type 2 diabetes mellitus with hyperglycemia (10) Pulmonary emboli Qualifiers: Pulmonary embolism type: other Chronicity: acute Acute cor pulmonale presence: without acute cor pulmonale Qualified Code(s): I26.99 - Other pulmonary embolism without acute cor pulmonale <Jerod Schuler - Last Filed: 09/25/18 23:01> (1) Acute exacerbation of CHF (congestive heart failure) Qualifiers: Heart failure type: diastolic Qualified Code(s): I50.33 - Acute on chronic diastolic (congestive) heart failure (2) Chest pain Qualifiers: Ischemic chest pain type: unspecified angina pectoris type Qualified Code(s): I25.9 - Chronic ischemic heart disease, unspecified (3) CAD (coronary artery disease) Qualifiers: Coronary Disease-Associated Artery/Lesion type: bypass graft [place] vs. transplanted heart: [place] heart Associated angina: without angina Qualified Code(s): I25.810 - Atherosclerosis of coronary artery bypass graft(s) without angina pectoris (4) Diabetes mellitus Qualifiers: Diabetes mellitus type: type 2 Diabetes mellitus terminal operations manager insulin use: without senior care use Diabetes mellitus complication status: with hyperglycemia Qualified Code(s): E11.65 - Type 2 diabetes mellitus with hyperglycemia (5) Anemia Qualifiers: Anemia type: unspecified type Qualified Code(s): D64.9 - Anemia, unspecified (6) Pulmonary emboli Qualifiers: Pulmonary embolism type: other Chronicity: acute Acute cor pulmonale presence: without acute cor pulmonale Qualified Code(s): I26.99 - Other pulmonary embolism without acute cor pulmonale (12) Leukocytosis Qualifiers: Leukocytosis type: unspecified Qualified Code(s): D72.829 - Elevated white blood cell count, unspecified
[2018-09-26] MEDS: Ipratropium/Albuterol Neb 3 ML IH SCH ×4 (04:19→22:45)
[2018-09-26 07:18] LABS: Calcium 8.9 mg/dL (8.6-10.3); Potassium 3.7 mEq/L (3.5-5.1)
[2018-09-26 07:19] LABS: INR 1.2; Prothrombin Time 13.4 Seconds (9.4-12.1)
[2018-09-26] MEDS: Insulin LISPRO 300 UNITS/3 ML VIAL SQ SCH ×4 (08:39→21:30)
[2018-09-26] MEDS: amLODIPine 5 MG TABLET PO SCH (09:59)
[2018-09-26] MEDS: predniSONE 5 MG TABLET PO SCH (09:59)
[2018-09-26] MEDS: Aspirin Enteric Coated 81 MG Tablet PO SCH (09:59)
[2018-09-26] MEDS: (Abiraterone Acetate [Zytiga] 1,000 MG) PO SCH (10:00)
[2018-09-26] MEDS: Fluticasone Propionate Nasal 50 MCG/SPRAY BOTTLE NS SCH (10:01)
[2018-09-26] MEDS: *HR* HYDROcodone/Acet 5/325 mg TABLET PO PRN ×2 (10:04→21:40)
[2018-09-26 12:20] LABS: Albumin 3.4 g/dL (3.5-5.7)
--- NOTE | 2018-09-26 13:50 | Internal Med Progress Note ---
<Isha Gonzalez - Last Filed: 09/26/18 16:49> Hospitalist Progress Note - Encounter Date of Encounter: 09/26/18 - Exam Vitals: Temp Pulse Resp BP Pulse Ox 98.3 F 77 16 148/76 95 09/26/18 15:58 09/26/18 15:58 09/26/18 15:58 09/26/18 15:58 09/26/18 15:58 - Assessment and Plan (1) CAD (coronary artery disease) Current Visit: No Status: Chronic (2) Diabetes mellitus Current Visit: No Status: Chronic (3) Anemia Current Visit: No Status: Acute (4) Pulmonary emboli Current Visit: No Status: Acute (5) History of prostate cancer Current Visit: No Status: Acute (6) DVT prophylaxis Current Visit: No Status: Acute (7) CKD (chronic kidney disease) stage 3, GFR 30-59 ml/min Current Visit: Yes Status: Chronic (8) Chest pain Current Visit: Yes Status: Acute (9) Hypokalemia Current Visit: Yes Status: Acute (10) Elevated troponin I level Current Visit: Yes Status: Acute (11) Acute exacerbation of CHF (congestive heart failure) Current Visit: Yes Status: Acute (12) Leukocytosis Current Visit: Yes Status: Acute - Time Spent with Patient Total time spent is greater than 50% in coordination of care (as documented) at patient's floor/unit and/or counseling patient: Internal Medicine: Result - Labs CBC & Chem 7: 09/24/18 05:05 09/26/18 06:38 Labs: BMP 09/26/18 06:38 Sodium 144 Potassium 3.7 Chloride 104 Carbon Dioxide 33 H BUN 28 H Creatinine 1.76 H Glucose 159 H Calcium 8.9 Liver Function 09/26/18 Range/Units 06:38 Albumin 3.4 L (3.5-5.7) g/dL - ABG Interpretation ABG results: PT/INR, D-dimer PT 13.4 Seconds (9.4-12.1) H D 09/26/18 06:38 - Impressions Impressions Thoracentesis 09/26/18 08:41 IMPRESSION: Successful ultrasound guided thoracentesis. D/ / Franky Brownlee MD / Franky Brownlee MD Interpreting Provider: Franky Brownlee MD Chest X-Ray 09/26/18 11:36 IMPRESSION: No postprocedural pneumothorax identified following thoracentesis on the left. Near complete drainage of the left chest with minimal probable pleural fluid remaining at the left lung base as well as left basilar atelectasis. D/ / Franky Brownlee MD / Franky Brownlee MD Interpreting Provider: Franky Brownlee MD Consult Discharge Plan - Plan Referrals: Lucero Herrera, JOSH [Primary Care Provider] - Carter Carcamo DO [Partnered Physician] - 11/21/18 8:30 am - Attending Attestation I examined this patient and my medical decision-making was reviewed with the Resident Physician Dr Sage. I agree with the documented findings, disposition and treatment plan as described except to the extent set forth below. Mr Herrera is admitted with acute HFpEF awake, pleasant, no complaints. awaiting thoracentesis today. no sob on o2. no cp, pressure or palpitations gen- alert, awake,appears stated age cv- reg rate and rhythm, normal s1,s2, trace pitting le edema to knees lungs- diminished bases, no wheezing or rhonchi, normal resp effort on o2 nc abd- soft, non tender, non distended, + bs neuro- AAOx3 Acute HFpEF- further diuresis held due to kidney function, cont to monitor, Fluid restrict, cont BB Left Pleural Effusion- for thoracentesis today ADÁN on CKD III- cont to monitor, avoid nephrotoxins CAD hx / Trop elevation 2/2 Demand from CHF exacerbation- stress test negative, cont asa + statin and BB PE hx 2/2 prostate cancer on AC- held for thora, resume tomorrow further diagnoses and plan as noted by resident <Yanely Sage - Last Filed: 09/27/18 06:22> Hospitalist Progress Note - Encounter Date of Encounter: 09/27/18 Time of Encounter: 13:50 - Subjective Interval History: Examined at bedside. Appears comfortable, no acute distress. Feels breathing has improved since thoracentesis performed earlier today, procedure well tolerated. Denies chest pain, dyspnea. No complaints at this time. - Exam Vitals: Temp Pulse Resp BP Pulse Ox 97.8 F 74 17 107/71 93 09/26/18 12:02 09/26/18 12:02 09/26/18 12:02 09/26/18 12:02 09/26/18 12:02 Exam: GENERAL APPEARANCE: Obese, no acute distress HEENT: normocephalic/ atraumatic, EOMI CARDIAC: Normal S1 and S2. Irregular rhythm, regular rate LUNGS: Improved aeration bilaterally on auscultation, no wheezes or rales ABDOMEN: soft, nontender, nondistended MUSKULOSKELETAL: No joint erythema or tenderness. Normal muscular development. EXTREMITIES: acyanotic, warm, no clubbing NEURO: oriented x 3, cooperative, answers questions appropriately, no focal neuro deficits - Assessment and Plan (1) Acute exacerbation of CHF (congestive heart failure) Current Visit: Yes Status: Acute Assessment and Plan: 83-year-old male past medical history CAD, CABG, HFpEF, CKD. Presented with acute on chronic peripheral edema has worsened within the past 2 months and then even more so over this past week. He has exertional dyspnea, orthopnea. Failed outpatient Lasix. On examination patient had left basilar rales. May be due to cancer medication zytiga or may be ischemia. Echocardiogram showed worsened diastolic dysfunction compared to TTE in 2018. -troponin 0.05 -BNP 692 -Chest x-ray demonstrated small left pleural effusion with left basilar atelectasis or infiltrate. -TTE on 09/19/2018 shows LV systolic function grossly appears low normal to mildly reduced but is not well quantified. Recommend repeat limited study with imaging enhancement. Moderate left ventricular diastolic dysfunction. Systolic function is mildly reduced by tissue Doppler and TAPSE. Mild moderate mitral regurgitation, mild tricuspid regurgitation. Mild pulmonic regurgitation. Mild pulmonary hypertension. - 09/21/18: Patient's lower extremity swelling has improved while on trial dosage of Lasix yesterday. Did demonstrated 1 kg loss. Repeat echo shows an EF of 55%. Troponins trended downward: 0.05, 0.04, 0.04. - 09/25/18: Patient continues to c/o exertional SOB. CT of the chest showed moderate-sized left pleural effusion with adjacent airspace disease, mainly in the left lower lobe. 09/26/18: s/p thoracentesis by IR, well tolerated by pt Plan restart xarelto tomorrow evening - F/U with INR in the AM. - Hold lasix due to declining renal function and resolution of peripheral edema. - Continue to monitor urine output, daily weight - Fluid restrictive diet 1500 mL (2) Anemia Current Visit: Yes Status: Acute Assessment and Plan: Anemia likely of chronic disease in the setting of chronic kidney disease -Hemoglobin stable. -baseline hemoglobin 10-11 -patient denies melena or hematechezia -no obvious active bleeding (3) Pulmonary emboli Current Visit: Yes Status: Acute Assessment and Plan: History of pulmonary embolism secondary to malignancy of prostate cancer in fall 2017. Xarelto held in prep for thoracentesis, will resume tomorrow evening (4) Diabetes mellitus Current Visit: Yes Status: Chronic Assessment and Plan: History of diabetes taking oral medication. -Will continue monitor glucose with Accu checks -continue low-dose sliding scale insulin (5) Chest pain Current Visit: Yes Status: Acute Assessment and Plan: Patient reported chest pain that was centrally located in radiated across his chest. No radiation to jaw her left arm. Worsened with exertion relieved by rest. Described as pressure and sharp like. Patient has shortness of breath when exerting himself and that is what precedes the chest discomfort. No additi onal symptoms of diaphoresis, headache, nausea. -This is most likely related to the patient having acute congestive heart failure exacerbation in the setting of increased exertional dyspnea, peripheral edema. Also considering ischemia however EKG is not supporting and the patient is chest pain free. -troponin 0.05 -EKG: sinus rhythm, first-degree AV block. No ST or T wave changes indicating ischemia. Poor are wave progression noted. - 09/23/18: Stress test was negative for ischemia. (6) History of prostate cancer Current Visit: No Status: Acute Assessment and Plan: History of prostate cancer taking Zytiga. - Time Spent with Patient Total time spent is greater than 50% in coordination of care (as documented) at patient's floor/unit and/or counseling patient: Internal Medicine: Result - Labs CBC & Chem 7: 09/24/18 05:05 09/26/18 06:38 Labs: BMP 09/26/18 06:38 Sodium 144 Potassium 3.7 Chloride 104 Carbon Dioxide 33 H BUN 28 H Creatinine 1.76 H Glucose 159 H Calcium 8.9 Liver Function 09/26/18 Range/Units 06:38 Albumin 3.4 L (3.5-5.7) g/dL - ABG Interpretation ABG results: PT/INR, D-dimer PT 13.4 Seconds (9.4-12.1) H D 09/26/18 06:38 - Impressions Impressions Chest CT 09/25/18 12:30 IMPRESSION: Moderate-sized left pleural effusion with adjacent airspace disease, mainly in the left lower lobe. Airspace disease likely represents atelectasis but a component of pneumonia also remains in the differential. Mild mediastinal lymphadenopathy, increased when compared to the previous exam, probably reactive. Consider follow-up examination to ensure resolution or stability. D/ / Deyvi Danielle MD / Deyvi Danielle MD Interpreting Provider: Deyvi Danielle MD Chest X-Ray 09/26/18 11:36 IMPRESSION: No postprocedural pneumothorax identified following thoracentesis on the left. Near complete drainage of the left chest with minimal probable pleural fluid remaining at the left lung base as well as left basilar atelectasis. D/ / Franky Brownlee MD / Franky Brownlee MD Interpreting Provider: Franky Brownlee MD <Isha Gonzalez - Last Filed: 09/26/18 16:49> (1) CAD (coronary artery disease) Qualifiers: Coronary Disease-Associated Artery/Lesion type: bypass graft [place] vs. transplanted heart: [place] heart Associated angina: without angina Qualified Code(s): I25.810 - Atherosclerosis of coronary artery bypass graft(s) without angina pectoris (2) Diabetes mellitus Qualifiers: Diabetes mellitus type: type 2 Diabetes mellitus residential insulin use: without joint terminal attack controller use Diabetes mellitus complication status: with hyperglycemia Qualified Code(s): E11.65 - Type 2 diabetes mellitus with hyperglycemia (3) Anemia Qualifiers: Anemia type: unspecified type Qualified Code(s): D64.9 - Anemia, unspecified (4) Pulmonary emboli Qualifiers: Pulmonary embolism type: other Chronicity: acute Acute cor pulmonale presen ce: without acute cor pulmonale Qualified Code(s): I26.99 - Other pulmonary embolism without acute cor pulmonale (8) Chest pain Qualifiers: Ischemic chest pain type: unspecified angina pectoris type Qualified Code(s): I25.9 - Chronic ischemic heart disease, unspecified (11) Acute exacerbation of CHF (congestive heart failure) Qualifiers: Heart failure type: diastolic Qualified Code(s): I50.33 - Acute on chronic diastolic (congestive) heart failure (12) Leukocytosis Qualifiers: Leukocytosis type: unspecified Qualified Code(s): D72.829 - Elevated white blood cell count, unspecified <Yanely Sage - Last Filed: 09/27/18 06:22> (1) Acute exacerbation of CHF (congestive heart failure) Qualifiers: Heart failure type: diastolic Qualified Code(s): I50.33 - Acute on chronic diastolic (congestive) heart failure (2) Anemia Qualifiers: Anemia type: unspecified type Qualified Code(s): D64.9 - Anemia, unspecified (3) Pulmonary emboli Qualifiers: Pulmonary embolism type: other Chronicity: acute Acute cor pulmonale presence: without acute cor pulmonale Qualified Code(s): I26.99 - Other pulmonary embolism without acute cor pulmonale (4) Diabetes mellitus Qualifiers: Diabetes mellitus type: type 2 Diabetes mellitus joint terminal attack controller insulin use: without joint terminal attack controller use Diabetes mellitus complication status: with hyperglycemia Qualified Code(s): E11.65 - Type 2 diabetes mellitus with hyperglycemia (5) Chest pain Qualifiers: Ischemic chest pain type: unspecified angina pectoris type Qualified Code(s): I25.9 - Chronic ischemic heart disease, unspecified
[2018-09-26 14:43] LABS: RBC,Pleural Fluid 0.002 M/mcL
[2018-09-26 16:03] LABS: Appearance of Pleural Fl Hazy (Clear)
[2018-09-26 16:42] LABS: Total Protein,Pleural Fluid 3.3 g/dL
[2018-09-27] MEDS: Ipratropium/Albuterol Neb 3 ML IH SCH ×2 (03:51→10:42)
--- NOTE | 2018-09-27 07:58 | Internal Med Progress Note ---
Hospitalist Progress Note - Encounter Date of Encounter: 09/27/18 - Exam Vitals: Temp Pulse Resp BP Pulse Ox 97.9 F 78 18 132/70 98 09/27/18 03:07 09/27/18 03:07 09/27/18 03:51 09/27/18 03:07 09/27/18 03:51 - Assessment and Plan (1) Acute exacerbation of CHF (congestive heart failure) Current Visit: Yes Status: Acute (2) Chest pain Current Visit: Yes Status: Acute (3) Exertional dyspnea Current Visit: No Status: Deleted (4) Hypokalemia Current Visit: Yes Status: Acute (5) Anemia Current Visit: Yes Status: Acute (6) CAD (coronary artery disease) Current Visit: No Status: Chronic (7) Diabetes mellitus Current Visit: Yes Status: Chronic (8) History of prostate cancer Current Visit: No Status: Acute (9) CKD (chronic kidney disease) stage 3, GFR 30-59 ml/min Current Visit: Yes Status: Chronic (10) Pulmonary emboli Current Visit: Yes Status: Acute - Time Spent with Patient Total time spent is greater than 50% in coordination of care (as documented) at patient's floor/unit and/or counseling patient: Internal Medicine: Result - Labs CBC & Chem 7: 09/24/18 05:05 09/26/18 06:38 Labs: BMP 09/26/18 06:38 Sodium 144 Potassium 3.7 Chloride 104 Carbon Dioxide 33 H BUN 28 H Creatinine 1.76 H Glucose 159 H Calcium 8.9 Liver Function 09/26/18 Range/Units 06:38 Albumin 3.4 L (3.5-5.7) g/dL - ABG Interpretation ABG results: PT/INR, D-dimer PT 13.4 Seconds (9.4-12.1) H D 09/26/18 06:38 - Impressions Impressions Thoracentesis 09/26/18 08:41 IMPRESSION: Successful ultrasound guided thoracentesis. D/ / Franky Brownlee MD / Franky Brownlee MD Interpreting Provider: Franky Brownlee MD Chest X-Ray 09/26/18 11:36 IMPRESSION: No postprocedural pneumothorax identified following thoracentesis on the left. Near complete drainage of the left chest with minimal probable pleural fluid remaining at the left lung base as well as left basilar atelectasis. D/ / Franky Brownlee MD / Franky Brownlee MD Interpreting Provider: Franky Brownlee MD Consult Discharge Plan - Plan Referrals: Lucero Herrera CNP [Primary Care Provider] - Carter Carcamo DO [Partnered Physician] - 11/21/18 8:30 am (1) Acute exacerbation of CHF (congestive heart failure) Qualifiers: Heart failure type: diastolic Qualified Code(s): I50.33 - Acute on chronic diastolic (congestive) heart failure (2) Chest pain Qualifiers: Ischemic chest pain type: unspecified angina pectoris type Qualified Code(s): I25.9 - Chronic ischemic heart disease, unspecified (5) Anemia Qualifiers: Anemia type: unspecified type Qualified Code(s): D64.9 - Anemia, unspecified (6) CAD (coronary artery disease) Qualifiers: Coronary Disease-Associated Artery/Lesion type: bypass graft [place] vs. transplanted heart: [place] heart Associated angina: without angina Qualified Code(s): I25.810 - Atherosclerosis of coronary artery bypass graft(s) without angina pectoris (7) Diabetes mellitus Qualifiers: Diabetes mellitus type: type 2 Diabetes mellitus group home insulin use: without terminal manager use Diabetes mellitus complication status: with hyperglycemia Qualified Code(s): E11.65 - Type 2 diabetes mellitus with hyperglycemia (10) Pulmonary emboli Qualifiers: Pulmonary embolism type: other Chronicity: acute Acute cor pulmonale presence: without acute cor pulmonale Qualified Code(s): I26.99 - Other pulmonary embolism without acute cor pulmonale
[2018-09-27 08:39] LABS: Calcium 8.9 mg/dL (8.6-10.3); Potassium 3.7 mEq/L (3.5-5.1)
[2018-09-27] MEDS: amLODIPine 5 MG TABLET PO SCH (09:01)
[2018-09-27] MEDS: Fluticasone Propionate Nasal 50 MCG/SPRAY BOTTLE NS SCH (09:01)
[2018-09-27] MEDS: predniSONE 5 MG TABLET PO SCH (09:01)
[2018-09-27] MEDS: Aspirin Enteric Coated 81 MG Tablet PO SCH (09:01)
[2018-09-27] MEDS: (Abiraterone Acetate [Zytiga] 1,000 MG) PO SCH (09:02)
[2018-09-27] MEDS: Insulin LISPRO 300 UNITS/3 ML VIAL SQ SCH ×2 (09:03→12:45)
--- NOTE | 2018-09-27 11:10 | Discharge Summary ---
<Kyle Monroy - Last Filed: 09/27/18 13:22> Orders not resulted at time of discharge: Pending orders 09/22/18 12:25 NM simone perf SPECT multi [NM] Routine 09/26/18 11:30 Albumin,Body Fluid Routine 09/26/18 11:41 Cytology [PTH] Routine Date of Encounter: 09/27/18 Time of Encounter: 08:30 - Discharge Diagnosis (1) Acute exacerbation of CHF (congestive heart failure) Priority: Primary Status: Acute Qualifiers: Heart failure type: diastolic Qualified Code(s): I50.33 - Acute on chronic diastolic (congestive) heart failure (2) Chest pain Priority: Primary Status: Acute Qualifiers: Ischemic chest pain type: unspecified angina pectoris type Qualified Code(s): 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 transplanted heart: [place] heart Associated angina: without angina Qualified Code(s): I25.810 - Atherosclerosis of coronary artery bypass graft(s) without angina pectoris (7) Diabetes mellitus Priority: Secondary Status: Chronic Qualifiers: Diabetes mellitus type: type 2 Diabetes mellitus ocean transportation intermediary insulin use: without ocean transportation intermediary use Diabetes mellitus complication status: with hyperglycemia Qualified Code(s): E11.65 - Type 2 diabetes mellitus with hyperglycemia (8) History of prostate cancer Priority: Secondary Status: Acute (9) CKD (chronic kidney disease) stage 3, GFR 30-59 ml/min Priority: Secondary Status: Chronic (10) Pulmonary emboli Priority: Secondary Status: Acute Qualifiers: Pulmonary embolism type: other Chronicity: acute Acute cor pulmonale presence: without acute cor pulmonale Qualified Code(s): I26.99 - Other pulmonary embolism without acute cor pulmonale Hospital course: Patient is a 83-year-old male with a past medical history of CHF, prostate cancer, coronary artery disease status post CABG 2006, diabetes mellitus, PE (on Xarelto), and CKD stage III that presented for chest pain and shortness of breath symptoms. Patient noted to be having these symptoms for 3 nights prior to admission. He has also noted that he has had lower extremity edema for the past 2 months which has recently worsened. Denied any history of smoking, alcohol, or drug use. In the ED patients chest x-ray showed small left pleural effusion. Lower extremity Dopplers were normal. VQ scan was negative for PE. TTE on 09/19/18 showed low to normal systolic function. Troponin of .05 on admission which was trending downward. Found to have a BNP of 692. Patient was ultimately admitted for shortness of breath secondary to CHF exacerbation. Over his hospital course patient did not complain of any chest pain but noted shortness of breath. He was started on Lasix for diuresis, for which she responded well. Patients stress test came back negative for ischemia. Patient also did have an ADÁN superimposed on CKD III in setting of hypo-perfusion and diuresis. Patient's peripheral edema resolved however he still continued to complain of exertional shortness of breath. CT of the chest was ordered which revealed moderate left pleural effusion. Since diuresis did not seem to solve the pleural effusion a thoracentesis was performed and most of the pleural effusion was drained. Upon examination today patient says his breathing has significantly improved and only has minimal shortness of breath. He denies any nausea or vomiting. Denies any abdominal pain. Denies any chest pain. Denies any fever. Patient was advised to follow-up with PCP in 3-4 days. Patient artery has a follow-up appointment with his unemployment benefits claims taker Dr. Carcamo in November, however he was advised to call his office and move his appointment up to within the week. Patient was advised to go on a low-salt diet. His Xarelto was presumed today. Patient did not qualify for oxygen therapy at home. Patient is to repeat a BMP lab in one week. PT/OT evaluation showed patient to perform well and was instructed to do home exercises. Patient was also instructed to perform daily weights. Warned patient that if he notices any weight gain, chest pain, shortness of breath, or lower extremity swelling to notify PCP immediately or report to the ER. - Time Spent with Patient Total time spent providing and/or coordinating discharge services: Time spent: Greater than 30 minutes - Discharge Medications Prescriptions: Continued Metoprolol [Lopressor] 50 mg PO BID Timolol Maleate 0.5% 1 drop BOTH EYES BID Terazosin HCl 10 mg PO BID Atorvastatin [Lipitor] 40 mg PO HS Aspirin Enteric Coated [Aspirin EC] 81 mg PO DAILY Rivaroxaban [Xarelto] 20 mg PO DAILY HYDROcodone/Acet 5/325 mg [[place] 5-325 mg] 1 - 2 tab PO Q6H PRN 30 Days #240 tab PRN Reason: Pain Furosemide [Lasix] 40 mg PO DAILY 30 Days #30 tablet predniSONE [PredniSONE] 5 mg PO DAILY #30 tablet Fluticasone Propionate Nasal [Flonase] 1 spray NS DAILY Amlodipine Besylate 5 mg PO DAILY Abiraterone Acetate [Zytiga] 1,000 mg PO DAILY #120 tablet Home Medications: Aspirin Enteric Coated [Aspirin EC] 81 mg PO DAILY 12/06/17 [History] Atorvastatin [Lipitor] 40 mg PO HS 12/06/17 [History] Metoprolol [Lopressor] 50 mg PO BID 12/06/17 [History] Terazosin HCl 10 mg PO BID 12/06/17 [History] Timolol Maleate 0.5% 1 drop BOTH EYES BID 12/06/17 [History] Rivaroxaban [Xarelto] 20 mg PO DAILY 01/11/18 [History] Furosemide [Lasix] 40 mg PO DAILY 30 Days #30 tablet 07/31/18 [Rx] HYDROcodone/Acet 5/325 mg [[place] 5-325 mg] 1 - 2 tab PO Q6H PRN 30 Days #240 tab 07/31/18 [Rx] predniSONE [PredniSONE] 5 mg PO DAILY #30 tablet 08/29/18 [Rx] Amlodipine Besylate 5 mg PO DAILY 09/21/18 [History] Fluticasone Propionate Nasal [Flonase] 1 spray NS DAILY 09/21/18 [History] Abiraterone Acetate [Zytiga] 1,000 mg PO DAILY #120 tablet 09/25/18 [Rx] Allergies/Adverse Reactions: Allergy/AdvReac Type Severity Reaction Status Date / Time Penicillins Allergy Rash Verified 09/20/18 10:24 Date of admission: 09/20/18 15:10 Primary care physician: Lucero Herrera, Consults: 09/20/18 18:42 Consult to Multifocal Button Grinder [CONS] Routine Reason for SW Consult: potential need for home PT/OT/nursing 09/21/18 08:01 Consult to Nurse Navigator [CONS] Routine Comment: CHF 09/22/18 12:24 Consult to Occupational Therapy [CONS] Routine Comment: Evaluate, develop and implement POC Reason for Consult: weakness Does patient have active BEDREST order?: No Is patient medically & hemodynamically stable?: Yes Consult to Physical Therapy [CONS] Routine Comment: Evaluate, develop and implement POC Reason for Consult: inpatient rehab Does patient have active BEDREST order?: No Is patient medically & hemodynamically stable?: Yes 09/25/18 16:16 Consult to Interventional Radiology [CONS] Routine Consulting Provider: Radiology Interventional Cols Reason for Consult: Thoracentesis for L pleural effusion. Call Completed: Yes - Constitutional Vitals: Temp Pulse Resp BP Pulse Ox 97.6 F 81 17 129/84 94 09/27/18 08:29 09/27/18 08:29 09/27/18 10:42 09/27/18 08:29 09/27/18 10:44 Exam: GENERAL APPEARANCE: Obese, alert and cooperative, and appears to be in no acute distress. HEAD: normocephalic. EYES: PERRL, EOMI. Fundi normal, vision is grossly intact. EARS: hearing grossly intact. NOSE: No nasal discharge. THROAT: Oral cavity and pharynx normal. No inflammation, swelling, exudate, or lesions. NECK: Neck supple, non-tender without lymphadenopathy, masses or thyromegaly. CARDIAC: Normal S1 and S2. No S3, S4 or murmurs. Rhythm is regular. There is no peripheral edema, cyanosis or pallor. Extremities are warm and well perfused. Capillary refill is less than 2 seconds. No carotid bruits. No JVP. LUNGS: Clear to auscultation and percussion without rales, rhonchi, wheezing or diminished breath sounds. ABDOMEN: Positive bowel sounds. Soft, nondistended, nontender. No guarding or rebound. No masses. MUSKULOSKELETAL: No joint erythema or tenderness. Normal muscular development. EXTREMITIES: No significant deformity or joint abnormality. Peripheral pulses intact. No varicosities. LOWER EXTREMITY: No pitting edema bilaterally. Pulses intact and symmetrical. Edema improving again today. SKIN: Skin normal color, texture and turgor with no lesions or eruptions. PSYCHIATRIC: The mental examination revealed the patient was oriented to person, place, and time. - Patient Status Disposition: Home, Self-Care Condition: Good Functional capacity at discharge: independent ambulation Overall status at discharge: patient is not back to baseline - Ambulatory Orders Ambulatory Orders: Basic Metabolic Panel [CHEM] Time Frame: 1 Week, Facility: [facility], Location: Lab - Discharge Instructions Instructions: Heart Failure (DC), Chest Pain (DC), Pulmonary Embolism (DC) Follow Up With: Lucero Herrera CNP [Primary Care Provider] - 10/02/18 1:00 pm Carter Carcamo DO [Partnered Physician] - 11/21/18 8:30 am Additional Instructions: Please also follow up with your Powertrain Design Engineer as discussed. Your Primary Doctor should check labs to assess your kidney function next week - Diet and Activity Activity: increase activity as tolerated Diet: diabetic diet, low fat, low cholesterol, low salt diet <Isha Gonzalez - Last Filed: 09/27/18 15:30> - NOTES TO OUTPATIENT PROVIDER Notes to Outpatient Provider: requires nephro follow up and cardiology follow up. Please obtain outpt BMP to assess renal function at PCP follow up next week. He is continued on home lasix. Creat is higher than baseline but has been stable for 5 days. Orders not resulted at time of discharge: Pending orders 09/22/18 12:25 NM simone perf SPECT multi [NM] Routine 09/26/18 11:30 Albumin,Body Fluid Routine 09/26/18 11:41 Cytology [PTH] Routine Date of Encounter: 09/27/18 - Discharge Diagnosis (1) CAD (coronary artery disease) Status: Chronic Qualifiers: Coronary Disease-Associated Artery/Lesion type: bypass graft [place] vs. transplanted heart: [place] heart Associated angina: without angina Qualified Code(s): I25.810 - Atherosclerosis of coronary artery bypass graft(s) without angina pectoris (2) Diabetes mellitus Status: Chronic Qualifiers: Diabetes mellitus type: type 2 Diabetes mellitus ocean transportation intermediary insulin use: without ocean transportation intermediary use Diabetes mellitus complication status: with hyperglycemia Qualified Code(s): E11.65 - Type 2 diabetes mellitus with hyperglycemia (3) Anemia Status: Acute Qualifiers: Anemia type: unspecified type Qualified Code(s): D64.9 - Anemia, unspecified (4) Pulmonary emboli Status: Acute Qualifiers: Pulmonary embolism type: other Chronicity: acute Acute cor pulmonale presence: without acute cor pulmonale Qualified Code(s): I26.99 - Other pulmonary embolism without acute cor pulmonale (5) History of prostate cancer Status: Acute (6) DVT prophylaxis Status: Acute (7) CKD (chronic kidney disease) stage 3, GFR 30-59 ml/min Status: Chronic (8) Chest pain Status: Acute Qualifiers: Ischemic chest pain type: unspecified angina pectoris type Qualified Code(s): I25.9 - Chronic ischemic heart disease, unspecified (9) Hypokalemia Status: Acute (10) Elevated troponin I level Status: Acute (11) Acute exacerbation of CHF (congestive heart failure) Status: Acute Qualifiers: Heart failure type: diastolic Qualified Code(s): I50.33 - Acute on chronic diastolic (congestive) heart failure (12) Leukocytosis Status: Acute Qualifiers: Leukocytosis type: unspecified Qualified Code(s): D72.829 - Elevated white blood cell count, unspecified Hospital course: Mr. Herrera is a 83 year old male Discharge discussed with: patient, nurse - Time Spent with Patient Total time spent providing and/or coordinating discharge services: Time spent: Greater than 30 minutes (35 min) Date of admission: 09/20/18 15:10 Primary care physician: Lucero Herrera, Consults: 09/20/18 18:42 Consult to Multifocal Button Grinder [CONS] Routine Reason for SW Consult: potential need for home PT/OT/nursing 09/21/18 08:01 Consult to Nurse Navigator [CONS] Routine Comment: CHF 09/22/18 12:24 Consult to Occupational Therapy [CONS] Routine Comment: Evaluate, develop and implement POC Reason for Consult: weakness Does patient have active BEDREST order?: No Is patient medically & hemodynamically stable?: Yes Consult to Physical Therapy [CONS] Routine Comment: Evaluate, develop and implement POC Reason for Consult: inpatient rehab Does patient have active BEDREST order?: No Is patient medically & hemodynamically stable?: Yes 09/25/18 16:16 Consult to Interventional Radiology [CONS] Routine Consulting Provider: Radiology Interventional Cols Reason for Consult: Thoracentesis for L pleural effusion. Call Completed: Yes Discharging clinician: Kyle Monroy - Constitutional Vitals: Temp Pulse Resp BP Pulse Ox 98.1 F 80 16 119/69 93 09/27/18 11:36 09/27/18 11:36 09/27/18 11:36 09/27/18 11:36 09/27/18 11:36 - Patient Status Overall status at discharge: patient is progressing back to baseline - Attending Attestation I examined this patient and my medical decision-making was reviewed with the Resident Physician Dr Monroy. I agree with the documented findings, disposition and treatment plan as described except to the extent set forth below. Mr Herrera is admitted with acute HFpEF and pleural effusion. He is stable for dc to home with outpt follow up awake, feeling very well. no sob on room air since thoracentesis. le edema continues to improve. no cp. discussed dc plan in detail and answered all questions. Permission given to update his daughter Roxanna with whom he lives, VM left as she was at work with no answer. Available to answer any questions later today when she presents to hospital. Pt had let her know he was near dc yesterday gen- alert, awake,appears stated age cv- reg rate and rhythm, normal s1,s2, trace pitting le edema to bl shins lungs- ctabl, no crackles, normal resp effort on room air neuro- AAOx3 Acute HFpEF- he may resume his home lasix PO upon dc and fu with his established cards Dr Vasquez, bailee check at PCP office appt 10/02 Left Pleural Effusion s/p thoracentesis this admit Acute Hypoxic resp failure 2/2 above resolved- did not qualify for home o2 ADÁN on CKD III-stable x5days- fu with Dr Carcamo on dc, outpt bmp with PCP at follow up appt next week CAD hx / Trop elevation 2/2 Demand from CHF exacerbation- stress test negative, fu with cards outpt as above PE hx 2/2 prostate cancer on AC- he may resume AC further diagnoses and plan as noted by resident time spent on dc 35 min
[2018-09-27 11:43] VITALS: BP 119/69
[2018-09-28 20:35] LABS: Fluid Source for Albumin PLEURAL FLUID
== END 2018-09-27 15:29 | disposition home or self-care (01) | DRG 291 ==
LOC: 3BNU 10:15 → EMEROOARM 10:15 → SUATTDRO 15:10 → 3BNU 17:23
PROVIDERS: ADMIT Internal Medicine Nephrology; ATTEND Internal Medicine

== ENCOUNTER 2018-10-20 19:24 | Observation (INO) ==
--- NOTE | 2018-10-20 19:32 | Emergency Department Note ---
Disposition Clinical Impression: Acute retention of urine Hematuria Qualifiers: Hematuria type: gross Qualified Code(s): R31.0 - Gross hematuria Anemia Qualifiers: Anemia type: unspecified type Qualified Code(s): D64.9 - Anemia, unspecified Disposition: Admitted As Inpatient Condition: Fair Referrals: Lucero Herrera CNP [Primary Care Provider] - Forms: ED Satisfaction Letter Time of Disposition: 22:29 Male Urogenital HPI - General Chief complaint: ED Urogenital-Male Stated complaint: urinary retention Time Seen by Provider: 10/20/18 19:30 Source: patient, family Limitations: no limitations Nursing Notes Reviewed: Yes Vital Signs Reviewed: Yes - History of Present Illness HPI Narrative: 83-year-old male past medical history of prostate cancer with recent stenting procedure performed last Monday states that he has been having hematuria for the past few days which has gradually decreased until today when he was unable to void. Patient states he is having lower abdominal pain and feeling of fullness but denies any other symptoms at this time. - Related Data Home Medications Medication Instructions Recorded Confirmed Aspirin Enteric Coated [Aspirin EC] 81 mg PO DAILY 12/06/17 10/16/18 Atorvastatin [Lipitor] 40 mg PO HS 12/06/17 10/16/18 Metoprolol [Lopressor] 50 mg PO BID 12/06/17 10/16/18 Terazosin HCl 10 mg PO BID 12/06/17 10/16/18 Timolol Maleate 0.5% 1 drop BOTH EYES BID 12/06/17 10/16/18 Rivaroxaban [Xarelto] 20 mg PO DAILY 01/11/18 10/16/18 Amlodipine Besylate 5 mg PO DAILY 09/21/18 10/16/18 Fluticasone Propionate Nasal 1 spray NS DAILY 09/21/18 10/16/18 [Flonase] Furosemide [Lasix] 40 mg PO DAILY PRN 10/16/18 10/16/18 Previous Rx's Medication Instructions Recorded HYDROcodone/Acet 5/325 mg [[place] 1 - 2 tab PO Q6H PRN 30 Days #240 07/31/18 5-325 mg] tab predniSONE [PredniSONE] 5 mg PO DAILY #30 tablet 08/29/18 Abiraterone Acetate [Zytiga] 1,000 mg PO DAILY #120 tablet 06/11/19 Allergies Allergy/AdvReac Type Severity Reaction Status Date / Time Penicillins Allergy Rash Verified 10/16/18 13:25 Review of Systems: *See History of Present Illness for more detail Constitutional: Denies: fever, chills Cardiovascular: Denies: chest pain Respiratory: Denies: dyspnea, cough, hemoptysis Gastrointestinal: Admits: abdominal pain, denies: nausea, vomiting, diarrhea, constipation, hematemesis, melena, hematochezia Genitourinary: Admits: hematuria with feeling of incomplete bladder and turning and lower abdominal/pelvic pain. Musculoskeletal: Denies: back pain, neck pain Neurological: Denies: headache, weakness, lightheadedness/dizziness, numbness, paresthesias, difficulty with ambulation. Endocrine: Denies: fatigue All systems ED: reviewed and negative except as stated. Review of Systems: As Per HPI Past Medical History - Past Medical History Medical history: Reports: cancer, CHF, coronary artery disease, diabetes, hyperlipidemia, hypertension, other Surgical history: Reports: appendectomy, cataract, coronary bypass (CABG), other Psychiatric history: Reports: no psych history - Social History Smoking Status: Former smoker Smokeless Tobacco Status: No Alcohol use: Reports: none Drug use: Reports: none Physical Exam Constitutional: No acute distress, [id number], engaged to conversation, speech is fluid, answers questions appropriately Neuro: GCS 15, no overt focal neurological deficits Head: Atraumatic, normocephalic Eyes: Pupils equal, round and reactive to light, no scleral icterus, no conjunctival injection Neck: Trachea midline without deviation. Anterior neck is supple without swelling. *Chest: Symmetric chest wall rise *Heart: Cardiac rhythm and rate are regular with S1 and S2 , no S3 or S4 appreciated, no murmurs, gallops, rubs, or clicks. *Lungs: Lungs are clear to auscultation bilaterally, without accessory muscle use or prolonged expiratory phase. No wheezes, rhonchi or stridor appreciated. Abdomen: Abdomen is flat, soft to palpation, normal bowel sounds. No abdominal bruit auscultated. Non-distended, non-rigid, no organomegaly, no ascites appreciated. No pulsatile mass, no tenderness or guarding to palpation in all four quadrants, no rebound Extremities: Normal capillary refill without evidence of pedal edema, joint swelling or erythema. Pulses/motor/sensory intact in all 4 extremities. Psychiatric exam: Patient displays a normal affect and mood for the environment. No overt signs of hallucination. Integumentary: warm, dry, intact, normal color. No rash, cyanosis, diaphoresis, erythema, or pallor - General Limitations: no limitations General appearance: alert, in no apparent distress Course Course Narrative: Urinalysis, CBC, BMP, Rojas catheter placement. - Reevaluation(s) Reevaluation #1: Patient's hemoglobin shows significant drop in the past 2 weeks from mid 10 to mid [address] Marks in urology who states that patient may be discharged home with close follow-up in ED return precautions [place] to the hospital for hemoglobin monitoring depending on patient preference. Patient states that he lives at least 40 minutes with the hospital and be more comfortable with admission at this time due to his blood loss. Patient remains hemodynamic stable in the ED Patient be admitted to hospitalist medicine service for their evaluation and management of hematuria with anemia. Patient verbalizes understanding and agreement this plan. Vital Signs Temperature 98.4 F 10/20/18 19:25 Pulse Rate 80 10/20/18 19:25 Respiratory Rate 20 10/20/18 19:25 Blood Pressure 172/79 10/20/18 19:25 O2 Sat by Pulse Oximetry 97 10/20/18 19:25 Temperature 98.4 F 10/20/18 19:25 Pulse Rate 65 10/20/18 21:06 Respiratory Rate 16 10/20/18 21:06 Blood Pressure 134/66 10/20/18 21:06 O2 Sat by Pulse Oximetry 95 10/20/18 21:06 Oxygen Delivery Oxygen Delivery Room Air Urogenital-Male - MDM Narrative Medical decision making narrative: 2128 hrs.: Patient's passing clear urine after irrigation. Waiting on CBC and chemistry and if those look good, then we will let the patient go home. With follow-up with urology. 2136 hours: Patient's hemoglobin has dropped down appointment half rest speak with urology once his creatinine comes back he may need admission. Especially since he is on Xarelto. 2155 hrs.: Patient's creatinine is elevated at 2.16 but that is unchanged. We have urology paged. 2229 hrs.: Spoke with urology they felt patient could go home or stay in the hospital however with his hemoglobin drop patient does not feel comfortable going home and I would agree that he needs come in to the hospital. Spoke with hospitalist they are accepting patient for admission. Patient is typed and s creened. He is stable at this time and urologist consult. - Lab Data Result diagrams: 10/20/18 21:12 10/20/18 21:12 Lab Results 10/20/18 10/20/18 10/20/18 Range/Units 20:12 21:12 21:12 WBC 7.1 (4.3-11.1) K/mcL RBC 3.01 L (4.19-5.50) M/mcL Hgb 8.7 L (12.9-16.9) g/dL Hct 27.7 L (37.5-50.1) % MCV 92.0 (83.0-100.0) fL MCH 28.9 (28.0-33.3) pg MCHC 31.4 L (31.6-35.5) g/dL RDW 13.4 (11.5-14.5) % Plt Count 130 L (140-400) K/mcL MPV 11.5 (9.4-12.4) fL Immature Gran % 0.3 (0-4) % Seg Neutrophils % 60.9 % Lymphocytes % 22.8 % Monocytes % 11.2 % Eosinophils % 4.4 % Basophils % 0.4 % Neutrophils # 4.3 (1.6-8.9) K/mcL Lymphocytes # 1.6 (0.6-4.6) K/mcL Monocytes # 0.8 (0.0-1.3) K/mcL Eosinophils # 0.3 (0.0-0.6) K/mcL Basophils # 0.0 (0.0-0.2) K/mcL Sodium 141 (136-145) mEq/L Potassium 3.7 (3.5-5.1) mEq/L Chloride 106 (98-107) mEq/L Carbon Dioxide 27 (23-29) mEq/L BUN 24 H (8-23) mg/dL Creatinine 2.16 H (0.70-1.30) mg/dL Est GFR ( Amer) 36 L (> 60) Est GFR (Non-Af Amer) 29 L (> 60) BUN/Creatinine Ratio 11 (6-26) Glucose 149 H (70-105) mg/dL Calculated Osmolality 299 (280-300) Calcium 8.4 L (8.6-10.3) mg/dL Ur Specimen Adequacy See below A Urine Color Red A (Yellow) Urine Clarity Cloudy A (Clear) Urine pH 6.0 (5.0-8.0) pH Units Ur Specific [place] 1.019 (1.010-1.025) Urine Protein >=1000 H (Neg-Trace) mg/dL Urine Glucose (UA) 100 H (Normal) mg/dL Urine Ketones Negative (Negative) mg/dL Urine Blood Large H (Negative) Urine Nitrite Positive A (Negative) Urine Bilirubin Small H (Negative) Urine Urobilinogen Normal (Normal) mg/dL Ur Leukocyte Esterase Moderate H (Negative) Ur Culture Indicated? YES A (NO) - Radiology Data Radiology results reviewed: Yes I reviewed the patient's radiology results. Attestation Statement - Attestation Attestation: This documentation is done with the assistance of Dragon dictation. Despite efforts made to ensure accuracy, there may be inaccuracies in transcriptionist or spelling and typographical errors. I examined this patient and my medical decision-making was reviewed with the [facility]. I agree with the documented findings, disposition and treatment plan as described except to the extent set forth below. Patient was seen and evaluated by Dr. Chong and myself, I agree with his evaluation and management plan, I supervised the care the patient throughout her stay. Patient presents today with urinary retention. History of this in the past secondary to prostate cancer. He has some distention in his abdomen. Were going to place a Rojas in him check CBC and electrolytes a urinalysis and then reassess. He does have blood in the urine so we will make sure he is not getting large clots.
[2018-10-20 20:36] LABS: Bilirubin,Urine Small (Negative); Blood,Urine Large (Negative); Clarity,Urine Cloudy (Clear); Glucose,Urine (UA) 100 mg/dL (Normal); Ketones,Urine Negative (Negative); Leukocyte Esterase,Urine Moderate (Negative); Nitrite,Urine Positive (Negative); Protein,Urine >=1000 mg/dL (Neg-Trace); Specific Gravity,Urine 1.019 (1.010-1.025); Urobilinogen,Urine Normal (Normal)
[2018-10-20 20:37] LABS: Color,Urine Red (Yellow)
[2018-10-20] MEDS ORDERED: *HR* HYDROcodone/Acet 5/325 mg TABLET PO ONE (20:56)
[2018-10-20 21:29] LABS: Basophils % 0.4 %; Eosinophils # 0.3 K/mcL (0.0-0.6); Eosinophils % 4.4 %; Hematocrit 27.7 % (37.5-50.1); Hemoglobin 8.7 g/dL (12.9-16.9); Immature Granulocytes % 0.3 % (0-4); Lymphocytes # 1.6 K/mcL (0.6-4.6); Lymphocytes % 22.8 %; Mean Corpuscular HGB Conc 31.4 g/dL (31.6-35.5); Mean Corpuscular Hemoglobin 28.9 pg (28.0-33.3); Mean Platelet Volume 11.5 fL (9.4-12.4); Monocytes # 0.8 K/mcL (0.0-1.3); Monocytes % 11.2 %; Neutrophils # 4.3 K/mcL (1.6-8.9); Platelet Count 130 K/mcL (140-400); Red Blood Count 3.01 M/mcL (4.19-5.50); Red Cell Distribution Width 13.4 % (11.5-14.5); Segmented Neutrophils % 60.9 %; White Blood Count 7.1 K/mcL (4.3-11.1)
[2018-10-20 21:50] LABS: Calcium 8.4 mg/dL (8.6-10.3); Potassium 3.7 mEq/L (3.5-5.1)
[2018-10-20] MEDS ORDERED: cefTRIAXone 1,000 MG in Water for inj. (sterile) 10 ML IVP ONE (22:25)
[2018-10-20] MEDS ORDERED: Naloxone 0.4 MG/ML INJ IVP PRN (22:55)
[2018-10-20] MEDS ORDERED: D5% in Water 1,000 ML IVC PRN (22:59)
[2018-10-20] MEDS ORDERED: *HR* Dextrose 50 % in Water (Syg) 50 ML SYRINGE IVP PRN (22:59)
[2018-10-20] MEDS ORDERED: Dextrose Gel 15 GM/37.5 ML TUBE PO PRN ×2 (22:59)
[2018-10-20] MEDS ORDERED: 0.9 % Sodium Chloride 1,000 ML IVC SCH (23:00)
[2018-10-21] MEDS ORDERED: Naloxone 0.4 MG/ML INJ IVP PRN (00:59)
[2018-10-21] MEDS ORDERED: Furosemide 40 MG TABLET PO PRN (01:01)
--- NOTE | 2018-10-21 05:22 | Internal Med History&Physical ---
Date of Encounter: 10/21/18 Time of Encounter: 05:22 Internal Medicine - H&P: HPI Chief complaint: Hematuria History of present illness: Mr. Herrera is a 83 year old male past medical history of CHF, CAD, diabetes, PE on Xarelto and prostate cancer with recent bilateral ureteral stent exchange performed last Monday who presented with complaints of urinary retention and hematuria. Patient states since procedures had intermittent hematuria with blood clots with urination. However this morning patient was unable to void which persisted throughout the rest of the day and eventually decided to come in for evaluation. Patient also reports burning with urination. No reports of fever or chills. On arrival patient was afebrile, hemodynamically stable. Laboratory workup notable for a low hemoglobin of 8.7 down from 10.2 on 10/04/2018. Creatinine was elevated at 2.16 which was unchanged from previous assessment. UA was suggestive of possible UTI with positive leukocyte esterase and nitrites. Rojas catheter was placed in the ED with drainage of gladys hem aturia. Patient states symptoms have since improved and is feeling better. She was given a one-time dose of ceftriaxone for possible UTI. Urology has been consult. Past Med Surg Social Fam HX - Past Medical History Medical history: cancer, CHF, coronary artery disease, diabetes, hyperlipidemia, hypertension, other Additional medical history: Prostate Cancer Psychiatric history: no psych history - Past Surgical History Surgical History: appendectomy, cataract, coronary bypass (CABG), other Additional surgical history: Nephrostomy tubes. uretal stents - Social History Smoking Status: Former smoker Smokeless Tobacco Status: No Alcohol use: none Drug use: none - Family History Father Adopted: No Family Member Ethnicity: Non- Living Status: Age at : 75 Cause of : IN Hx Family Cardiac Disorders: Yes ([place]) Hx Family Respiratory Disorders: No Hx Family Cancer: No Hx Family GI Disorders: No Hx Family Endocrine Disorder: No Hx Family Neuromuscular Disorders: No Hx Family Neurologic Disorders: No Hx Family HEENT Disorders: No Hx Family Autoimmune Disorders: No Mother Living Status: Age at : 86 Hx Family Neurologic Disorders: Yes (alzheimer's) Internal Medicine - H&P: Meds Aspirin Enteric Coated [Aspirin EC] 81 mg PO DAILY 12/06/17 [History] Atorvastatin [Lipitor] 40 mg PO HS 12/06/17 [History] Metoprolol [Lopressor] 50 mg PO BID 12/06/17 [History] Terazosin HCl 10 mg PO BID 12/06/17 [History] Timolol Maleate 0.5% 1 drop BOTH EYES BID 12/06/17 [History] Rivaroxaban [Xarelto] 20 mg PO DAILY 01/11/18 [History] HYDROcodone/Acet 5/325 mg [[place] 5-325 mg] 1 - 2 tab PO Q6H PRN 30 Days #240 tab 07/31/18 [Rx] predniSONE [PredniSONE] 5 mg PO DAILY #30 tablet 08/29/18 [Rx] Amlodipine Besylate 5 mg PO DAILY 09/21/18 [History] Fluticasone Propionate Nasal [Flonase] 1 spray NS DAILY 09/21/18 [History] Abiraterone Acetate [Zytiga] 1,000 mg PO DAILY #120 tablet 09/25/18 [Rx] Furosemide [Lasix] 40 mg PO DAILY PRN 10/16/18 [History] Allergy/AdvReac Type Severity Reaction Status Date / Time Penicillins Allergy Rash Verified 10/16/18 13:25 All Systems PM: A 10-system review of systems was performed and is negative for pertinent findings except as documented above in the HPI. - Constitutional Constitutional: no chills, no fever(s), no night sweats - EENT Eyes: no change in vision, no discharge, no pain, no photophobia Ears: no ear discharge, no ear pain, no tinnitus Nose, mouth and throat: no dysphagia, no nasal discharge, no neck pain, no sore throat - Cardiovascular Cardiovascular ROS IM: no chest pain, no diaphoresis, no dyspnea, no lightheadedness, no palpitations, no syncope - Respiratory Respiratory: no cough, no dyspnea, no wheezing, no excessive phlegm production - Gastrointestinal Gastrointestinal: no abdominal pain, no diarrhea, no hematemesis, no hematochezia, no melena, no nausea, no vomiting - Musculoskeletal Musculoskeletal ROS IM: no numbness, no tingling - Integumentary Integumentary IM: no rash, no unusual bruising - Neurological Neurological ROS: no confusion, no convulsions, no focal weakness, no numbness, no tingling, no tremor(s) - Hematologic/Lymphatic Hematologic/Lymphatic: no easy bruising - Constitutional Vitals: Temp Pulse Resp BP Pulse Ox 98.1 F 64 16 119/69 96 10/21/18 02:49 10/21/18 02:49 10/21/18 02:49 10/21/18 02:49 10/21/18 02:49 Exam: General: Alert and oriented 3 Skin:Normal color, no rash, no lesions. HEENT:EOM, pupils equal, round and reactive. Cardiovascular:Normal S1 & S2, no rubs, murmurs or gallops. No JVD. Pulse regular. Lungs:Normal breath sounds, no wheezes or crackles. Abdomen:Soft, non-tender, no rigidity. Extremities:No deformity, no edema or tenderness, no joint swelling or clubbing. Neurological:Normal cognition and motor skills. Pulses:Carotid and radial pulses normal +2. Rest of the physical exam is non contributory Internal Med - H&P Results - Labs CBC & Chem 7: 10/21/18 18:26 10/21/18 04:48 Labs: Short CBC 10/20/18 Range/Units 21:12 WBC 7.1 (4.3-11.1) K/mcL Hgb 8.7 L (12.9-16.9) g/dL Hct 27.7 L (37.5-50.1) % Plt Count 130 L (140-400) K/mcL Neutrophils # 4.3 (1.6-8.9) K/mcL BMP 10/20/18 21:12 Sodium 141 Potassium 3.7 Chloride 106 Carbon Dioxide 27 BUN 24 H Creatinine 2.16 H Glucose 149 H Calcium 8.4 L Urine 10/20/18 Range/Units 20:12 Urine Color Red A (Yellow) Urine Clarity Cloudy A (Clear) Urine pH 6.0 (5.0-8.0) pH Units Ur Specific [place] 1.019 (1.010-1.025) Urine Protein >=1000 H (Neg-Trace) mg/dL Urine Glucose (UA) 100 H (Normal) mg/dL - Assessment and Plan (1) Hematuria Current Visit: Yes Status: Acute Assessment and plan: Gladys hematuria in the setting of recent stent exchange and possible UTI. Rojas catheter placed draining gladys hematuria. Hemoglobin 8.7 down from 10.2. Patient hemodynamically stable. Patient currently on Xarelto for PE. Etiology likely secondary to recent stent exchange, possible UTI and anticoagulation -Continue supportive care -Continue antibiotics -Hold anticoagulation -Type and screen -Urology consult in Qualifiers: Hematuria type: unspecified type Qualified Code(s): R31.9 - Hematuria, unspecified (2) Acute retention of urine Current Visit: Yes Status: Acute Assessment and plan: Acute urinary retention in the setting of prostate CA and hematuria with blood clots. Creatinine unchanged from previous assessment in September. -Rojas catheter in place draining gladys hematuria -Follow up urology recommendations. (3) Anemia Current Visit: Yes Status: Acute Assessment and plan: Acute blood loss anemia likely secondary to hematuria. Hemoglobin 8.7 down from 10.2. Patient currently on anticoagulation for PE. -Type and screen -Hold anticoagulation -Trend H&H -We will consider transfusing if hemoglobin less than 8 given cardiac history. Qualifiers: Anemia type: unspecified type Qualified Code(s): D64.9 - Anemia, unspecified (4) Elevated troponin I level Current Visit: No Status: Acute Assessment and plan: Elevated troponin suspect secondary to demand ischemia in the setting of anemia. No reports of chest pain. No evidence of ischemia on EKG. Patient received loading dose of aspirin. -Trend troponin -Telemetry (5) Diabetes mellitus Current Visit: No Status: Chronic Assessment and plan: Blood glucose checks. Sliding scale insulin. Qualifiers: Diabetes mellitus type: type 2 Diabetes mellitus export specialist insulin use: without export specialist use Diabetes mellitus complication status: with hyperglycemia Qualified Code(s): E11.65 - Type 2 diabetes mellitus with hyperglycemia (6) Prostate cancer Current Visit: Yes Status: Chronic (7) CHF (congestive heart failure) Current Visit: No Status: Chronic Assessment and plan: History of congestive heart failure. -Monitor I's and O's; daily weights -Continue gentle hydration -Lasix as needed Qualifiers: Heart failure type: unspecified Heart failure chronicity: chronic Qualified Code(s): I50.9 - Heart failure, unspecified (8) DVT prophylaxis Current Visit: No Status: Acute Assessment and plan: Intermittent pneumatic compression devices - Time Spent With Patient Total time spent is greater than 50% in coordination of care (as documented) at patient's floor/unit and/or counseling patient:
[2018-10-21 05:49] LABS: Hematocrit 25.6 % (37.5-50.1); Mean Corpuscular HGB Conc 31.3 g/dL (31.6-35.5); Mean Corpuscular Hemoglobin 29.1 pg (28.0-33.3); Mean Corpuscular Volume 93.1 fL (83.0-100.0); Mean Platelet Volume 11.9 fL (9.4-12.4); Platelet Count 134 K/mcL (140-400); Red Blood Count 2.75 M/mcL (4.19-5.50); Red Cell Distribution Width 13.5 % (11.5-14.5); White Blood Count 5.8 K/mcL (4.3-11.1)
[2018-10-21 06:00] LABS: Albumin 3.4 g/dL (3.5-5.7); Albumin/Globulin Ratio 1.3 (1.1-2.2); Bilirubin,Total 0.4 mg/dL (0.3-1.0); Calcium 8.3 mg/dL (8.6-10.3); Globulin 2.7 g/dL (2.4-3.5); Magnesium 1.7 mg/dL (1.6-2.6); Potassium 3.1 mEq/L (3.5-5.1); Total Protein 6.1 g/dL (6.4-8.9)
[2018-10-21 06:02] LABS: INR 1.4; Prothrombin Time 15.8 Seconds (9.4-12.1)
[2018-10-21 06:05] LABS: Activated Partial Thrombo Time 31.5 Seconds (26.0-36.0)
[2018-10-21] MEDS ORDERED: Potassium Chloride Elixir 20 MEQ/15 ML UDC PO ONE (06:49)
[2018-10-21] MEDS: Insulin LISPRO 300 UNITS/3 ML VIAL SQ SCH ×4 (08:33→17:28)
[2018-10-21] MEDS: Aspirin Enteric Coated 81 MG Tablet PO SCH (08:37)
[2018-10-21] MEDS: amLODIPine 5 MG TABLET PO SCH (08:37)
[2018-10-21] MEDS: predniSONE 5 MG TABLET PO SCH (08:38)
[2018-10-21] MEDS: (Abiraterone Acetate [Zytiga] 250 MG) PO SCH (08:38)
[2018-10-21] MEDS: Fluticasone Propionate Nasal 50 MCG/SPRAY BOTTLE NS SCH (08:39)
[2018-10-21 10:47] LABS: Hemoglobin 8.6 g/dL (12.9-16.9)
--- NOTE | 2018-10-21 10:55 | Event Note ---
Date of Encounter: 10/21/18 Time of Encounter: 10:54 Patient was seen and examined by hospitalist services earlier this morning, patient does not appear to be in any distress denies any pain or discomfort. Continues to have hematuria in Rojas catheter. We will continue to monitor H&H closely and transfuse as needed. Discussed treating plan with the patient who verbalized understanding he will be evaluated by urology.
[2018-10-21] MEDS: cefTRIAXone 1,000 MG in Water for inj. (sterile) 10 ML IVP SCH (10:59)
--- NOTE | 2018-10-21 13:09 | Urology Progress Note ---
Date of Encounter: 10/21/18 Time of Encounter: 13:06 - Assessment and Plan (1) Hematuria Current Visit: Yes Status: Acute Assessment and plan: Likely due to bladder irritation from potential UTI and indwelling ureteral stents while on anticoagulation. Hemoglobin has dropped but stable this morning. Urine clearing to joyner Gaetano-Aid color today. Plan: Continue holding until urine clear. Potential catheter removal tomorrow if urine clear. Qualifiers: Hematuria type: unspecified type Qualified Code(s): R31.9 - Hematuria, unspecified (2) Bilateral hydronephrosis Current Visit: Yes Status: Acute Assessment and plan: Secondary to advance prostate cancer. Managed with chronic ureteral catheter changes through my partner, Dr. Velazco. Catheters were recently changed last week. Plan: Outpatient follow-up with Dr. Velazco as scheduled. (3) Prostate cancer Current Visit: Yes Status: Chronic Assessment and plan: Advanced castrate resistant prostate cancer. Plan: Continue outpatient follow- up with medical oncology and Dr. Velazco of urology as scheduled. Progress Note Subjective: no new complaints Objective Initial Vital Signs Temp Pulse Resp BP Pulse Ox 98.4 F 80 20 172/79 97 10/20/18 19:25 10/20/18 19:25 10/20/18 19:25 10/20/18 19:25 10/20/18 19:25 - General physical appearance Present: no distress - Respiratory Present: normal respiratory effort - Abdomen Present: soft - Integumentary Absent: no rash, no growths - Psychiatric Present: oriented to time, oriented to person, oriented to place - Labs 10/21/18 10:13 10/21/18 04:48 Diabetes panel 10/20/18 10/21/18 Range/Units 21:12 04:48 Sodium 141 144 (136-145) mEq/L Potassium 3.7 3.1 L (3.5-5.1) mEq/L Chloride 106 108 H (98-107) mEq/L Carbon Dioxide 27 30 H (23-29) mEq/L BUN 24 H 23 (8-23) mg/dL Creatinine 2.16 H 2.00 H (0.70-1.30) mg/dL Glucose 149 H 102 (70-105) mg/dL Calcium 8.4 L 8.3 L (8.6-10.3) mg/dL AST 16 (13-39) Units/L ALT 9 (7-52) Units/L Alkaline Phosphatase 67 (34-104) Units/L Albumin 3.4 L (3.5-5.7) g/dL Calcium panel 10/20/18 10/21/18 Range/Units 21:12 04:48 Calcium 8.4 L 8.3 L (8.6-10.3) mg/dL Albumin 3.4 L (3.5-5.7) g/dL Pituitary panel 10/20/18 10/21/18 Range/Units 21:12 04:48 Sodium 141 144 (136-145) mEq/L Potassium 3.7 3.1 L (3.5-5.1) mEq/L Chloride 106 108 H (98-107) mEq/L Carbon Dioxide 27 30 H (23-29) mEq/L BUN 24 H 23 (8-23) mg/dL Creatinine 2.16 H 2.00 H (0.70-1.30) mg/dL Glucose 149 H 102 (70-105) mg/dL Calcium 8.4 L 8.3 L (8.6-10.3) mg/dL Adrenal panel 10/20/18 10/21/18 Range/Units 21:12 04:48 Sodium 141 144 (136-145) mEq/L Potassium 3.7 3.1 L (3.5-5.1) mEq/L Chloride 106 108 H (98-107) mEq/L Carbon Dioxide 27 30 H (23-29) mEq/L BUN 24 H 23 (8-23) mg/dL Creatinine 2.16 H 2.00 H (0.70-1.30) mg/dL Glucose 149 H 102 (70-105) mg/dL Calcium 8.4 L 8.3 L (8.6-10.3) mg/dL Total Bilirubin 0.4 (0.3-1.0) mg/dL AST 16 (13-39) Units/L ALT 9 (7-52) Units/L Alkaline Phosphatase 67 (34-104) Units/L Albumin 3.4 L (3.5-5.7) g/dL - VTE Documentation of Mechanical Device: Intermittent pneumatic compression device Consult Discharge Plan - Plan Referrals: Lucero Herrera CNP [Primary Care Provider] - (Follow up has been requested )
[2018-10-21 18:46] LABS: Hemoglobin 8.6 g/dL (12.9-16.9)
[2018-10-22 01:12] LABS: Hematocrit 27.1 % (37.5-50.1); Hemoglobin 8.6 g/dL (12.9-16.9); Mean Corpuscular HGB Conc 31.7 g/dL (31.6-35.5); Mean Corpuscular Hemoglobin 28.9 pg (28.0-33.3); Mean Corpuscular Volume 90.9 fL (83.0-100.0); Mean Platelet Volume 11.6 fL (9.4-12.4); Platelet Count 146 K/mcL (140-400); Red Blood Count 2.98 M/mcL (4.19-5.50); Red Cell Distribution Width 13.7 % (11.5-14.5); White Blood Count 7.4 K/mcL (4.3-11.1)
[2018-10-22 01:33] LABS: Calcium 8.2 mg/dL (8.6-10.3); Potassium 3.7 mEq/L (3.5-5.1)
--- NOTE | 2018-10-22 09:31 | Urology Progress Note ---
Date of Encounter: 10/22/18 Time of Encounter: 08:30 - Assessment and Plan (1) Hematuria Current Visit: Yes Status: Acute Assessment and plan: Patient is an 83-year-old male who presents with advanced, castrate resistant prostate cancer and gross hematuria. Patient experienced hematuria after bilateral stent placement, anticoagulation and urinary tract infection. Anticoagulant has been held, and urine appears to be clearing. I discussed patient with Dr. Marks who recommends Rojas catheter removal today. Urology recommends holding anticoagulation if possible until urine remains clear for 3 days. Patient will follow-up with Dr. Velazco within 2-4 weeks of discharge. Qualifiers: Hematuria type: gross Qualified Code(s): R31.0 - Gross hematuria (2) Prostate cancer Current Visit: Yes Status: Chronic Progress Note Subjective: no new complaints Narrative: Patient seen and examined sitting upright in bed eating breakfast in no apparent distress. Patient is tolerating normal diet without nausea or vomiting. Rojas catheter is indwelling and draining transparent, orange/pink tinge urine into bedside bag. Objective Initial Vital Signs Temp Pulse Resp BP Pulse Ox 98.4 F 80 20 172/79 97 10/20/18 19:25 10/20/18 19:25 10/20/18 19:25 10/20/18 19:25 10/20/18 19:25 - General physical appearance Present: well developed, no distress, no pain - Respiratory Present: normal expansion, normal respiratory effort - Abdomen Present: soft, non tender. Absent: distended - Genitourinary Urine Appearance: Present: Clear (Transparent, orange/pink tinge urine) - Integumentary Present: no rash, no abnormal pigmentation - Musculoskeletal Present: normal posture - Psychiatric Present: oriented to time, oriented to person, oriented to place, speech is normal, memory intact - Labs 10/22/18 00:42 10/22/18 00:42 Diabetes panel 10/22/18 Range/Units 00:42 Sodium 141 (136-145) mEq/L Potassium 3.7 (3.5-5.1) mEq/L Chloride 104 (98-107) mEq/L Carbon Dioxide 30 H (23-29) mEq/L BUN 24 H (8-23) mg/dL Creatinine 1.86 H (0.70-1.30) mg/dL Glucose 153 H (70-105) mg/dL Calcium 8.2 L (8.6-10.3) mg/dL Calcium panel 10/22/18 Range/Units 00:42 Calcium 8.2 L (8.6-10.3) mg/dL Pituitary panel 10/22/18 Range/Units 00:42 Sodium 141 (136-145) mEq/L Potassium 3.7 (3.5-5.1) mEq/L Chloride 104 (98-107) mEq/L Carbon Dioxide 30 H (23-29) mEq/L BUN 24 H (8-23) mg/dL Creatinine 1.86 H (0.70-1.30) mg/dL Glucose 153 H (70-105) mg/dL Calcium 8.2 L (8.6-10.3) mg/dL Adrenal panel 10/22/18 Range/Units 00:42 Sodium 141 (136-145) mEq/L Potassium 3.7 (3.5-5.1) mEq/L Chloride 104 (98-107) mEq/L Carbon Dioxide 30 H (23-29) mEq/L BUN 24 H (8-23) mg/dL Creatinine 1.86 H (0.70-1.30) mg/dL Glucose 153 H (70-105) mg/dL Calcium 8.2 L (8.6-10.3) mg/dL - VTE Documentation of Mechanical Device: Intermittent pneumatic compression device Consult Discharge Plan - Plan Referrals: Lucero Herrera CNP [Primary Care Provider] - (Follow up has been requested )
[2018-10-22] MEDS: amLODIPine 5 MG TABLET PO SCH (10:43)
[2018-10-22] MEDS: Aspirin Enteric Coated 81 MG Tablet PO SCH (10:43)
[2018-10-22] MEDS: Fluticasone Propionate Nasal 50 MCG/SPRAY BOTTLE NS SCH (10:43)
[2018-10-22] MEDS: predniSONE 5 MG TABLET PO SCH (10:43)
[2018-10-22] MEDS: (Abiraterone Acetate [Zytiga] 250 MG) PO SCH (10:44)
[2018-10-22] MEDS: Insulin LISPRO 300 UNITS/3 ML VIAL SQ SCH ×3 (10:44→17:36)
[2018-10-22] MEDS: cefTRIAXone 1,000 MG in Water for inj. (sterile) 10 ML IVP SCH (10:46)
--- NOTE | 2018-10-22 17:27 | Internal Med Progress Note ---
Hospitalist Progress Note - Encounter Date of Encounter: 10/22/18 Time of Encounter: 13:00 - Subjective Interval History: Patient was seen and examined at bedside-he had been experiencing hematuria after bilateral stent placement is on anticoagulation and has a urinary tract infection. He was seen by urology today and did remove Rojas catheter. Urology recommending holding anticoagulation a possible until urine remains clear for 3 days. I did discuss with hematology Dr. Jones concerning holding anticoagulation. Dr. Jones recommending a patient's remaining in the hospital for extended time that he should be on either Lovenox if his creatinine is stable or heparin subcutaneous twice a day. If he is to go home he can resume his Xarelto on Monday. I did discuss with urology TELEPHONE LINEWORKER Shanti Lees updated concerning anticoagulation who is in agreement. Also updated the patient's only having a small amount of urine out this time and we will monitor to ensure the patient is urinating prior to discharge. Nursing reports that patient is passing some clots and is having a small amount of bleeding. He did urinate in the toilet and had a residual of 117 on bladder scan. We will continue to monitor overnight-concerned about possible urinary retention and recurrent bleeding -concerned that patient will return back to the hospital if discharged home tonight. If he has no more bleeding and is urinating without difficulty we will discharge in the a.m. - Exam Vitals: Temp Pulse Resp BP Pulse Ox 98.1 F 70 16 106/66 94 10/22/18 15:32 10/22/18 15:32 10/22/18 15:32 10/22/18 15:32 10/22/18 15:32 Exam: General: Alert and oriented 3 Skin:Normal color, no rash, no lesions. HEENT:EOM, pupils equal, round and reactive. Cardiovascular:Normal S1 & S2, no rubs, murmurs or gallops. No JVD. Pulse regular. Lungs:Normal breath sounds, no wheezes or crackles. Abdomen:Soft, non-tender, no rigidity. Extremities:No deformity, no edema or tenderness, no joint swelling or clubbing. Neurological:Normal cognition and motor skills. Pulses:Carotid and radial pulses normal +2. Rest of the physical exam is non contributory - Assessment and Plan (1) Diabetes mellitus Current Visit: No Status: Chronic Assessment and Plan: Blood glucose checks. Sliding scale insulin. (2) CHF (congestive heart failure) Current Visit: No Status: Chronic Assessment and Plan: History of congestive heart failure. -Monitor I's and O's; daily weights -Continue gentle hydration -Lasix as needed (3) Anemia Current Visit: Yes Status: Acute Assessment and Plan: Acute blood loss anemia likely secondary to hematuria. Hemoglobin 8.6 down from 10.2. Patient currently on anticoagulation for PE.-Which is being held at this time -Type and screen -Hold anticoagulation -Trend H&H -We will consider transfusing if hemoglobin less than 8 given cardiac history. (4) Prostate cancer Current Visit: Yes Status: Chronic Assessment and Plan: Have patient follow-up with oncology as outpatient (5) DVT prophylaxis Current Visit: No Status: Acute Assessment and Plan: Intermittent pneumatic compression devices (6) Elevated troponin I level Current Visit: No Status: Acute Assessment and Plan: Elevated troponin suspect secondary to demand ischemia in the setting of anemia. No reports of chest pain. No evidence of ischemia on EKG. Patient received loading dose of aspirin. Repeat troponin was negative flat and adynamic -Trend troponin -Telemetry (7) Hematuria Current Visit: Yes Status: Acute Assessment and Plan: Ramiro hematuria in the setting of recent stent exchange and possible UTI. Rojas catheter placed draining ramiro hematuria. Hemoglobin 8.7 down from 10.2. Patient hemodynamically stable. Patient currently on Xarelto for PE. Etiology likely secondary to recent stent exchange, possible UTI and anticoagulation -Continue supportive care -Continue antibiotics -Hold anticoagulation -Type and screen -Urology consult in 10/22 He was seen by urology today and did remove Rojas catheter. Urology recommending holding anticoagulation a possible until urine remains clear for 3 days. I did discuss with hematology Dr. Jones concerning holding anticoagulation. Dr. Jones recommending a patient's remaining in the hospital for extended time that he should be on either Lovenox if his creatinine is stable or heparin subcutaneous twice a day. If he is to go home he can resume his Xarelto on Monday. (8) Acute retention of urine Current Visit: Yes Status: Acute Assessment and Plan: Acute urinary retention in the setting of prostate CA and hematuria with blood clots. Creatinine unchanged from previous assessment in September. -Rojas catheter has been removed per urology. Patient has a small amount of bloody urine and then urinated in the toilet with 117 residual he has passed several clots we will monitor overnight -Follow up urology recommendations. - Time Spent with Patient Total time spent is greater than 50% in coordination of care (as documented) at patient's floor/unit and/or counseling patient: Internal Medicine: Result - Labs CBC & Chem 7: 10/22/18 00:42 10/22/18 00:42 Labs: Short CBC 10/21/18 10/22/18 Range/Units 18:26 00:42 WBC 7.4 (4.3-11.1) K/mcL Hgb 8.6 L 8.6 L (12.9-16.9) g/dL Hct 27.0 L 27.1 L (37.5-50.1) % Plt Count 146 (140-400) K/mcL BMP 10/22/18 00:42 Sodium 141 Potassium 3.7 Chloride 104 Carbon Dioxide 30 H BUN 24 H Creatinine 1.86 H Glucose 153 H Calcium 8.2 L - ABG Interpretation ABG results: PT/INR, D-dimer PT 15.8 Seconds (9.4-12.1) H 10/21/18 04:48 - VTE Documentation of Mechanical Device: Intermittent pneumatic compression device Consult Discharge Plan - Plan Referrals: Lucero Herrera, UTILITY WORKER [employer] [Primary Care Provider] - (Follow up has been requested ) (1) Diabetes mellitus Qualifiers: Diabetes mellitus type: type 2 Diabetes mellitus intermodal dispatcher insulin use: without fci use Diabetes mellitus complication status: with hyperglycemia Qualified Code(s): E11.65 - Type 2 diabetes mellitus with hyperglycemia (2) CHF (congestive heart failure) Qualifiers: Heart failure type: unspecified Heart failure chronicity: chronic Qualified Code(s): I50.9 - Heart failure, unspecified (3) Anemia Qualifiers: Anemia type: unspecified type Qualified Code(s): D64.9 - Anemia, unspecified (7) Hematuria Qualifiers: Hematuria type: gross Qualified Code(s): R31.0 - Gross hematuria
[2018-10-23 03:28] LABS: Basophils % 0.5 %; Eosinophils # 0.4 K/mcL (0.0-0.6); Eosinophils % 4.7 %; Hematocrit 26.1 % (37.5-50.1); Hemoglobin 8.2 g/dL (12.9-16.9); Immature Granulocytes % 0.1 % (0-4); Lymphocytes # 2.1 K/mcL (0.6-4.6); Lymphocytes % 26.9 %; Mean Corpuscular HGB Conc 31.4 g/dL (31.6-35.5); Mean Corpuscular Volume 92.2 fL (83.0-100.0); Mean Platelet Volume 11.8 fL (9.4-12.4); Monocytes # 0.8 K/mcL (0.0-1.3); Monocytes % 9.8 %; Neutrophils # 4.5 K/mcL (1.6-8.9); Platelet Count 162 K/mcL (140-400); Red Blood Count 2.83 M/mcL (4.19-5.50); Red Cell Distribution Width 13.4 % (11.5-14.5); White Blood Count 7.7 K/mcL (4.3-11.1)
[2018-10-23 03:46] LABS: Calcium 8.3 mg/dL (8.6-10.3); Potassium 3.7 mEq/L (3.5-5.1)
[2018-10-23 07:56] VITALS: BP 163/80
--- NOTE | 2018-10-23 08:06 | Discharge Summary ---
- NOTES TO OUTPATIENT PROVIDER Notes to Outpatient Provider: Onofre Elianvandana on Mon10/24/2018. Follow up with urology Dr Velazco 2-4 weeks. monitor CBC as outpatient Orders not resulted at time of discharge: Pending orders 10/24/18 04:00 BMP [Basic Metabolic Panel] AM 0400 CBC no Diff [Complete Blood Count w/o Diff] [HEME] AM 0400 Date of Encounter: 10/23/18 Time of Encounter: 08:03 - Discharge Diagnosis (1) Diabetes mellitus Priority: Secondary Status: Chronic Qualifiers: Diabetes mellitus type: type 2 Diabetes mellitus penitentiary insulin use: without penitentiary use Diabetes mellitus complication status: with hyperglycemia Qualified Code(s): E11.65 - Type 2 diabetes mellitus with hyperglycemia (2) CHF (congestive heart failure) Priority: Secondary Status: Chronic Qualifiers: Heart failure type: unspecified Heart failure chronicity: chronic Qualified Code(s): I50.9 - Heart failure, unspecified (3) Anemia Priority: Secondary Status: Acute Qualifiers: Anemia type: unspecified type Qualified Code(s): D64.9 - Anemia, unspecified (4) Prostate cancer Priority: Secondary Status: Chronic (5) Elevated troponin I level Priority: Secondary Status: Acute (6) Hematuria Priority: Primary Status: Acute Qualifiers: Hematuria type: gross Qualified Code(s): R31.0 - Gross hematuria (7) Acute retention of urine Priority: Primary Status: Acute Hospital course: Mr. Herrera is a 83 year old male past medical history of CHF CAD diabetes PE on Cymbalta and prostate cancer with recent bilateral ureteral stent exchange performed last Monday presented with complaints of urinary retention and hematuria. Also reporting burning with urination laboratory workup noted a low hemoglobin of 8.7 down from 10.2 on 10/04/2018 creatinine was elevated 2.16 which was unchanged from previous assessment. UA was suggestive of possible UTI for catheter was placed in the ED with drainage of gladys hematuria urology was consulted and patient was initiated on Rocephin. Urine culture showed no growth and Rocephin has been stopped trending has been trending down Patient's anticoagulation was held hemoglobin was [id number] been stable around 8- patient's urine did begin to clear-Rojas catheter was removed-urology recommending holding anticoagulation until urine is clear for 3 days discussed with hematology as a courtesy consult Dr. Jones suggests holding until Monday and resume Xarelto on Monday. After Rojas removal patient did have some difficulty urinating however this did improve overnight and currently he is urinating without any problems. Advised patient to hold Xarelto until Monday we will monitor his CBC as an outpatient he will follow up with urology in 2-4 weeks as well as oncology as scheduled. - Time Spent with Patient Total time spent providing and/or coordinating discharge services: - Discharge Medications Prescriptions: Continued Metoprolol [Lopressor] 50 mg PO BID Timolol Maleate 0.5% 1 drop BOTH EYES BID Terazosin HCl 10 mg PO BID Atorvastatin [Lipitor] 40 mg PO HS Aspirin Enteric Coated [Aspirin EC] 81 mg PO DAILY Rivaroxaban [Xarelto] 20 mg PO DAILY HYDROcodone/Acet 5/325 mg [[place] 5-325 mg] 1 - 2 tab PO Q6H PRN 30 Days #240 tab PRN Reason: Pain predniSONE [PredniSONE] 5 mg PO DAILY #30 tablet Fluticasone Propionate Nasal [Flonase] 1 spray NS DAILY Amlodipine Besylate 5 mg PO DAILY Abiraterone Acetate [Zytiga] 1,000 mg PO DAILY #120 tablet Furosemide [Lasix] 40 mg PO DAILY PRN PRN Reason: swelling Home Medications: Aspirin Enteric Coated [Aspirin EC] 81 mg PO DAILY 12/06/17 [History] Atorvastatin [Lipitor] 40 mg PO HS 12/06/17 [History] Metoprolol [Lopressor] 50 mg PO BID 12/06/17 [History] Terazosin HCl 10 mg PO BID 12/06/17 [History] Timolol Maleate 0.5% 1 drop BOTH EYES BID 12/06/17 [History] Rivaroxaban [Xarelto] 20 mg PO DAILY 01/11/18 [History] HYDROcodone/Acet 5/325 mg [[place] 5-325 mg] 1 - 2 tab PO Q6H PRN 30 Days #240 tab 07/31/18 [Rx] predniSONE [PredniSONE] 5 mg PO DAILY #30 tablet 08/29/18 [Rx] Amlodipine Besylate 5 mg PO DAILY 09/21/18 [History] Fluticasone Propionate Nasal [Flonase] 1 spray NS DAILY 09/21/18 [History] Abiraterone Acetate [Zytiga] 1,000 mg PO DAILY #120 tablet 09/25/18 [Rx] Furosemide [Lasix] 40 mg PO DAILY PRN 10/16/18 [History] Allergies/Adverse Reactions: Allergy/AdvReac Type Severity Reaction Status Date / Time Penicillins Allergy Rash Verified 10/16/18 13:25 Date of admission: 10/20/18 22:51 Primary care physician: Lucero Herrera, Consults: 10/20/18 22:25 Consult to Urology [CONS] Stat Consulting Provider: Urology Sarah Reason for Consult: Hematuria Time Notified: 22:26 Call Completed: Yes Discharging clinician: Kerri Esqueda Anticipated date of discharge: 10/23/18 - Constitutional Vitals: Temp Pulse Resp BP Pulse Ox 98.1 F 83 16 163/80 99 10/23/18 07:52 10/23/18 07:52 10/23/18 07:52 10/23/18 07:52 10/23/18 07:52 Exam: Skin: Free of rash and discoloration. Eyes: Sclera is white. There is no discharge from eyes. ENMT: Oral/pharyngeal mucosa is normal in appearance. There is no discharge from nose or ears. Respiratory: Normal breath sounds with no crackles and wheezes bilaterally. CV: Heart is regular with no gallop or murmur. GI: Abdomen is flat and soft with no palpable mass or visceromegaly. : There is no tenderness in patient's flanks bilaterally. Neuro exam: He has good strength in upper and lower extremities. He has normal eye movements. Psychiatric: He has normal affect. His thought process is appropriate to the situation. - Patient Status Disposition: Home, Self-Care Condition: Fair Functional capacity at discharge: independent ambulation Overall status at discharge: patient is back to baseline - Discharge Instructions Follow Up With: Lucero Herrera CNP [Primary Care Provider] - (Follow up has been requested ) Additional Instructions: Patient will have CBC checked in 1 week Resume Xarelto on Monday10/24/2018 - Diet and Activity Activity: increase activity as tolerated Diet: advance to your usual diet - VTE Documentation of Mechanical Device: Intermittent pneumatic compression device
[2018-10-23] MEDS: Insulin LISPRO 300 UNITS/3 ML VIAL SQ SCH (08:07)
[2018-10-23] MEDS: predniSONE 5 MG TABLET PO SCH (08:17)
[2018-10-23] MEDS: (Abiraterone Acetate [Zytiga] 250 MG) PO SCH (08:17)
[2018-10-23] MEDS: amLODIPine 5 MG TABLET PO SCH (08:17)
[2018-10-23] MEDS: Fluticasone Propionate Nasal 50 MCG/SPRAY BOTTLE NS SCH (08:17)
[2018-10-23] MEDS: Aspirin Enteric Coated 81 MG Tablet PO SCH (08:18)
[2018-10-23] MEDS: cefTRIAXone 1,000 MG in Water for inj. (sterile) 10 ML IVP SCH (08:36)
== END 2018-10-23 10:00 | disposition home or self-care (01) ==
LOC: EMEROOARM 19:24 → 3BNU 19:24
PROVIDERS: ADMIT Internal Medicine; ATTEND Internal Medicine